=== PATIENT | male | born 1945 | race Caucasian/White ===

== ENCOUNTER 2017-05-09 12:09 | Emergency (ER) | payer OTHER ==
[2017-05-09 12:16] VITALS: BP 151/92; BMI 24.4
--- NOTE | 2017-05-09 12:32 | DR.GENAD ---
HPI - PCP Primary Care Physician: MASHA RAM - HPI Comment HPI Comment: GETTING WORSE. DID NOT SLEEP LAST NIGHT. CHEST PAIN FROM COUGHTING. HISTORY COPD. WHEEZING. - Complaint/Symptoms Chief Complaint Doctors Comments: INCRESING SOB, FEVER AND BODYACHES. Chief Complaint:: PATIENT STATED THAT HE STARTED BEING SHORT OF BREATH ON JORDI. BUT IT BECAME WORSE YESTERDAY. PATIENT STATED THAT HE COULD NOT HARDLY BREATH ALL NIGHT. - Nurses notes reviewed Nurses Notes Review: Yes - Source History Provided: Patient - Mode of Arrival Mode of Arrival: Ambulatory - Timing Onset of Chief Complaint: 05/06/17 Came on: Suddenly - Duration Duration: Constant Duration: Days - Severity Severity: Moderate PMH - PMH Past Medical History: Yes Past Medical History: COPD Past Surgical History: No - Family History History of Family Medical Conditions: No - Social History Does patient currently use any type of tobacco product: No Have you used tobacco products in the last 12 months: No Type of Tobacco Use: None Does any household member use tobacco: No Alcohol Use: None Do you use any recreational Drugs:: No Lives With: Spouse Lives Where: Home - infectious screening In the last 2 months have you had wt loss of >10#?: NO Have you had fever, night sweats or hemotysis?: No Have you traveled outside the country in the last 6 months?: No Isolation: Standard ROS - Review of Systems Constitutional: Chills, Fever, Weakness, Fatigue Eyes: negative: Eye Pain, Discharge ENTM: Nose Discharge, Nose Congestion, Throat Pain. negative: Ear Pain Respiratoy: Productive Cough, Short of Breath, Wheezing. negative: Hemoptysis Cardiovascular: Chest Pain Gastrointestinal/Abdominal: negative: Abdominal Pain, Constipation, Nausea, Vomiting Genitourinary: negative: Dysuria, Hematuria Neurological: Headache, Weakness, Dizziness Musculoskeletal: Muscle Pain Integumentary: No Symptoms Reported Hematologic/Lymphatic: No Symptoms Reported Endocrine: No Symptoms Reported All Other Systems: Reviewed and Negative PE - Vital Signs Vitals: Temperature 101.2 F Pulse Rate 115 Respiratory Rate 20 Blood Pressure 151/92 O2 Sat by Pulse Oximetry 92 - General Limitations: No Limitations General Appearance: Alert - Head Head Exam: Normal Inspection - Eyes Eye exam: Normal Appearance - ENT ENT Exam: Normal External Ear Exam External Ear Exam: Normal External Inspection TM/Canal Exam: Bilateral Bulging Nose Exam: Normal Nose Exam Mouth Exam: Normal Inspection Throat Exam: Tonsillar Erythema. negative: Tonsillomegaly - Neck Neck Exam: Trachea Midline - Chest Chest Inspection: Symmetric Chest Wall Rise - Respiratory Respiratory Exam: Normal Lung Sounds Bilat Respiratory Exam: Bilateral Wheezing, Bilateral Rhonchi, Upper Rhonchi, Lower Wheezing, Lower Rhonchi - Cardiovascular Cardiovascular Exam: Regular Rate, Normal Rhythm, Normal Heart Sounds - Abdominal Exam Abdominal Exam: Normal Bowel Sounds, Soft. negative: Tenderness - Extremities Extremities Exam: Normal Inspection - Back Back Exam: Normal Inspection - Neurologic Neurological Exam: Alert, Oriented X3 - Psychiatric Psychiatric Exam: Normal Affect, Normal Mood - Skin Skin Exam: Normal Color MDM - Differential Diagnosis Differential Diagnosis: FLU,PNEUMONIA, COPD, BRONCHITIS, SINUSITIS Course - Treatment Treatment: SEE ORDERS - Education/Counseling Education/Counseling: Patient, Family, Education Educated On: Treatment, Diagnosis, Needs for Follow Up ROR - Labs Reviewed Laboratory Results Reviewed?: Yes Result Diagrams: 05/09/17 13:10 05/09/17 13:10 Laboratory: WBC 15.2 X10^3/uL (3.6-10.0) H 05/09/17 13:10 RBC 5.36 X10^6/uL (4.7-6.0) 05/09/17 13:10 Hgb 15.0 g/dL (13.5-18.0) 05/09/17 13:10 Hct 44.5 % (42.0-54.0) 05/09/17 13:10 MCV 83.0 fL (80.0-100.0) 05/09/17 13:10 MCH 28.0 pg (27.0-34.0) 05/09/17 13:10 MCHC 33.7 g/dL (33.0-35.0) 05/09/17 13:10 RDW 13.1 % (11.6-16.5) 05/09/17 13:10 Plt Count 263 X10^3/uL (150.0-450.0) 05/09/17 13:10 Plt Count Comment Adequate (ADEQUATE) 05/09/17 13:10 MPV 9.0 fL (7.4-11.0) 05/09/17 13:10 Neut % 81.3 % (42.0-75.0) H 05/09/17 13:10 Lymph % 5.5 % (21.0-51.0) L 05/09/17 13:10 [place] % 11.7 % (0.0-13.0) 05/09/17 13:10 Eos % 1.1 % (0.9-2.9) 05/09/17 13:10 Baso % 0.4 % (0.2-1.0) 05/09/17 13:10 Neut # 12.3 x10^3/uL (2.2-4.8) H 05/09/17 13:10 Lymph # 0.8 X10^3/uL (1.3-2.9) L 05/09/17 13:10 [place] # 1.8 x10^3/uL (0.3-0.8) H 05/09/17 13:10 Eos # 0.2 x10^3/uL (0.0-0.2) 05/09/17 13:10 Baso # 0.1 X10^3/uL (0.0-0.1) 05/09/17 13:10 Absolute Nucleated RBC 0.0 /100WBC 05/09/17 13:10 Total Counted 100 05/09/17 13:10 Neutrophils % (Manual) 78 % (39-76) H 05/09/17 13:10 Band Neutrophils % 3 % (0-10) 05/09/17 13:10 Lymphocytes % (Manual) 8 % (13-43) L 05/09/17 13:10 Monocytes % (Manual) 7 % (4-9) 05/09/17 13:10 Eosinophils % (Manual) 4 % (0-6) 05/09/17 13:10 Plt Morphology Comment Normal (NORMAL) 05/09/17 13:10 RBC Morphology Normal (NORMAL) 05/09/17 13:10 Sodium 137 mmol/L (136-145) 05/09/17 13:10 Corrected Sodium 137 mmol/L (136-145) 05/09/17 13:10 Potassium 4.2 mmol/L (3.5-5.1) 05/09/17 13:10 Chloride 101 mmol/L (98-107) 05/09/17 13:10 Carbon Dioxide 28.6 mmol/L (21-32) 05/09/17 13:10 BUN 14 mg/dL (7-18) 05/09/17 13:10 Creatinine 1.21 mg/dL (0.70-1.30) 05/09/17 13:10 Est GFR (MDRD) Af Amer > 60 (>60) 05/09/17 13:10 Est GFR (MDRD) Non-Af > 60 (>60) 05/09/17 13:10 Glucose 111 mg/dL (65-99) H 05/09/17 13:10 Calcium 9.1 mg/dL (8.5-10.1) 05/09/17 13:10 Corrected Calcium TNP 05/09/17 13:10 Total Bilirubin 0.30 mg/dL (0.2-1.0) 05/09/17 13:10 AST 16 Units/L (15-37) 05/09/17 13:10 ALT 21 Units/L (12-78) 05/09/17 13:10 Alkaline Phosphatase 61 Units/L (46-116) 05/09/17 13:10 Total Protein 7.1 g/dL (6.4-8.2) 05/09/17 13:10 Albumin 3.5 g/dL (3.4-5.0) 05/09/17 13:10 Globulin 3.6 g/dL (2.5-4.5) 05/09/17 13:10 Albumin/Globulin Ratio 1.0 Ratio (1.1-2.1) L 05/09/17 13:10 Influenza Type A (PCR) Positive (NEGATIVE) A 05/09/17 12:24 Influenza Type B (PCR) Negative (NEGATIVE) 05/09/17 12:24 - XRAY XRAY Interpreted by: Radiologist XRAY Findings: REPORT DISCUSS WITH PATIENT AND FAMILY. - Diagnosis Discharge Problem: Influenza, Bronchitis, COPD exacerbation - Discharge Plan Disposition: HOME, SELF-CARE Condition: Stable Prescriptions: Acetaminophen with Codeine [Tylenol/Codeine #3 300-30 mg] 1 tab PO Q8H PRN #15 tab PRN Reason: Pain Doxycycline Hyclate 100 mg PO BID #20 tablet. Oseltamivir Phosphate [Tamiflu] 75 mg PO BID #10 cap - Follow ups/Referrals Follow ups/Referrals: AURELIO RAM [Primary Care Provider] - 3 days - Instructions Instructions: Chronic Obstructive Pulmonary Disease Exacerbation, [id number] , Influenza, Adult, [id number], Acute Bronchitis, [id number] Additional Instructions: RETURN TO ED IF WORSE.
[2017-05-09 13:17] LABS: BASOPHILS # (AUTO) 0.1 X10^3/uL (0.0-0.1); BASOPHILS % (AUTO) 0.4 % (0.2-1.0); EOSINOPHILS # (AUTO) 0.2 x10^3/uL (0.0-0.2); EOSINOPHILS % (AUTO) 1.1 % (0.9-2.9); HEMATOCRIT 44.5 % (42.0-54.0); LYMPHOCYTES # (AUTO) 0.8 X10^3/uL (1.3-2.9); LYMPHOCYTES % (AUTO) 5.5 % (21.0-51.0); MEAN CORPUSCULAR HGB CONC 33.7 g/dL (33.0-35.0); MONOCYTES # (AUTO) 1.8 x10^3/uL (0.3-0.8); MONOCYTES % (AUTO) 11.7 % (0.0-13.0); NEUTROPHILS # (AUTO) 12.3 x10^3/uL (2.2-4.8); NEUTROPHILS % (AUTO) 81.3 % (42.0-75.0); PLATELET COUNT 263 X10^3/uL (150.0-450.0); RED BLOOD COUNT 5.36 X10^6/uL (4.7-6.0); RED CELL DISTRIBUTION WIDTH 13.1 % (11.6-16.5); WHITE BLOOD COUNT 15.2 X10^3/uL (3.6-10.0)
[2017-05-09 13:39] LABS: ALANINE AMINOTRANSFERASE 21 Units/L (12-78); ALBUMIN 3.5 g/dL (3.4-5.0); ALKALINE PHOSPHATASE 61 Units/L (46-116); ASPARTATE AMINO TRANSFERASE 16 Units/L (15-37); BAND NEUTROPHILS % 3 % (0-10); BLOOD UREA NITROGEN 14 mg/dL (7-18); CALCIUM 9.1 mg/dL (8.5-10.1); CARBON DIOXIDE 28.6 mmol/L (21-32); CHLORIDE 101 mmol/L (98-107); COR NA(FOR HYPERGLY) 137 mmol/L (136-145); CREATININE 1.21 mg/dL (0.70-1.30); SODIUM 137 mmol/L (136-145); TOTAL PROTEIN 7.1 g/dL (6.4-8.2); eGFR BLACK RACES > 60 (>60); eGFR NON BLACK RACES > 60 (>60)
[2017-05-09 13:40] LABS: PLATELET MORPHOLOGY COMMENT NORMAL (NORMAL)
--- NOTE | 2017-05-09 13:48 | RAD ---
HISTORY: Fever, shortness of breath Study: Chest PA and lateral Comparison: None Findings: The heart is within normal limits in size. The khoi are normal. The lungs are hyperinflated but free of acute alveolar infiltrates. No pleural effusions are identified. The bony thorax is unremarkable. IMPRESSION: Lungs hyperinflated but clear Reported By:
[2017-05-09] MEDS ORDERED: ROCEPHIN VIAL 1 GM IM ONE (14:01)
[2017-05-09] MEDS ORDERED: DECADRON INJ IM ONE (14:01)
[2017-05-09] MEDS ORDERED: XYLOCAINE 1 % (PLAIN) ONE (14:10)
[2017-05-09] MEDS ORDERED: DECADRON INJ ONE (14:10)
[2017-05-09] MEDS ORDERED: ROCEPHIN VIAL 1 GM ONE (14:10)
== END 2017-05-09 14:23 | disposition home or self-care (01) ==
LOC: ER 12:11
DX: J11.1 Influenza due to unidentified influenza virus with other respiratory manifestations (principal); J40 Bronchitis, not specified as acute or chronic; J44.1 Chronic obstructive pulmonary disease with (acute) exacerbation
CPT/HCPCS: 36415; 71046; 80053; 85025; 87502; 96372; 99282; J0696; J1100; J2001

== ENCOUNTER 2019-05-28 19:20 | Inpatient (IN) ==
--- NOTE | 2019-05-28 20:01 | DR.SOBA ---
HPI <Lavell Valentine - Last Filed: 05/28/19 20:01> Time Seen Time Seen by Provider: 05/28/19 19:54 Primary Care Physician Primary Care Physician: MINA RAM HPI Comment HPI Comment: SOB, coughing Complaints Chief Complaint Doctors Comments: says coughing more than usual since yesterday. Has COPD and CHF. When she got home from work today, he had fever 102 and was confused. His BP was low and sats 78-80%. He wears 2lpm at home and normal sats 88-90%. Chief Complaint:: " STATES THAT SHE CAME HOME TODAY AND HE HAD SOME AMS FOR ABOUT A HOUR. HIS BLOOD PRESSURE WAS HIGH AND PULSE RATE HIGH AND OXYGEN LOW AND COMPLAINED OF A HEADACHE THAT HE HAS HAD FOR 2 DAYS. BEEN COUGHING BAD AND RUNNING A FEVER THAT JUST STARTED" Reviewed Nurses Notes Reviewed: Yes Source History Provided: Patient and Significant Other Mode of Arrival Mode of Arrival: Ambulatory Timing Onset of Chief Complaint: 05/28/19 Context Onset:: At Rest PE Risk Factors:: None History of:: COPD Currently on:: Inhaled Bronchodilators Modifying Factors Worsens:: Nothing Improves:: Nothing Associated Signs and Symptoms Associated Signs and Symptoms: Fever, Wheeze and Cough; denies Hemoptysis and Chest Pain If Cough Cough: Nonproductive PMH <Lavell Valentine - Last Filed: 05/28/19 20:01> PMH Past Medical History: Yes Past Medical History: CHF, COPD and Hypertension Past Surgical History: No Family History History of Family Medical Conditions: No Social History Does patient currently use any type of tobacco product: No Have you used tobacco products in the last 12 months: No Does any household member use tobacco: No Alcohol Use: None Do you use any recreational Drugs:: No Lives Where: Home infectious screening In the last 2 months have you had wt loss of >10#?: NO Have you had fever, night sweats or hemotysis?: No Have you traveled outside the country in the last 6 months?: No Isolation: Standard <Chun Arias - Last Filed: 05/28/19 23:21> Review of Systems Constitutional: Fever; negative Chills, Diaphoresis, Malaise, Weakness and Fatigue Eyes: No Symptoms Reported ENTM: No Symptoms Reported Respiratoy: Non-Productive Cough and Short of Breath; negative Productive Cough and Hemoptysis Cardiovascular: No Symptoms Reported Gastrointestinal/Abdominal: No Symptoms Reported Genitourinary: No Symptoms Reported Neurological: No Symptoms Reported Musculoskeletal: No Symptoms Reported Integumentary: No Symptoms Reported Hematologic/Lymphatic: No Symptoms Reported Endocrine: No Symptoms Reported Psychiatric: No Symptoms Reported All Other Systems: Reviewed and Negative PE <Lavell Valentine Last Filed: 05/28/19 20:01> Vital Signs Vitals: Temperature 98.8 F Pulse Rate 98 Respiratory Rate 60 Blood Pressure [Right Arm] 110/66 Blood Pressure 116/75 O2 Sat by Pulse Oximetry 92 <Chun Arias Last Filed: 05/28/19 23:21> Vital Signs Vitals: Temperature 98.8 F Pulse Rate 98 Respiratory Rate 60 Blood Pressure [Right Arm] 110/66 Blood Pressure 116/75 O2 Sat by Pulse Oximetry 92 General Limitations: No Limitations General Appearance: Alert and In Distress (mild) Head Head Exam: Normal Inspection Eyes Eye exam: Normal Appearance ENT ENT Exam: Normal Exam Neck Neck Exam: Normal Inspection Chest Chest Inspection: Normal Inspection Respiratory Respiratory Exam: negative Accessory Muscle Use, Chest Wall Tenderness, Respiratory Distress and Stridor Respiratory Exam: Bilateral: Clear to Auscultation and Bilateral: Rhonchi Cardiovascular Cardiovascular Exam: Regular Rate and Normal Rhythm Abdominal Exam Abdominal Exam: Normal Inspection, Normal Bowel Sounds and Soft Extremities Extremities Exam: Normal Inspection Back Back Exam: Normal Inspection Neurologic Neurological Exam: Alert and Oriented X3 Psychiatric Psychiatric Exam: Normal Affect and Normal Mood Skin Skin Exam: Warm, Dry, Intact and Normal Color <Chun Arias Last Filed: 05/28/19 23:21> Treatment Treatment: Pt. sat 96% on NRB. ROR <Lavell Valentine - Last Filed: 05/28/19 20:01> Labs Reviewed Result Diagrams: 05/28/19 19:50 05/28/19 19:50 Laboratory: WBC 19.8 X10^3/uL (3.6-10.0) H 05/28/19 19:50 RBC 4.64 X10^6/uL (4.7-6.0) L 05/28/19 19:50 Hgb 11.9 g/dL (13.5-18.0) L 05/28/19 19:50 Hct 35.9 % (42.0-54.0) L 05/28/19 19:50 MCV 77.4 fL (80.0-100.0) L 05/28/19 19:50 MCH 25.6 pg (27.0-34.0) L 05/28/19 19:50 MCHC 33.1 g/dL (33.0-35.0) 05/28/19 19:50 RDW 16.1 % (11.6-16.5) 05/28/19 19:50 Plt Count 284 X10^3/uL (150.0-450.0) 05/28/19 19:50 Plt Count Comment Adequate (ADEQUATE) 05/28/19 19:50 MPV 9.2 fL (7.4-11.0) 05/28/19 19:50 Neut % (Auto) 86.8 % (42.0-75.0) H 05/28/19 19:50 Lymph % (Auto) 4.1 % (21.0-51.0) L 05/28/19 19:50 [place] % (Auto) 8.6 % (0.0-13.0) 05/28/19 19:50 Eos % (Auto) 0.2 % (0.9-2.9) L 05/28/19 19:50 Baso % (Auto) 0.3 % (0.2-1.0) 05/28/19 19:50 Neut # (Auto) 17.2 x10^3/uL (2.2-4.8) H 05/28/19 19:50 Lymph # (Auto) 0.8 X10^3/uL (1.3-2.9) L 05/28/19 19:50 [place] # (Auto) 1.7 x10^3/uL (0.3-0.8) H 05/28/19 19:50 Eos # (Auto) 0.0 x10^3/uL (0.0-0.2) 05/28/19 19:50 Baso # (Auto) 0.1 X10^3/uL (0.0-0.1) 05/28/19 19:50 Absolute Nucleated RBC 0.0 /100WBC 05/28/19 19:50 Plt Morphology Comment Normal (NORMAL) 05/28/19 19:50 RBC Morphology Normal (NORMAL) 05/28/19 19:50 D-Dimer 479 ng/mL (0-400) H* 05/28/19 20:12 Sample Site Rr 05/28/19 20:15 ABG pH 7.470 (7.35-7.45) H 05/28/19 20:15 ABG pCO2 38.0 mmHg (35.0-45.0) 05/28/19 20:15 ABG pO2 51.0 mmHg (80.0-100.0) L 05/28/19 20:15 ABG HCO3 27.7 mmol/L (22-26) H 05/28/19 20:15 ABG O2 Saturation 88.0 % (90-100) L 05/28/19 20:15 ABG Base Excess 3.9 mmol/L (-2.0-2.0) H 05/28/19 20:15 Aris Test P 05/28/19 20:15 A-a Gradient 130.0 mmHg 05/28/19 20:15 FiO2 32.0 05/28/19 20:15 Blood Gas Comments Louisa well 05/28/19 20:15 Sodium 131 mmol/L (136-145) L 05/28/19 19:50 Corrected Sodium 133 mmol/L (136-145) L 05/28/19 19:50 Potassium 4.0 mmol/L (3.5-5.1) 05/28/19 19:50 Chloride 97 mmol/L (98-107) L 05/28/19 19:50 Carbon Dioxide 26.8 mmol/L (21-32) 05/28/19 19:50 BUN 17 mg/dL (7-18) 05/28/19 19:50 Creatinine 1.76 mg/dL (0.70-1.30) H 05/28/19 19:50 Est GFR (MDRD) Af Amer 49 (>60) L 05/28/19 19:50 Est GFR (MDRD) Non-Af 41 (>60) L 05/28/19 19:50 Glucose 171 mg/dL (65-99) H 05/28/19 19:50 Lactic Acid 1.4 mmol/L (0.4-2.0) 05/28/19 19:50 Calcium 8.7 mg/dL (8.5-10.1) 05/28/19 19:50 Corrected Calcium 9.3 mg/dL (8.5-10.1) 05/28/19 19:50 Magnesium 1.3 mg/dL (1.7-2.9) L 05/28/19 19:50 Total Bilirubin 0.50 mg/dL (0.2-1.0) 05/28/19 19:50 AST 17 Units/L (15-37) 05/28/19 19:50 ALT 21 Units/L (12-78) 05/28/19 19:50 Alkaline Phosphatase 56 Units/L (46-116) 05/28/19 19:50 Troponin I < 0.02 ng/mL (0-1.5) 05/28/19 20:12 Total Protein 7.3 g/dL (6.4-8.2) 05/28/19 19:50 Albumin 3.2 g/dL (3.4-5.0) L 05/28/19 19:50 Globulin 4.1 g/dL (2.5-4.5) 05/28/19 19:50 Albumin/Globulin Ratio 0.8 Ratio (1.1-2.1) L 05/28/19 19:50 Specimen Type Clean catch urine 05/28/19 22:44 Urine Color Yellow (YELLOW) 05/28/19 22:44 Urine Appearance Slightly hazy (CLEAR) 05/28/19 22:44 Urine pH 8.0 (5.0 - 8.0) 05/28/19 22:44 Ur Specific [place] 1.015 (1.000-1.030) 05/28/19 22:44 Urine Protein 1+ (NEGATIVE) 05/28/19 22:44 Urine Glucose (UA) Negative (NEGATIVE) 05/28/19 22:44 Urine Ketones Negative (NEGATIVE) 05/28/19 22:44 Urine Occult Blood 1+ (NEGATIVE) 05/28/19 22:44 Urine Nitrite Negative (NEGATIVE) 05/28/19 22:44 Urine Bilirubin Negative (NEGATIVE) 05/28/19 22:44 Urine Urobilinogen Normal (NORMAL) 05/28/19 22:44 Ur Leukocyte Esterase 3+ (NEGATIVE) 05/28/19 22:44 Urine RBC 0-2 /HPF (0-3) 05/28/19 22:44 Urine WBC 20-30 /HPF (0-5) A 05/28/19 22:44 Ur Squamous Epith Cells Rare /HPF (NEGATIVE) 05/28/19 22:44 Urine Bacteria 4+ /HPF (NEGATIVE) 05/28/19 22:44 Ur Culture Indicated? Yes/culture set up 05/28/19 22:44 Influenza Type A (PCR) Negative (NEGATIVE) 05/28/19 22:32 Influenza Type B (PCR) Negative (NEGATIVE) 05/28/19 22:32 <Chun Onofree - Last Filed: 05/28/19 23:21> Labs Reviewed Laboratory Results Reviewed?: Yes Laboratory: WBC 19.8 X10^3/uL (3.6-10.0) H 05/28/19 19:50 RBC 4.64 X10^6/uL (4.7-6.0) L 05/28/19 19:50 Hgb 11.9 g/dL (13.5-18.0) L 05/28/19 19:50 Hct 35.9 % (42.0-54.0) L 05/28/19 19:50 MCV 77.4 fL (80.0-100.0) L 05/28/19 19:50 MCH 25.6 pg (27.0-34.0) L 05/28/19 19:50 MCHC 33.1 g/dL (33.0-35.0) 05/28/19 19:50 RDW 16.1 % (11.6-16.5) 05/28/19 19:50 Plt Count 284 X10^3/uL (150.0-450.0) 05/28/19 19:50 Plt Count Comment Adequate (ADEQUATE) 05/28/19 19:50 MPV 9.2 fL (7.4-11.0) 05/28/19 19:50 Neut % (Auto) 86.8 % (42.0-75.0) H 05/28/19 19:50 Lymph % (Auto) 4.1 % (21.0-51.0) L 05/28/19 19:50 [place] % (Auto) 8.6 % (0.0-13.0) 05/28/19 19:50 Eos % (Auto) 0.2 % (0.9-2.9) L 05/28/19 19:50 Baso % (Auto) 0.3 % (0.2-1.0) 05/28/19 19:50 Neut # (Auto) 17.2 x10^3/uL (2.2-4.8) H 05/28/19 19:50 Lymph # (Auto) 0.8 X10^3/uL (1.3-2.9) L 05/28/19 19:50 [place] # (Auto) 1.7 x10^3/uL (0.3-0.8) H 05/28/19 19:50 Eos # (Auto) 0.0 x10^3/uL (0.0-0.2) 05/28/19 19:50 Baso # (Auto) 0.1 X10^3/uL (0.0-0.1) 05/28/19 19:50 Absolute Nucleated RBC 0.0 /100WBC 05/28/19 19:50 Plt Morphology Comment Normal (NORMAL) 05/28/19 19:50 RBC Morphology Normal (NORMAL) 05/28/19 19:50 D-Dimer 479 ng/mL (0-400) H* 05/28/19 20:12 Sample Site Rr 05/28/19 20:15 ABG pH 7.470 (7.35-7.45) H 05/28/19 20:15 ABG pCO2 38.0 mmHg (35.0-45.0) 05/28/19 20:15 ABG pO2 51.0 mmHg (80.0-100.0) L 05/28/19 20:15 ABG HCO3 27.7 mmol/L (22-26) H 05/28/19 20:15 ABG O2 Saturation 88.0 % (90-100) L 05/28/19 20:15 ABG Base Excess 3.9 mmol/L (-2.0-2.0) H 05/28/19 20:15 Aris Test P 05/28/19 20:15 A-a Gradient 130.0 mmHg 05/28/19 20:15 FiO2 32.0 05/28/19 20:15 Blood Gas Comments Louisa well 05/28/19 20:15 Sodium 131 mmol/L (136-145) L 05/28/19 19:50 Corrected Sodium 133 mmol/L (136-145) L 05/28/19 19:50 Potassium 4.0 mmol/L (3.5-5.1) 05/28/19 19:50 Chloride 97 mmol/L (98-107) L 05/28/19 19:50 Carbon Dioxide 26.8 mmol/L (21-32) 05/28/19 19:50 BUN 17 mg/dL (7-18) 05/28/19 19:50 Creatinine 1.76 mg/dL (0.70-1.30) H 05/28/19 19:50 Est GFR (MDRD) Af Amer 49 (>60) L 05/28/19 19:50 Est GFR (MDRD) Non-Af 41 (>60) L 05/28/19 19:50 Glucose 171 mg/dL (65-99) H 05/28/19 19:50 Lactic Acid 1.4 mmol/L (0.4-2.0) 05/28/19 19:50 Calcium 8.7 mg/dL (8.5-10.1) 05/28/19 19:50 Corrected Calcium 9.3 mg/dL (8.5-10.1) 05/28/19 19:50 Magnesium 1.3 mg/dL (1.7-2.9) L 05/28/19 19:50 Total Bilirubin 0.50 mg/dL (0.2-1.0) 05/28/19 19:50 AST 17 Units/L (15-37) 05/28/19 19:50 ALT 21 Units/L (12-78) 05/28/19 19:50 Alkaline Phosphatase 56 Units/L (46-116) 05/28/19 19:50 Troponin I < 0.02 ng/mL (0-1.5) 05/28/19 20:12 Total Protein 7.3 g/dL (6.4-8.2) 05/28/19 19:50 Albumin 3.2 g/dL (3.4-5.0) L 05/28/19 19:50 Globulin 4.1 g/dL (2.5-4.5) 05/28/19 19:50 Albumin/Globulin Ratio 0.8 Ratio (1.1-2.1) L 05/28/19 19:50 Specimen Type Clean catch urine 05/28/19 22:44 Urine Color Yellow (YELLOW) 05/28/19 22:44 Urine Appearance Slightly hazy (CLEAR) 05/28/19 22:44 Urine pH 8.0 (5.0 - 8.0) 05/28/19 22:44 Ur Specific [place] 1.015 (1.000-1.030) 05/28/19 22:44 Urine Protein 1+ (NEGATIVE) 05/28/19 22:44 Urine Glucose (UA) Negative (NEGATIVE) 05/28/19 22:44 Urine Ketones Negative (NEGATIVE) 05/28/19 22:44 Urine Occult Blood 1+ (NEGATIVE) 05/28/19 22:44 Urine Nitrite Negative (NEGATIVE) 05/28/19 22:44 Urine Bilirubin Negative (NEGATIVE) 05/28/19 22:44 Urine Urobilinogen Normal (NORMAL) 05/28/19 22:44 Ur Leukocyte Esterase 3+ (NEGATIVE) 05/28/19 22:44 Urine RBC 0-2 /HPF (0-3) 05/28/19 22:44 Urine WBC 20-30 /HPF (0-5) A 05/28/19 22:44 Ur Squamous Epith Cells Rare /HPF (NEGATIVE) 05/28/19 22:44 Urine Bacteria 4+ /HPF (NEGATIVE) 05/28/19 22:44 Ur Culture Indicated? Yes/culture set up 05/28/19 22:44 Influenza Type A (PCR) Negative (NEGATIVE) 05/28/19 22:32 Influenza Type B (PCR) Negative (NEGATIVE) 05/28/19 22:32 Other Results Comments: HISTORY BLOOD PRESSURE WAS HIGH AND PULSE RATE HIGH AND OXYGEN LOW AND COMPLAINED OF A HEADACHE, COUGH, FEVER STUDY CHEST, 1 VIEW COMPARISON May 17, 2018 FINDINGS The patient is rotated. The cardiac silhouette is enlarged. Chronic appearing interstitial changes are again seen within both lungs. IMPRESSION Cardiomegaly. Chronic appearing interstitial changes. Electronically signed by: RADHA VILLEGAS (May 28, 2019 20:33:14) EKG Rate: 96 (EKG read by me) [place]: Normal Rhythm: NSR Block: None Hypertrophy: None ST: Normal Opioid <Lavell Valentine - Last Filed: 05/28/19 20:01> Opioid Risk Tool Total: 0 Total Score Risk Category: Low Risk Copyright: [facility] predicting aberrant behaviors <Chun Arias - Last Filed: 05/28/19 23:21> Opioid Risk Tool Total: 0 Total Score Risk Category: Low Risk <Lavell Valentine - Last Filed: 05/28/19 20:01> Diagnosis Discharge Problem: COPD with hypoxia, Leukocytosis COPD (chronic obstructive pulmonary disease) Qualifiers: COPD type: COPD with acute lower respiratory infection Qualified Code(s): J44.0 - Chronic obstructive pulmonary disease with (acute) lower respiratory infection Fever Qualifiers: Encounter type: initial encounter <Chun Arias - Last Filed: 05/28/19 23:21> Additional Notes Additional Notes: Pt. has not been on any steroids recently.
[2019-05-28 20:13] LABS: BASOPHILS # (AUTO) 0.1 X10^3/uL (0.0-0.1); BASOPHILS % (AUTO) 0.3 % (0.2-1.0); EOSINOPHILS % (AUTO) 0.2 % (0.9-2.9); HEMATOCRIT 35.9 % (42.0-54.0); HEMOGLOBIN 11.9 g/dL (13.5-18.0); LYMPHOCYTES # (AUTO) 0.8 X10^3/uL (1.3-2.9); LYMPHOCYTES % (AUTO) 4.1 % (21.0-51.0); MEAN CORPUSCULAR HEMOGLOBIN 25.6 pg (27.0-34.0); MEAN CORPUSCULAR HGB CONC 33.1 g/dL (33.0-35.0); MEAN CORPUSCULAR VOLUME 77.4 fL (80.0-100.0); MEAN PLATELET VOLUME 9.2 fL (7.4-11.0); MONOCYTES # (AUTO) 1.7 x10^3/uL (0.3-0.8); MONOCYTES % (AUTO) 8.6 % (0.0-13.0); NEUTROPHILS # (AUTO) 17.2 x10^3/uL (2.2-4.8); NEUTROPHILS % (AUTO) 86.8 % (42.0-75.0); PLATELET COUNT 284 X10^3/uL (150.0-450.0); RED BLOOD COUNT 4.64 X10^6/uL (4.7-6.0); RED CELL DISTRIBUTION WIDTH 16.1 % (11.6-16.5); WHITE BLOOD COUNT 19.8 X10^3/uL (3.6-10.0)
[2019-05-28 20:16] LABS: PLATELET MORPHOLOGY COMMENT NORMAL (NORMAL)
[2019-05-28 20:19] LABS: ALBUMIN 3.2 g/dL (3.4-5.0); CALCIUM 8.7 mg/dL (8.5-10.1); CARBON DIOXIDE 26.8 mmol/L (21-32); COR CA(FOR HYPOALB) 9.3 mg/dL (8.5-10.1); CREATININE 1.76 mg/dL (0.70-1.30); MAGNESIUM 1.3 mg/dL (1.7-2.9); TOTAL PROTEIN 7.3 g/dL (6.4-8.2)
--- NOTE | 2019-05-28 20:34 | RAD ---
HISTORYBLOOD PRESSURE WAS HIGH AND PULSE RATE HIGH AND OXYGEN LOW AND COMPLAINED OF A HEADACHE, COUGH, FEVERSTUDYCHEST, 1 VIEWCOMPARISONJanuary 2018FINDINGSThe patient is rotated. The cardiac silhouette is enlarged. Chronic appearing interstitial changes are again seen within both lungs.IMPRESSIONCardiomegaly.Chronic appearing interstitial changes.Electronically signed by: RADHA VILLEGAS (May 28, 2019 20:33:14)
[2019-05-28 20:36] LABS: ABG ALLEN TEST P; ABG BASE EXCESS 3.9 mmol/L (-2.0-2.0); ABG HCO3 27.7 mmol/L (22-26)
[2019-05-28 20:37] LABS: LACTIC ACID 1.4 mmol/L (0.4-2.0)
[2019-05-28] MEDS ORDERED: DUONEB 0.5 MG/3 MG (3 mL) NEB ONE ×2 (21:44→21:50)
[2019-05-28 21:53] LABS: TROPONIN I < 0.02 ng/mL (0-1.5)
[2019-05-28] MEDS ORDERED: LEVAQUIN PREMIX IV 750 MG 750 MG/150 ML BAG IV SCH (22:00)
[2019-05-28] MEDS ORDERED: NS 1000 ML 1,000 ML ONE (22:21)
[2019-05-28] MEDS ORDERED: LEVAQUIN PREMIX IV 750 MG 750 MG/150 ML BAG IV ONE (22:21)
[2019-05-28 22:53] LABS: BILIRUBIN,URINE NEGATIVE (NEGATIVE); BLOOD/HEMOGLOBIN,URINE 1+ (NEGATIVE); GLUCOSE, URINE NEGATIVE (NEGATIVE); KETONES,URINE NEGATIVE (NEGATIVE); LEUKOCYTE ESTERASE ,URINE 3+ (NEGATIVE); NITRITES,URINE NEGATIVE (NEGATIVE); PROTEIN,URINE 1+ (NEGATIVE); UROBILINOGEN,URINE NORMAL (NORMAL)
[2019-05-28 22:59] LABS: APPEARANCE,URINE SLIGHTLY HAZY (CLEAR); BACTERIA,URINE 4+ /HPF (NEGATIVE); COLOR,URINE YELLOW (YELLOW); RBC,URINE 0-2 /HPF (0-3); SQUAMOUS EPITHELIAL CELL,UR RARE /HPF (NEGATIVE)
[2019-05-29] MEDS ORDERED: AMBIEN ONE (01:56)
[2019-05-29] MEDS: AMBIEN PO PRN ×2 (02:00→21:52)
[2019-05-29 04:16] VITALS: BMI 27.5
[2019-05-29] MEDS: DUONEB 0.5 MG/3 MG (3 mL) NEB SCH ×6 (05:22→20:45)
[2019-05-29 05:54] LABS: BILIRUBIN,URINE NEGATIVE (NEGATIVE); BLOOD/HEMOGLOBIN,URINE 2+ (NEGATIVE); GLUCOSE, URINE NEGATIVE (NEGATIVE); KETONES,URINE NEGATIVE (NEGATIVE); LEUKOCYTE ESTERASE ,URINE 3+ (NEGATIVE); NITRITES,URINE POSITIVE (NEGATIVE); PROTEIN,URINE 2+ (NEGATIVE); UROBILINOGEN,URINE NORMAL (NORMAL)
[2019-05-29 06:07] LABS: APPEARANCE,URINE CLOUDY (CLEAR); BACTERIA,URINE 4+ /HPF (NEGATIVE); COLOR,URINE YELLOW (YELLOW); SQUAMOUS EPITHELIAL CELL,UR RARE /HPF (NEGATIVE)
[2019-05-29] MEDS ORDERED: MAGNESIUM SULFATE 1 GRAM/100 mL PREMIX 1 GM/100 ML BAG IV STA (08:42)
[2019-05-29 09:04] LABS: BASOPHILS # (AUTO) 0.1 X10^3/uL (0.0-0.1); BASOPHILS % (AUTO) 0.6 % (0.2-1.0); EOSINOPHILS # (AUTO) 0.1 x10^3/uL (0.0-0.2); EOSINOPHILS % (AUTO) 0.3 % (0.9-2.9); HEMATOCRIT 34.3 % (42.0-54.0); HEMOGLOBIN 11.3 g/dL (13.5-18.0); LYMPHOCYTES # (AUTO) 0.7 X10^3/uL (1.3-2.9); LYMPHOCYTES % (AUTO) 4.2 % (21.0-51.0); MEAN CORPUSCULAR HEMOGLOBIN 25.7 pg (27.0-34.0); MEAN CORPUSCULAR VOLUME 77.9 fL (80.0-100.0); MEAN PLATELET VOLUME 9.1 fL (7.4-11.0); MONOCYTES # (AUTO) 1.3 x10^3/uL (0.3-0.8); MONOCYTES % (AUTO) 7.5 % (0.0-13.0); NEUTROPHILS # (AUTO) 15.6 x10^3/uL (2.2-4.8); NEUTROPHILS % (AUTO) 87.4 % (42.0-75.0); PLATELET COUNT 256 X10^3/uL (150.0-450.0); RED CELL DISTRIBUTION WIDTH 15.7 % (11.6-16.5); WHITE BLOOD COUNT 17.8 X10^3/uL (3.6-10.0)
[2019-05-29 09:12] LABS: PLATELET MORPHOLOGY COMMENT NORMAL (NORMAL)
[2019-05-29 09:20] LABS: ALBUMIN 2.9 g/dL (3.4-5.0); CALCIUM 8.7 mg/dL (8.5-10.1); CARBON DIOXIDE 25.9 mmol/L (21-32); COR CA(FOR HYPOALB) 9.6 mg/dL (8.5-10.1); CREATININE 1.61 mg/dL (0.70-1.30); MAGNESIUM 1.4 mg/dL (1.7-2.9); TOTAL PROTEIN 6.9 g/dL (6.4-8.2)
[2019-05-29] MEDS: ROCEPHIN VIAL 1 GRAM 1 G in NS 100 ML IV + SPIKE MINIBAG* 100 ML IV SCH ×2 (09:45→09:47)
[2019-05-29] MEDS: SYNTHROID 25 mcg TAB PO SCH (09:45)
[2019-05-29] MEDS: CELEXA PO SCH (09:45)
[2019-05-29] MEDS: SOLU-Medrol 125 MG VIAL IVP SCH ×3 (09:46→21:21)
[2019-05-29] MEDS: PriLOSEC PO SCH (09:46)
--- NOTE | 2019-05-29 10:13 | DR.H&P ---
H&P History & Physical for Day of: H&P Date: 05/29/19 Chief Complaint Chief Complaint: SOB, fever , cough Allergies Allergies Allergy/AdvReac Type Severity Reaction Status Date / Time No Known Drug Allergies Allergy Verified 05/09/17 12:09 History of Present Illness History of Present Illness: Mr. Saleem is a 73y/o male with a PMH of Severe COPD on home oxygen 2 L, HTN and CHF presented with worsening breathing and cough. reports patient has not been doing well for a week with coughing, worsening SOB at rest and exertion. Yesterday, after she got home, she noticed that he was confused and his O2 sats were in the 70s. Patient has been using oxygen for 6 months but only uses it as needed. He was also recently diagnosed with CHF by PCP due to weight gain and started on diuretic a week ago. ED work up showed CXR negative for pneumonia, Flu (-). He was noted to be hypoxic requiring non-rebreather. ABG showed 7.47/38/51/27. He was admitted for COPD exacerbation/bronchitis and given one dose of Levaquin and solumedrol. Patient's Mg was 1.3, troponin x 1 (-). UA suggestive of infection, blood and urine cultures were obtained. Past Medical History Past Medical History: CHF, COPD and Hypertension Past Surgical History Surgical History: Thyroidectomy Family History Family Medical History: Cancer and Hypertension Social History Does patient currently use any type of tobacco product: No (quit 3wks ago) Have you used tobacco products in the last 12 months: Yes Type of Tobacco Use: Cigarettes How many years tobacco product used: 57 Does any household member use tobacco: No Alcohol Use: None Drug Use: None Prescription drug monitoring program results: PDMP was not reviewed Medications Home Medications: No Known Drug Allergies Allergy (Verified 05/09/17 12:09) CONTINUE taking the following medications citalopram 10 mg PO DAILY 05/28/19 [History] fenofibrate 160 mg PO HS 05/28/19 [History] furosemide 20 mg PO DAILY 05/28/19 [History] levothyroxine 25 mcg PO DAILY 05/28/19 [History] lisinopril 5 mg PO DAILY 05/28/19 [History] omeprazole 40 mg PO DAILY 05/28/19 [History] potassium chloride 10 meq PO DAILY 05/28/19 [History] pramipexole 0.125 mg PO HS 05/28/19 [History] simvastatin [Zocor] 10 mg PO HS 05/28/19 [History] zolpidem 10 mg PO HS 05/28/19 [History] Labs Result Diagrams: 05/29/19 08:55 05/29/19 08:55 Labs: Laboratory WBC 17.8 X10^3/uL (3.6-10.0) H 05/29/19 08:55 RBC 4.40 X10^6/uL (4.7-6.0) L 05/29/19 08:55 Hgb 11.3 g/dL (13.5-18.0) L 05/29/19 08:55 Hct 34.3 % (42.0-54.0) L 05/29/19 08:55 MCV 77.9 fL (80.0-100.0) L 05/29/19 08:55 MCH 25.7 pg (27.0-34.0) L 05/29/19 08:55 MCHC 33.0 g/dL (33.0-35.0) 05/29/19 08:55 RDW 15.7 % (11.6-16.5) 05/29/19 08:55 Plt Count 256 X10^3/uL (150.0-450.0) 05/29/19 08:55 Plt Count Comment Adequate (ADEQUATE) 05/29/19 08:55 MPV 9.1 fL (7.4-11.0) 05/29/19 08:55 Neut % (Auto) 87.4 % (42.0-75.0) H 05/29/19 08:55 Lymph % (Auto) 4.2 % (21.0-51.0) L 05/29/19 08:55 [place] % (Auto) 7.5 % (0.0-13.0) 05/29/19 08:55 Eos % (Auto) 0.3 % (0.9-2.9) L 05/29/19 08:55 Baso % (Auto) 0.6 % (0.2-1.0) 05/29/19 08:55 Neut # (Auto) 15.6 x10^3/uL (2.2-4.8) H 05/29/19 08:55 Lymph # (Auto) 0.7 X10^3/uL (1.3-2.9) L 05/29/19 08:55 [place] # (Auto) 1.3 x10^3/uL (0.3-0.8) H 05/29/19 08:55 Eos # (Auto) 0.1 x10^3/uL (0.0-0.2) 05/29/19 08:55 Baso # (Auto) 0.1 X10^3/uL (0.0-0.1) 05/29/19 08:55 Absolute Nucleated RBC 0.0 /100WBC 05/29/19 08:55 Plt Morphology Comment Normal (NORMAL) 05/29/19 08:55 RBC Morphology Normal (NORMAL) 05/29/19 08:55 D-Dimer 479 ng/mL (0-400) H* 05/28/19 20:12 Sample Site Rr 05/28/19 20:15 ABG pH 7.470 (7.35-7.45) H 05/28/19 20:15 ABG pCO2 38.0 mmHg (35.0-45.0) 05/28/19 20:15 ABG pO2 51.0 mmHg (80.0-100.0) L 05/28/19 20:15 ABG HCO3 27.7 mmol/L (22-26) H 05/28/19 20:15 ABG O2 Saturation 88.0 % (90-100) L 05/28/19 20:15 ABG Base Excess 3.9 mmol/L (-2.0-2.0) H 05/28/19 20:15 Aris Test P 05/28/19 20:15 A-a Gradient 130.0 mmHg 05/28/19 20:15 FiO2 32.0 05/28/19 20:15 Blood Gas Comments Louisa well 05/28/19 20:15 Sodium 129 mmol/L (136-145) L 05/29/19 08:55 Corrected Sodium 131 mmol/L (136-145) L 05/29/19 08:55 Potassium 4.2 mmol/L (3.5-5.1) 05/29/19 08:55 Chloride 96 mmol/L (98-107) L 05/29/19 08:55 Carbon Dioxide 25.9 mmol/L (21-32) 05/29/19 08:55 BUN 15 mg/dL (7-18) 05/29/19 08:55 Creatinine 1.61 mg/dL (0.70-1.30) H 05/29/19 08:55 Est GFR (MDRD) Af Amer 55 (>60) L 05/29/19 08:55 Est GFR (MDRD) Non-Af 45 (>60) L 05/29/19 08:55 Glucose 179 mg/dL (65-99) H 05/29/19 08:55 Lactic Acid 1.4 mmol/L (0.4-2.0) 05/28/19 19:50 Calcium 8.7 mg/dL (8.5-10.1) 05/29/19 08:55 Corrected Calcium 9.6 mg/dL (8.5-10.1) 05/29/19 08:55 Magnesium 1.4 mg/dL (1.7-2.9) L 05/29/19 08:55 Total Bilirubin 0.60 mg/dL (0.2-1.0) 05/29/19 08:55 AST 17 Units/L (15-37) 05/29/19 08:55 ALT 15 Units/L (12-78) 05/29/19 08:55 Alkaline Phosphatase 53 Units/L (46-116) 05/29/19 08:55 Troponin I < 0.02 ng/mL (0-1.5) 05/28/19 20:12 Total Protein 6.9 g/dL (6.4-8.2) 05/29/19 08:55 Albumin 2.9 g/dL (3.4-5.0) L 05/29/19 08:55 Globulin 4.0 g/dL (2.5-4.5) 05/29/19 08:55 Albumin/Globulin Ratio 0.7 Ratio (1.1-2.1) L 05/29/19 08:55 Specimen Type Catherized urine 05/29/19 05:44 Urine Color Yellow (YELLOW) 05/29/19 05:44 Urine Appearance Cloudy (CLEAR) 05/29/19 05:44 Urine pH 7.0 (5.0 - 8.0) 05/29/19 05:44 Ur Specific [place] 1.005 (1.000-1.030) 05/29/19 05:44 Urine Protein 2+ (NEGATIVE) 05/29/19 05:44 Urine Glucose (UA) Negative (NEGATIVE) 05/29/19 05:44 Urine Ketones Negative (NEGATIVE) 05/29/19 05:44 Urine Occult Blood 2+ (NEGATIVE) 05/29/19 05:44 Urine Nitrite Positive (NEGATIVE) 05/29/19 05:44 Urine Bilirubin Negative (NEGATIVE) 05/29/19 05:44 Urine Urobilinogen Normal (NORMAL) 05/29/19 05:44 Ur Leukocyte Esterase 3+ (NEGATIVE) 05/29/19 05:44 Urine RBC 3-5 /HPF (0-3) A 05/29/19 05:44 Urine WBC 20-30 /HPF (0-5) A 05/29/19 05:44 Ur Squamous Epith Cells Rare /HPF (NEGATIVE) 05/29/19 05:44 Urine Bacteria 4+ /HPF (NEGATIVE) 05/29/19 05:44 Ur Culture Indicated? Yes/culture set up 05/29/19 05:44 Influenza Type A (PCR) Negative (NEGATIVE) 05/28/19 22:32 Influenza Type B (PCR) Negative (NEGATIVE) 05/28/19 22:32 Review of Systems Constitutional: Fever and Weakness Eyes: No Symptoms Reported ENT: Nose Congestion Respiratory: Cough, Shortness of Breath, SOB with Excertion and Sputum Cardiovascular: denies Chest Pain, Palpitations and Edema Gastrointestinal: denies Nausea, Vomiting and Abdominal Pain Genitourinary: Dysuria and Frequency Musculoskeletal: No Symptoms Reported Skin: No Symptoms Reported Neurological: Confusion Physical Exam Vital Signs: Temperature 100.4 F Pulse Rate [Apical] 93 Pulse Rate 106 Respiratory Rate 20 Blood Pressure [Right Arm] 107/63 Blood Pressure 123/63 O2 Sat by Pulse Oximetry 90 Oriented: Normal Eyes: Normal Throat: Normal Respiratory: Diminished Throughout Cardiovascular: Tachycardia Auscultation: Bowel Sounds: Normal Palpation: Normal Tenderness: Normal Skin: Normal Musculoskeletal: Normal Psychiatric: Normal Mood Description: Calm Affect: Normal Speech Pattern: Clear and Appropriate Assessment/Plan (1) Acute on chronic respiratory failure with hypoxia: Status: Acute Plan: Due to underlying severe COPD Continue to titrate oxygen as tolerated, sats > 90% Continue duonebs, IV abx Repeat CXR today (2) COPD exacerbation: Status: Acute Plan: Severe COPD, uses 2L oxygen at home Continue solumedrol 60 mg q8hrs, duonebs, Rocephin and Azithromycin Follow cultures (3) UTI (urinary tract infection): Qualifiers: Hematuria presence: without hematuria Urinary tract infection type: acute cystitis Qualified Code(s): N30.00 - Acute cystitis without hematuria Status: Acute Plan: UA suggestive of infection, patient reports dyuria Follow urine culture Continue Rocephin (4) AMBREEN (acute kidney injury): Status: Acute Plan: Cr trending down, 1.61 from 1.76 Monitor AM labs, avoid nephrotoxic medications (5) Hypomagnesemia: Status: Acute Plan: Mg 1.3, now 1.4 Replace as per protocol (6) Hyponatremia: Status: Acute Plan: Na: 129 No signs of fluid overload on exam, will repeat CXR Monitor AM labs (7) CHF (congestive heart failure): Qualifiers: Heart failure chronicity: unspecified Heart failure type: unspecified Qualified Code(s): I50.9 - Heart failure, unspecified Status: Acute Plan: recently diagnosed based on clinical symptoms, CXR yesterday negative for edema. Will repeat CXR today, no signs of fluid overload on exam. Hold Lasix for now, order echo (8) Hyperglycemia: Status: Acute Plan: no hx of DM, glucose elevated Will start SSI, check A1C Review H&P Reviewed: Yes Patient was examined?: Yes
[2019-05-29] MEDS ORDERED: PULMICORT NEB TX 0.5 MG NEB SCH (10:30)
[2019-05-29] MEDS: ZITHROMAX INJ 500 MG VIAL 250 MG in D5W 250 ML IV 250 ML IV SCH ×2 (10:43→10:49)
[2019-05-29] MEDS: XANAX PO PRN ×2 (10:43→22:55)
[2019-05-29] MEDS: PULMICORT NEB TX 0.5 MG NEB SCH ×2 (11:48→20:45)
[2019-05-29] MEDS: MAGNESIUM SULFATE 1 GRAM/100 mL PREMIX 1 GM/100 ML BAG IV PRN ×3 (12:04→14:34)
[2019-05-29] MEDS: HumuLIN R SC PRN ×3 (12:29→21:34)
--- NOTE | 2019-05-29 13:42 | RAD ---
HISTORYSOB, R/O PNEUMONIA, PULMONARY EDEMASTUDYCHEST, 1 VIEWCOMPARISONJanuary 31stTECHNIQUEPortable chestFINDINGSLungs are hyperexpanded. Upper lobe emphysematous changes are suspected and there are superimposed fibrous interstitial lung changes within the bilateral lung bases. No infiltrates, edema or pleural fluid collections. The heart size is stable, borderline enlarged for portable film. There is no free air or pneumothorax.IMPRESSIONRadiographic features of chronic obstructive pulmonary disease with superimposed bibasilar fibrous interstitial lung changes.Otherwise no acute radiographic abnormalities of the chestElectronically signed by: NGA WHITEHEAD (May 29, 2019 13:40:33)
[2019-05-29] MEDS: NS 1000 ML 1,000 ML IV SCH (17:58)
[2019-05-29] MEDS: ZOCOR TAB 10 MG PO SCH (21:21)
[2019-05-29] MEDS: TRICOR TAB 160 MG PO SCH (21:21)
[2019-05-29] MEDS: MIRAPEX TAB 0.25 MG PO SCH (21:22)
[2019-05-29] MEDS ORDERED: LOPRESSOR INJ 5 MG AMP IVP ONE ×2 (21:40→22:49)
[2019-05-29] MEDS ORDERED: LOPRESSOR INJ 5 MG AMP ONE (21:42)
[2019-05-30] MEDS: DUONEB 0.5 MG/3 MG (3 mL) NEB SCH ×5 (05:52→12:04)
[2019-05-30] MEDS: SOLU-Medrol 125 MG VIAL IVP SCH ×2 (06:00→20:47)
[2019-05-30 06:03] LABS: BASOPHILS % (AUTO) 0.1 % (0.2-1.0); HEMATOCRIT 33.9 % (42.0-54.0); HEMOGLOBIN 11.1 g/dL (13.5-18.0); LYMPHOCYTES # (AUTO) 0.8 X10^3/uL (1.3-2.9); LYMPHOCYTES % (AUTO) 4.1 % (21.0-51.0); MEAN CORPUSCULAR HEMOGLOBIN 25.5 pg (27.0-34.0); MEAN CORPUSCULAR HGB CONC 32.8 g/dL (33.0-35.0); MEAN CORPUSCULAR VOLUME 77.6 fL (80.0-100.0); MEAN PLATELET VOLUME 9.6 fL (7.4-11.0); MONOCYTES # (AUTO) 1.1 x10^3/uL (0.3-0.8); MONOCYTES % (AUTO) 5.9 % (0.0-13.0); NEUTROPHILS # (AUTO) 16.8 x10^3/uL (2.2-4.8); NEUTROPHILS % (AUTO) 89.9 % (42.0-75.0); PLATELET COUNT 309 X10^3/uL (150.0-450.0); RED BLOOD COUNT 4.36 X10^6/uL (4.7-6.0); RED CELL DISTRIBUTION WIDTH 16.1 % (11.6-16.5); WHITE BLOOD COUNT 18.7 X10^3/uL (3.6-10.0)
[2019-05-30] MEDS: HumuLIN R SC PRN ×4 (06:08→20:49)
[2019-05-30 06:11] LABS: CALCIUM 8.7 mg/dL (8.5-10.1); CARBON DIOXIDE 23.8 mmol/L (21-32); CREATININE 1.58 mg/dL (0.70-1.30); MAGNESIUM 2.3 mg/dL (1.7-2.9)
[2019-05-30 06:26] LABS: PLATELET MORPHOLOGY COMMENT NORMAL (NORMAL)
[2019-05-30] MEDS: NS 1000 ML 1,000 ML IV SCH (06:58)
[2019-05-30] MEDS: PULMICORT NEB TX 0.5 MG NEB SCH ×2 (08:53→20:18)
[2019-05-30] MEDS: ROCEPHIN VIAL 1 GRAM 1 G in NS 100 ML IV + SPIKE MINIBAG* 100 ML IV SCH (09:35)
[2019-05-30] MEDS: PriLOSEC PO SCH (09:36)
[2019-05-30] MEDS: CELEXA PO SCH (09:37)
[2019-05-30] MEDS: SYNTHROID 25 mcg TAB PO SCH (09:37)
[2019-05-30] MEDS: LOPRESSOR TAB 25 MG PO SCH ×2 (09:37→20:49)
[2019-05-30] MEDS: ZITHROMAX INJ 500 MG VIAL 250 MG in D5W 250 ML IV 250 ML IV SCH (11:10)
[2019-05-30] MEDS ORDERED: LASIX IVP ONE (11:36)
--- NOTE | 2019-05-30 12:41 | PCM.PROG ---
Progress Note Progress Note for Day of Date of Exam: 05/30/19 Subjective Subjective: Patient seen at bedside, had a very restless night, agitated. reports confusion this AM. He was noted to be in afib rvr last night, HR in 150- 160s. He was given metoprolol tartrate 5mg IV x 2, HR in 130s. He denies chest pain. He reports improvement in breathing. He is still on hi-flow. Patient is alert and oriented on my exam. Past Medical Family Social History Past Med/Fam/Surg Hx: No changes since H&P Allergies: Allergies No Known Drug Allergies Allergy (Verified 05/09/17 12:09) Review of Systems ROS: No change since H&P Vital Signs and I&O's Vital Signs: Temperature 98.4 F Pulse Rate [Apical] 93 Pulse Rate 145 Respiratory Rate 21 Blood Pressure [Right Arm] 107/63 Blood Pressure 118/87 O2 Sat by Pulse Oximetry 97 Intake and Output: Intake & Output 05/27/19 05/28/19 05/29/19 05/30/19 23:59 23:59 23:59 23:59 Intake Total 2848 / 2848 594 / 594 Output Total 2650 / 2650 400 / 400 Balance 198 / 198 194 / 194 Physical Exam Oriented: Normal Eyes: Normal Throat: Normal Respiratory: Diminished Cardiovascular: Tachycardia Auscultation: Bowel Sounds: Normal Tenderness: Normal Skin: Normal Musculoskeletal: Normal Psychiatric: Normal Mood Description: Calm Affect: Normal Speech Pattern: Clear Laboratory and Diagnostics Result Diagrams: 05/30/19 04:42 05/30/19 04:42 Labs: 05/28/19 22:44 Urine,Clean Catch Urine Culture - Preliminary 05/28/19 20:17 Blood Blood Culture - Preliminary 05/28/19 20:12 Blood Blood Culture - Preliminary Laboratory WBC 18.7 X10^3/uL (3.6-10.0) H 05/30/19 04:42 RBC 4.36 X10^6/uL (4.7-6.0) L 05/30/19 04:42 Hgb 11.1 g/dL (13.5-18.0) L 05/30/19 04:42 Hct 33.9 % (42.0-54.0) L 05/30/19 04:42 MCV 77.6 fL (80.0-100.0) L 05/30/19 04:42 MCH 25.5 pg (27.0-34.0) L 05/30/19 04:42 MCHC 32.8 g/dL (33.0-35.0) L 05/30/19 04:42 RDW 16.1 % (11.6-16.5) 05/30/19 04:42 Plt Count 309 X10^3/uL (150.0-450.0) 05/30/19 04:42 Plt Count Comment Adequate (ADEQUATE) 05/30/19 04:42 MPV 9.6 fL (7.4-11.0) 05/30/19 04:42 Neut % (Auto) 89.9 % (42.0-75.0) H 05/30/19 04:42 Lymph % (Auto) 4.1 % (21.0-51.0) L 05/30/19 04:42 [place] % (Auto) 5.9 % (0.0-13.0) 05/30/19 04:42 Eos % (Auto) 0.0 % (0.9-2.9) L 05/30/19 04:42 Baso % (Auto) 0.1 % (0.2-1.0) L 05/30/19 04:42 Neut # (Auto) 16.8 x10^3/uL (2.2-4.8) H 05/30/19 04:42 Lymph # (Auto) 0.8 X10^3/uL (1.3-2.9) L 05/30/19 04:42 [place] # (Auto) 1.1 x10^3/uL (0.3-0.8) H 05/30/19 04:42 Eos # (Auto) 0.0 x10^3/uL (0.0-0.2) 05/30/19 04:42 Baso # (Auto) 0.0 X10^3/uL (0.0-0.1) 05/30/19 04:42 Absolute Nucleated RBC 0.0 /100WBC 05/30/19 04:42 Plt Morphology Comment Normal (NORMAL) 05/30/19 04:42 RBC Morphology Normal (NORMAL) 05/30/19 04:42 D-Dimer 479 ng/mL (0-400) H* 05/28/19 20:12 Sample Site Rr 05/28/19 20:15 ABG pH 7.470 (7.35-7.45) H 05/28/19 20:15 ABG pCO2 38.0 mmHg (35.0-45.0) 05/28/19 20:15 ABG pO2 51.0 mmHg (80.0-100.0) L 05/28/19 20:15 ABG HCO3 27.7 mmol/L (22-26) H 05/28/19 20:15 ABG O2 Saturation 88.0 % (90-100) L 05/28/19 20:15 ABG Base Excess 3.9 mmol/L (-2.0-2.0) H 05/28/19 20:15 Aris Test P 05/28/19 20:15 A-a Gradient 130.0 mmHg 05/28/19 20:15 FiO2 32.0 05/28/19 20:15 Blood Gas Comments Louisa well 05/28/19 20:15 Sodium 127 mmol/L (136-145) L 05/30/19 04:42 Corrected Sodium 129 mmol/L (136-145) L 05/30/19 04:42 Potassium 4.0 mmol/L (3.5-5.1) 05/30/19 04:42 Chloride 93 mmol/L (98-107) L 05/30/19 04:42 Carbon Dioxide 23.8 mmol/L (21-32) 05/30/19 04:42 BUN 20 mg/dL (7-18) H 05/30/19 04:42 Creatinine 1.58 mg/dL (0.70-1.30) H 05/30/19 04:42 Est GFR (MDRD) Af Amer 56 (>60) L 05/30/19 04:42 Est GFR (MDRD) Non-Af 46 (>60) L 05/30/19 04:42 Glucose 190 mg/dL (65-99) H 05/30/19 04:42 POC Glucose (mg/dL) 208 mg/dL (65-99) H 05/30/19 11:46 Hemoglobin A1c 6.6 % 05/29/19 08:55 Lactic Acid 1.4 mmol/L (0.4-2.0) 05/28/19 19:50 Calcium 8.7 mg/dL (8.5-10.1) 05/30/19 04:42 Corrected Calcium 9.6 mg/dL (8.5-10.1) 05/29/19 08:55 Magnesium 2.3 mg/dL (1.7-2.9) 05/30/19 04:42 Total Bilirubin 0.60 mg/dL (0.2-1.0) 05/29/19 08:55 AST 17 Units/L (15-37) 05/29/19 08:55 ALT 15 Units/L (12-78) 05/29/19 08:55 Alkaline Phosphatase 53 Units/L (46-116) 05/29/19 08:55 Troponin I < 0.02 ng/mL (0-1.5) 05/28/19 20:12 B-Natriuretic Peptide 79.8 pg/mL (0-79) H 05/29/19 08:55 Total Protein 6.9 g/dL (6.4-8.2) 05/29/19 08:55 Albumin 2.9 g/dL (3.4-5.0) L 05/29/19 08:55 Globulin 4.0 g/dL (2.5-4.5) 05/29/19 08:55 Albumin/Globulin Ratio 0.7 Ratio (1.1-2.1) L 05/29/19 08:55 Specimen Type Catherized urine 05/29/19 05:44 Urine Color Yellow (YELLOW) 05/29/19 05:44 Urine Appearance Cloudy (CLEAR) 05/29/19 05:44 Urine pH 7.0 (5.0 - 8.0) 05/29/19 05:44 Ur Specific [place] 1.005 (1.000-1.030) 05/29/19 05:44 Urine Protein 2+ (NEGATIVE) 05/29/19 05:44 Urine Glucose (UA) Negative (NEGATIVE) 05/29/19 05:44 Urine Ketones Negative (NEGATIVE) 05/29/19 05:44 Urine Occult Blood 2+ (NEGATIVE) 05/29/19 05:44 Urine Nitrite Positive (NEGATIVE) 05/29/19 05:44 Urine Bilirubin Negative (NEGATIVE) 05/29/19 05:44 Urine Urobilinogen Normal (NORMAL) 05/29/19 05:44 Ur Leukocyte Esterase 3+ (NEGATIVE) 05/29/19 05:44 Urine RBC 3-5 /HPF (0-3) A 05/29/19 05:44 Urine WBC 20-30 /HPF (0-5) A 05/29/19 05:44 Ur Squamous Epith Cells Rare /HPF (NEGATIVE) 05/29/19 05:44 Urine Bacteria 4+ /HPF (NEGATIVE) 05/29/19 05:44 Ur Culture Indicated? Yes/culture set up 05/29/19 05:44 Ur Random Sodium < 50 mmol/L (40-220) 05/30/19 11:20 Urine Creatinine 103.11 mg/dL (40-278) 05/30/19 11:20 Influenza Type A (PCR) Negative (NEGATIVE) 05/28/19 22:32 Influenza Type B (PCR) Negative (NEGATIVE) 05/28/19 22:32 Plan (1) Atrial fibrillation with rapid ventricular response: Status: Acute Plan: new onset, HR: 150s. Received 2 doses of metoprolol tartrate 5mg IV, HR still in 130s. Will start oral metoprolol tartrate 12.5mg BID and adjust as needed Echo pending (2) Acute on chronic respiratory failure with hypoxia: Status: Acute Plan: Due to underlying severe COPD Continue to titrate oxygen as tolerated, sats > 90% Continue duonebs, IV abx Will give one dose of Lasix, stop IVF CXR yesterday: chronic obstructive pulmonary disease with superimposed bibasilar fibrous interstitial lung changes. (3) COPD exacerbation: Status: Acute Plan: Severe COPD, uses 2L oxygen at home Decrease solumedrol 60 mg q12s, duonebs, Rocephin and Azithromycin Follow cultures (4) UTI (urinary tract infection): Status: Acute Qualifiers: Hematuria presence: without hematuria Urinary tract infection type: acute cystitis Qualified Code(s): N30.00 - Acute cystitis without hematuria Plan: UA suggestive of infection, patient reports dyuria Follow urine culture Continue Rocephin (5) AMBREEN (acute kidney injury): Status: Acute Plan: Cr trending down, 1.58 from 1.76 Monitor AM labs, avoid nephrotoxic medications Urine Cr and na ordered to check FeNa (6) Hypomagnesemia: Status: Acute Plan: Resolved, 2.3 (7) Hyponatremia: Status: Acute Plan: Na: 129, was on IVF but no improvement. Will give on dose of Lasix. (8) CHF (congestive heart failure): Status: Acute Qualifiers: Heart failure chronicity: unspecified Heart failure type: unspecified Qualified Code(s): I50.9 - Heart failure, unspecified Plan: recently diagnosed based on clinical symptoms. One dose of Lasix now. Echo ordered for tomorrow. Monitor UOP. (9) Hyperglycemia: Status: Acute Plan: A1C: 6.6, continue SSI (10) AMS (altered mental status): Status: Acute Qualifiers: Altered mental status type: delirium Qualified Code(s): R41.0 - Disorientation, unspecified Plan: Likely due to underlying infection, patient alert and oriented on my exam this AM. Continue to monitor, decrease steroids
[2019-05-30] MEDS ORDERED: XOPENEX 1.25 MG/3 ML NEBULE NEB SCH (13:00)
[2019-05-30] MEDS ORDERED: LASIX ONE (14:04)
[2019-05-30] MEDS: XOPENEX 1.25 MG/3 ML NEBULE NEB SCH (17:50)
[2019-05-30] MEDS: MIRAPEX TAB 0.25 MG PO SCH (20:47)
[2019-05-30] MEDS: TRICOR TAB 160 MG PO SCH (20:48)
[2019-05-30] MEDS: ZOCOR TAB 10 MG PO SCH (20:48)
[2019-05-30] MEDS: SEROquel TAB 25 mg PO PRN (20:49)
[2019-05-30] MEDS ORDERED: LEVAQUIN PREMIX IV 750 MG 750 MG/150 ML BAG IV SCH (22:00)
[2019-05-31] MEDS: XOPENEX 1.25 MG/3 ML NEBULE NEB SCH ×4 (00:13→17:27)
[2019-05-31] MEDS ORDERED: MILK OF MAGNESIA PO PRN (06:27)
[2019-05-31] MEDS ORDERED: COLACE CAP 100 MG PO PRN (06:27)
[2019-05-31] MEDS: HumuLIN R SC PRN ×2 (06:52→17:10)
[2019-05-31] MEDS ORDERED: PREVNAR 13 IM ONE (08:29)
[2019-05-31 08:30] LABS: BLOOD UREA NITROGEN 23 mg/dL (7-18); CALCIUM 8.9 mg/dL (8.5-10.1); CARBON DIOXIDE 25.6 mmol/L (21-32); CHLORIDE 98 mmol/L (98-107); COR NA(FOR HYPERGLY) 137 mmol/L (136-145); CREATININE 1.35 mg/dL (0.70-1.30); SODIUM 135 mmol/L (136-145); eGFR NON BLACK RACES 55 (>60)
[2019-05-31 08:32] LABS: BASOPHILS % (AUTO) 0 % (0.2-1.0); HEMATOCRIT 32.6 % (42.0-54.0); HEMOGLOBIN 10.6 g/dL (13.5-18.0); LYMPHOCYTES # (AUTO) 0.8 X10^3/uL (1.3-2.9); LYMPHOCYTES % (AUTO) 3.3 % (21.0-51.0); MEAN CORPUSCULAR HEMOGLOBIN 25.3 pg (27.0-34.0); MEAN CORPUSCULAR HGB CONC 32.7 g/dL (33.0-35.0); MEAN CORPUSCULAR VOLUME 77.5 fL (80.0-100.0); MEAN PLATELET VOLUME 9.7 fL (7.4-11.0); MONOCYTES # (AUTO) 1.6 x10^3/uL (0.3-0.8); MONOCYTES % (AUTO) 6.7 % (0.0-13.0); NEUTROPHILS # (AUTO) 21.2 x10^3/uL (2.2-4.8); PLATELET COUNT 322 X10^3/uL (150.0-450.0); RED CELL DISTRIBUTION WIDTH 15.9 % (11.6-16.5); WHITE BLOOD COUNT 23.5 X10^3/uL (3.6-10.0)
[2019-05-31] MEDS: PULMICORT NEB TX 0.5 MG NEB SCH ×2 (08:50→20:10)
[2019-05-31] MEDS ORDERED: LASIX IVP ONE ×2 (08:51→09:30)
[2019-05-31 09:02] LABS: BAND NEUTROPHILS % 5 % (0-10)
[2019-05-31 09:03] LABS: PLATELET MORPHOLOGY COMMENT NORMAL (NORMAL); TOXIC GRANULATION NOTED
[2019-05-31] MEDS: ZITHROMAX INJ 500 MG VIAL 250 MG in D5W 250 ML IV 250 ML IV SCH (09:19)
[2019-05-31] MEDS: LOPRESSOR TAB 25 MG PO SCH ×2 (09:19→20:30)
[2019-05-31] MEDS: SOLU-Medrol 125 MG VIAL IVP SCH ×2 (09:21→20:30)
[2019-05-31] MEDS: SYNTHROID 25 mcg TAB PO SCH (09:21)
[2019-05-31] MEDS: CELEXA PO SCH (09:21)
[2019-05-31] MEDS: PriLOSEC PO SCH (09:21)
[2019-05-31] MEDS: ROCEPHIN VIAL 1 GRAM 1 G in NS 100 ML IV + SPIKE MINIBAG* 100 ML IV SCH (09:22)
[2019-05-31] MEDS ORDERED: HEPARIN SODIUM INJ 5000 UNITS ONE (09:30)
--- NOTE | 2019-05-31 09:35 | PCM.PROG ---
Progress Note Progress Note for Day of Date of Exam: 05/31/19 Subjective Subjective: Patient seen at bedside, reports improvement in breathing. He slept a couple hours last night with the Seroquel. He is still on hi-flow oxygen. HR in the 90s. He received a dose of Lasix yesterday. Echo pending for today. Will increase metoprolol tartrate to 25mg BID, continue Rocephin, Azithromycin and steroids. Discussed anti-coagulation for atrial fibrillation, no prior hx of bleeding. Will start Eliquis after echo results. Titrate O2 as tolerated. Will give another dose of IV Lasix today. WBC elevated, could be 2/2 to steroids. Patient has been afebrile. Past Medical Family Social History Past Med/Fam/Surg Hx: No changes since H&P Allergies: Allergies No Known Drug Allergies Allergy (Verified 05/09/17 12:09) Review of Systems ROS: No change since H&P Vital Signs and I&O's Vital Signs: Temperature 99 F Pulse Rate [Apical] 93 Pulse Rate 89 Respiratory Rate 24 Blood Pressure [Right Arm] 107/63 Blood Pressure 138/76 O2 Sat by Pulse Oximetry 88 Intake and Output: Intake & Output 05/28/19 05/29/19 05/30/19 05/31/19 23:59 23:59 23:59 23:59 Intake Total 2848 / 2848 2998 / 2998 480 / 480 Output Total 2650 / 2650 2600 / 2600 1000 / 1000 Balance 198 / 198 398 / 398 -520 / -520 Physical Exam Oriented: Normal Eyes: Normal Throat: Normal Respiratory: Diminished and Rales Cardiovascular: Tachycardia Auscultation: Bowel Sounds: Normal Tenderness: Normal Skin: Normal Musculoskeletal: Normal Psychiatric: Normal Mood Description: Calm Affect: Normal Speech Pattern: Clear Laboratory and Diagnostics Result Diagrams: 05/31/19 07:56 05/31/19 07:56 Labs: 05/28/19 22:44 Urine,Clean Catch Urine Culture - Preliminary 05/28/19 20:17 Blood Blood Culture - Preliminary 05/28/19 20:12 Blood Blood Culture - Preliminary Laboratory WBC 23.5 X10^3/uL (3.6-10.0) H 05/31/19 07:56 RBC 4.20 X10^6/uL (4.7-6.0) L 05/31/19 07:56 Hgb 10.6 g/dL (13.5-18.0) L 05/31/19 07:56 Hct 32.6 % (42.0-54.0) L 05/31/19 07:56 MCV 77.5 fL (80.0-100.0) L 05/31/19 07:56 MCH 25.3 pg (27.0-34.0) L 05/31/19 07:56 MCHC 32.7 g/dL (33.0-35.0) L 05/31/19 07:56 RDW 15.9 % (11.6-16.5) 05/31/19 07:56 Plt Count 322 X10^3/uL (150.0-450.0) 05/31/19 07:56 Plt Count Comment Adequate (ADEQUATE) 05/31/19 07:56 MPV 9.7 fL (7.4-11.0) 05/31/19 07:56 Neut % (Auto) 90.0 % (42.0-75.0) H 05/31/19 07:56 Lymph % (Auto) 3.3 % (21.0-51.0) L 05/31/19 07:56 [place] % (Auto) 6.7 % (0.0-13.0) 05/31/19 07:56 Eos % (Auto) 0.0 % (0.9-2.9) L 05/31/19 07:56 Baso % (Auto) 0 % (0.2-1.0) L 05/31/19 07:56 Neut # (Auto) 21.2 x10^3/uL (2.2-4.8) H 05/31/19 07:56 Lymph # (Auto) 0.8 X10^3/uL (1.3-2.9) L 05/31/19 07:56 [place] # (Auto) 1.6 x10^3/uL (0.3-0.8) H 05/31/19 07:56 Eos # (Auto) 0.0 x10^3/uL (0.0-0.2) 05/31/19 07:56 Baso # (Auto) 0.0 X10^3/uL (0.0-0.1) 05/31/19 07:56 Absolute Nucleated RBC 0.0 /100WBC 05/31/19 07:56 Total Counted 100 05/31/19 07:56 Neutrophils % (Manual) 82 % (39-76) H 05/31/19 07:56 Band Neutrophils % 5 % (0-10) 05/31/19 07:56 Lymphocytes % (Manual) 6 % (13-43) L 05/31/19 07:56 Monocytes % (Manual) 7 % (4-9) 05/31/19 07:56 Toxic Granulation Noted 05/31/19 07:56 Plt Morphology Comment Normal (NORMAL) 05/31/19 07:56 RBC Morphology Normal (NORMAL) 05/31/19 07:56 D-Dimer 479 ng/mL (0-400) H* 05/28/19 20:12 Sample Site Rr 05/28/19 20:15 ABG pH 7.470 (7.35-7.45) H 05/28/19 20:15 ABG pCO2 38.0 mmHg (35.0-45.0) 05/28/19 20:15 ABG pO2 51.0 mmHg (80.0-100.0) L 05/28/19 20:15 ABG HCO3 27.7 mmol/L (22-26) H 05/28/19 20:15 ABG O2 Saturation 88.0 % (90-100) L 05/28/19 20:15 ABG Base Excess 3.9 mmol/L (-2.0-2.0) H 05/28/19 20:15 Aris Test P 05/28/19 20:15 A-a Gradient 130.0 mmHg 05/28/19 20:15 FiO2 32.0 05/28/19 20:15 Blood Gas Comments Louisa well 05/28/19 20:15 Sodium 135 mmol/L (136-145) L 05/31/19 07:56 Corrected Sodium 137 mmol/L (136-145) 05/31/19 07:56 Potassium 4.3 mmol/L (3.5-5.1) 05/31/19 07:56 Chloride 98 mmol/L (98-107) 05/31/19 07:56 Carbon Dioxide 25.6 mmol/L (21-32) 05/31/19 07:56 BUN 23 mg/dL (7-18) H 05/31/19 07:56 Creatinine 1.35 mg/dL (0.70-1.30) H 05/31/19 07:56 Est GFR (MDRD) Af Amer > 60 (>60) 05/31/19 07:56 Est GFR (MDRD) Non-Af 55 (>60) L 05/31/19 07:56 Glucose 193 mg/dL (65-99) H 05/31/19 07:56 POC Glucose (mg/dL) 181 mg/dL (65-99) H 05/31/19 06:42 Hemoglobin A1c 6.6 % 05/29/19 08:55 Lactic Acid 1.4 mmol/L (0.4-2.0) 05/28/19 19:50 Calcium 8.9 mg/dL (8.5-10.1) 05/31/19 07:56 Corrected Calcium 9.6 mg/dL (8.5-10.1) 05/29/19 08:55 Magnesium 2.3 mg/dL (1.7-2.9) 05/30/19 04:42 Total Bilirubin 0.60 mg/dL (0.2-1.0) 05/29/19 08:55 AST 17 Units/L (15-37) 05/29/19 08:55 ALT 15 Units/L (12-78) 05/29/19 08:55 Alkaline Phosphatase 53 Units/L (46-116) 05/29/19 08:55 Troponin I < 0.02 ng/mL (0-1.5) 05/28/19 20:12 B-Natriuretic Peptide 79.8 pg/mL (0-79) H 05/29/19 08:55 Total Protein 6.9 g/dL (6.4-8.2) 05/29/19 08:55 Albumin 2.9 g/dL (3.4-5.0) L 05/29/19 08:55 Globulin 4.0 g/dL (2.5-4.5) 05/29/19 08:55 Albumin/Globulin Ratio 0.7 Ratio (1.1-2.1) L 05/29/19 08:55 Specimen Type Catherized urine 05/29/19 05:44 Urine Color Yellow (YELLOW) 05/29/19 05:44 Urine Appearance Cloudy (CLEAR) 05/29/19 05:44 Urine pH 7.0 (5.0 - 8.0) 05/29/19 05:44 Ur Specific [place] 1.005 (1.000-1.030) 05/29/19 05:44 Urine Protein 2+ (NEGATIVE) 05/29/19 05:44 Urine Glucose (UA) Negative (NEGATIVE) 05/29/19 05:44 Urine Ketones Negative (NEGATIVE) 05/29/19 05:44 Urine Occult Blood 2+ (NEGATIVE) 05/29/19 05:44 Urine Nitrite Positive (NEGATIVE) 05/29/19 05:44 Urine Bilirubin Negative (NEGATIVE) 05/29/19 05:44 Urine Urobilinogen Normal (NORMAL) 05/29/19 05:44 Ur Leukocyte Esterase 3+ (NEGATIVE) 05/29/19 05:44 Urine RBC 3-5 /HPF (0-3) A 05/29/19 05:44 Urine WBC 20-30 /HPF (0-5) A 05/29/19 05:44 Ur Squamous Epith Cells Rare /HPF (NEGATIVE) 05/29/19 05:44 Urine Bacteria 4+ /HPF (NEGATIVE) 05/29/19 05:44 Ur Culture Indicated? Yes/culture set up 05/29/19 05:44 Ur Random Sodium < 50 mmol/L (40-220) 05/30/19 11:20 Urine Creatinine 103.11 mg/dL (40-278) 05/30/19 11:20 Influenza Type A (PCR) Negative (NEGATIVE) 05/28/19 22:32 Influenza Type B (PCR) Negative (NEGATIVE) 05/28/19 22:32 Plan (1) Atrial fibrillation with rapid ventricular response: Status: Acute Plan: increase metoprolol tartrate to 25mg BID Echo pending, discussed anticoagulation. (2) Acute on chronic respiratory failure with hypoxia: Status: Acute Plan: Due to underlying severe COPD Continue to titrate oxygen as tolerated, sats > 90% Continue duonebs, IV abx Will give one dose of Lasix Last CXR: chronic obstructive pulmonary disease with superimposed bibasilar fibrous interstitial lung changes. (3) COPD exacerbation: Status: Acute Plan: Severe COPD, uses 2L oxygen at home Continue solumedrol 60 mg q12s, duonebs, Rocephin and Azithromycin Follow cultures (4) UTI (urinary tract infection): Status: Acute Qualifiers: Hematuria presence: without hematuria Urinary tract infection type: acute cystitis Qualified Code(s): N30.00 - Acute cystitis without hematuria Plan: UA suggestive of infection, patient reports dyuria urine culture: Gram neg rods Continue Rocephin (5) AMBREEN (acute kidney injury): Status: Acute Plan: Cr trending down, 1.35 Monitor AM labs, avoid nephrotoxic medications (6) Hypomagnesemia: Status: Acute Plan: Resolved, 2.3 (7) Hyponatremia: Status: Acute Plan: Na: 135 improved (8) CHF (congestive heart failure): Status: Acute Qualifiers: Heart failure chronicity: unspecified Heart failure type: unspecified Qualified Code(s): I50.9 - Heart failure, unspecified Plan: recently diagnosed based on clinical symptoms. One dose of Lasix now. Echo pending Monitor UOP. (9) Hyperglycemia: Status: Acute Plan: A1C: 6.6, continue SSI (10) AMS (altered mental status): Status: Acute Qualifiers: Altered mental status type: delirium Qualified Code(s): R41.0 - Disorientation, unspecified Plan: Alert and wake this morning, slept a few hours with Seroquel. Will continue prn tonight. (11) Anemia: Status: Acute Qualifiers: Anemia type: unspecified type Qualified Code(s): D64.9 - Anemia, unspecified Plan: Hgb 10.6 Will get anemia panel
[2019-05-31] MEDS: HEPARIN SODIUM INJ 5000 UNITS SC SCH ×2 (09:36→20:31)
[2019-05-31 14:24] LABS: ABG ALLEN TEST POS; ABG BASE EXCESS 6.7 mmol/L (-2.0-2.0); ABG HCO3 30.4 mmol/L (22-26)
--- NOTE | 2019-05-31 14:25 | CT ---
HISTORYAltered mental statusSTUDYHead CT without contrastCOMPARISONNoneTECHNIQUEMultiple axial CT images of the head without contrast. Dose reduction techniques including Automated Exposure Control (AEC) and adjustment of mA and kV were utilized.FINDINGSNo visible intracranial hemorrhage or overt acute territorial infarct. Scattered patchy white matter hypodensity is nonspecific but compatible with small vessel ischemic change. No ventriculomegaly or midline shift. The basal cisterns appear patent. Chronic appearing right basal ganglia lacunar infarct or dilated perivascular space. Globes intact. Included paranasal sinuses and mastoid air cells aerated. Skull base and calvarium appear intact. Internal carotid artery calcifications are noted.IMPRESSIONNo acute intracranial finding. Chronic appearing ischemic changes.Electronically signed by: Lemuel Hernandez (May 31, 2019 14:23:59)
--- NOTE | 2019-05-31 15:10 | RAD ---
HISTORYCHRONIC SOBSTUDYPortable AP chestCOMPARISONFebruary 2019FINDINGSAs before the lungs are hyperinflated. The heart is mildly enlarged. The descending aorta is tortuous. There is no obvious effusion.IMPRESSIONNo significant change of COPDElectronically signed by: MADISON WOODARD (May 31, 2019 15:09:18)
[2019-05-31] MEDS: FERROUS GLUCONATE PO SCH (17:04)
[2019-05-31] MEDS: MIRAPEX TAB 0.25 MG PO SCH (20:28)
[2019-05-31] MEDS: ZOCOR TAB 10 MG PO SCH (20:29)
[2019-05-31] MEDS: TRICOR TAB 160 MG PO SCH (20:29)
[2019-06-01] MEDS: XOPENEX 1.25 MG/3 ML NEBULE NEB SCH ×4 (01:05→18:07)
[2019-06-01 05:52] LABS: BLOOD UREA NITROGEN 26 mg/dL (7-18); CALCIUM 8.9 mg/dL (8.5-10.1); CARBON DIOXIDE 26.2 mmol/L (21-32); CHLORIDE 97 mmol/L (98-107); COR NA(FOR HYPERGLY) 136 mmol/L (136-145); CREATININE 1.33 mg/dL (0.70-1.30); SODIUM 134 mmol/L (136-145); eGFR NON BLACK RACES 56 (>60)
[2019-06-01 05:55] LABS: BASOPHILS % (AUTO) 0.1 % (0.2-1.0); HEMATOCRIT 36.5 % (42.0-54.0); LYMPHOCYTES # (AUTO) 1.1 X10^3/uL (1.3-2.9); LYMPHOCYTES % (AUTO) 4.2 % (21.0-51.0); MEAN CORPUSCULAR HEMOGLOBIN 25.6 pg (27.0-34.0); MEAN CORPUSCULAR HGB CONC 32.9 g/dL (33.0-35.0); MEAN CORPUSCULAR VOLUME 77.9 fL (80.0-100.0); MEAN PLATELET VOLUME 9.7 fL (7.4-11.0); MONOCYTES # (AUTO) 1.5 x10^3/uL (0.3-0.8); NEUTROPHILS # (AUTO) 22.7 x10^3/uL (2.2-4.8); NEUTROPHILS % (AUTO) 89.7 % (42.0-75.0); PLATELET COUNT 422 X10^3/uL (150.0-450.0); RED BLOOD COUNT 4.68 X10^6/uL (4.7-6.0); RED CELL DISTRIBUTION WIDTH 16.3 % (11.6-16.5); WHITE BLOOD COUNT 25.4 X10^3/uL (3.6-10.0)
[2019-06-01] MEDS: HumuLIN R SC PRN ×2 (06:04→16:53)
[2019-06-01] MEDS: FERROUS GLUCONATE PO SCH ×2 (06:06→16:52)
[2019-06-01 06:17] LABS: BAND NEUTROPHILS % 2 % (0-10); PLATELET MORPHOLOGY COMMENT NORMAL (NORMAL)
[2019-06-01] MEDS: SYNTHROID 25 mcg TAB PO SCH (08:49)
[2019-06-01] MEDS: PriLOSEC PO SCH (08:49)
[2019-06-01] MEDS: LASIX PO SCH (08:50)
[2019-06-01] MEDS: CELEXA PO SCH (08:50)
[2019-06-01] MEDS: LOPRESSOR TAB 25 MG PO SCH ×2 (08:50→20:40)
[2019-06-01] MEDS: ELIQUIS PO SCH ×2 (08:50→20:41)
[2019-06-01] MEDS: ROCEPHIN VIAL 1 GRAM 1 G in NS 100 ML IV + SPIKE MINIBAG* 100 ML IV SCH ×2 (08:52→20:41)
[2019-06-01] MEDS: ZITHROMAX INJ 500 MG VIAL 250 MG in D5W 250 ML IV 250 ML IV SCH ×2 (08:52→17:49)
[2019-06-01] MEDS ORDERED: LASIX PO SCH (09:00)
[2019-06-01] MEDS ORDERED: PREDNISONE TAB 20 MG PO SCH (09:00)
--- NOTE | 2019-06-01 09:15 | PCM.PROG ---
Progress Note Progress Note for Day of Date of Exam: 06/01/19 Subjective Subjective: Patient seen at bedside, seems to be doing better today. He still did not sleep much, reports worrying about other things. He refused Seroquel last night. He is currently on NC 4L, reports breathing is better. He complains of abdominal distention. He reports eating ok. Will get a KUB, continue Rocephin for E.coli UTI. Will stop solumedrol and start prednisone. Patient's delirium likely related to infection and steroids. CT head negative, CXR negative for infection or edema. ABG yesterday showed hypoxia with normal C02. Will wean O2 as tolerated. Start Eliquis for Atrial fibrillation, rate has been well controlled with metoprolol. PT/OT. Past Medical Family Social History Past Med/Fam/Surg Hx: No changes since H&P Allergies: Allergies No Known Drug Allergies Allergy (Verified 05/09/17 12:09) Review of Systems ROS: No change since H&P Vital Signs and I&O's Vital Signs: Temperature 98.0 F Pulse Rate [Apical] 93 Pulse Rate 83 Respiratory Rate 28 Blood Pressure [Right Arm] 107/63 Blood Pressure 140/69 O2 Sat by Pulse Oximetry 92 Intake and Output: Intake & Output 05/29/19 05/30/19 05/31/19 06/01/19 23:59 23:59 23:59 23:59 Intake Total 2848 / 2848 2998 / 2998 1820 / 1820 680 / 680 Output Total 2650 / 2650 2600 / 2600 4500 / 4500 Balance 198 / 198 398 / 398 -2680 / -2680 680 / 680 Physical Exam Oriented: Normal Eyes: Normal Throat: Normal Respiratory: Diminished and Rales Cardiovascular: Tachycardia Auscultation: Bowel Sounds: Decreased Tenderness: Other (distended ) Skin: Normal Musculoskeletal: Normal Psychiatric: Normal Mood Description: Calm Affect: Normal Speech Pattern: Clear Laboratory and Diagnostics Result Diagrams: 06/01/19 04:23 06/01/19 04:23 Labs: 05/28/19 22:44 Urine,Clean Catch Urine Culture - Final Escherichia Coli 05/28/19 20:17 Blood Blood Culture - Preliminary 05/28/19 20:12 Blood Blood Culture - Preliminary Laboratory WBC 25.4 X10^3/uL (3.6-10.0) H 06/01/19 04:23 RBC 4.68 X10^6/uL (4.7-6.0) L 06/01/19 04:23 Hgb 12.0 g/dL (13.5-18.0) L 06/01/19 04:23 Hct 36.5 % (42.0-54.0) L 06/01/19 04:23 MCV 77.9 fL (80.0-100.0) L 06/01/19 04:23 MCH 25.6 pg (27.0-34.0) L 06/01/19 04: MCHC 32.9 g/dL (33.0-35.0) L 06/01/19 04: RDW 16.3 % (11.6-16.5) 06/01/19 04: Plt Count 422 X10^3/uL (150.0-450.0) 06/01/19 04: Plt Count Comment Adequate (ADEQUATE) 06/01/19 04: MPV 9.7 fL (7.4-11.0) 06/01/19 04:23 Neut % (Auto) 89.7 % (42.0-75.0) H 06/01/19 04: Lymph % (Auto) 4.2 % (21.0-51.0) L 06/01/19 04:23 [place] % (Auto) 6.0 % (0.0-13.0) 06/01/19 04:23 Eos % (Auto) 0.0 % (0.9-2.9) L 06/01/19 04: Baso % (Auto) 0.1 % (0.2-1.0) L 06/01/19 04:23 Neut # (Auto) 22.7 x10^3/uL (2.2-4.8) H 06/01/19 04:23 Lymph # (Auto) 1.1 X10^3/uL (1.3-2.9) L 06/01/19 04:23 [place] # (Auto) 1.5 x10^3/uL (0.3-0.8) H 06/01/19 04:23 Eos # (Auto) 0.0 x10^3/uL (0.0-0.2) 06/01/19 04:23 Baso # (Auto) 0.0 X10^3/uL (0.0-0.1) 06/01/19 04:23 Absolute Nucleated RBC 0.0 /100WBC 06/01/19 04:23 Total Counted 100 06/01/19 04:23 Neutrophils % (Manual) 82 % (39-76) H 06/01/19 04:23 Band Neutrophils % 2 % (0-10) 06/01/19 04:23 Lymphocytes % (Manual) 7 % (13-43) L 06/01/19 04:23 Monocytes % (Manual) 9 % (4-9) 06/01/19 04:23 Toxic Granulation Noted 05/31/19 07:56 Plt Morphology Comment Normal (NORMAL) 06/01/19 04:23 RBC Morphology Normal (NORMAL) 06/01/19 04:23 D-Dimer 479 ng/mL (0-400) H* 05/28/19 20:12 Sample Site Rr 05/31/19 14:15 ABG pH 7.500 (7.35-7.45) H 05/31/19 14:15 ABG pCO2 39.0 mmHg (35.0-45.0) 05/31/19 14:15 ABG pO2 57.0 mmHg (80.0-100.0) L 05/31/19 14:15 ABG HCO3 30.4 mmol/L (22-26) H* 05/31/19 14:15 ABG O2 Saturation 92.0 % (90-100) 05/31/19 14:15 ABG Base Excess 6.7 mmol/L (-2.0-2.0) H 05/31/19 14:15 Aris Test Pos 05/31/19 14:15 A-a Gradient 137.0 mmHg 05/31/19 14:15 FiO2 34.0 05/31/19 14:15 Blood Gas Comments Pt liza well. cdn 05/31/19 14:15 Sodium 134 mmol/L (136-145) L 06/01/19 04:23 Corrected Sodium 136 mmol/L (136-145) 06/01/19 04:23 Potassium 3.8 mmol/L (3.5-5.1) 06/01/19 04:23 Chloride 97 mmol/L (98-107) L 06/01/19 04:23 Carbon Dioxide 26.2 mmol/L (21-32) 06/01/19 04:23 BUN 26 mg/dL (7-18) H 06/01/19 04:23 Creatinine 1.33 mg/dL (0.70-1.30) H 06/01/19 04:23 Est GFR (MDRD) Af Amer > 60 (>60) 06/01/19 04:23 Est GFR (MDRD) Non-Af 56 (>60) L 06/01/19 04:23 Glucose 186 mg/dL (65-99) H 06/01/19 04:23 POC Glucose (mg/dL) 171 mg/dL (65-99) H 06/01/19 05:40 Hemoglobin A1c 6.6 % 05/29/19 08:55 Lactic Acid 1.4 mmol/L (0.4-2.0) 05/28/19 19:50 Calcium 8.9 mg/dL (8.5-10.1) 06/01/19 04:23 Corrected Calcium 9.6 mg/dL (8.5-10.1) 05/29/19 08:55 Magnesium 2.3 mg/dL (1.7-2.9) 05/30/19 04:42 Iron 48 ug/dL (50-175) L 05/31/19 10:54 Transferrin 278 mg/dL (202-364) 05/31/19 10:54 Ferritin 200 ng/mL (26-388) 05/31/19 10:54 Total Bilirubin 0.60 mg/dL (0.2-1.0) 05/29/19 08:55 AST 17 Units/L (15-37) 05/29/19 08:55 ALT 15 Units/L (12-78) 05/29/19 08:55 Alkaline Phosphatase 53 Units/L (46-116) 05/29/19 08:55 Ammonia < 10 umol/L (11-32) L 05/31/19 17:48 Troponin I < 0.02 ng/mL (0-1.5) 05/28/19 20:12 B-Natriuretic Peptide 79.8 pg/mL (0-79) H 05/29/19 08:55 Total Protein 6.9 g/dL (6.4-8.2) 05/29/19 08:55 Albumin 2.9 g/dL (3.4-5.0) L 05/29/19 08:55 Globulin 4.0 g/dL (2.5-4.5) 05/29/19 08:55 Albumin/Globulin Ratio 0.7 Ratio (1.1-2.1) L 05/29/19 08:55 Vitamin B12 1576 pg/mL (193-986) H 05/31/19 10:54 Folate 6.0 ng/mL (>8.6) L 05/31/19 10:54 Specimen Type Catherized urine 05/29/19 05:44 Urine Color Yellow (YELLOW) 05/29/19 05:44 Urine Appearance Cloudy (CLEAR) 05/29/19 05:44 Urine pH 7.0 (5.0 - 8.0) 05/29/19 05:44 Ur Specific [place] 1.005 (1.000-1.030) 05/29/19 05:44 Urine Protein 2+ (NEGATIVE) 05/29/19 05:44 Urine Glucose (UA) Negative (NEGATIVE) 05/29/19 05:44 Urine Ketones Negative (NEGATIVE) 05/29/19 05:44 Urine Occult Blood 2+ (NEGATIVE) 05/29/19 05:44 Urine Nitrite Positive (NEGATIVE) 05/29/19 05:44 Urine Bilirubin Negative (NEGATIVE) 05/29/19 05:44 Urine Urobilinogen Normal (NORMAL) 05/29/19 05:44 Ur Leukocyte Esterase 3+ (NEGATIVE) 05/29/19 05:44 Urine RBC 3-5 /HPF (0-3) A 05/29/19 05:44 Urine WBC 20-30 /HPF (0-5) A 05/29/19 05:44 Ur Squamous Epith Cells Rare /HPF (NEGATIVE) 05/29/19 05:44 Urine Bacteria 4+ /HPF (NEGATIVE) 05/29/19 05:44 Ur Culture Indicated? Yes/culture set up 05/29/19 05:44 Ur Random Sodium < 50 mmol/L (40-220) 05/30/19 11:20 Urine Creatinine 103.11 mg/dL (40-278) 05/30/19 11:20 Influenza Type A (PCR) Negative (NEGATIVE) 05/28/19 22:32 Influenza Type B (PCR) Negative (NEGATIVE) 05/28/19 22:32 Plan (1) Atrial fibrillation with rapid ventricular response: Status: Acute Plan: continue metoprolol tartrate to 25mg BID Start Eliquis, echo showed EF 65%, mod-severe pulmonary HTN, elevated RA pressure (2) Acute on chronic respiratory failure with hypoxia: Status: Acute Plan: Due to underlying severe COPD Continue to titrate oxygen as tolerated, sats > 90% Continue duonebs, IV abx Continue PO Lasix CXR yesterday: COPD changes (3) COPD exacerbation: Status: Acute Plan: Severe COPD, uses 2L oxygen at home Wean O2 as tolerated, currently on 4L NC, switch to prednisone, continue duonebs, Rocephin and Azithromycin (4) UTI (urinary tract infection): Status: Acute Qualifiers: Hematuria presence: without hematuria Urinary tract infection type: acute cystitis Qualified Code(s): N30.00 - Acute cystitis without hematuria Plan: urine culture: E.coli Continue Rocephin (5) AMBREEN (acute kidney injury): Status: Acute Plan: Cr trending down, 1.33 Monitor AM labs, avoid nephrotoxic medications (6) Hypomagnesemia: Status: Acute Plan: Resolved, 2.3 (7) Hyponatremia: Status: Acute Plan: Na: 135 improved (8) CHF (congestive heart failure): Status: Acute Qualifiers: Heart failure chronicity: unspecified Heart failure type: unspecified Qualified Code(s): I50.9 - Heart failure, unspecified Plan: Continue PO Lasix, Echo with EF 65%, mod-severe Pulm HTN with elevated RA pressure (9) Hyperglycemia: Status: Acute Plan: A1C: 6.6, continue SSI (10) AMS (altered mental status): Status: Acute Qualifiers: Altered mental status type: delirium Qualified Code(s): R41.0 - Disorientation, unspecified Plan: CT-head negative, ABG with normal Co2, likely ICU delirium due to infection/steroids Continue to monitor and re-orient, Seroquel prn qHS (11) Anemia: Status: Acute Qualifiers: Anemia type: unspecified type Qualified Code(s): D64.9 - Anemia, unspecified Plan: Hgb 12, low iron, start iron supplements (12) Pulmonary HTN: Status: Acute (13) Abdominal distension: Status: Acute Plan: hx of constipation, KUB ordered
[2019-06-01] MEDS: PULMICORT NEB TX 0.5 MG NEB SCH ×2 (09:29→21:00)
--- NOTE | 2019-06-01 14:33 | RAD ---
HISTORYABD PAINSTUDYKUB one-viewCOMPARISONNoneFINDINGSEvaluation of the abdomen demonstrates a normal bowel gas pattern. No suspicious calcifications. No acute bony abnormality is seen.IMPRESSIONNo acute abdomen abnormality identified.Electronically signed by: Jarrett Dave (Jun 01, 2019 14:31:19)
[2019-06-01] MEDS: TRICOR TAB 160 MG PO SCH (20:40)
[2019-06-01] MEDS: ZOCOR TAB 10 MG PO SCH (20:40)
[2019-06-01] MEDS: MIRAPEX TAB 0.25 MG PO SCH (20:41)
[2019-06-01] MEDS: SEROquel TAB 25 mg PO PRN (20:42)
[2019-06-01] MEDS: XANAX PO PRN (22:52)
[2019-06-02] MEDS: XOPENEX 1.25 MG/3 ML NEBULE NEB SCH ×4 (00:44→18:12)
[2019-06-02] MEDS ORDERED: HALDOL INJ IM ONE ×3 (01:42→15:30)
[2019-06-02] MEDS ORDERED: HALDOL INJ ONE (01:44)
[2019-06-02 05:40] LABS: BASOPHILS % (AUTO) 0.1 % (0.2-1.0); EOSINOPHILS # (AUTO) 0.1 x10^3/uL (0.0-0.2); EOSINOPHILS % (AUTO) 0.3 % (0.9-2.9); HEMATOCRIT 37.5 % (42.0-54.0); HEMOGLOBIN 12.5 g/dL (13.5-18.0); LYMPHOCYTES # (AUTO) 2.7 X10^3/uL (1.3-2.9); MEAN CORPUSCULAR HEMOGLOBIN 25.9 pg (27.0-34.0); MEAN CORPUSCULAR HGB CONC 33.2 g/dL (33.0-35.0); MEAN CORPUSCULAR VOLUME 77.8 fL (80.0-100.0); MEAN PLATELET VOLUME 9.4 fL (7.4-11.0); MONOCYTES # (AUTO) 3.3 x10^3/uL (0.3-0.8); MONOCYTES % (AUTO) 9.7 % (0.0-13.0); NEUTROPHILS # (AUTO) 27.8 x10^3/uL (2.2-4.8); NEUTROPHILS % (AUTO) 81.9 % (42.0-75.0); PLATELET COUNT 486 X10^3/uL (150.0-450.0); RED BLOOD COUNT 4.82 X10^6/uL (4.7-6.0); RED CELL DISTRIBUTION WIDTH 16.3 % (11.6-16.5)
[2019-06-02 05:51] LABS: BLOOD UREA NITROGEN 24 mg/dL (7-18); CALCIUM 9.1 mg/dL (8.5-10.1); CARBON DIOXIDE 25.6 mmol/L (21-32); CHLORIDE 97 mmol/L (98-107); COR NA(FOR HYPERGLY) 134 mmol/L (136-145); CREATININE 1.25 mg/dL (0.70-1.30); SODIUM 133 mmol/L (136-145); eGFR NON BLACK RACES > 60 (>60)
[2019-06-02 05:57] LABS: WHITE BLOOD COUNT 33.9 X10^3/uL (3.6-10.0)
[2019-06-02 05:58] LABS: BAND NEUTROPHILS % 3 % (0-10); PLATELET MORPHOLOGY COMMENT NORMAL (NORMAL)
[2019-06-02] MEDS: FERROUS GLUCONATE PO SCH ×2 (06:02→16:04)
[2019-06-02] MEDS ORDERED: POTASSIUM CHL 60 MEQ/NS 0.45% 500 ML IV PRN (06:16)
[2019-06-02] MEDS ORDERED: MICRO K EXTEN CAP 10 MEQ PO PRN (06:16)
[2019-06-02] MEDS ORDERED: POTASSIUM CHL 40 MEQ/NS 0.45% 500 ML IV PRN (06:16)
[2019-06-02] MEDS ORDERED: KLOR-CON PO PRN (06:16)
[2019-06-02] MEDS ORDERED: POTASSIUM CHLORIDE LIQ 20 MEQ UDC PO PRN (06:16)
[2019-06-02] MEDS ORDERED: K-RIDER 10 MEQ/NS 100 ML 10 MEQ/100 ML BAG IV PRN (06:16)
[2019-06-02] MEDS ORDERED: NS 250 ML IV 0 ML IV ONE (08:42)
[2019-06-02] MEDS: PULMICORT NEB TX 0.5 MG NEB SCH ×2 (09:05→20:28)
[2019-06-02] MEDS: ELIQUIS PO SCH ×3 (09:22→20:12)
[2019-06-02] MEDS: LOPRESSOR TAB 25 MG PO SCH ×3 (09:22→20:12)
[2019-06-02] MEDS: CELEXA PO SCH ×2 (09:22→10:16)
[2019-06-02] MEDS ORDERED: GEODON INJ IM ONE ×2 (09:50→13:19)
[2019-06-02] MEDS: MERREM VIAL 1 G in NS 100 ML IV + SPIKE MINIBAG* 100 ML IV SCH ×3 (10:15→20:12)
[2019-06-02] MEDS: LASIX PO SCH (10:17)
[2019-06-02] MEDS: PriLOSEC PO SCH (10:23)
[2019-06-02] MEDS: SYNTHROID 25 mcg TAB PO SCH (10:23)
--- NOTE | 2019-06-02 10:39 | PCM.PROG ---
Progress Note Progress Note for Day of Date of Exam: 06/02/19 Subjective Subjective: Patient seen at bedside, he has a rough night. He was very agitated all night, pulling all lines and wires, hitting staff and family members. See nursing note from the event. He was given Haldol but continued to be agitated. This morning he is in bed in restraints and confused. He is on a NRB saturating well. Labs reviewed: WBC elevated, afebrile, normal lactate, KUB negative. Patient is on Rocephin for E.coli UTI which is sensitive to Rocephin. Will switch to Merrem for broader coverage, get CTAP to rule out any intra-abdominal infection. Leukocytosis likely reactive due to steroids. Will DC steroids. Patient has also not slept in days which is worsening his delirium. Continue to monitor mentation closely. Past Medical Family Social History Past Med/Fam/Surg Hx: No changes since H&P Allergies: Allergies No Known Drug Allergies Allergy (Verified 05/09/17 12:09) Review of Systems ROS: No change since H&P Vital Signs and I&O's Vital Signs: Temperature 98.8 F Pulse Rate [Apical] 93 Pulse Rate 109 Respiratory Rate 31 Blood Pressure [Right Arm] 107/63 Blood Pressure 180/103 O2 Sat by Pulse Oximetry 100 Intake and Output: Intake & Output 05/30/19 05/31/19 06/01/19 06/02/19 23:59 23:59 23:59 23:59 Intake Total 2998 / 2998 1820 / 1820 2204 / 2204 400 / 400 Output Total 2600 / 2600 4500 / 4500 Balance 398 / 398 -2680 / -2680 2204 / 2204 400 / 400 Physical Exam Oriented: Normal and Not Oriented Eyes: Normal Throat: Normal Respiratory: Diminished and Rales Cardiovascular: Tachycardia Auscultation: Bowel Sounds: Normal Palpation: Normal Tenderness: Normal and Other (distended ) Skin: Normal Musculoskeletal: Normal Psychiatric: Agitation Mood Description: Hostile Affect: Anxious Speech Pattern: Inappropriate Laboratory and Diagnostics Result Diagrams: 06/02/19 04:38 06/02/19 04:38 Labs: 05/28/19 22:44 Urine,Clean Catch Urine Culture - Final Escherichia Coli 05/28/19 20:17 Blood Blood Culture - Preliminary 05/28/19 20:12 Blood Blood Culture - Preliminary Laboratory WBC 33.9 X10^3/uL (3.6-10.0) H* D 06/02/19 04:38 RBC 4.82 X10^6/uL (4.7-6.0) 06/02/19 04:38 Hgb 12.5 g/dL (13.5-18.0) L 06/02/19 04:38 Hct 37.5 % (42.0-54.0) L 06/02/19 04:38 MCV 77.8 fL (80.0-100.0) L 06/02/19 04:38 MCH 25.9 pg (27.0-34.0) L 06/02/19 04:38 MCHC 33.2 g/dL (33.0-35.0) 06/02/19 04:38 RDW 16.3 % (11.6-16.5) 06/02/19 04:38 Plt Count 486 X10^3/uL (150.0-450.0) H 06/02/19 04:38 Plt Count Comment Adequate (ADEQUATE) 06/02/19 04:38 MPV 9.4 fL (7.4-11.0) 06/02/19 04:38 Neut % (Auto) 81.9 % (42.0-75.0) H 06/02/19 04:38 Lymph % (Auto) 8.0 % (21.0-51.0) L 06/02/19 04:38 Mower % (Auto) 9.7 % (0.0-13.0) 06/02/19 04:38 Eos % (Auto) 0.3 % (0.9-2.9) L 06/02/19 04:38 Baso % (Auto) 0.1 % (0.2-1.0) L 06/02/19 04:38 Neut # (Auto) 27.8 x10^3/uL (2.2-4.8) H 06/02/19 04:38 Lymph # (Auto) 2.7 X10^3/uL (1.3-2.9) 06/02/19 04:38 Mower # (Auto) 3.3 x10^3/uL (0.3-0.8) H 06/02/19 04:38 Eos # (Auto) 0.1 x10^3/uL (0.0-0.2) 06/02/19 04:38 Baso # (Auto) 0.0 X10^3/uL (0.0-0.1) 06/02/19 04:38 Absolute Nucleated RBC 0.1 /100WBC 06/02/19 04:38 Total Counted 100 06/02/19 04:38 Neutrophils % (Manual) 81 % (39-76) H 06/02/19 04:38 Band Neutrophils % 3 % (0-10) 06/02/19 04:38 Lymphocytes % (Manual) 8 % (13-43) L 06/02/19 04:38 Monocytes % (Manual) 8 % (4-9) 06/02/19 04:38 Toxic Granulation Noted 05/31/19 07:56 Plt Morphology Comment Normal (NORMAL) 06/02/19 04:38 RBC Morphology Normal (NORMAL) 06/02/19 04:38 D-Dimer 479 ng/mL (0-400) H* 05/28/19 20:12 Sample Site Rr 05/31/19 14:15 ABG pH 7.500 (7.35-7.45) H 05/31/19 14:15 ABG pCO2 39.0 mmHg (35.0-45.0) 05/31/19 14:15 ABG pO2 57.0 mmHg (80.0-100.0) L 05/31/19 14:15 ABG HCO3 30.4 mmol/L (22-26) H* 05/31/19 14:15 ABG O2 Saturation 92.0 % (90-100) 05/31/19 14:15 ABG Base Excess 6.7 mmol/L (-2.0-2.0) H 05/31/19 14:15 Aris Test Pos 05/31/19 14:15 A-a Gradient 137.0 mmHg 05/31/19 14:15 FiO2 34.0 05/31/19 14:15 Blood Gas Comments Pt liza well. cdn 05/31/19 14:15 Sodium 133 mmol/L (136-145) L 06/02/19 04:38 Corrected Sodium 134 mmol/L (136-145) L 06/02/19 04:38 Potassium 3.3 mmol/L (3.5-5.1) L 06/02/19 04:38 Chloride 97 mmol/L (98-107) L 06/02/19 04:38 Carbon Dioxide 25.6 mmol/L (21-32) 06/02/19 04:38 BUN 24 mg/dL (7-18) H 06/02/19 04:38 Creatinine 1.25 mg/dL (0.70-1.30) 06/02/19 04:38 Est GFR (MDRD) Af Amer > 60 (>60) 06/02/19 04:38 Est GFR (MDRD) Non-Af > 60 (>60) 06/02/19 04:38 Glucose 125 mg/dL (65-99) H 06/02/19 04:38 POC Glucose (mg/dL) 118 mg/dL (65-99) H 06/02/19 05:44 Hemoglobin A1c 6.6 % 05/29/19 08:55 Lactic Acid 1.2 mmol/L (0.4-2.0) 06/02/19 07:54 Calcium 9.1 mg/dL (8.5-10.1) 06/02/19 04:38 Corrected Calcium 9.6 mg/dL (8.5-10.1) 05/29/19 08:55 Magnesium 2.0 mg/dL (1.7-2.9) 06/02/19 04:38 Iron 48 ug/dL (50-175) L 05/31/19 10:54 Transferrin 278 mg/dL (202-364) 05/31/19 10:54 Ferritin 200 ng/mL (26-388) 05/31/19 10:54 Total Bilirubin 0.60 mg/dL (0.2-1.0) 05/29/19 08:55 AST 17 Units/L (15-37) 05/29/19 08:55 ALT 15 Units/L (12-78) 05/29/19 08:55 Alkaline Phosphatase 53 Units/L (46-116) 05/29/19 08:55 Ammonia < 10 umol/L (11-32) L 05/31/19 17:48 Troponin I < 0.02 ng/mL (0-1.5) 05/28/19 20:12 B-Natriuretic Peptide 79.8 pg/mL (0-79) H 05/29/19 08:55 Total Protein 6.9 g/dL (6.4-8.2) 05/29/19 08:55 Albumin 2.9 g/dL (3.4-5.0) L 05/29/19 08:55 Globulin 4.0 g/dL (2.5-4.5) 05/29/19 08:55 Albumin/Globulin Ratio 0.7 Ratio (1.1-2.1) L 05/29/19 08:55 Vitamin B12 1576 pg/mL (193-986) H 05/31/19 10:54 Folate 6.0 ng/mL (>8.6) L 05/31/19 10:54 Specimen Type Catherized urine 05/29/19 05:44 Urine Color Yellow (YELLOW) 05/29/19 05:44 Urine Appearance Cloudy (CLEAR) 05/29/19 05:44 Urine pH 7.0 (5.0 - 8.0) 05/29/19 05:44 Ur Specific [place] 1.005 (1.000-1.030) 05/29/19 05:44 Urine Protein 2+ (NEGATIVE) 05/29/19 05:44 Urine Glucose (UA) Negative (NEGATIVE) 05/29/19 05:44 Urine Ketones Negative (NEGATIVE) 05/29/19 05:44 Urine Occult Blood 2+ (NEGATIVE) 05/29/19 05:44 Urine Nitrite Positive (NEGATIVE) 05/29/19 05:44 Urine Bilirubin Negative (NEGATIVE) 05/29/19 05:44 Urine Urobilinogen Normal (NORMAL) 05/29/19 05:44 Ur Leukocyte Esterase 3+ (NEGATIVE) 05/29/19 05:44 Urine RBC 3-5 /HPF (0-3) A 05/29/19 05:44 Urine WBC 20-30 /HPF (0-5) A 05/29/19 05:44 Ur Squamous Epith Cells Rare /HPF (NEGATIVE) 05/29/19 05:44 Urine Bacteria 4+ /HPF (NEGATIVE) 05/29/19 05:44 Ur Culture Indicated? Yes/culture set up 05/29/19 05:44 Ur Random Sodium < 50 mmol/L (40-220) 05/30/19 11:20 Urine Creatinine 103.11 mg/dL (40-278) 05/30/19 11:20 Influenza Type A (PCR) Negative (NEGATIVE) 05/28/19 22:32 Influenza Type B (PCR) Negative (NEGATIVE) 05/28/19 22:32 Plan (1) Acute delirium: Status: Acute Plan: Likely related to steroids, infection and being in ICU. Continue restraints for now until able to get IV for antibiotics Received Haldol last night, no QT prolongation noted. Will give Geodon 10 mg IM now. (2) AMS (altered mental status): Status: Acute Qualifiers: Altered mental status type: delirium Qualified Code(s): R41.0 - Disorientation, unspecified Plan: CT-head negative, ABG did not show elevated C02. (3) Atrial fibrillation with rapid ventricular response: Status: Acute Plan: continue metoprolol tartrate to 25mg BID Continue Eliquis, echo showed EF 65%, mod-severe pulmonary HTN, elevated RA pressure (4) Acute on chronic respiratory failure with hypoxia: Status: Acute Plan: Due to underlying severe COPD Continue to titrate oxygen as tolerated, sats > 90% Continue duonebs, IV abx Continue PO Lasix CXR: COPD changes (5) COPD exacerbation: Status: Acute Plan: Severe COPD, uses 2L oxygen at home DC steroids due to worsening delirium (6) UTI (urinary tract infection): Status: Acute Qualifiers: Urinary tract infection type: acute cystitis Hematuria presence: with out hematuria Qualified Code(s): N30.00 - Acute cystitis without hematuria Plan: urine culture: E.coli , sensitive to Rocephin but due to elevated WBC, will switch to Merrem (7) AMBREEN (acute kidney injury): Status: Acute Plan: Cr trending down, 1.25 Monitor AM labs (8) Hypomagnesemia: Status: Acute Plan: replace as per protocol (9) Hyponatremia: Status: Acute Plan: Stable (10) CHF (congestive heart failure): Status: Acute Qualifiers: Heart failure type: unspecified Heart failure chronicity: unspecified Qualified Code(s): I50.9 - Heart failure, unspecified Plan: Continue PO Lasix, Echo with EF 65%, mod-severe Pulm HTN with elevated RA pressure (11) Hyperglycemia: Status: Acute Plan: A1C: 6.6, continue SSI (12) Anemia: Status: Acute Qualifiers: Anemia type: unspecified type Qualified Code(s): D64.9 - Anemia, unspecified Plan: Hgb 12.5 low iron, continue iron supplements (13) Pulmonary HTN: Status: Acute (14) Abdominal distension: Status: Acute Plan: KUB negative, will order CTAP to assess further (15) Hypokalemia: Status: Acute Plan: replace as per protocol
[2019-06-02 11:06] LABS: ABG ALLEN TEST POS; ABG BASE EXCESS 2.2 mmol/L (-2.0-2.0); ABG HCO3 24.7 mmol/L (22-26)
[2019-06-02] MEDS ORDERED: BUTT CREAM (COMPOUND) ONE (13:45)
[2019-06-02] MEDS ORDERED: GEODON INJ IM NR (14:00)
[2019-06-02] MEDS ORDERED: BUTT CREAM (COMPOUND) TOP PRN (14:02)
[2019-06-02] MEDS ORDERED: HALDOL INJ IM NR (15:30)
[2019-06-02] MEDS ORDERED: PHENERGAN INJ 25 MG IM ONE (16:39)
[2019-06-02] MEDS: MIRAPEX TAB 0.25 MG PO SCH (20:11)
[2019-06-02] MEDS: ZOCOR TAB 10 MG PO SCH (20:12)
[2019-06-02] MEDS: TRICOR TAB 160 MG PO SCH (20:12)
[2019-06-02] MEDS: SEROquel TAB 25 mg PO PRN (20:13)
[2019-06-02] MEDS: ATIVAN INJ 2 MG VIAL IVP PRN (20:57)
[2019-06-03] MEDS: XOPENEX 1.25 MG/3 ML NEBULE NEB SCH ×4 (00:05→16:33)
[2019-06-03] MEDS: ATIVAN INJ 2 MG VIAL IVP PRN (00:37)
[2019-06-03 06:08] LABS: BASOPHILS % (AUTO) 0.1 % (0.2-1.0); EOSINOPHILS # (AUTO) 0.5 x10^3/uL (0.0-0.2); EOSINOPHILS % (AUTO) 1.9 % (0.9-2.9); HEMATOCRIT 35.1 % (42.0-54.0); HEMOGLOBIN 11.6 g/dL (13.5-18.0); LYMPHOCYTES # (AUTO) 2.6 X10^3/uL (1.3-2.9); LYMPHOCYTES % (AUTO) 9.2 % (21.0-51.0); MEAN CORPUSCULAR HEMOGLOBIN 25.4 pg (27.0-34.0); MEAN CORPUSCULAR VOLUME 76.9 fL (80.0-100.0); MEAN PLATELET VOLUME 8.5 fL (7.4-11.0); MONOCYTES # (AUTO) 1.8 x10^3/uL (0.3-0.8); MONOCYTES % (AUTO) 6.6 % (0.0-13.0); NEUTROPHILS # (AUTO) 22.8 x10^3/uL (2.2-4.8); NEUTROPHILS % (AUTO) 82.2 % (42.0-75.0); PLATELET COUNT 429 X10^3/uL (150.0-450.0); RED BLOOD COUNT 4.56 X10^6/uL (4.7-6.0); RED CELL DISTRIBUTION WIDTH 16.4 % (11.6-16.5); WHITE BLOOD COUNT 27.7 X10^3/uL (3.6-10.0)
[2019-06-03 06:20] LABS: PLATELET MORPHOLOGY COMMENT NORMAL (NORMAL)
[2019-06-03 06:22] LABS: BLOOD UREA NITROGEN 22 mg/dL (7-18); CALCIUM 8.7 mg/dL (8.5-10.1); CARBON DIOXIDE 27.1 mmol/L (21-32); CHLORIDE 102 mmol/L (98-107); CREATININE 1.24 mg/dL (0.70-1.30); SODIUM 138 mmol/L (136-145); eGFR NON BLACK RACES > 60 (>60)
[2019-06-03] MEDS: FERROUS GLUCONATE PO SCH ×3 (06:25→17:49)
[2019-06-03] MEDS: SYNTHROID 25 mcg TAB PO SCH (08:33)
[2019-06-03] MEDS: PriLOSEC PO SCH (08:33)
[2019-06-03] MEDS: LOPRESSOR TAB 25 MG PO SCH ×2 (08:33→22:24)
[2019-06-03] MEDS: LASIX PO SCH (08:34)
[2019-06-03] MEDS: CELEXA PO SCH (08:35)
[2019-06-03] MEDS: ELIQUIS PO SCH ×2 (08:36→22:24)
[2019-06-03] MEDS: PULMICORT NEB TX 0.5 MG NEB SCH ×2 (08:41→21:00)
--- NOTE | 2019-06-03 09:04 | PCM.PROG ---
Progress Note Progress Note for Day of Date of Exam: 06/03/19 Subjective Subjective: Patient seen at bedside, present. He had some sleep last night, not as agitated as he was before. He is awake, alert this morning, seems to be comfortable and not as restless. He is still in restraints. He states he is thirsty and would like some water and agreed to take his medications. He did receive 2 doses of Ativan 1 mg overnight, last one around midnight. Will continue current medications, Ativan prn. WBC trending down, no signs of other infections. Will continue Merrem for today. Renal function stable, will start with clear diet and advance as tolerated. Past Medical Family Social History Past Med/Fam/Surg Hx: No changes since H&P Allergies: Allergies No Known Drug Allergies Allergy (Verified 05/09/17 12:09) Review of Systems ROS: No change since H&P Vital Signs and I&O's Vital Signs: Temperature 99.2 F Pulse Rate [Apical] 93 Pulse Rate 95 Respiratory Rate 33 Blood Pressure [Right Arm] 107/63 Blood Pressure 131/63 O2 Sat by Pulse Oximetry 100 Intake and Output: Intake & Output 05/31/19 06/01/19 06/02/19 06/03/19 23:59 23:59 23:59 23:59 Intake Total 1820 / 1820 2204 / 2204 1153 / 1153 10 10 Output Total 4500 / 4500 Balance -2680 / -2680 2204 / 2204 1153 / 1153 10 10 Physical Exam Oriented: Normal Eyes: Normal Throat: Dry Respiratory: Wheezes and Rhonchi Cardiovascular: Normal Auscultation: Bowel Sounds: Normal Tenderness: Normal and Other Skin: Normal Musculoskeletal: Normal Psychiatric: Normal Mood Description: Calm Affect: Normal Speech Pattern: Clear Laboratory and Diagnostics Result Diagrams: 06/03/19 05:08 06/03/19 05:08 Labs: 05/28/19 20:17 Blood Blood Culture - Final 05/28/19 20:12 Blood Blood Culture - Final 05/28/19 22:44 Urine,Clean Catch Urine Culture - Final Escherichia Coli Laboratory WBC 27.7 X10^3/uL (3.6-10.0) H 06/03/19 05:08 RBC 4.56 X10^6/uL (4.7-6.0) L 06/03/19 05:08 Hgb 11.6 g/dL (13.5-18.0) L 06/03/19 05:08 Hct 35.1 % (42.0-54.0) L 06/03/19 05:08 MCV 76.9 fL (80.0-100.0) L 06/03/19 05:08 MCH 25.4 pg (27.0-34.0) L 06/03/19 05:08 MCHC 33.0 g/dL (33.0-35.0) 06/03/19 05:08 RDW 16.4 % (11.6-16.5) 06/03/19 05:08 Plt Count 429 X10^3/uL (150.0-450.0) 06/03/19 05:08 Plt Count Comment Increased (ADEQUATE) 06/03/19 05:08 MPV 8.5 fL (7.4-11.0) 06/03/19 05:08 Neut % (Auto) 82.2 % (42.0-75.0) H 06/03/19 05:08 Lymph % (Auto) 9.2 % (21.0-51.0) L 06/03/19 05:08 Taney % (Auto) 6.6 % (0.0-13.0) 06/03/19 05:08 Eos % (Auto) 1.9 % (0.9-2.9) 06/03/19 05:08 Baso % (Auto) 0.1 % (0.2-1.0) L 06/03/19 05:08 Neut # (Auto) 22.8 x10^3/uL (2.2-4.8) H 06/03/19 05:08 Lymph # (Auto) 2.6 X10^3/uL (1.3-2.9) 06/03/19 05:08 Taney # (Auto) 1.8 x10^3/uL (0.3-0.8) H 06/03/19 05:08 Eos # (Auto) 0.5 x10^3/uL (0.0-0.2) H 06/03/19 05:08 Baso # (Auto) 0.0 X10^3/uL (0.0-0.1) 06/03/19 05:08 Absolute Nucleated RBC 0.0 /100WBC 06/03/19 05:08 Total Counted 100 06/03/19 05:08 Neutrophils % (Manual) 70 % (39-76) 06/03/19 05:08 Band Neutrophils % 3 % (0-10) 06/02/19 04:38 Lymphocytes % (Manual) 21 % (13-43) 06/03/19 05:08 Monocytes % (Manual) 8 % (4-9) 06/03/19 05:08 Eosinophils % (Manual) 1 % (0-6) 06/03/19 05:08 Toxic Granulation Noted 05/31/19 07:56 Plt Morphology Comment Normal (NORMAL) 06/03/19 05:08 RBC Morphology Normal (NORMAL) 06/03/19 05:08 D-Dimer 479 ng/mL (0-400) H* 05/28/19 20:12 Sample Site Lr 06/02/19 11:00 ABG pH 7.510 (7.35-7.45) H 06/02/19 11:00 ABG pCO2 31.0 mmHg (35.0-45.0) L 06/02/19 11:00 ABG pO2 80.0 mmHg (80.0-100.0) 06/02/19 11:00 ABG HCO3 24.7 mmol/L (22-26) 06/02/19 11:00 ABG O2 Saturation 97.0 % (90-100) 06/02/19 11:00 ABG Base Excess 2.2 mmol/L (-2.0-2.0) H 06/02/19 11:00 Aris Test Pos 06/02/19 11:00 A-a Gradient 594.0 mmHg 06/02/19 11:00 FiO2 100.0 06/02/19 11:00 Blood Gas Comments Louisa well cb 06/02/19 11:00 Sodium 138 mmol/L (136-145) 06/03/19 05:08 Corrected Sodium TNP 06/03/19 05:08 Potassium 3.7 mmol/L (3.5-5.1) 06/03/19 05:08 Chloride 102 mmol/L (98-107) 06/03/19 05:08 Carbon Dioxide 27.1 mmol/L (21-32) 02/06/20 05:08 BUN 22 mg/dL (7-18) H 06/03/19 05:08 Creatinine 1.24 mg/dL (0.70-1.30) 06/03/19 05:08 Est GFR (MDRD) Af Amer > 60 (>60) 06/03/19 05:08 Est GFR (MDRD) Non-Af > 60 (>60) 06/03/19 05:08 Glucose 91 mg/dL (65-99) 06/03/19 05:08 POC Glucose (mg/dL) 111 mg/dL (65-99) H 06/02/19 20:25 Hemoglobin A1c 6.6 % 05/29/19 08:55 Lactic Acid 1.2 mmol/L (0.4-2.0) 06/02/19 07:54 Calcium 8.7 mg/dL (8.5-10.1) 06/03/19 05:08 Corrected Calcium 9.6 mg/dL (8.5-10.1) 05/29/19 08:55 Magnesium 2.0 mg/dL (1.7-2.9) 06/02/19 04:38 Iron 48 ug/dL (50-175) L 05/31/19 10:54 Transferrin 278 mg/dL (202-364) 05/31/19 10:54 Ferritin 200 ng/mL (26-388) 05/31/19 10:54 Total Bilirubin 0.60 mg/dL (0.2-1.0) 05/29/19 08:55 AST 17 Units/L (15-37) 05/29/19 08:55 ALT 15 Units/L (12-78) 05/29/19 08:55 Alkaline Phosphatase 53 Units/L (46-116) 05/29/19 08:55 Ammonia < 10 umol/L (11-32) L 05/31/19 17:48 Troponin I < 0.02 ng/mL (0-1.5) 05/28/19 20:12 B-Natriuretic Peptide 79.8 pg/mL (0-79) H 05/29/19 08:55 Total Protein 6.9 g/dL (6.4-8.2) 05/29/19 08:55 Albumin 2.9 g/dL (3.4-5.0) L 05/29/19 08:55 Globulin 4.0 g/dL (2.5-4.5) 05/29/19 08:55 Albumin/Globulin Ratio 0.7 Ratio (1.1-2.1) L 05/29/19 08:55 Vitamin B12 1576 pg/mL (193-986) H 05/31/19 10:54 Folate 6.0 ng/mL (>8.6) L 05/31/19 10:54 Specimen Type Catherized urine 05/29/19 05:44 Urine Color Yellow (YELLOW) 05/29/19 05:44 Urine Appearance Cloudy (CLEAR) 05/29/19 05:44 Urine pH 7.0 (5.0 - 8.0) 05/29/19 05:44 Ur Specific Sulphur 1.005 (1.000-1.030) 05/29/19 05:44 Urine Protein 2+ (NEGATIVE) 05/29/19 05:44 Urine Glucose (UA) Negative (NEGATIVE) 05/29/19 05:44 Urine Ketones Negative (NEGATIVE) 05/29/19 05:44 Urine Occult Blood 2+ (NEGATIVE) 05/29/19 05:44 Urine Nitrite Positive (NEGATIVE) 05/29/19 05:44 Urine Bilirubin Negative (NEGATIVE) 05/29/19 05:44 Urine Urobilinogen Normal (NORMAL) 05/29/19 05:44 Ur Leukocyte Esterase 3+ (NEGATIVE) 05/29/19 05:44 Urine RBC 3-5 /HPF (0-3) A 05/29/19 05:44 Urine WBC 20-30 /HPF (0-5) A 05/29/19 05:44 Ur Squamous Epith Cells Rare /HPF (NEGATIVE) 05/29/19 05:44 Urine Bacteria 4+ /HPF (NEGATIVE) 05/29/19 05:44 Ur Culture Indicated? Yes/culture set up 05/29/19 05:44 Ur Random Sodium < 50 mmol/L (40-220) 05/30/19 11:20 Urine Creatinine 103.11 mg/dL (40-278) 05/30/19 11:20 Influenza Type A (PCR) Negative (NEGATIVE) 05/28/19 22:32 Influenza Type B (PCR) Negative (NEGATIVE) 05/28/19 22:32 Plan (1) Acute delirium: Status: Acute Plan: Likely related to steroids, infection and being in ICU. Improved, continue to monitor closely. Remove restraints as tolerated. Continue Ativan prn (2) AMS (altered mental status): Status: Acute Qualifiers: Altered mental status type: delirium Qualified Code(s): R41.0 - Disorientation, unspecified Plan: CT-head negative, ABG did not show elevated C02. (3) Atrial fibrillation with rapid ventricular response: Status: Acute Plan: continue metoprolol tartrate to 25mg BID Continue Eliquis, echo showed EF 65%, mod-severe pulmonary HTN, elevated RA pressure (4) Acute on chronic respiratory failure with hypoxia: Status: Acute Plan: Due to underlying severe COPD Continue to titrate oxygen as tolerated, sats > 90% Continue duonebs, IV abx Continue PO Lasix CXR: COPD changes (5) COPD exacerbation: Status: Acute Plan: Severe COPD, uses 2L oxygen at home, currently on 4L. Wean oxygen as tolerated. (6) UTI (urinary tract infection): Status: Acute Qualifiers: Hematuria presence: without hematuria Urinary tract infection type: a cute cystitis Qualified Code(s): N30.00 - Acute cystitis without hematuria Plan: urine culture: E.coli , sensitive to Rocephin but due to elevated WBC switched to Merrem yesterday. Continue Merrem (7) AMBREEN (acute kidney injury): Status: Acute Plan: Cr trending down, 1.24 Monitor AM labs (8) Hypomagnesemia: Status: Acute Plan: replace as per protocol (9) Hyponatremia: Status: Acute Plan: Stable (10) CHF (congestive heart failure): Status: Acute Qualifiers: Heart failure chronicity: unspecified Heart failure type: unspecified Qualified Code(s): I50.9 - Heart failure, unspecified Plan: Continue PO Lasix, Echo with EF 65%, mod-severe Pulm HTN with elevated RA pressure (11) Hyperglycemia: Status: Acute Plan: A1C: 6.6, continue SSI (12) Anemia: Status: Acute Qualifiers: Anemia type: unspecified type Qualified Code(s): D64.9 - Anemia, unspecified Plan: Hgb 11.6 low iron, continue iron supplements (13) Pulmonary HTN: Status: Acute (14) Abdominal distension: Status: Acute Plan: KUB negative, normal lactic acid (15) Hypokalemia: Status: Acute Plan: replace as per protocol
[2019-06-03] MEDS: MERREM VIAL 1 G in NS 100 ML IV + SPIKE MINIBAG* 100 ML IV SCH ×2 (10:00→22:24)
[2019-06-03] MEDS ORDERED: SEROquel TAB 25 mg PO SCH (21:00)
[2019-06-03] MEDS: MIRAPEX TAB 0.25 MG PO SCH (22:24)
[2019-06-03] MEDS: TRICOR TAB 160 MG PO SCH (22:25)
[2019-06-03] MEDS: ZOCOR TAB 10 MG PO SCH (22:26)
[2019-06-03] MEDS: K-DUR TAB 20 MEQ PO PRN (22:26)
[2019-06-03] MEDS: NORCO 5/325 MG TAB PO PRN (22:35)
[2019-06-04] MEDS: XOPENEX 1.25 MG/3 ML NEBULE NEB SCH ×4 (00:55→12:21)
[2019-06-04 05:47] LABS: BASOPHILS # (AUTO) 0.1 X10^3/uL (0.0-0.1); BASOPHILS % (AUTO) 0.2 % (0.2-1.0); EOSINOPHILS # (AUTO) 0.8 x10^3/uL (0.0-0.2); EOSINOPHILS % (AUTO) 3.3 % (0.9-2.9); HEMATOCRIT 35.8 % (42.0-54.0); HEMOGLOBIN 11.8 g/dL (13.5-18.0); LYMPHOCYTES # (AUTO) 2.5 X10^3/uL (1.3-2.9); LYMPHOCYTES % (AUTO) 9.9 % (21.0-51.0); MEAN CORPUSCULAR HEMOGLOBIN 25.5 pg (27.0-34.0); MEAN CORPUSCULAR VOLUME 77.2 fL (80.0-100.0); MEAN PLATELET VOLUME 8.6 fL (7.4-11.0); MONOCYTES # (AUTO) 1.6 x10^3/uL (0.3-0.8); MONOCYTES % (AUTO) 6.2 % (0.0-13.0); NEUTROPHILS # (AUTO) 20.6 x10^3/uL (2.2-4.8); NEUTROPHILS % (AUTO) 80.4 % (42.0-75.0); PLATELET COUNT 426 X10^3/uL (150.0-450.0); RED BLOOD COUNT 4.64 X10^6/uL (4.7-6.0); RED CELL DISTRIBUTION WIDTH 16.5 % (11.6-16.5); WHITE BLOOD COUNT 25.6 X10^3/uL (3.6-10.0)
[2019-06-04 06:00] LABS: ALANINE AMINOTRANSFERASE 37 Units/L (12-78); ALBUMIN 2.8 g/dL (3.4-5.0); ALKALINE PHOSPHATASE 57 Units/L (46-116); ASPARTATE AMINO TRANSFERASE 38 Units/L (15-37); BLOOD UREA NITROGEN 17 mg/dL (7-18); CALCIUM 8.5 mg/dL (8.5-10.1); CARBON DIOXIDE 25.6 mmol/L (21-32); CHLORIDE 101 mmol/L (98-107); COR CA(FOR HYPOALB) 9.5 mg/dL (8.5-10.1); COR NA(FOR HYPERGLY) 137 mmol/L (136-145); CREATININE 1.13 mg/dL (0.70-1.30); MAGNESIUM 2.1 mg/dL (1.7-2.9); SODIUM 136 mmol/L (136-145); TOTAL PROTEIN 6.6 g/dL (6.4-8.2); eGFR NON BLACK RACES > 60 (>60)
[2019-06-04 06:07] LABS: HYPOCHROMASIA SLIGHT; PLATELET MORPHOLOGY COMMENT NORMAL (NORMAL)
[2019-06-04] MEDS: FERROUS GLUCONATE PO SCH (06:10)
[2019-06-04] MEDS: PULMICORT NEB TX 0.5 MG NEB SCH (08:36)
[2019-06-04] MEDS: MERREM VIAL 1 G in NS 100 ML IV + SPIKE MINIBAG* 100 ML IV SCH (08:49)
[2019-06-04] MEDS: PriLOSEC PO SCH (08:50)
[2019-06-04] MEDS: LOPRESSOR TAB 25 MG PO SCH (08:50)
[2019-06-04] MEDS: CELEXA PO SCH (08:50)
[2019-06-04] MEDS: ELIQUIS PO SCH (08:50)
[2019-06-04] MEDS: SYNTHROID 25 mcg TAB PO SCH (08:50)
[2019-06-04] MEDS: K-DUR TAB 20 MEQ PO PRN (08:53)
[2019-06-04] MEDS: NORCO 5/325 MG TAB PO PRN (08:56)
[2019-06-04] MEDS: HumuLIN R SC PRN (10:42)
--- NOTE | 2019-06-04 14:33 | W.DIS.FURT ---
Summary of Discharge Discharge Summary of Date Date of Exam: 06/04/19 Admission Date Date of Admission: 05/28/19 Admission Diagnosis Hospital Course: Mr. Saleem is a 73y/o male with a PMH of Severe COPD on home oxygen 2 L, HTN and CHF presented with worsening breathing and cough. reports patient has not been doing well for a week with coughing, worsening SOB at rest and exertion. Yesterday, after she got home, she noticed that he was confused and his O2 sats were in the 70s. Patient has been using oxygen for 6 months but only uses it as needed. He was also recently diagnosed with CHF by PCP due to weight gain and started on diuretic a week ago. ED work up showed CXR negative for pneumonia, Flu (-). He was noted to be hypoxic requiring non-rebreather. ABG showed 7.47/38/51/27. He was admitted for COPD exacerbation/bronchitis and given one dose of Levaquin and solumedrol. Patient's Mg was 1.3, troponins (-). UA suggestive of infection, blood and urine cultures were obtained. Patient was started on Rocephin and azithromycin. Urine culture showed E.coli. Patient's white count continued to elevate, lactate was normal, vitals stable, KUB (-). Patient's steroids were tapered. Patient was found to have atrial fibrillation wtih RVR, started on metoprolol and Eliquis. ECHO showed EF 65% , moderate to severe pulmonary HTN with elevated RA pressures. He did receive few doses of lasix but his pulmonary edema resolved. Patient became very delirious requiring restraints, multiple doses of haldol and geodon. He was acutely confused. CT-head negative for acute process. ABG did not show elevated CO2. Acute delirium likely due to steroids or infection. Steroids were stopped and patient was monitored in ICU. His delirium resolved the following day and patient was alert and oriented. He continued to require 4 L oxygen via NC. He was evaluated by RT and required 4L at rest and with activity. Patient was using 2 L oxygen at home prior to admission. Patient will follow up with PCP in one week, outpatient pulmonary rehab and also will need a sleep study to diagnose underlying LAMONT. Vital Signs: Vital Signs (72 hours) 06/01/19 15:19 06/01/19 16:59 06/01/19 17:17 Temperature 98.7 F Pulse Rate 77 78 Respiratory Rate Blood Pressure 186/84 O2 Sat by Pulse Oximetry 91 L 86 L 78 L 06/01/19 18:03 06/01/19 18:09 06/01/19 19:00 Temperature Pulse Rate 86 93 H 86 Respiratory Rate 31 H 35 H 24 Blood Pressure 171/88 158/76 O2 Sat by Pulse Oximetry 91 L 95 94 L 06/01/19 20:00 06/01/19 21:00 06/01/19 22:00 Temperature Pulse Rate 90 91 H 80 Respiratory Rate 26 H 26 H 25 H Blood Pressure 168/85 144/83 128/90 O2 Sat by Pulse Oximetry 90 L 90 L 94 L 06/01/19 23:00 06/02/19 00:00 06/02/19 00:44 Temperature 98.2 F Pulse Rate 74 92 H 92 H Respiratory Rate 28 H 26 H Blood Pressure 138/77 151/86 O2 Sat by Pulse Oximetry 96 92 L 91 L 06/02/19 03:00 06/02/19 04:00 06/02/19 05:00 Temperature Pulse Rate 101 H 104 H 104 H Respiratory Rate 28 H 28 H 28 H Blood Pressure 159/88 152/84 167/97 O2 Sat by Pulse Oximetry 95 92 L 94 L 06/02/19 06:00 06/02/19 07:00 06/02/19 08:00 Temperature 98.8 F Pulse Rate 103 H 105 H 100 H Respiratory Rate 26 H 26 H 24 Blood Pressure 153/89 173/84 174/86 O2 Sat by Pulse Oximetry 94 L 95 94 L 06/02/19 09:00 06/02/19 09:05 06/02/19 10:00 Temperature Pulse Rate 104 H 101 H 109 H Respiratory Rate 26 H 31 H Blood Pressure 165/87 180/103 O2 Sat by Pulse Oximetry 94 L 94 L 100 06/02/19 11:00 06/02/19 11:41 06/02/19 12:00 Temperature 98.9 F Pulse Rate 112 H 112 H Respiratory Rate 30 H 35 H Blood Pressure 141/88 163/81 O2 Sat by Pulse Oximetry 100 94 L 94 L 06/02/19 13:00 06/02/19 14:00 06/02/19 15:00 Temperature Pulse Rate 114 H 101 H 104 H Respiratory Rate 35 H 37 H 38 H Blood Pressure 168/91 174/83 166/82 O2 Sat by Pulse Oximetry 93 L 95 100 06/02/19 16:00 06/02/19 17:00 06/02/19 18:00 Temperature 99.2 F Pulse Rate 104 H 105 H 110 H Respiratory Rate 35 H 30 H 32 H Blood Pressure 161/82 172/97 168/99 O2 Sat by Pulse Oximetry 97 97 96 06/02/19 19:00 06/02/19 20:00 06/02/19 20:28 Temperature Pulse Rate 106 H 109 H 92 H Respiratory Rate 30 H 35 H Blood Pressure 148/82 139/99 O2 Sat by Pulse Oximetry 95 96 94 L 06/02/19 21:00 06/02/19 22:00 06/02/19 23:00 Temperature Pulse Rate 92 H 88 86 Respiratory Rate 30 H 33 H 31 H Blood Pressure 150/90 127/80 115/81 O2 Sat by Pulse Oximetry 95 95 96 06/03/19 00:00 06/03/19 01:00 06/03/19 02:00 Temperature Pulse Rate 86 86 94 H Respiratory Rate 31 H 32 H 27 H Blood Pressure 158/87 131/86 160/80 O2 Sat by Pulse Oximetry 98 98 98 06/03/19 03:00 06/03/19 04:00 06/03/19 05:00 Temperature Pulse Rate 95 H 90 86 Respiratory Rate 30 H 30 H 32 H Blood Pressure 146/80 149/90 116/63 O2 Sat by Pulse Oximetry 96 96 96 06/03/19 06:00 06/03/19 07:00 06/03/19 08:00 Temperature 98.4 F Pulse Rate 95 H 87 96 H Respiratory Rate 33 H 32 H 28 H Blood Pressure 131/63 124/88 145/67 O2 Sat by Pulse Oximetry 96 97 99 06/03/19 08:42 06/03/19 09:00 06/03/19 10:00 Temperature Pulse Rate 84 84 Respiratory Rate 28 H 35 H Blood Pressure 111/64 115/64 O2 Sat by Pulse Oximetry 100 96 95 06/03/19 11:00 06/03/19 12:00 06/03/19 13:00 Temperature 98.6 F Pulse Rate 69 59 L 63 Respiratory Rate 29 H 27 H 28 H Blood Pressure 128/71 134/58 112/60 O2 Sat by Pulse Oximetry 100 91 L 91 L 06/03/19 14:00 06/03/19 15:00 06/03/19 16:00 Temperature 98.2 F Pulse Rate 67 87 74 Respiratory Rate 33 H 48 H 47 H Blood Pressure 112/57 116/81 128/65 O2 Sat by Pulse Oximetry 91 L 91 L 92 L 06/03/19 17:00 06/03/19 18:00 06/03/19 19:00 Temperature 98.4 F Pulse Rate 84 87 42 L Respiratory Rate 32 H 32 H 20 Blood Pressure 134/69 120/64 121/60 O2 Sat by Pulse Oximetry 92 L 92 L 90 L 06/03/19 21:00 06/03/19 21:16 06/03/19 21:19 Temperature 98.2 F Pulse Rate 82 99 H 99 H Respiratory Rate 34 H 46 H Blood Pressure 148/83 O2 Sat by Pulse Oximetry 92 L 89 L 06/03/19 22:00 06/03/19 22:35 06/03/19 23:00 Temperature Pulse Rate 91 H 74 Respiratory Rate 59 H 18 28 H Blood Pressure 135/81 O2 Sat by Pulse Oximetry 88 L 93 L 06/03/19 23:01 06/03/19 23:35 06/03/19 23:37 Temperature Pulse Rate 83 75 Respiratory Rate 29 H 18 30 H Blood Pressure 97/69 96/52 O2 Sat by Pulse Oximetry 93 L 93 L 06/04/19 00:00 06/04/19 00:01 06/04/19 01:00 Temperature 98.2 F Pulse Rate 71 65 Respiratory Rate 25 H 30 H Blood Pressure 136/62 O2 Sat by Pulse Oximetry 94 L 90 L 06/04/19 01:01 06/04/19 02:00 06/04/19 02:21 Temperature Pulse Rate 69 69 Respiratory Rate 41 H 39 H Blood Pressure 119/79 126/66 O2 Sat by Pulse Oximetry 89 L 86 L 06/04/19 03:00 06/04/19 03:01 06/04/19 04:00 Temperature 98.9 F Pulse Rate 77 71 83 Respiratory Rate 22 27 H 42 H Blood Pressure 108/55 111/62 O2 Sat by Pulse Oximetry 94 L 93 L 92 L 06/04/19 05:00 06/04/19 05:01 06/04/19 06:00 Temperature Pulse Rate 67 70 75 Respiratory Rate 23 25 H 20 Blood Pressure 127/74 O2 Sat by Pulse Oximetry 98 97 89 L 06/04/19 06:01 06/04/19 07:00 06/04/19 08:00 Temperature 98.7 F Pulse Rate 78 83 93 H Respiratory Rate 33 H 23 22 Blood Pressure 166/78 139/64 141/79 O2 Sat by Pulse Oximetry 90 L 91 L 92 L 06/04/19 08:56 06/04/19 09:00 06/04/19 09:56 Temperature Pulse Rate 88 Respiratory Rate 20 21 20 Blood Pressure 150/70 O2 Sat by Pulse Oximetry 91 L 06/04/19 10:00 06/04/19 11:00 06/04/19 12:00 Temperature 97.9 F Pulse Rate 76 73 70 Respiratory Rate 20 21 21 Blood Pressure 145/86 123/71 116/86 O2 Sat by Pulse Oximetry 96 93 L 98 06/04/19 13:00 06/04/19 14:00 Temperature Pulse Rate 70 72 Respiratory Rate 22 20 Blood Pressure 157/80 121/76 O2 Sat by Pulse Oximetry 93 L 91 L Labs: Laboratory Last Values WBC 25.6 X10^3/uL (3.6-10.0) H 06/04/19 04:48 RBC 4.64 X10^6/uL (4.7-6.0) L 06/04/19 04:48 Hgb 11.8 g/dL (13.5-18.0) L 06/04/19 04:48 Hct 35.8 % (42.0-54.0) L 06/04/19 04:48 MCV 77.2 fL (80.0-100.0) L 06/04/19 04:48 MCH 25.5 pg (27.0-34.0) L 06/04/19 04:48 MCHC 33.0 g/dL (33.0-35.0) 06/04/19 04:48 RDW 16.5 % (11.6-16.5) 06/04/19 04:48 Plt Count 426 X10^3/uL (150.0-450.0) 06/04/19 04:48 Plt Count Comment Increased (ADEQUATE) 06/04/19 04:48 MPV 8.6 fL (7.4-11.0) 06/04/19 04:48 Neut % (Auto) 80.4 % (42.0-75.0) H 06/04/19 04:48 Lymph % (Auto) 9.9 % (21.0-51.0) L 06/04/19 04:48 [place] % (Auto) 6.2 % (0.0-13.0) 06/04/19 04:48 Eos % (Auto) 3.3 % (0.9-2.9) H 06/04/19 04:48 Baso % (Auto) 0.2 % (0.2-1.0) 06/04/19 04:48 Neut # (Auto) 20.6 x10^3/uL (2.2-4.8) H 06/04/19 04:48 Lymph # (Auto) 2.5 X10^3/uL (1.3-2.9) 06/04/19 04:48 [place] # (Auto) 1.6 x10^3/uL (0.3-0.8) H 06/04/19 04:48 Eos # (Auto) 0.8 x10^3/uL (0.0-0.2) H 06/04/19 04:48 Baso # (Auto) 0.1 X10^3/uL (0.0-0.1) 06/04/19 04:48 Absolute Nucleated RBC 0.0 /100WBC 06/04/19 04:48 Total Counted 100 06/04/19 04:48 Neutrophils % (Manual) 69 % (39-76) 06/04/19 04:48 Band Neutrophils % 3 % (0-10) 06/02/19 04:38 Lymphocytes % (Manual) 20 % (13-43) 06/04/19 04:48 Monocytes % (Manual) 1 % (4-9) L 06/04/19 04:48 Eosinophils % (Manual) 10 % (0-6) H 06/04/19 04:48 Toxic Granulation Noted 05/31/19 07:56 Plt Morphology Comment Normal (NORMAL) 06/04/19 04:48 RBC Morphology Abnormal (NORMAL) 06/04/19 04:48 Hypochromasia Slight A 06/04/19 04:48 D-Dimer 479 ng/mL (0-400) H* 05/28/19 20:12 Sample Site Lr 06/02/19 11:00 ABG pH 7.510 (7.35-7.45) H 06/02/19 11:00 ABG pCO2 31.0 mmHg (35.0-45.0) L 06/02/19 11:00 ABG pO2 80.0 mmHg (80.0-100.0) 06/02/19 11:00 ABG HCO3 24.7 mmol/L (22-26) 06/02/19 11:00 ABG O2 Saturation 97.0 % (90-100) 06/02/19 11:00 ABG Base Excess 2.2 mmol/L (-2.0-2.0) H 06/02/19 11:00 Aris Test Pos 06/02/19 11:00 A-a Gradient 594.0 mmHg 06/02/19 11:00 FiO2 100.0 06/02/19 11:00 Blood Gas Comments Louisa well cb 06/02/19 11:00 Sodium 136 mmol/L (136-145) 06/04/19 04:48 Corrected Sodium 137 mmol/L (136-145) 06/04/19 04:48 Potassium 3.7 mmol/L (3.5-5.1) 06/04/19 04:48 Chloride 101 mmol/L (98-107) 06/04/19 04:48 Carbon Dioxide 25.6 mmol/L (21-32) 06/04/19 04:48 BUN 17 mg/dL (7-18) 06/04/19 04:48 Creatinine 1.13 mg/dL (0.70-1.30) 06/04/19 04:48 Est GFR (MDRD) Af Amer > 60 (>60) 06/04/19 04:48 Est GFR (MDRD) Non-Af > 60 (>60) 06/04/19 04:48 Glucose 140 mg/dL (65-99) H 06/04/19 04:48 POC Glucose (mg/dL) 155 mg/dL (65-99) H 06/04/19 10:40 Hemoglobin A1c 6.6 % 05/29/19 08:55 Lactic Acid 1.2 mmol/L (0.4-2.0) 06/02/19 07:54 Calcium 8.5 mg/dL (8.5-10.1) 06/04/19 04:48 Corrected Calcium 9.5 mg/dL (8.5-10.1) 06/04/19 04:48 Magnesium 2.1 mg/dL (1.7-2.9) 06/04/19 04:48 Iron 48 ug/dL (50-175) L 05/31/19 10:54 Transferrin 278 mg/dL (202-364) 05/31/19 10:54 Ferritin 200 ng/mL (26-388) 05/31/19 10:54 Total Bilirubin 0.50 mg/dL (0.2-1.0) 06/04/19 04:48 AST 38 Units/L (15-37) H 06/04/19 04:48 ALT 37 Units/L (12-78) 06/04/19 04:48 Alkaline Phosphatase 57 Units/L (46-116) 06/04/19 04:48 Ammonia < 10 umol/L (11-32) L 05/31/19 17:48 Troponin I < 0.02 ng/mL (0-1.5) 05/28/19 20:12 B-Natriuretic Peptide 79.8 pg/mL (0-79) H 05/29/19 08:55 Total Protein 6.6 g/dL (6.4-8.2) 06/04/19 04:48 Albumin 2.8 g/dL (3.4-5.0) L 06/04/19 04:48 Globulin 3.8 g/dL (2.5-4.5) 06/04/19 04:48 Albumin/Globulin Ratio 0.7 Ratio (1.1-2.1) L 06/04/19 04:48 Vitamin B12 1576 pg/mL (193-986) H 05/31/19 10:54 Folate 6.0 ng/mL (>8.6) L 05/31/19 10:54 Specimen Type Catherized urine 05/29/19 05:44 Urine Color Yellow (YELLOW) 05/29/19 05:44 Urine Appearance Cloudy (CLEAR) 05/29/19 05:44 Urine pH 7.0 (5.0 - 8.0) 05/29/19 05:44 Ur Specific [place] 1.005 (1.000-1.030) 05/29/19 05:44 Urine Protein 2+ (NEGATIVE) 05/29/19 05:44 Urine Glucose (UA) Negative (NEGATIVE) 05/29/19 05:44 Urine Ketones Negative (NEGATIVE) 05/29/19 05:44 Urine Occult Blood 2+ (NEGATIVE) 05/29/19 05:44 Urine Nitrite Positive (NEGATIVE) 05/29/19 05:44 Urine Bilirubin Negative (NEGATIVE) 05/29/19 05:44 Urine Urobilinogen Normal (NORMAL) 05/29/19 05:44 Ur Leukocyte Esterase 3+ (NEGATIVE) 05/29/19 05:44 Urine RBC 3-5 /HPF (0-3) A 05/29/19 05:44 Urine WBC 20-30 /HPF (0-5) A 05/29/19 05:44 Ur Squamous Epith Cells Rare /HPF (NEGATIVE) 05/29/19 05:44 Urine Bacteria 4+ /HPF (NEGATIVE) 05/29/19 05:44 Ur Culture Indicated? Yes/culture set up 05/29/19 05:44 Ur Random Sodium < 50 mmol/L (40-220) 05/30/19 11:20 Urine Creatinine 103.11 mg/dL (40-278) 05/30/19 11:20 Influenza Type A (PCR) Negative (NEGATIVE) 05/28/19 22:32 Influenza Type B (PCR) Negative (NEGATIVE) 05/28/19 22:32 Reason For Visit: HYPOXIA Discharge Date Discharge Date: 06/04/19 Discharge Diagnosis All Active Problems (Updated 06/06/19 @ 11:30 by Jackeline Jorgensen) Hypokalemia (Acute) Acute delirium (Acute) Abdominal distension (Acute) Pulmonary HTN (Chronic) Anemia (Acute) AMS (altered mental status) (Acute) Atrial fibrillation with rapid ventricular response (Acute) Hyperglycemia (Acute) CHF (congestive heart failure) (Acute) Hyponatremia (Acute) Hypomagnesemia (Acute) AMBREEN (acute kidney injury) (Acute) UTI (urinary tract infection) (Acute) Acute on chronic respiratory failure with hypoxia (Acute) Bronchitis (Acute) COPD exacerbation (Acute) COPD (chronic obstructive pulmonary disease) (Chronic) COPD with hypoxia (Acute) Leukocytosis (Acute) Plan of Treatment: Continue with present treatment and follow up plan. Pt is to keep follow up appointment as instructed and take medications as ordered. Discharge Medications Discharge Medications: No Known Drug Allergies Allergy (Verified 05/09/17 12:09) CONTINUE taking the following medications citalopram 10 mg PO DAILY 05/28/19 [History] fenofibrate 160 mg PO HS 05/28/19 [History] levothyroxine 25 mcg PO DAILY 05/28/19 [History] lisinopril 5 mg PO DAILY 05/28/19 [History] omeprazole 40 mg PO DAILY 05/28/19 [History] pramipexole 0.125 mg PO HS 05/28/19 [History] simvastatin [Zocor] 10 mg PO HS 05/28/19 [History] New Prescriptions albuterol sulfate 2 puff IN Q6H PRN #6.7 g 06/04/19 [Rx] apixaban [Eliquis] 5 mg PO BID 30 Days #60 tab 06/04/19 [Rx] ferrous gluconate 324 mg PO BIDWM 30 Days #60 tab 06/04/19 [Rx] levalbuterol HCl 1.25 mg NEB Q6RESP 30 Days #360 ml 06/04/19 [Rx] metoprolol tartrate 25 mg PO BID 30 Days #60 tab 06/04/19 [Rx] quetiapine 25 mg PO HS 30 Days #30 tab 06/04/19 [Rx] Follow up and Referral Follow Up: 1 Week (PCP) Discharge Disposition Discharge Disposition: Home
[2019-06-04 15:19] VITALS: BP 126/85
== END 2019-06-04 16:00 | disposition home or self-care (01) | DRG 189 ==
LOC: ER 19:26 → ICU 23:19
PROVIDERS: ADMIT Internal Medicine; ATTEND Internal Medicine
DX: B96.29 Other Escherichia coli [E. coli] as the cause of diseases classified elsewhere; R94.31 Abnormal electrocardiogram [ECG] [EKG]; J96.21 Acute and chronic respiratory failure with hypoxia; I50.9 Heart failure, unspecified; I27.20 Pulmonary hypertension, unspecified; D64.89 Other specified anemias; N17.8 Other acute kidney failure; J44.1 Chronic obstructive pulmonary disease with (acute) exacerbation; Z78.1 Physical restraint status; E87.1 Hypo-osmolality and hyponatremia; E83.42 Hypomagnesemia; R26.89 Other abnormalities of gait and mobility; I48.91 Unspecified atrial fibrillation; E87.6 Hypokalemia; R73.09 Other abnormal glucose; Z99.81 Dependence on supplemental oxygen
CPT/HCPCS: 36415; 36600; 70450; 71010; 71045; 74000; 74018; 80048; 80053; 81001; 82140; 82570; 82607; 82728; 82746; 82803; 83036; 83540; 83605; 83735; 83880; 84300; 84466; 84484; 85025; 85378; 87040; 87086; 87088; 87186; 87502; 93005; 93306; 94640; 94760; 96365; 96367; 96374; 97116; 97162; 97165; 99285; A4216; A4222; J0456; J0696; J1630; J1644; J1815; J1940; J1956; J2060; J2185; J2550; J2930; J3475; J3486; J3490; J7030; J7050; J7060; J7512; J7620; J7626

== ENCOUNTER 2019-12-28 16:00 | Inpatient (IN) ==
[2019-12-28 16:06] VITALS: BMI 30.4
[2019-12-28] MEDS ORDERED: PROVENTIL NEB TX 0.083% 2.5MG/ 3ML NEB ONE (17:07)
[2019-12-28] MEDS ORDERED: SOLU-Medrol 125 MG VIAL IVP ONE (17:07)
[2019-12-28] MEDS ORDERED: SOLU-Medrol 125 MG VIAL ONE (17:17)
[2019-12-28] MEDS ORDERED: PROVENTIL NEB TX 0.083% 2.5MG/ 3ML ONE (17:17)
[2019-12-28 17:25] LABS: BASOPHILS % (AUTO) 0.3 % (0.2-1.0); EOSINOPHILS # (AUTO) 0.6 x10^3/uL (0.0-0.2); EOSINOPHILS % (AUTO) 6.3 % (0.9-2.9); HEMATOCRIT 43.5 % (42.0-54.0); HEMOGLOBIN 14.6 g/dL (13.5-18.0); LYMPHOCYTES % (AUTO) 10.1 % (21.0-51.0); MEAN CORPUSCULAR HEMOGLOBIN 29.1 pg (27.0-34.0); MEAN CORPUSCULAR HGB CONC 33.7 g/dL (33.0-35.0); MEAN CORPUSCULAR VOLUME 86.5 fL (80.0-100.0); MEAN PLATELET VOLUME 8.9 fL (7.4-11.0); MONOCYTES # (AUTO) 0.9 x10^3/uL (0.3-0.8); MONOCYTES % (AUTO) 8.7 % (0.0-13.0); NEUTROPHILS # (AUTO) 7.6 x10^3/uL (2.2-4.8); NEUTROPHILS % (AUTO) 74.6 % (42.0-75.0); PLATELET COUNT 204 X10^3/uL (150.0-450.0); RED BLOOD COUNT 5.03 X10^6/uL (4.7-6.0); RED CELL DISTRIBUTION WIDTH 13.8 % (11.6-16.5); WHITE BLOOD COUNT 10.1 X10^3/uL (3.6-10.0)
[2019-12-28 17:43] LABS: BLOOD UREA NITROGEN 16 mg/dL (7-18); CALCIUM 9.4 mg/dL (8.5-10.1); CARBON DIOXIDE 32.3 mmol/L (21-32); CHLORIDE 100 mmol/L (98-107); COR NA(FOR HYPERGLY) 138 mmol/L (136-145); CREATININE 1.51 mg/dL (0.70-1.30); SODIUM 138 mmol/L (136-145); TROPONIN I < 0.02 ng/mL (0-1.5); eGFR NON BLACK RACES 48 (>60)
[2019-12-28 17:47] LABS: ALANINE AMINOTRANSFERASE 42 Units/L (12-78); ALBUMIN 3.7 g/dL (3.4-5.0); ALKALINE PHOSPHATASE 58 Units/L (46-116); ASPARTATE AMINO TRANSFERASE 31 Units/L (15-37); CKMB % 2.4 % (<4); CREATINE KINASE 54 Units/L (39-308); CREATINE KINASE MB 1.3 ng/mL (0-4.0); TOTAL PROTEIN 7.5 g/dL (6.4-8.2)
--- NOTE | 2019-12-28 19:01 | DR.SOBA ---
HPI <Tripp Black - Last Filed: 01/10/20 17:16> Time Seen Time Seen by Provider: 12/28/19 16:13 Primary Care Physician Primary Care Physician: GUILLERMO Complaints Chief Complaint:: PT. C/O INCREASED SHORTNESS OF BREATH. PT. IS O2 DEPENDENT AT HOME ON 2 LITERS VIA N/C. DR. LI INFORMED PT. TO COME TO THE ER FOR EVALUATION. COVID-19 Coronavirus risk:travel/contact w/high risk person: No Has patient experienced Coronavirus symptoms: Yes Coronavirus symptoms experienced: Shortness of Breath Source History Provided: Patient Mode of Arrival Mode of Arrival: Ambulatory Timing Onset of Chief Complaint: 12/24/19 <Linda Orlando - Last Filed: 12/29/19 07:27> HPI Comment HPI Comment: Pt care received from Dr Black; pt resting comfortably after eating with at bedside; still sob but definitely feels better. PMH <Tripp Black - Last Filed: 01/10/20 17:16> PMH Past Medical History: Yes Past Medical History: CHF, COPD and Hypertension Past Surgical History: Yes Surgical History: Thyroidectomy Family History History of Family Medical Conditions: Yes Family Medical History: Cancer and Hypertension Social History Does patient currently use any type of tobacco product: No Have you used tobacco products in the last 12 months: No Type of Tobacco Use: None Does any household member use tobacco: No Alcohol Use: None Do you use any recreational Drugs:: No Lives With: Spouse Lives Where: Home Travel Risk Coronavirus risk:travel/contact w/high risk person: No Has patient experienced Coronavirus symptoms: Yes Coronavirus symptoms experienced: Shortness of Breath Infectious screening In the last 2 months have you had wt loss of >10#?: NO Have you had fever, night sweats or hemotysis?: No Have you traveled outside the country in the last 6 months?: No Isolation: Standard ROS <Tripp Black - Last Filed: 01/10/20 17:16> Review of Systems Constitutional: No Symptoms Reported Eyes: No Symptoms Reported ENTM: No Symptoms Reported Respiratoy: Dry Cough and Short of Breath Cardiovascular: No Symptoms Reported Genitourinary: No Symptoms Reported Neurological: No Symptoms Reported Integumentary: No Symptoms Reported Hematologic/Lymphatic: No Symptoms Reported Psychiatric: No Symptoms Reported All Other Systems: Reviewed and Negative PE <Tripp Black - Last Filed: 01/10/20 17:16> Vital Signs Vitals: Temperature 97.8 F Pulse Rate 89 Respiratory Rate 22 Blood Pressure [Right Arm] 107/63 Blood Pressure 130/63 O2 Sat by Pulse Oximetry 91 General Limitations: No Limitations General Appearance: Alert and Anxious Head Head Exam: Normal Inspection, Atraumatic and Normocephalic Eyes Eye exam: Normal Appearance, PERRL and EOMI ENT ENT Exam: Normal Exam, Normal Oropharynx and Mucous Membranes Moist Neck Neck Exam: Normal Inspection, Full ROM and Trachea Midline Chest Chest Inspection: Normal Inspection and Symmetric Chest Wall Rise; negative Tenderness Respiratory Respiratory Exam: Bilateral: Wheezing and Bilateral: Rhonchi Cardiovascular Cardiovascular Exam: Regular Rate, Normal Rhythm and Normal Heart Sounds Abdominal Exam Abdominal Exam: Normal Inspection, Normal Bowel Sounds and Soft Extremities Extremities Exam: Normal Inspection and Full ROM Back Back Exam: Normal Inspection and Full ROM Neurologic Neurological Exam: Alert, Oriented X3 and Normal Gait Psychiatric Psychiatric Exam: Normal Affect and Normal Mood Skin Skin Exam: Warm, Dry, Intact and Normal Color <Linda Orlando - Last Filed: 12/29/19 07:27> Vital Signs Vitals: Temperature 97.8 F Pulse Rate 89 Respiratory Rate 22 Blood Pressure [Right Arm] 107/63 Blood Pressure 130/63 O2 Sat by Pulse Oximetry 91 General Limitations: No Limitations General Appearance: Alert and In No Apparent Distress <Linda Orlando - Last Filed: 12/29/19 07:27> Reevaluation 1st: Improved ROR <Tripp Black - Last Filed: 01/10/20 17:16> Labs Reviewed Laboratory Results Reviewed?: Yes Result Diagrams: 12/31/19 05:50 12/31/19 05:50 Laboratory: WBC 10.1 X10^3/uL (3.6-10.0) H 12/28/19 17:20 RBC 5.03 X10^6/uL (4.7-6.0) 12/28/19 17:20 Hgb 14.6 g/dL (13.5-18.0) 12/28/19 17:20 Hct 43.5 % (42.0-54.0) 12/28/19 17:20 MCV 86.5 fL (80.0-100.0) 09/01/20 17:20 MCH 29.1 pg (27.0-34.0) 12/28/19 17:20 MCHC 33.7 g/dL (33.0-35.0) 12/28/19 17:20 RDW 13.8 % (11.6-16.5) 12/28/19 17:20 Plt Count 204 X10^3/uL (150.0-450.0) 12/28/19 17:20 MPV 8.9 fL (7.4-11.0) 12/28/19 17:20 Neut % (Auto) 74.6 % (42.0-75.0) 12/28/19 17:20 Lymph % (Auto) 10.1 % (21.0-51.0) L 12/28/19 17:20 [place] % (Auto) 8.7 % (0.0-13.0) 12/28/19 17:20 Eos % (Auto) 6.3 % (0.9-2.9) H 12/28/19 17:20 Baso % (Auto) 0.3 % (0.2-1.0) 12/28/19 17:20 Neut # (Auto) 7.6 x10^3/uL (2.2-4.8) H 12/28/19 17:20 Lymph # (Auto) 1.0 X10^3/uL (1.3-2.9) L 12/28/19 17:20 [place] # (Auto) 0.9 x10^3/uL (0.3-0.8) H 12/28/19 17:20 Eos # (Auto) 0.6 x10^3/uL (0.0-0.2) H 12/28/19 17:20 Baso # (Auto) 0.0 X10^3/uL (0.0-0.1) 12/28/19 17:20 Absolute Nucleated RBC 0.0 /100WBC 12/28/19 17:20 PT 16.4 SECONDS (11.8-14.3) 12/28/19 17:20 INR Target Range - 12/28/19 17:20 INR 1.36 (0.8-1.3) H 12/28/19 17:20 APTT 32.9 SECONDS (22.9-36.5) 12/28/19 17:20 PTT Comment - 12/28/19 17:20 Sample Site L radial 12/28/19 19:50 ABG pH 7.530 (7.35-7.45) H 12/28/19 19:50 ABG pCO2 36.0 mmHg (35.0-45.0) 12/28/19 19:50 ABG pO2 40.0 mmHg (80.0-100.0) L* 12/28/19 19:50 ABG HCO3 30.1 mmol/L (22-26) H* 12/28/19 19:50 ABG O2 Saturation 82.0 % (90-100) L* 12/28/19 19:50 ABG Base Excess 7.1 mmol/L (-2.0-2.0) H 12/28/19 19:50 Aris Test Poss 12/28/19 19:50 A-a Gradient 65.0 mmHg 12/28/19 19:50 FiO2 21.0 12/28/19 19:50 Blood Gas Comments Louisa well kb 12/28/19 19:50 Sodium 138 mmol/L (136-145) 12/28/19 17:20 Corrected Sodium 138 mmol/L (136-145) 12/28/19 17:20 Potassium 4.1 mmol/L (3.5-5.1) 12/28/19 17:20 Chloride 100 mmol/L (98-107) 12/28/19 17:20 Carbon Dioxide 32.3 mmol/L (21-32) H 12/28/19 17:20 BUN 16 mg/dL (7-18) 12/28/19 17:20 Creatinine 1.51 mg/dL (0.70-1.30) H 12/28/19 17:20 Est GFR (MDRD) Af Amer 59 (>60) 12/28/19 17:20 Est GFR (MDRD) Non-Af 48 (>60) L 12/28/19 17:20 Glucose 116 mg/dL (65-99) H 12/28/19 17:20 Calcium 9.4 mg/dL (8.5-10.1) 12/28/19 17:20 Corrected Calcium TNP 12/28/19 17:20 Ferritin 234 ng/mL (26-388) 12/28/19 17:20 Total Bilirubin 0.50 mg/dL (0.2-1.0) 12/28/19 17:20 AST 31 Units/L (15-37) 12/28/19 17:20 ALT 42 Units/L (12-78) 12/28/19 17:20 Alkaline Phosphatase 58 Units/L (46-116) 12/28/19 17:20 Creatine Kinase 54 Units/L (39-308) 12/28/19 17:20 CK-MB (CK-2) 1.3 ng/mL (0-4.0) 12/28/19 17:20 CK/CKMB % Calc 2.4 % (<4) 12/28/19 17:20 Troponin I < 0.02 ng/mL (0-1.5) 12/28/19 17:20 C-Reactive Protein 62.80 mg/L (0-3.0) H 12/28/19 17:20 B-Natriuretic Peptide 19.4 pg/mL (0-79) 12/28/19 17:20 Total Protein 7.5 g/dL (6.4-8.2) 12/28/19 17:20 Albumin 3.7 g/dL (3.4-5.0) 12/28/19 17:20 Globulin 3.8 g/dL (2.5-4.5) 12/28/19 17:20 Albumin/Globulin Ratio 1.0 Ratio (1.1-2.1) L 12/28/19 17:20 SARS-CoV-2 (PCR) Negative (NEGATIVE) 12/28/19 20:11 XRAY X-ray Results: NAD EKG Rate: 81 [place]: Normal Rhythm: NSR Block: None Hypertrophy: None ST: Normal <Linda Orlando - Last Filed: 12/29/19 07:27> Labs Reviewed Laboratory Results Reviewed?: Yes Laboratory: WBC 10.1 X10^3/uL (3.6-10.0) H 12/28/19 17:20 RBC 5.03 X10^6/uL (4.7-6.0) 12/28/19 17:20 Hgb 14.6 g/dL (13.5-18.0) 12/28/19 17:20 Hct 43.5 % (42.0-54.0) 12/28/19 17:20 MCV 86.5 fL (80.0-100.0) 12/28/19 17:20 MCH 29.1 pg (27.0-34.0) 12/28/19 17:20 MCHC 33.7 g/dL (33.0-35.0) 12/28/19 17:20 RDW 13.8 % (11.6-16.5) 12/28/19 17:20 Plt Count 204 X10^3/uL (150.0-450.0) 12/28/19 17:20 MPV 8.9 fL (7.4-11.0) 12/28/19 17:20 Neut % (Auto) 74.6 % (42.0-75.0) 12/28/19 17:20 Lymph % (Auto) 10.1 % (21.0-51.0) L 12/28/19 17:20 [place] % (Auto) 8.7 % (0.0-13.0) 12/28/19 17:20 Eos % (Auto) 6.3 % (0.9-2.9) H 12/28/19 17:20 Baso % (Auto) 0.3 % (0.2-1.0) 12/28/19 17:20 Neut # (Auto) 7.6 x10^3/uL (2.2-4.8) H 12/28/19 17:20 Lymph # (Auto) 1.0 X10^3/uL (1.3-2.9) L 12/28/19 17:20 [place] # (Auto) 0.9 x10^3/uL (0.3-0.8) H 12/28/19 17:20 Eos # (Auto) 0.6 x10^3/uL (0.0-0.2) H 12/28/19 17:20 Baso # (Auto) 0.0 X10^3/uL (0.0-0.1) 12/28/19 17:20 Absolute Nucleated RBC 0.0 /100WBC 12/28/19 17:20 PT 16.4 SECONDS (11.8-14.3) 12/28/19 17:20 INR Target Range - 12/28/19 17:20 INR 1.36 (0.8-1.3) H 12/28/19 17:20 APTT 32.9 SECONDS (22.9-36.5) 12/28/19 17:20 PTT Comment - 12/28/19 17:20 Sample Site L radial 12/28/19 19:50 ABG pH 7.530 (7.35-7.45) H 12/28/19 19:50 ABG pCO2 36.0 mmHg (35.0-45.0) 12/28/19 19:50 ABG pO2 40.0 mmHg (80.0-100.0) L* 12/28/19 19:50 ABG HCO3 30.1 mmol/L (22-26) H* 12/28/19 19:50 ABG O2 Saturation 82.0 % (90-100) L* 12/28/19 19:50 ABG Base Excess 7.1 mmol/L (-2.0-2.0) H 12/28/19 19:50 Aris Test Poss 12/28/19 19:50 A-a Gradient 65.0 mmHg 12/28/19 19:50 FiO2 21.0 12/28/19 19:50 Blood Gas Comments Louisa well kb 12/28/19 19:50 Sodium 138 mmol/L (136-145) 12/28/19 17:20 Corrected Sodium 138 mmol/L (136-145) 12/28/19 17:20 Potassium 4.1 mmol/L (3.5-5.1) 12/28/19 17:20 Chloride 100 mmol/L (98-107) 12/28/19 17:20 Carbon Dioxide 32.3 mmol/L (21-32) H 12/28/19 17:20 BUN 16 mg/dL (7-18) 12/28/19 17:20 Creatinine 1.51 mg/dL (0.70-1.30) H 12/28/19 17:20 Est GFR (MDRD) Af Amer 59 (>60) 12/28/19 17:20 Est GFR (MDRD) Non-Af 48 (>60) L 12/28/19 17:20 Glucose 116 mg/dL (65-99) H 12/28/19 17:20 Calcium 9.4 mg/dL (8.5-10.1) 12/28/19 17:20 Corrected Calcium TNP 09/01/20 17:20 Ferritin 234 ng/mL (26-388) 12/28/19 17:20 Total Bilirubin 0.50 mg/dL (0.2-1.0) 12/28/19 17:20 AST 31 Units/L (15-37) 12/28/19 17:20 ALT 42 Units/L (12-78) 12/28/19 17:20 Alkaline Phosphatase 58 Units/L (46-116) 12/28/19 17:20 Creatine Kinase 54 Units/L (39-308) 12/28/19 17:20 CK-MB (CK-2) 1.3 ng/mL (0-4.0) 12/28/19 17:20 CK/CKMB % Calc 2.4 % (<4) 12/28/19 17:20 Troponin I < 0.02 ng/mL (0-1.5) 12/28/19 17:20 C-Reactive Protein 62.80 mg/L (0-3.0) H 12/28/19 17:20 B-Natriuretic Peptide 19.4 pg/mL (0-79) 12/28/19 17:20 Total Protein 7.5 g/dL (6.4-8.2) 12/28/19 17:20 Albumin 3.7 g/dL (3.4-5.0) 12/28/19 17:20 Globulin 3.8 g/dL (2.5-4.5) 12/28/19 17:20 Albumin/Globulin Ratio 1.0 Ratio (1.1-2.1) L 12/28/19 17:20 SARS-CoV-2 (PCR) Negative (NEGATIVE) 12/28/19 20:11 XRAY XRAY Interpreted by: Radiologist X-ray Results: cxr: Mild cardiomegaly which is more prominent. Diffuse chronic interstitial changes throughout with a questionable small subsegmental infiltrate or atelectasis along right lung base medially which is more apparent. Opioid <Tripp Black - Last Filed: 01/10/20 17:16> Opioid Risk Tool Age (Chun box if 16-45): No History of Preadolescent Sexual Abuse: No Total: 0 Total Score Risk Category: Low Risk Copyright: [facility] predicting aberrant behaviors <Linda Orlando - Last Filed: 12/29/19 07:27> Opioid Risk Tool Total: 0 Total Score Risk Category: Low Risk <Tripp Black - Last Filed: 01/10/20 17:16> Diagnosis Discharge Problem: COPD exacerbation, Hypoxia RLL pneumonia Qualifiers: Pneumonia type: due to unspecified organism Qualified Code(s): J18.9 - Pneumonia, unspecified organism Leukocytosis Qualifiers: Leukocytosis type: lymphocytosis Qualified Code(s): D72.820 - Lymphocytosis (symptomatic) Instructions Instructions: Home Oxygen Use, Adult Hypoxia Heart Failure Action Plan Chronic Obstructive Pulmonary Disease Exacerbation, Fqon-dv-Urch Community-Acquired Pneumonia, Adult, [id number] Forms: Excuse From Work or School Precautions for COVID19 Patient Portal Social Distancing
--- NOTE | 2019-12-28 19:17 | RAD ---
HISTORYCOPD, SOBSTUDYCHEST, 1 [id number] heart is mildly enlarged and more prominent. The pulmonary vessels are top normal. The lungs are hyperinflated and emphysematous. There is hazy right basilar opacity which is more apparent. No effusion is seen. There are mild chronic interstitial changes throughout.IMPRESSIONMild cardiomegaly which is more prominent.Diffuse chronic interstitial changes throughout with a questionable small subsegmental infiltrate or atelectasis along right lung base medially which is more apparent.Electronically signed by: SACHIN MARTELL (Dec 28, 2019 17:52:46)
[2019-12-28 19:53] LABS: ABG BASE EXCESS 7.1 mmol/L (-2.0-2.0)
[2019-12-28 19:56] LABS: ABG ALLEN TEST POSS; ABG HCO3 30.1 mmol/L (22-26)
[2019-12-28] MEDS ORDERED: ZITHROMAX INJ 500 MG VIAL 500 MG in NS 250 ML IV 250 ML IV SCH ×2 (21:47→21:52)
[2019-12-28] MEDS ORDERED: ROCEPHIN VIAL 1 GRAM 1 G in NS 100 ML IV + SPIKE MINIBAG* 100 ML IV ONE (21:47)
[2019-12-28] MEDS ORDERED: ROCEPHIN VIAL 1 GRAM ONE (21:51)
[2019-12-28] MEDS ORDERED: ZITHROMAX INJ 500 MG VIAL IV ONE (21:51)
[2019-12-28] MEDS ORDERED: NS 250 ML IV 250 ML IV ONE (21:52)
[2019-12-28] MEDS ORDERED: NS 100 ML IV 100 ML IV ONE (21:52)
--- NOTE | 2019-12-28 22:16 | DR.H&P ---
H&P History & Physical for Day of: H&P Date: 12/28/19 Chief Complaint Chief Complaint: increased SOB, fatigue Allergies Allergies Allergy/AdvReac Type Severity Reaction Status Date / Time No Known Drug Allergies Allergy Verified 05/09/17 12:09 History of Present Illness History of Present Illness: Patient presented with worsening SOB for the past 3 days. He has a hx of severe COPD on 2-3 L continuous O2 at home along with atrial fibrillation, HTN, chronic pain and anxiety. He went to his pulm rehab appointment and was noted to have sats in low 80s. He states his breathing has been getting worse for the past few days. He gets very SOB with minimal exertion. He has not able to ambulate much at home due to progressive dyspnea. He reports mild cough with some sputum. Denies fever or chills, no body aches. He does report nausea, no vomiting or diarrhea. His wt has been increasing, started giving him lasix yesterday. No sick contact at home, denies known exposure to COVID-19. ED work-up - CXR: concerning for RLL pna, COPD changes - Labs: elevated WBC, Cr: 1.5 Trop (-) COVID-19 neg ABG concerning for acute respiratory failure with hypoxia Meds: solumedrol 125 mg once, Rocephin and Azithromax, Duonebs Plan: admit with telemetry, continue antibiotics, monitor AM labs, continue Duonebs q4hrs prn, continue solumedrol. Past Medical History Past Medical History: Anxiety, COPD, Dyslipidemia, Hypertension, Hypothyroidism and Sleep Apnea Additional Medical History: Atrial fibrillation Past Surgical History Surgical History: Thyroidectomy Family History Family Medical History: Cancer and Hypertension Social History Does patient currently use any type of tobacco product: No Have you used tobacco products in the last 12 months: No Type of Tobacco Use: None Does any household member use tobacco: No Alcohol Use: None Medications Home Medications: No Known Drug Allergies Allergy (Verified 05/09/17 12:09) Labs Result Diagrams: 12/29/19 05:10 12/29/19 05:10 Labs: Laboratory WBC 10.1 X10^3/uL (3.6-10.0) H 12/28/19 17:20 RBC 5.03 X10^6/uL (4.7-6.0) 12/28/19 17:20 Hgb 14.6 g/dL (13.5-18.0) 12/28/19 17:20 Hct 43.5 % (42.0-54.0) 12/28/19 17:20 MCV 86.5 fL (80.0-100.0) 12/28/19 17:20 MCH 29.1 pg (27.0-34.0) 12/28/19 17:20 MCHC 33.7 g/dL (33.0-35.0) 12/28/19 17:20 RDW 13.8 % (11.6-16.5) 12/28/19 17:20 Plt Count 204 X10^3/uL (150.0-450.0) 12/28/19 17:20 MPV 8.9 fL (7.4-11.0) 12/28/19 17:20 Neut % (Auto) 74.6 % (42.0-75.0) 12/28/19 17:20 Lymph % (Auto) 10.1 % (21.0-51.0) L 12/28/19 17:20 [place] % (Auto) 8.7 % (0.0-13.0) 12/28/19 17:20 Eos % (Auto) 6.3 % (0.9-2.9) H 12/28/19 17:20 Baso % (Auto) 0.3 % (0.2-1.0) 12/28/19 17:20 Neut # (Auto) 7.6 x10^3/uL (2.2-4.8) H 12/28/19 17:20 Lymph # (Auto) 1.0 X10^3/uL (1.3-2.9) L 12/28/19 17:20 [place] # (Auto) 0.9 x10^3/uL (0.3-0.8) H 12/28/19 17:20 Eos # (Auto) 0.6 x10^3/uL (0.0-0.2) H 12/28/19 17:20 Baso # (Auto) 0.0 X10^3/uL (0.0-0.1) 12/28/19 17:20 Absolute Nucleated RBC 0.0 /100WBC 12/28/19 17:20 PT 16.4 SECONDS (11.8-14.3) 12/28/19 17:20 INR Target Range - 12/28/19 17:20 INR 1.36 (0.8-1.3) H 12/28/19 17:20 APTT 32.9 SECONDS (22.9-36.5) 12/28/19 17:20 PTT Comment - 12/28/19 17:20 Sample Site L radial 12/28/19 19:50 ABG pH 7.530 (7.35-7.45) H 12/28/19 19:50 ABG pCO2 36.0 mmHg (35.0-45.0) 12/28/19 19:50 ABG pO2 40.0 mmHg (80.0-100.0) L* 12/28/19 19:50 ABG HCO3 30.1 mmol/L (22-26) H* 12/28/19 19:50 ABG O2 Saturation 82.0 % (90-100) L* 12/28/19 19:50 ABG Base Excess 7.1 mmol/L (-2.0-2.0) H 12/28/19 19:50 Aris Test Poss 12/28/19 19:50 A-a Gradient 65.0 mmHg 12/28/19 19:50 FiO2 21.0 12/28/19 19:50 Blood Gas Comments Louisa well kb 12/28/19 19:50 Sodium 138 mmol/L (136-145) 12/28/19 17:20 Corrected Sodium 138 mmol/L (136-145) 12/28/19 17:20 Potassium 4.1 mmol/L (3.5-5.1) 12/28/19 17:20 Chloride 100 mmol/L (98-107) 12/28/19 17:20 Carbon Dioxide 32.3 mmol/L (21-32) H 12/28/19 17:20 BUN 16 mg/dL (7-18) 12/28/19 17:20 Creatinine 1.51 mg/dL (0.70-1.30) H 12/28/19 17:20 Est GFR (MDRD) Af Amer 59 (>60) 12/28/19 17:20 Est GFR (MDRD) Non-Af 48 (>60) L 12/28/19 17:20 Glucose 116 mg/dL (65-99) H 12/28/19 17:20 Calcium 9.4 mg/dL (8.5-10.1) 12/28/19 17:20 Corrected Calcium TNP 12/28/19 17:20 Ferritin 234 ng/mL (26-388) 12/28/19 17:20 Total Bilirubin 0.50 mg/dL (0.2-1.0) 12/28/19 17:20 AST 31 Units/L (15-37) 12/28/19 17:20 ALT 42 Units/L (12-78) 12/28/19 17:20 Alkaline Phosphatase 58 Units/L (46-116) 12/28/19 17:20 Creatine Kinase 54 Units/L (39-308) 12/28/19 17:20 CK-MB (CK-2) 1.3 ng/mL (0-4.0) 12/28/19 17:20 CK/CKMB % Calc 2.4 % (<4) 12/28/19 17:20 Troponin I < 0.02 ng/mL (0-1.5) 12/28/19 17:20 C-Reactive Protein 62.80 mg/L (0-3.0) H 12/28/19 17:20 B-Natriuretic Peptide 19.4 pg/mL (0-79) 12/28/19 17:20 Total Protein 7.5 g/dL (6.4-8.2) 12/28/19 17:20 Albumin 3.7 g/dL (3.4-5.0) 12/28/19 17:20 Globulin 3.8 g/dL (2.5-4.5) 12/28/19 17:20 Albumin/Globulin Ratio 1.0 Ratio (1.1-2.1) L 12/28/19 17:20 SARS-CoV-2 (PCR) Negative (NEGATIVE) 12/28/19 20:11 Review of Systems Constitutional: Weakness and Malaise Eyes: No Symptoms Reported ENT: No Symptoms Reported Respiratory: Cough, Shortness of Breath, SOB with Excertion, Sputum and Wheezing Cardiovascular: Orthopnea; denies Chest Pain, Palpitations and Edema Gastrointestinal: Nausea; denies Vomiting, Abdominal Pain and Constipation Genitourinary: No Symptoms Reported Musculoskeletal: Back Pain and Neck Pain Skin: No Symptoms Reported Neurological: No Symptoms Reported Physical Exam Vital Signs: Temperature 97.8 F Pulse Rate [Right Brachial] 93 Pulse Rate 89 Respiratory Rate 22 Blood Pressure [Right Arm] 161/90 Blood Pressure 130/63 O2 Sat by Pulse Oximetry 88 Oriented: Normal Eyes: Normal Ear: Normal Nose: Normal Respiratory: Rhonchi Throughout and Wheezes Throughout Cardiovascular: Tachycardia Auscultation: Bowel Sounds: Normal Palpation: Normal Tenderness: Normal Skin: Normal Musculoskeletal: Back:Thoracic and Back:Lumbar Psychiatric: Normal Mood Description: Calm Affect: Normal Speech Pattern: Clear and Appropriate Assessment/Plan (1) Acute on chronic respiratory failure with hypoxia: Status: Acute (2) COPD exacerbation: Status: Acute (3) RLL pneumonia: Qualifiers: Pneumonia type: due to unspecified organism Qualified Code(s): J18.9 - Pneumonia, unspecified organism Status: Acute (4) Pulmonary HTN: Status: Chronic (5) Hyperglycemia: Status: Acute (6) AMBREEN (acute kidney injury): Status: Acute Review H&P Reviewed: Yes Patient was examined?: Yes
[2019-12-28] MEDS ORDERED: PROVENTIL NEB TX 0.083% 2.5MG/ 3ML NEB PRN (22:57)
[2019-12-28] MEDS ORDERED: PROVENTIL NEB TX 0.083% 2.5MG/ 3ML NEB SCH (23:15)
[2019-12-29] MEDS: PROVENTIL NEB TX 0.083% 2.5MG/ 3ML NEB SCH ×6 (01:20→22:10)
[2019-12-29 06:29] LABS: ALANINE AMINOTRANSFERASE 41 Units/L (12-78); ALBUMIN 3.4 g/dL (3.4-5.0); ALKALINE PHOSPHATASE 56 Units/L (46-116); ASPARTATE AMINO TRANSFERASE 29 Units/L (15-37); BLOOD UREA NITROGEN 18 mg/dL (7-18); CALCIUM 9.2 mg/dL (8.5-10.1); CARBON DIOXIDE 26.5 mmol/L (21-32); CHLORIDE 97 mmol/L (98-107); COR NA(FOR HYPERGLY) 137 mmol/L (136-145); CREATININE 1.61 mg/dL (0.70-1.30); SODIUM 134 mmol/L (136-145); TOTAL PROTEIN 7.3 g/dL (6.4-8.2); eGFR NON BLACK RACES 45 (>60)
[2019-12-29 06:33] LABS: BASOPHILS % (AUTO) 0.3 % (0.2-1.0); EOSINOPHILS % (AUTO) 0.4 % (0.9-2.9); HEMATOCRIT 41.1 % (42.0-54.0); HEMOGLOBIN 13.9 g/dL (13.5-18.0); LYMPHOCYTES # (AUTO) 0.9 X10^3/uL (1.3-2.9); LYMPHOCYTES % (AUTO) 8.6 % (21.0-51.0); MEAN CORPUSCULAR HEMOGLOBIN 29.4 pg (27.0-34.0); MEAN CORPUSCULAR HGB CONC 33.7 g/dL (33.0-35.0); MEAN CORPUSCULAR VOLUME 87.2 fL (80.0-100.0); MEAN PLATELET VOLUME 10.1 fL (7.4-11.0); MONOCYTES # (AUTO) 0.2 x10^3/uL (0.3-0.8); MONOCYTES % (AUTO) 1.8 % (0.0-13.0); NEUTROPHILS # (AUTO) 9.3 x10^3/uL (2.2-4.8); NEUTROPHILS % (AUTO) 88.9 % (42.0-75.0); PLATELET COUNT 231 X10^3/uL (150.0-450.0); RED BLOOD COUNT 4.71 X10^6/uL (4.7-6.0); RED CELL DISTRIBUTION WIDTH 13.8 % (11.6-16.5); WHITE BLOOD COUNT 10.5 X10^3/uL (3.6-10.0)
[2019-12-29] MEDS ORDERED: SOLU-Medrol 125 MG VIAL ONE (08:04)
[2019-12-29] MEDS ORDERED: ROCEPHIN VIAL 500 MG 500 MG in NS 25 ML IV 25 ML IV SCH (09:00)
[2019-12-29] MEDS ORDERED: SOLU-Medrol 125 MG VIAL IVP SCH (09:00)
[2019-12-29] MEDS: PriLOSEC PO SCH (09:07)
[2019-12-29] MEDS: ZITHROMAX TAB 250 MG PO SCH (09:07)
[2019-12-29] MEDS: CELEXA PO SCH (09:08)
[2019-12-29] MEDS: ELIQUIS PO SCH ×2 (09:08→20:51)
[2019-12-29] MEDS: FERROUS GLUCONATE PO SCH ×2 (09:08→20:51)
[2019-12-29] MEDS: SYNTHROID 25 mcg TAB PO SCH (09:09)
[2019-12-29] MEDS: LOPRESSOR TAB 25 MG PO SCH ×2 (09:09→20:52)
[2019-12-29] MEDS: ROCEPHIN VIAL 1 GRAM 1 G in NS 100 ML IV + SPIKE MINIBAG* 100 ML IV SCH ×2 (09:17→09:49)
[2019-12-29] MEDS: NS 1000 ML 1,000 ML IV SCH (09:30)
[2019-12-29] MEDS: SOLU-Medrol 125 MG VIAL IVP SCH ×2 (09:35→20:51)
--- NOTE | 2019-12-29 09:59 | PCM.PROG ---
Progress Note Progress Note for Day of Date of Exam: 12/29/19 Subjective Subjective: Patient seen at bedside, no overnight events. He states his breathing is a lot better. He has some mild cough but not able to cough up anything. He is currently on 4L, sats in the low 90s. Denies fever or chills. He did eat his breakfast this AM. at bedside. Labs: WBC 10.5 Cr: 1.61 Plan: continue Rocephin and Azithromycin, decrease solumedrol to 60 mg BID, continue albuterol prn, add pulmicort, sputum culture. Resume home medications, gentle hydration with NS. Monitor AM labs. Wean O2 as tolerated to keep sats > 90%. Patient also recently did get Trilegy at home. Past Medical Family Social History Past Med/Fam/Surg Hx: No changes since H&P Allergies: Allergies No Known Drug Allergies Allergy (Verified 05/09/17 12:09) Review of Systems ROS: No change since H&P Vital Signs and I&O's Vital Signs: Temperature 97.7 F Pulse Rate [Right Brachial] 68 Pulse Rate 88 Respiratory Rate 18 Blood Pressure [Right Arm] 110/62 Blood Pressure 130/63 O2 Sat by Pulse Oximetry 92 Intake and Output: Intake & Output 12/26/19 12/27/19 12/28/19 12/29/19 23:59 23:59 23:59 23:59 Intake Total 1570 / 1570 Output Total 1375 / 1375 Balance 195 / 195 Physical Exam Oriented: Normal Eyes: Normal Ear: Normal Nose: Normal Respiratory: Generalized, Wheezes and Rhonchi Cardiovascular: Normal Auscultation: Bowel Sounds: Normal Tenderness: Normal Skin: Normal Musculoskeletal: Back:Thoracic and Back:Lumbar Psychiatric: Normal Mood Description: Calm Affect: Normal Speech Pattern: Clear and Appropriate Laboratory and Diagnostics Result Diagrams: 12/29/19 05:10 12/29/19 05:10 Labs: Laboratory WBC 10.5 X10^3/uL (3.6-10.0) H 12/29/19 05:10 RBC 4.71 X10^6/uL (4.7-6.0) 12/29/19 05:10 Hgb 13.9 g/dL (13.5-18.0) 12/29/19 05:10 Hct 41.1 % (42.0-54.0) L 12/29/19 05:10 MCV 87.2 fL (80.0-100.0) 12/29/19 05:10 MCH 29.4 pg (27.0-34.0) 12/29/19 05:10 MCHC 33.7 g/dL (33.0-35.0) 12/29/19 05:10 RDW 13.8 % (11.6-16.5) 12/29/19 05:10 Plt Count 231 X10^3/uL (150.0-450.0) 12/29/19 05:10 MPV 10.1 fL (7.4-11.0) 12/29/19 05:10 Neut % (Auto) 88.9 % (42.0-75.0) H 12/29/19 05:10 Lymph % (Auto) 8.6 % (21.0-51.0) L 12/29/19 05:10 [place] % (Auto) 1.8 % (0.0-13.0) 12/29/19 05:10 Eos % (Auto) 0.4 % (0.9-2.9) L 12/29/19 05:10 Baso % (Auto) 0.3 % (0.2-1.0) 12/29/19 05:10 Neut # (Auto) 9.3 x10^3/uL (2.2-4.8) H 12/29/19 05:10 Lymph # (Auto) 0.9 X10^3/uL (1.3-2.9) L 12/29/19 05:10 [place] # (Auto) 0.2 x10^3/uL (0.3-0.8) L 12/29/19 05:10 Eos # (Auto) 0.0 x10^3/uL (0.0-0.2) 12/29/19 05:10 Baso # (Auto) 0.0 X10^3/uL (0.0-0.1) 12/29/19 05:10 Absolute Nucleated RBC 0.0 /100WBC 12/29/19 05:10 PT 16.4 SECONDS (11.8-14.3) 12/28/19 17:20 INR Target Range - 12/28/19 17:20 INR 1.36 (0.8-1.3) H 12/28/19 17:20 APTT 32.9 SECONDS (22.9-36.5) 12/28/19 17:20 PTT Comment - 12/28/19 17:20 Sample Site L radial 12/28/19 19:50 ABG pH 7.530 (7.35-7.45) H 12/28/19 19:50 ABG pCO2 36.0 mmHg (35.0-45.0) 12/28/19 19:50 ABG pO2 40.0 mmHg (80.0-100.0) L* 12/28/19 19:50 ABG HCO3 30.1 mmol/L (22-26) H* 12/28/19 19:50 ABG O2 Saturation 82.0 % (90-100) L* 12/28/19 19:50 ABG Base Excess 7.1 mmol/L (-2.0-2.0) H 12/28/19 19:50 Aris Test Poss 12/28/19 19:50 A-a Gradient 65.0 mmHg 12/28/19 19:50 FiO2 21.0 12/28/19 19:50 Blood Gas Comments Louisa well kb 12/28/19 19:50 Sodium 134 mmol/L (136-145) L 12/29/19 05:10 Corrected Sodium 137 mmol/L (136-145) 12/29/19 05:10 Potassium 4.4 mmol/L (3.5-5.1) 12/29/19 05:10 Chloride 97 mmol/L (98-107) L 12/29/19 05:10 Carbon Dioxide 26.5 mmol/L (21-32) 12/29/19 05:10 BUN 18 mg/dL (7-18) 12/29/19 05:10 Creatinine 1.61 mg/dL (0.70-1.30) H 12/29/19 05:10 Est GFR (MDRD) Af Amer 54 (>60) L 12/29/19 05:10 Est GFR (MDRD) Non-Af 45 (>60) L 12/29/19 05:10 Glucose 240 mg/dL (65-99) H 12/29/19 05:10 POC Glucose (mg/dL) 251 mg/dL (65-99) H 12/29/19 05:09 Calcium 9.2 mg/dL (8.5-10.1) 12/29/19 05:10 Corrected Calcium TNP 12/29/19 05:10 Ferritin 234 ng/mL (26-388) 12/28/19 17:20 Total Bilirubin 0.40 mg/dL (0.2-1.0) 12/29/19 05:10 AST 29 Units/L (15-37) 12/29/19 05:10 ALT 41 Units/L (12-78) 12/29/19 05:10 Alkaline Phosphatase 56 Units/L (46-116) 12/29/19 05:10 Creatine Kinase 54 Units/L (39-308) 12/28/19 17:20 CK-MB (CK-2) 1.3 ng/mL (0-4.0) 12/28/19 17:20 CK/CKMB % Calc 2.4 % (<4) 12/28/19 17:20 Troponin I < 0.02 ng/mL (0-1.5) 12/28/19 17:20 C-Reactive Protein 62.80 mg/L (0-3.0) H 12/28/19 17:20 B-Natriuretic Peptide 19.4 pg/mL (0-79) 12/28/19 17:20 Total Protein 7.3 g/dL (6.4-8.2) 12/29/19 05:10 Albumin 3.4 g/dL (3.4-5.0) 12/29/19 05:10 Globulin 3.9 g/dL (2.5-4.5) 12/29/19 05:10 Albumin/Globulin Ratio 0.9 Ratio (1.1-2.1) L 12/29/19 05:10 SARS-CoV-2 (PCR) Negative (NEGATIVE) 12/28/19 20:11 Plan (1) Acute on chronic respiratory failure with hypoxia: Status: Acute (2) COPD exacerbation: Status: Acute (3) RLL pneumonia: Status: Acute Qualifiers: Pneumonia type: due to unspecified organism Qualified Code(s): J18.9 - Pneumonia, unspecified organism (4) Pulmonary HTN: Status: Chronic (5) Hyperglycemia: Status: Acute (6) AMBREEN (acute kidney injury): Status: Acute
[2019-12-29] MEDS ORDERED: ZOFRAN TAB 4 MG PO PRN (10:01)
[2019-12-29] MEDS: PULMICORT NEB TX 0.5 MG NEB SCH ×2 (11:16→22:10)
[2019-12-29] MEDS: HumuLIN R SC PRN ×3 (12:32→21:29)
[2019-12-29] MEDS ORDERED: TYLENOL 325 MG TAB PO PRN (13:41)
[2019-12-29] MEDS: FLOMAX PO SCH (20:52)
[2019-12-29] MEDS: MIRAPEX TAB 0.25 MG PO SCH (20:52)
[2019-12-29] MEDS: TRICOR TAB 160 MG PO SCH (20:53)
[2019-12-29] MEDS: SEROquel TAB 25 mg PO SCH (20:53)
[2019-12-29] MEDS: XANAX PO PRN (20:54)
[2019-12-29] MEDS: ZOCOR TAB 10 MG PO SCH (20:54)
[2019-12-29] MEDS: NORCO 7.5/325 MG TAB PO PRN (20:55)
[2019-12-29] MEDS ORDERED: FLOMAX PO SCH (21:00)
[2019-12-30] MEDS: PROVENTIL NEB TX 0.083% 2.5MG/ 3ML NEB SCH ×6 (01:30→20:40)
[2019-12-30] MEDS: NS 1000 ML 1,000 ML IV SCH ×2 (05:34→06:05)
[2019-12-30] MEDS: HumuLIN R SC PRN ×4 (06:04→21:00)
[2019-12-30 06:39] LABS: BASOPHILS % (AUTO) 0.2 % (0.2-1.0); EOSINOPHILS % (AUTO) 0.1 % (0.9-2.9); HEMATOCRIT 40.7 % (42.0-54.0); HEMOGLOBIN 13.4 g/dL (13.5-18.0); LYMPHOCYTES # (AUTO) 1.3 X10^3/uL (1.3-2.9); LYMPHOCYTES % (AUTO) 7.5 % (21.0-51.0); MONOCYTES # (AUTO) 0.8 x10^3/uL (0.3-0.8); MONOCYTES % (AUTO) 4.6 % (0.0-13.0); NEUTROPHILS # (AUTO) 15.3 x10^3/uL (2.2-4.8); NEUTROPHILS % (AUTO) 87.6 % (42.0-75.0); PLATELET COUNT 263 X10^3/uL (150.0-450.0); RED BLOOD COUNT 4.62 X10^6/uL (4.7-6.0); RED CELL DISTRIBUTION WIDTH 13.8 % (11.6-16.5); WHITE BLOOD COUNT 17.5 X10^3/uL (3.6-10.0)
[2019-12-30 06:41] LABS: BLOOD UREA NITROGEN 18 mg/dL (7-18); CALCIUM 8.7 mg/dL (8.5-10.1); CARBON DIOXIDE 26.3 mmol/L (21-32); CHLORIDE 103 mmol/L (98-107); COR NA(FOR HYPERGLY) 141 mmol/L (136-145); CREATININE 1.37 mg/dL (0.70-1.30); SODIUM 138 mmol/L (136-145); eGFR NON BLACK RACES 54 (>60)
--- NOTE | 2019-12-30 08:25 | PCM.PROG ---
Progress Note Progress Note for Day of Date of Exam: 12/30/19 Subjective Subjective: Patient seen at bedside, no overnight events. Patient states he feels a lot better. He is coughing up yellow sputum now. Denies fever or chills. Denies N/V/D. He has been eating well. He is on 4L O2 via [place], sats > 92%. He did work with PT yesterday. He has not really gotten out of bed much. Labs: WBC-17.5 BUN/Cr: 18/1.37 Glucose: 219 Plan: will switch to Zosyn for pseudomonas coverage, continue Zithromax and solumedrol. Continue gentle hydration. Repeat CXR. Wean O2 as tolerated to keep sats between 88-90%. PT/OT. Monitor AM labs. Follow sputum culture. Past Medical Family Social History Past Med/Fam/Surg Hx: No changes since H&P Allergies: Allergies No Known Drug Allergies Allergy (Verified 05/09/17 12:09) Review of Systems ROS: No change since H&P Vital Signs and I&O's Vital Signs: Temperature 97.8 F Pulse Rate [Right Brachial] 75 Pulse Rate 75 Respiratory Rate 16 Blood Pressure [Right Arm] 139/81 Blood Pressure 130/63 O2 Sat by Pulse Oximetry 95 Intake and Output: Intake & Output 12/27/19 12/28/19 12/29/19 12/30/19 23:59 23:59 23:59 23:59 Intake Total 4910 / 4910 975 / 975 Output Total 3375 / 3375 700 / 700 Balance 1535 / 1535 275 / 275 Physical Exam Oriented: Normal Eyes: Normal Ear: Normal Nose: Normal Respiratory: Generalized and Wheezes Cardiovascular: Normal; negative Edema Auscultation: Bowel Sounds: Normal Tenderness: Normal Skin: Normal Musculoskeletal: Back:Thoracic and Back:Lumbar Psychiatric: Normal Mood Description: Calm Affect: Normal Speech Pattern: Clear Laboratory and Diagnostics Result Diagrams: 12/30/19 05:50 12/30/19 05:50 Labs: Laboratory WBC 17.5 X10^3/uL (3.6-10.0) H 12/30/19 05:50 RBC 4.62 X10^6/uL (4.7-6.0) L 12/30/19 05:50 Hgb 13.4 g/dL (13.5-18.0) L 12/30/19 05:50 Hct 40.7 % (42.0-54.0) L 12/30/19 05:50 MCV 88.0 fL (80.0-100.0) 12/30/19 05:50 MCH 29.0 pg (27.0-34.0) 12/30/19 05:50 MCHC 33.0 g/dL (33.0-35.0) 12/30/19 05:50 RDW 13.8 % (11.6-16.5) 12/30/19 05:50 Plt Count 263 X10^3/uL (150.0-450.0) 12/30/19 05:50 MPV 10.0 fL (7.4-11.0) 12/30/19 05:50 Neut % (Auto) 87.6 % (42.0-75.0) H 12/30/19 05:50 Lymph % (Auto) 7.5 % (21.0-51.0) L 12/30/19 05:50 [place] % (Auto) 4.6 % (0.0-13.0) 12/30/19 05:50 Eos % (Auto) 0.1 % (0.9-2.9) L 12/30/19 05:50 Baso % (Auto) 0.2 % (0.2-1.0) 12/30/19 05:50 Neut # (Auto) 15.3 x10^3/uL (2.2-4.8) H 12/30/19 05:50 Lymph # (Auto) 1.3 X10^3/uL (1.3-2.9) 12/30/19 05:50 [place] # (Auto) 0.8 x10^3/uL (0.3-0.8) 12/30/19 05:50 Eos # (Auto) 0.0 x10^3/uL (0.0-0.2) 12/30/19 05:50 Baso # (Auto) 0.0 X10^3/uL (0.0-0.1) 12/30/19 05:50 Absolute Nucleated RBC 0.0 /100WBC 12/30/19 05:50 PT 16.4 SECONDS (11.8-14.3) 12/28/19 17:20 INR Target Range - 12/28/19 17:20 INR 1.36 (0.8-1.3) H 12/28/19 17:20 APTT 32.9 SECONDS (22.9-36.5) 12/28/19 17:20 PTT Comment - 12/28/19 17:20 Sample Site L radial 12/28/19 19:50 ABG pH 7.530 (7.35-7.45) H 12/28/19 19:50 ABG pCO2 36.0 mmHg (35.0-45.0) 12/28/19 19:50 ABG pO2 40.0 mmHg (80.0-100.0) L* 12/28/19 19:50 ABG HCO3 30.1 mmol/L (22-26) H* 12/28/19 19:50 ABG O2 Saturation 82.0 % (90-100) L* 12/28/19 19:50 ABG Base Excess 7.1 mmol/L (-2.0-2.0) H 12/28/19 19:50 Aris Test Poss 12/28/19 19:50 A-a Gradient 65.0 mmHg 12/28/19 19:50 FiO2 21.0 12/28/19 19:50 Blood Gas Comments Louisa well kb 12/28/19 19:50 Sodium 138 mmol/L (136-145) 12/30/19 05:50 Corrected Sodium 141 mmol/L (136-145) 12/30/19 05:50 Potassium 4.8 mmol/L (3.5-5.1) 12/30/19 05:50 Chloride 103 mmol/L (98-107) 12/30/19 05:50 Carbon Dioxide 26.3 mmol/L (21-32) 12/30/19 05:50 BUN 18 mg/dL (7-18) 12/30/19 05:50 Creatinine 1.37 mg/dL (0.70-1.30) H 12/30/19 05:50 Est GFR (MDRD) Af Amer > 60 (>60) 12/30/19 05:50 Est GFR (MDRD) Non-Af 54 (>60) L 12/30/19 05:50 Glucose 219 mg/dL (65-99) H 12/30/19 05:50 POC Glucose (mg/dL) 206 mg/dL (65-99) H 12/30/19 05:43 Calcium 8.7 mg/dL (8.5-10.1) 12/30/19 05:50 Corrected Calcium TNP 12/29/19 05:10 Ferritin 234 ng/mL (26-388) 12/28/19 17:20 Total Bilirubin 0.40 mg/dL (0.2-1.0) 12/29/19 05:10 AST 29 Units/L (15-37) 12/29/19 05:10 ALT 41 Units/L (12-78) 12/29/19 05:10 Alkaline Phosphatase 56 Units/L (46-116) 12/29/19 05:10 Creatine Kinase 54 Units/L (39-308) 12/28/19 17:20 CK-MB (CK-2) 1.3 ng/mL (0-4.0) 12/28/19 17:20 CK/CKMB % Calc 2.4 % (<4) 12/28/19 17:20 Troponin I < 0.02 ng/mL (0-1.5) 12/28/19 17:20 C-Reactive Protein 62.80 mg/L (0-3.0) H 12/28/19 17:20 B-Natriuretic Peptide 19.4 pg/mL (0-79) 12/28/19 17:20 Total Protein 7.3 g/dL (6.4-8.2) 12/29/19 05:10 Albumin 3.4 g/dL (3.4-5.0) 12/29/19 05:10 Globulin 3.9 g/dL (2.5-4.5) 12/29/19 05:10 Albumin/Globulin Ratio 0.9 Ratio (1.1-2.1) L 12/29/19 05:10 SARS-CoV-2 (PCR) Negative (NEGATIVE) 12/28/19 20:11 Plan (1) Acute on chronic respiratory failure with hypoxia: Status: Acute (2) COPD exacerbation: Status: Acute (3) RLL pneumonia: Status: Acute Qualifiers: Pneumonia type: due to unspecified organism Qualified Code(s): J18.9 - Pneumonia, unspecified organism (4) Pulmonary HTN: Status: Chronic (5) Hyperglycemia: Status: Inactive (6) AMBREEN (acute kidney injury): Status: Inactive
[2019-12-30] MEDS: ZITHROMAX TAB 250 MG PO SCH (09:34)
[2019-12-30] MEDS: CELEXA PO SCH (09:34)
[2019-12-30] MEDS: SYNTHROID 25 mcg TAB PO SCH (09:35)
[2019-12-30] MEDS: PriLOSEC PO SCH (09:35)
[2019-12-30] MEDS: ELIQUIS PO SCH ×2 (09:35→21:00)
[2019-12-30] MEDS: LOPRESSOR TAB 25 MG PO SCH ×2 (09:36→21:00)
[2019-12-30] MEDS: FERROUS GLUCONATE PO SCH ×2 (09:36→21:00)
[2019-12-30] MEDS: SOLU-Medrol 125 MG VIAL IVP SCH ×2 (09:37→21:00)
[2019-12-30] MEDS: ZOSYN VIAL 3.375 GRAMS 3.375 G in NS 100 ML IV + SPIKE MINIBAG* 100 ML IV SCH ×3 (09:38→21:00)
[2019-12-30] MEDS ORDERED: ZOSYN VIAL 3.375 GRAMS IV ONE (09:40)
[2019-12-30] MEDS ORDERED: NS 100 ML IV + SPIKE MINIBAG* 100 ML IV ONE (09:41)
[2019-12-30] MEDS: PULMICORT NEB TX 0.5 MG NEB SCH ×2 (10:00→20:40)
--- NOTE | 2019-12-30 10:16 | RAD ---
HISTORYHYPOXIA, F/U PNEUMONIASTUDYCHEST, 1 VIEWCOMPARISONPortable chest December 28, 2019. And older film May 31, 2019.FINDINGSThe trachea is midline. The cardiac silhouette is unremarkable . The lungs are clear without focal infiltrate or effusion. Chronic changes of fibrosis in the lung bases unchanged from May 31, 2019. The bony thorax is unremarkable.IMPRESSIONChronic bibasilar changes of fibrosis but no acute cardiopulmonary disease.Electronically signed by: AMERICA HE (Dec 30, 2019 10:15:47)
[2019-12-30] MEDS ORDERED: BUTT CREAM (COMPOUND) ONE (14:24)
[2019-12-30 17:50] LABS: BILIRUBIN,URINE NEGATIVE (NEGATIVE); BLOOD/HEMOGLOBIN,URINE NEGATIVE (NEGATIVE); GLUCOSE, URINE 3+ (NEGATIVE); KETONES,URINE NEGATIVE (NEGATIVE); LEUKOCYTE ESTERASE ,URINE 3+ (NEGATIVE); NITRITES,URINE NEGATIVE (NEGATIVE); PROTEIN,URINE NEGATIVE (NEGATIVE); UROBILINOGEN,URINE NORMAL (NORMAL)
[2019-12-30 18:13] LABS: APPEARANCE,URINE CLEAR (CLEAR); COLOR,URINE YELLOW (YELLOW)
[2019-12-30 18:14] LABS: BACTERIA,URINE NEGATIVE /HPF (NEGATIVE); RBC,URINE NONE SEEN /HPF (0-3); SQUAMOUS EPITHELIAL CELL,UR NEGATIVE /HPF (NEGATIVE)
[2019-12-30] MEDS: TRICOR TAB 160 MG PO SCH (21:00)
[2019-12-30] MEDS: ZOCOR TAB 10 MG PO SCH (21:00)
[2019-12-30] MEDS: MIRAPEX TAB 0.25 MG PO SCH (21:00)
[2019-12-30] MEDS: FLOMAX PO SCH (21:00)
[2019-12-30] MEDS: SEROquel TAB 25 mg PO SCH (23:16)
[2019-12-30] MEDS: NORCO 7.5/325 MG TAB PO PRN (23:27)
[2019-12-30] MEDS: XANAX PO PRN (23:28)
[2019-12-31] MEDS: PROVENTIL NEB TX 0.083% 2.5MG/ 3ML NEB SCH ×3 (00:15→08:45)
[2019-12-31 06:28] LABS: BASOPHILS % (AUTO) 0.1 % (0.2-1.0); HEMATOCRIT 40.2 % (42.0-54.0); HEMOGLOBIN 13.4 g/dL (13.5-18.0); LYMPHOCYTES # (AUTO) 0.8 X10^3/uL (1.3-2.9); LYMPHOCYTES % (AUTO) 5.5 % (21.0-51.0); MEAN CORPUSCULAR HGB CONC 33.4 g/dL (33.0-35.0); MEAN CORPUSCULAR VOLUME 86.8 fL (80.0-100.0); MEAN PLATELET VOLUME 9.7 fL (7.4-11.0); MONOCYTES # (AUTO) 0.6 x10^3/uL (0.3-0.8); MONOCYTES % (AUTO) 3.8 % (0.0-13.0); NEUTROPHILS # (AUTO) 13.6 x10^3/uL (2.2-4.8); NEUTROPHILS % (AUTO) 90.6 % (42.0-75.0); PLATELET COUNT 215 X10^3/uL (150.0-450.0); RED BLOOD COUNT 4.63 X10^6/uL (4.7-6.0); WHITE BLOOD COUNT 15.1 X10^3/uL (3.6-10.0)
[2019-12-31 06:48] LABS: BLOOD UREA NITROGEN 20 mg/dL (7-18); CHLORIDE 102 mmol/L (98-107); COR NA(FOR HYPERGLY) 139 mmol/L (136-145); CREATININE 1.31 mg/dL (0.70-1.30); SODIUM 137 mmol/L (136-145); eGFR NON BLACK RACES 57 (>60)
[2019-12-31] MEDS: NS 1000 ML 1,000 ML IV SCH (06:49)
[2019-12-31] MEDS: ZOSYN VIAL 3.375 GRAMS 3.375 G in NS 100 ML IV + SPIKE MINIBAG* 100 ML IV SCH (06:49)
[2019-12-31 07:41] LABS: PLATELET MORPHOLOGY COMMENT NORMAL (NORMAL)
[2019-12-31] MEDS: PULMICORT NEB TX 0.5 MG NEB SCH (08:45)
[2019-12-31] MEDS: SOLU-Medrol 125 MG VIAL IVP SCH (08:54)
[2019-12-31] MEDS: ZITHROMAX TAB 250 MG PO SCH (08:55)
[2019-12-31] MEDS: PriLOSEC PO SCH (08:55)
[2019-12-31] MEDS: FERROUS GLUCONATE PO SCH (08:56)
[2019-12-31] MEDS: CELEXA PO SCH (08:57)
[2019-12-31] MEDS: SYNTHROID 25 mcg TAB PO SCH (08:57)
[2019-12-31] MEDS: ELIQUIS PO SCH (08:58)
[2019-12-31] MEDS: LOPRESSOR TAB 25 MG PO SCH (08:58)
[2019-12-31 09:07] VITALS: BP 140/89
--- NOTE | 2019-12-31 09:12 | W.DIS.FURT ---
Summary of Discharge Discharge Summary of Date Date of Exam: 12/31/19 Admission Date Date of Admission: 12/28/19 Admission Diagnosis Patient Problems (Updated 01/06/20 @ 11:31 by CAREY ALFRED) COPD exacerbation (Acute) J44.1 Hypoxia (Acute) R09.02 Hospital Course: Patient presented with worsening SOB for the past 3 days. He has a hx of severe COPD on 2-3 L continuous O2 at home along with atrial fibrillation, HTN, chronic pain and anxiety. He went to his pulm rehab appointment and was noted to have sats in low 80s. He states his breathing has been getting worse for the past few days. He gets very SOB with minimal exertion. He has not able to ambulate much at home due to progressive dyspnea. He reports mild cough with some sputum. Denies fever or chills, no body aches. He does report nausea, no vomiting or diarrhea. His wt has been increasing, started giving him lasix yesterday. No sick contact at home, denies known exposure to COVID-19. ED work-up showed CXR: concerning for RLL pneumonia. Patient was noted to have elevated WBC, COVID test negative. He was admitted for acute on chronic respiratory failure with hypoxia due to pneumonia and COPD exacerbation. He was started on IV abx and steroids along with duonebs and IS. He was placed on telemetry. Patient's labs were monitored daily and electrolytes were replaced as needed. His sputum Cx showed Klebsiella and Enterobacter cloacae sensitive to levaquin. He was back to his baseline oxygen of 3L. PT/OT evaluated the patient and did not have furter recommendations. Patient was stable to be discharged home. Vital Signs: Vital Signs (72 hours) 12/28/19 16:04 12/28/19 16:38 12/28/19 16:45 Temperature 97.8 F Pulse Rate 92 H 87 82 Pulse Rate [Right Brachial] Respiratory Rate 25 H Blood Pressure 132/78 117/77 Blood Pressure [Right Arm] O2 Sat by Pulse Oximetry 91 L 92 L 90 L 12/28/19 17:00 12/28/19 17:15 12/28/19 17:30 Temperature Pulse Rate 80 81 83 Pulse Rate [Right Brachial] Respiratory Rate Blood Pressure 113/74 118/76 Blood Pressure [Right Arm] O2 Sat by Pulse Oximetry 90 L 88 L 88 L 12/28/19 17:45 12/28/19 18:00 12/28/19 18:15 Temperature Pulse Rate 85 83 78 Pulse Rate [Right Brachial] Respiratory Rate Blood Pressure 122/78 Blood Pressure [Right Arm] O2 Sat by Pulse Oximetry 89 L 88 L 88 L 12/28/19 18:30 12/28/19 18:45 12/28/19 19:30 Temperature Pulse Rate 82 78 Pulse Rate [Right Brachial] Respiratory Rate 20 Blood Pressure 128/65 121/59 Blood Pressure [Right Arm] O2 Sat by Pulse Oximetry 87 L 87 L 85 L 12/28/19 20:00 12/28/19 22:11 12/28/19 22:39 Temperature Pulse Rate 89 Pulse Rate [Right Brachial] 93 H 88 Respiratory Rate 22 22 24 Blood Pressure 130/63 Blood Pressure [Right Arm] 161/90 131/73 O2 Sat by Pulse Oximetry 91 L 88 L 93 L 12/28/19 22:40 12/29/19 01:20 12/29/19 04:00 Temperature 97.8 F 97.8 F Pulse Rate 88 Pulse Rate [Right Brachial] 88 64 Respiratory Rate 26 H 22 Blood Pressure Blood Pressure [Right Arm] 131/86 121/69 O2 Sat by Pulse Oximetry 92 L 92 L 93 L 12/29/19 07:51 12/29/19 11:17 12/29/19 12:00 Temperature 97.7 F 97.4 F L Pulse Rate 75 Pulse Rate [Right Brachial] 68 73 Respiratory Rate 18 20 Blood Pressure Blood Pressure [Right Arm] 110/62 120/59 O2 Sat by Pulse Oximetry 92 L 93 L 95 12/29/19 16:00 12/29/19 20:00 12/29/19 20:55 Temperature 98.0 F 98.5 F Pulse Rate Pulse Rate [Right Brachial] 81 87 Respiratory Rate 24 20 20 Blood Pressure Blood Pressure [Right Arm] 117/71 132/67 O2 Sat by Pulse Oximetry 92 L 93 L 12/29/19 21:55 12/29/19 22:10 12/30/19 00:00 Temperature 97.7 F Pulse Rate 75 Pulse Rate [Right Brachial] 73 Respiratory Rate 18 16 Blood Pressure Blood Pressure [Right Arm] 133/67 O2 Sat by Pulse Oximetry 92 L 93 L 12/30/19 04:00 12/30/19 08:00 12/30/19 09:00 Temperature 97.8 F 97.9 F Pulse Rate 69 Pulse Rate [Right Brachial] 75 64 Respiratory Rate 16 20 Blood Pressure 130/63 Blood Pressure [Right Arm] 139/81 119/59 O2 Sat by Pulse Oximetry 95 91 L 93 L 12/30/19 10:00 12/30/19 12:00 12/30/19 13:55 Temperature 97.4 F L Pulse Rate 70 69 Pulse Rate [Right Brachial] 69 Respiratory Rate 22 Blood Pressure Blood Pressure [Right Arm] 130/87 O2 Sat by Pulse Oximetry 93 L 91 L 93 L 12/30/19 16:00 12/30/19 17:10 12/30/19 20:00 Temperature 97.4 F L 97.5 F L Pulse Rate 69 Pulse Rate [Right Brachial] 69 77 Respiratory Rate Blood Pressure Blood Pressure [Right Arm] 130/87 157/93 O2 Sat by Pulse Oximetry 93 L 93 L 93 L 12/30/19 20:40 12/30/19 23:27 12/31/19 00:00 Temperature 97.7 F Pulse Rate 79 Pulse Rate [Right Brachial] 60 Respiratory Rate 22 20 Blood Pressure Blood Pressure [Right Arm] 153/71 O2 Sat by Pulse Oximetry 93 L 94 L 12/31/19 00:27 12/31/19 04:00 12/31/19 08:00 Temperature 97.5 F L 97.5 F L Pulse Rate Pulse Rate [Right Brachial] 62 77 Respiratory Rate 20 20 22 Blood Pressure Blood Pressure [Right Arm] 141/77 140/89 O2 Sat by Pulse Oximetry 97 Labs: Laboratory Last Values WBC 15.1 X10^3/uL (3.6-10.0) H 12/31/19 05:50 RBC 4.63 X10^6/uL (4.7-6.0) L 12/31/19 05:50 Hgb 13.4 g/dL (13.5-18.0) L 12/31/19 05:50 Hct 40.2 % (42.0-54.0) L 12/31/19 05:50 MCV 86.8 fL (80.0-100.0) 12/31/19 05:50 MCH 29.0 pg (27.0-34.0) 12/31/19 05:50 MCHC 33.4 g/dL (33.0-35.0) 12/31/19 05:50 RDW 14.0 % (11.6-16.5) 12/31/19 05:50 Plt Count 215 X10^3/uL (150.0-450.0) 12/31/19 05:50 Plt Count Comment Adequate (ADEQUATE) 12/31/19 05:50 MPV 9.7 fL (7.4-11.0) 12/31/19 05:50 Neut % (Auto) 90.6 % (42.0-75.0) H 12/31/19 05:50 Lymph % (Auto) 5.5 % (21.0-51.0) L 12/31/19 05:50 [place] % (Auto) 3.8 % (0.0-13.0) 12/31/19 05:50 Eos % (Auto) 0.0 % (0.9-2.9) L 12/31/19 05:50 Baso % (Auto) 0.1 % (0.2-1.0) L 12/31/19 05:50 Neut # (Auto) 13.6 x10^3/uL (2.2-4.8) H 12/31/19 05:50 Lymph # (Auto) 0.8 X10^3/uL (1.3-2.9) L 12/31/19 05:50 [place] # (Auto) 0.6 x10^3/uL (0.3-0.8) 12/31/19 05:50 Eos # (Auto) 0.0 x10^3/uL (0.0-0.2) 12/31/19 05:50 Baso # (Auto) 0.0 X10^3/uL (0.0-0.1) 12/31/19 05:50 Absolute Nucleated RBC 0.0 /100WBC 12/31/19 05:50 Total Counted 100 12/31/19 05:50 Neutrophils % (Manual) 86 % (39-76) H 12/31/19 05:50 Lymphocytes % (Manual) 11 % (13-43) L 12/31/19 05:50 Monocytes % (Manual) 3 % (4-9) L 12/31/19 05:50 Plt Morphology Comment Normal (NORMAL) 12/31/19 05:50 RBC Morphology Normal (NORMAL) 12/31/19 05:50 PT 16.4 SECONDS (11.8-14.3) 12/28/19 17:20 INR Target Range - 12/28/19 17:20 INR 1.36 (0.8-1.3) H 12/28/19 17:20 APTT 32.9 SECONDS (22.9-36.5) 12/28/19 17:20 PTT Comment - 12/28/19 17:20 Sample Site L radial 12/28/19 19:50 ABG pH 7.530 (7.35-7.45) H 12/28/19 19:50 ABG pCO2 36.0 mmHg (35.0-45.0) 12/28/19 19:50 ABG pO2 40.0 mmHg (80.0-100.0) L* 12/28/19 19:50 ABG HCO3 30.1 mmol/L (22-26) H* 12/28/19 19:50 ABG O2 Saturation 82.0 % (90-100) L* 12/28/19 19:50 ABG Base Excess 7.1 mmol/L (-2.0-2.0) H 12/28/19 19:50 Aris Test Poss 12/28/19 19:50 A-a Gradient 65.0 mmHg 12/28/19 19:50 FiO2 21.0 12/28/19 19:50 Blood Gas Comments Louisa well kb 12/28/19 19:50 Sodium 137 mmol/L (136-145) 12/31/19 05:50 Corrected Sodium 139 mmol/L (136-145) 12/31/19 05:50 Potassium 4.8 mmol/L (3.5-5.1) 12/31/19 05:50 Chloride 102 mmol/L (98-107) 12/31/19 05:50 Carbon Dioxide 27.0 mmol/L (21-32) 12/31/19 05:50 BUN 20 mg/dL (7-18) H 12/31/19 05:50 Creatinine 1.31 mg/dL (0.70-1.30) H 12/31/19 05:50 Est GFR (MDRD) Af Amer > 60 (>60) 12/31/19 05:50 Est GFR (MDRD) Non-Af 57 (>60) L 12/31/19 05:50 Glucose 186 mg/dL (65-99) H 12/31/19 05:50 POC Glucose (mg/dL) 184 mg/dL (65-99) H 12/31/19 05:47 Calcium 9.0 mg/dL (8.5-10.1) 12/31/19 05:50 Corrected Calcium TNP 12/29/19 05:10 Ferritin 234 ng/mL (26-388) 12/28/19 17:20 Total Bilirubin 0.40 mg/dL (0.2-1.0) 12/29/19 05:10 AST 29 Units/L (15-37) 12/29/19 05:10 ALT 41 Units/L (12-78) 12/29/19 05:10 Alkaline Phosphatase 56 Units/L (46-116) 12/29/19 05:10 Creatine Kinase 54 Units/L (39-308) 12/28/19 17:20 CK-MB (CK-2) 1.3 ng/mL (0-4.0) 12/28/19 17:20 CK/CKMB % Calc 2.4 % (<4) 12/28/19 17:20 Troponin I < 0.02 ng/mL (0-1.5) 12/28/19 17:20 C-Reactive Protein 62.80 mg/L (0-3.0) H 12/28/19 17:20 B-Natriuretic Peptide 19.4 pg/mL (0-79) 12/28/19 17:20 Total Protein 7.3 g/dL (6.4-8.2) 12/29/19 05:10 Albumin 3.4 g/dL (3.4-5.0) 12/29/19 05:10 Globulin 3.9 g/dL (2.5-4.5) 12/29/19 05:10 Albumin/Globulin Ratio 0.9 Ratio (1.1-2.1) L 12/29/19 05:10 Specimen Type Clean catch urine 12/30/19 17:15 Urine Color Yellow (YELLOW) 12/30/19 17:15 Urine Appearance Clear (CLEAR) 12/30/19 17:15 Urine pH 7.0 (5.0 - 8.0) 12/30/19 17:15 Ur Specific [place] 1.015 (1.000-1.030) 12/30/19 17:15 Urine Protein Negative (NEGATIVE) 12/30/19 17:15 Urine Glucose (UA) 3+ (NEGATIVE) 12/30/19 17:15 Urine Ketones Negative (NEGATIVE) 12/30/19 17:15 Urine Occult Blood Negative (NEGATIVE) 12/30/19 17:15 Urine Nitrite Negative (NEGATIVE) 12/30/19 17:15 Urine Bilirubin Negative (NEGATIVE) 12/30/19 17:15 Urine Urobilinogen Normal (NORMAL) 12/30/19 17:15 Ur Leukocyte Esterase 3+ (NEGATIVE) 12/30/19 17:15 Urine RBC None seen /HPF (0-3) 12/30/19 17:15 Urine WBC 3-5 /HPF (0-5) 12/30/19 17:15 Ur Squamous Epith Cells Negative /HPF (NEGATIVE) 12/30/19 17:15 Urine Bacteria Negative /HPF (NEGATIVE) 12/30/19 17:15 Ur Culture Indicated? No/not indicated 12/30/19 17:15 SARS-CoV-2 (PCR) Negative (NEGATIVE) 12/28/19 20:11 Reason For Visit: RLL PNEU, COPD EXACERBATION Discharge Date Discharge Date: 12/31/19 Discharge Diagnosis All Active Problems (Updated 01/06/20 @ 11:31 by CAREY ALFRED) Leukocytosis (Acute) COPD exacerbation (Acute) Acute on chronic respiratory failure with hypoxia (Acute) Hypoxia (Acute) RLL pneumonia (Acute) Pulmonary HTN (Chronic) CHF (congestive heart failure) (Chronic) COPD (chronic obstructive pulmonary disease) (Chronic) Plan of Treatment: Continue with present treatment and follow up plan. Pt is to keep follow up appointment as instructed and take medications as ordered. Discharge Medications Discharge Medications: No Known Drug Allergies Allergy (Verified 05/09/17 12:09) CONTINUE taking the following medications Eliquis 5 mg PO BID 12/28/19 [History] cholecalciferol (vitamin D3) [Vitamin D3] 125 mcg PO ONCE 12/28/19 [History] cyanocobalamin (vitamin B-12) [Vitamin B-12] 1,000 mcg PO DAILY 12/28/19 [History] ferrous gluconate 324 mg PO BID 12/28/19 [History] metoprolol tartrate 25 mg PO BID 12/28/19 [History] saw palmetto 450 mg PO DAILY 12/28/19 [History] tamsulosin 0.4 mg PO QHS 12/28/19 [History] New Prescriptions budesonide 1 ea NEB BIDRESP 30 Days #60 vial 12/31/19 [Rx] levofloxacin [Levaquin] 750 mg PO DAILY 5 Days #5 tab 12/31/19 [Rx] prednisone 20 mg PO DAILY 5 Days #5 tab 12/31/19 [Rx] Follow up and Referral Follow Up: 1 Week Discharge Disposition Discharge Disposition: Home Discharge Condition: Stable
== END 2019-12-31 10:50 | disposition home or self-care (01) | DRG 177 ==
LOC: ER 16:04 → MED/SURG 21:57
PROVIDERS: ADMIT Internal Medicine; ATTEND Internal Medicine
DX: D72.828 Other elevated white blood cell count; Z99.81 Dependence on supplemental oxygen; E11.65 Type 2 diabetes mellitus with hyperglycemia; Z20.828 Contact with and (suspected) exposure to other viral communicable diseases; J16.8 Pneumonia due to other specified infectious organisms; J15.0 Pneumonia due to Klebsiella pneumoniae; I48.91 Unspecified atrial fibrillation; J96.21 Acute and chronic respiratory failure with hypoxia; I27.20 Pulmonary hypertension, unspecified; N17.8 Other acute kidney failure

== ENCOUNTER 2020-01-06 09:41 | Inpatient (IN) ==
[2020-01-06 09:55] VITALS: BMI 31.6
[2020-01-06] MEDS ORDERED: DUONEB 0.5 MG/3 MG (3 mL) NEB ONE ×2 (09:57→10:00)
--- NOTE | 2020-01-06 09:57 | DR.SOBA ---
HPI Time Seen Time Seen by Provider: 01/06/20 09:49 Complaints Chief Complaint Doctors Comments: sent from PCP office for low oxygen sats. Patient was seeing PCP for abdominal pain but has chronic COPD on oxygen. Source History Provided: Patient Mode of Arrival Mode of Arrival: Ambulatory Timing Onset of Chief Complaint: 12/16/19 Duration Duration: Weeks Context Onset:: At Rest PE Risk Factors:: None History of:: COPD and Anxiety Currently on:: Inhaled Bronchodilators and Steroids Prehospital Care:: O2 Modifying Factors Worsens:: Exertion and Anxiety Associated Signs and Symptoms Associated Signs and Symptoms: Fever and Anxiety If Chest Pain Quality: Aching (upper abdomin) If Cough Cough: None PMH PMH Past Medical History: Anxiety, COPD, Dyslipidemia, Hypertension, Hypothyroidism and Sleep Apnea Past Surgical History: Yes Surgical History: Thyroidectomy Family History Family Medical History: Cancer and Hypertension Social History Do you use any recreational Drugs:: No ROS Review of Systems Constitutional: Fever Eyes: No Symptoms Reported ENTM: No Symptoms Reported Respiratoy: Short of Breath Cardiovascular: No Symptoms Reported and Edema Gastrointestinal/Abdominal: Abdominal Pain Genitourinary: No Symptoms Reported Neurological: No Symptoms Reported Musculoskeletal: No Symptoms Reported Integumentary: No Symptoms Reported Hematologic/Lymphatic: No Symptoms Reported Psychiatric: Anxiety All Other Systems: Reviewed and Negative PE Vital Signs Vitals: Temperature 99.0 F Pulse Rate 68 Respiratory Rate 37 Blood Pressure [Right Arm] 140/89 Blood Pressure 110/67 O2 Sat by Pulse Oximetry 91 COURSE Consultation Called: 11:19 Call Returned: 11:19 Consultation Comments: case discussed with Dr. Jameel bashir ROR Labs Reviewed Result Diagrams: 01/06/20 10:05 01/06/20 10:05 Laboratory: WBC 10.3 X10^3/uL (3.6-10.0) H 01/06/20 10:05 RBC 4.88 X10^6/uL (4.7-6.0) 01/06/20 10:05 Hgb 14.0 g/dL (13.5-18.0) 01/06/20 10:05 Hct 42.0 % (42.0-54.0) 01/06/20 10:05 MCV 86.2 fL (80.0-100.0) 01/06/20 10:05 MCH 28.8 pg (27.0-34.0) 01/06/20 10:05 MCHC 33.4 g/dL (33.0-35.0) 01/06/20 10:05 RDW 13.9 % (11.6-16.5) 01/06/20 10:05 Plt Count 200 X10^3/uL (150.0-450.0) 01/06/20 10:05 Plt Count Comment Adequate (ADEQUATE) 01/06/20 10:05 MPV 8.8 fL (7.4-11.0) 01/06/20 10:05 Neut % (Auto) 79.4 % (42.0-75.0) H 01/06/20 10:05 Lymph % (Auto) 6.6 % (21.0-51.0) L 01/06/20 10:05 [place] % (Auto) 13.4 % (0.0-13.0) H 01/06/20 10:05 Eos % (Auto) 0.4 % (0.9-2.9) L 01/06/20 10:05 Baso % (Auto) 0.2 % (0.2-1.0) 01/06/20 10:05 Neut # (Auto) 8.2 x10^3/uL (2.2-4.8) H 01/06/20 10:05 Lymph # (Auto) 0.7 X10^3/uL (1.3-2.9) L 01/06/20 10:05 [place] # (Auto) 1.4 x10^3/uL (0.3-0.8) H 01/06/20 10:05 Eos # (Auto) 0.0 x10^3/uL (0.0-0.2) 01/06/20 10:05 Baso # (Auto) 0.0 X10^3/uL (0.0-0.1) 01/06/20 10:05 Absolute Nucleated RBC 0.0 /100WBC 01/06/20 10:05 Total Counted 100 01/06/20 10:05 Neutrophils % (Manual) 71 % (39-76) 01/06/20 10:05 Lymphocytes % (Manual) 13 % (13-43) 01/06/20 10:05 Monocytes % (Manual) 16 % (4-9) H 01/06/20 10:05 Plt Morphology Comment Normal (NORMAL) 01/06/20 10:05 RBC Morphology Normal (NORMAL) 01/06/20 10:05 Sample Site Right radial 01/06/20 10:28 ABG pH 7.430 (7.35-7.45) 01/06/20 10:28 ABG pCO2 45.0 mmHg (35.0-45.0) 01/06/20 10:28 ABG pO2 50.0 mmHg (80.0-100.0) L 01/06/20 10:28 ABG HCO3 29.9 mmol/L (22-26) H 01/06/20 10:28 ABG O2 Saturation 86.0 % (90-100) L 01/06/20 10:28 ABG Base Excess 4.8 mmol/L (-2.0-2.0) H 01/06/20 10:28 Aris Test Pos 01/06/20 10:28 A-a Gradient 150.0 mmHg 01/06/20 10:28 FiO2 36.0 01/06/20 10:28 Blood Gas Comments Louisa well aw 01/06/20 10:28 Sodium 133 mmol/L (136-145) L 01/06/20 10:05 Corrected Sodium 133 mmol/L (136-145) L 01/06/20 10:05 Potassium 3.8 mmol/L (3.5-5.1) 01/06/20 10:05 Chloride 97 mmol/L (98-107) L 01/06/20 10:05 Carbon Dioxide 31.0 mmol/L (21-32) 01/06/20 10:05 BUN 23 mg/dL (7-18) H 01/06/20 10:05 Creatinine 1.55 mg/dL (0.70-1.30) H 01/06/20 10:05 Est GFR (MDRD) Af Amer 57 (>60) L 01/06/20 10:05 Est GFR (MDRD) Non-Af 47 (>60) L 01/06/20 10:05 Glucose 118 mg/dL (65-99) H 01/06/20 10:05 Calcium 8.4 mg/dL (8.5-10.1) L 01/06/20 10:05 Corrected Calcium 9.1 mg/dL (8.5-10.1) 01/06/20 10:05 Magnesium 1.8 mg/dL (1.7-2.9) 01/06/20 10:05 Total Bilirubin 0.40 mg/dL (0.2-1.0) 01/06/20 10:05 AST 58 Units/L (15-37) H 01/06/20 10:05 ALT 72 Units/L (12-78) 01/06/20 10:05 Alkaline Phosphatase 58 Units/L (46-116) 01/06/20 10:05 Creatine Kinase 69 Units/L (39-308) 01/06/20 10:05 CK-MB (CK-2) 1.3 ng/mL (0-4.0) 01/06/20 10:05 CK/CKMB % Calc 1.9 % (<4) 01/06/20 10:05 Troponin I 0.05 ng/mL (0-1.5) 01/06/20 10:05 B-Natriuretic Peptide 121 pg/mL (0-79) H 01/06/20 10:05 Total Protein 6.4 g/dL (6.4-8.2) 01/06/20 10:05 Albumin 3.1 g/dL (3.4-5.0) L 01/06/20 10:05 Globulin 3.3 g/dL (2.5-4.5) 01/06/20 10:05 Albumin/Globulin Ratio 0.9 Ratio (1.1-2.1) L 01/06/20 10:05 EKG Rate: 73 [place]: Normal Rhythm: NSR Block: None Hypertrophy: None ST: Normal Opioid Opioid Risk Tool Age (Chun box if 16-45): No History of Preadolescent Sexual Abuse: No Total: 0 Total Score Risk Category: Low Risk Copyright: Farzad JO predicting aberrant behaviors Diagnosis Discharge Problem: Hypoxia, COPD exacerbation Instructions Forms: Precautions for COVID19 Patient Portal Social Distancing
[2020-01-06 10:29] LABS: BASOPHILS % (AUTO) 0.2 % (0.2-1.0); EOSINOPHILS % (AUTO) 0.4 % (0.9-2.9); LYMPHOCYTES # (AUTO) 0.7 X10^3/uL (1.3-2.9); LYMPHOCYTES % (AUTO) 6.6 % (21.0-51.0); MEAN CORPUSCULAR HEMOGLOBIN 28.8 pg (27.0-34.0); MEAN CORPUSCULAR HGB CONC 33.4 g/dL (33.0-35.0); MEAN CORPUSCULAR VOLUME 86.2 fL (80.0-100.0); MEAN PLATELET VOLUME 8.8 fL (7.4-11.0); MONOCYTES # (AUTO) 1.4 x10^3/uL (0.3-0.8); MONOCYTES % (AUTO) 13.4 % (0.0-13.0); NEUTROPHILS # (AUTO) 8.2 x10^3/uL (2.2-4.8); NEUTROPHILS % (AUTO) 79.4 % (42.0-75.0); PLATELET COUNT 200 X10^3/uL (150.0-450.0); RED BLOOD COUNT 4.88 X10^6/uL (4.7-6.0); RED CELL DISTRIBUTION WIDTH 13.9 % (11.6-16.5); WHITE BLOOD COUNT 10.3 X10^3/uL (3.6-10.0)
[2020-01-06 10:38] LABS: ABG BASE EXCESS 4.8 mmol/L (-2.0-2.0); ABG HCO3 29.9 mmol/L (22-26)
[2020-01-06 10:40] LABS: ABG ALLEN TEST POS
[2020-01-06 10:41] LABS: CALCIUM 8.4 mg/dL (8.5-10.1); CREATININE 1.55 mg/dL (0.70-1.30); TROPONIN I 0.05 ng/mL (0-1.5)
[2020-01-06 10:45] LABS: ALBUMIN 3.1 g/dL (3.4-5.0); CKMB % 1.9 % (<4); COR CA(FOR HYPOALB) 9.1 mg/dL (8.5-10.1); CREATINE KINASE MB 1.3 ng/mL (0-4.0); MAGNESIUM 1.8 mg/dL (1.7-2.9); TOTAL PROTEIN 6.4 g/dL (6.4-8.2)
[2020-01-06 10:48] LABS: PLATELET MORPHOLOGY COMMENT NORMAL (NORMAL)
--- NOTE | 2020-01-06 11:00 | RAD ---
HISTORYFEVER, SOBSTUDYCHEST, 1 [id number] view of the chest 2 imagesFINDINGSCardiac silhouette is mildly enlarged. There are bilateral scattered interstitial opacities. No definite pleural effusion or pneumothorax.IMPRESSIONScattered bilateral interstitial opacities which were present on prior study and likely represent chronic fibrosis. Superimposed infection is not excluded.Electronically signed by: Jovan Eddy (Jan 06, 2020 11:00:03)
[2020-01-06] MEDS ORDERED: NS 1000 ML 1,000 ML IV SCH (12:00)
[2020-01-06] MEDS ORDERED: SOLU-Medrol 125 MG VIAL IVP SCH ×2 (12:00→14:00)
[2020-01-06] MEDS ORDERED: DUONEB 0.5 MG/3 MG (3 mL) NEB SCH ×2 (13:00→13:30)
[2020-01-06] MEDS ORDERED: REMDESIVIR (INVESTIGATIONAL DRUG GS-5734) 200 MG in NS 250 ML IV 250 ML IV NR (15:00)
[2020-01-06] MEDS ORDERED: NORCO 7.5/325 MG TAB PO PRN (16:26)
[2020-01-06] MEDS: SOLU-Medrol 40 MG VIAL IVP SCH ×2 (17:19→21:15)
[2020-01-06] MEDS: ROCEPHIN VIAL 1 GRAM 1 G in NS 100 ML IV + SPIKE MINIBAG* 100 ML IV SCH (17:19)
[2020-01-06] MEDS: VITAMIN C PO SCH (17:20)
[2020-01-06] MEDS: NS 1000 ML 1,000 ML IV SCH (17:20)
[2020-01-06] MEDS: SINGULAIR TAB 10 MG PO SCH (17:21)
[2020-01-06] MEDS ORDERED: LOPRESSOR INJ 5 MG AMP IVP ONE ×2 (18:50→20:31)
[2020-01-06] MEDS ORDERED: LOPRESSOR INJ 5 MG AMP ONE (18:52)
[2020-01-06] MEDS ORDERED: LOPRESSOR TAB 25 MG ONE (19:53)
[2020-01-06] MEDS ORDERED: FLOMAX ONE (19:53)
[2020-01-06] MEDS ORDERED: ELIQUIS ONE (19:53)
[2020-01-06] MEDS ORDERED: SEROquel TAB 25 mg PO ONE (19:54)
[2020-01-06] MEDS ORDERED: TRICOR TAB 160 MG ONE (19:54)
[2020-01-06] MEDS ORDERED: ZOCOR TAB 10 MG PO ONE (19:54)
[2020-01-06] MEDS ORDERED: FERROUS GLUCONATE PO ONE (19:54)
[2020-01-06] MEDS: LOPRESSOR TAB 25 MG PO SCH (20:00)
[2020-01-06] MEDS: ELIQUIS PO SCH (20:00)
[2020-01-06] MEDS: SEROquel TAB 25 mg PO SCH (20:00)
[2020-01-06] MEDS: FERROUS GLUCONATE PO SCH (20:00)
[2020-01-06] MEDS: ZOCOR TAB 10 MG PO SCH (20:00)
[2020-01-06] MEDS: MAGNESIUM SULFATE 1 GRAM/100 mL PREMIX 2 G/200 ML BAG IV SCH ×2 (20:00→21:15)
[2020-01-06] MEDS: TRICOR TAB 160 MG PO SCH (20:00)
[2020-01-06] MEDS: FLOMAX PO SCH (20:00)
[2020-01-06] MEDS ORDERED: PULMICORT NEB TX 0.5 MG NEB SCH (21:00)
[2020-01-06] MEDS: MIRAPEX TAB 0.25 MG PO SCH (21:15)
--- NOTE | 2020-01-06 21:28 | DR.H&P ---
H&P History & Physical for Day of: H&P Date: 01/06/20 Chief Complaint Chief Complaint: fever, worsening SOB Allergies Allergies Allergy/AdvReac Type Severity Reaction Status Date / Time No Known Drug Allergies Allergy Verified 01/06/20 09:51 History of Present Illness History of Present Illness: Mr. Saleem is a 74y/o male with Severe COPD on continuous home oxygen 2-3L, pulmonary fibrosis, atrial fibrillation, HTN, HLD and chronic pain and anxiety presented with worsening dyspnea and fever. Patient had a temp of 101.7 last night. He was recently discharged from the hospital due to pneumonia and COPD exacerbation. Patient states his dyspnea has worsened in the past few days. His sats have remained in the low 80s at home. He has been coughing and wheezing. Patient's COVID test during his last admission was negative. He denies any exposure since he has been home. ER work-up - CXR: b/l opacities similar to prev one, chronic fibrosis with possible super imposed infection - Labs: WBC 10.3 BUN/Cr: 23/1.55 AB.43/45/50/29 COVID positive Patient was admitted for acute respiratory failure with hypoxia due to COVID-19 infection. Plan: patient is currently on hi-flow O2, titrate to keep sats between 88-90%, start remdesivir, Vit A, C, D. Start Rocephin. Continue solumedrol. Resume home medications. Telemetry. Sputum Cx, monitor AM labs. Past Medical History Past Medical History: Anxiety, COPD, Dyslipidemia, Hypertension, Hypothyroidism and Sleep Apnea Additional Medical History: Atrial fibrillation Past Surgical History Surgical History: Thyroidectomy Family History Family Medical History: Cancer and Hypertension Social History Does patient currently use any type of tobacco product: No Have you used tobacco products in the last 12 months: Yes Type of Tobacco Use: Cigarettes Does any household member use tobacco: No Alcohol Use: None Drug Use: None Medications Home Medications: No Known Drug Allergies Allergy (Verified 01/06/20 09:51) CONTINUE taking the following medications albuterol sulfate 1 puff INHALATION PRN PRN 01/06/20 [History] alprazolam [Xanax] 0.5 mg PO BID PRN 01/06/20 [History] budesonide-formoterol [Symbicort] 2 puff INHALATION BID 01/06/20 [History] fluticasone propionate [Flonase Allergy Relief] 1 spray INTRANASAL BID 01/06/20 [History] furosemide [Lasix] 20 mg PO DAILY PRN 01/06/20 [History] hydrocodone-acetaminophen [[place]] 7.5 tab PO PRN PRN 01/06/20 [History] ipratropium bromide 3 ml INHALATION TID PRN 01/06/20 [History] ipratropium-albuterol 3 ml INHALATION TID PRN 01/06/20 [History] levalbuterol HCl [Xopenex] 0.63 mg INHALATION TID PRN 01/06/20 [History] lisinopril 5 mg PO DAILY 01/06/20 [History] loratadine 10 mg PO DAILY 01/06/20 [History] montelukast [Singulair] 10 mg PO DAILY 01/06/20 [History] potassium chloride 10 meq PO DAILY 01/06/20 [History] quetiapine 25 mg PO HS 01/06/20 [History] saw palmetto 160 mg PO BID 01/06/20 [History] vit D3-vit R-shlidurio-wzik 1 tab PO DAILY 01/06/20 [History] vitamin B complex [B Complex-Vitamin B12] 1 tab PO DAILY 01/06/20 [History] Labs Result Diagrams: 01/07/20 04:20 01/07/20 04:20 Labs: Laboratory WBC 10.3 X10^3/uL (3.6-10.0) H 01/06/20 10:05 RBC 4.88 X10^6/uL (4.7-6.0) 01/06/20 10:05 Hgb 14.0 g/dL (13.5-18.0) 01/06/20 10:05 Hct 42.0 % (42.0-54.0) 01/06/20 10:05 MCV 86.2 fL (80.0-100.0) 01/06/20 10:05 MCH 28.8 pg (27.0-34.0) 01/06/20 10:05 MCHC 33.4 g/dL (33.0-35.0) 01/06/20 10:05 RDW 13.9 % (11.6-16.5) 01/06/20 10:05 Plt Count 200 X10^3/uL (150.0-450.0) 01/06/20 10:05 Plt Count Comment Adequate (ADEQUATE) 01/06/20 10:05 MPV 8.8 fL (7.4-11.0) 01/06/20 10:05 Neut % (Auto) 79.4 % (42.0-75.0) H 01/06/20 10:05 Lymph % (Auto) 6.6 % (21.0-51.0) L 01/06/20 10:05 [place] % (Auto) 13.4 % (0.0-13.0) H 01/06/20 10:05 Eos % (Auto) 0.4 % (0.9-2.9) L 01/06/20 10:05 Baso % (Auto) 0.2 % (0.2-1.0) 01/06/20 10:05 Neut # (Auto) 8.2 x10^3/uL (2.2-4.8) H 01/06/20 10:05 Lymph # (Auto) 0.7 X10^3/uL (1.3-2.9) L 01/06/20 10:05 [place] # (Auto) 1.4 x10^3/uL (0.3-0.8) H 01/06/20 10:05 Eos # (Auto) 0.0 x10^3/uL (0.0-0.2) 01/06/20 10:05 Baso # (Auto) 0.0 X10^3/uL (0.0-0.1) 01/06/20 10:05 Absolute Nucleated RBC 0.0 /100WBC 01/06/20 10:05 Total Counted 100 01/06/20 10:05 Neutrophils % (Manual) 71 % (39-76) 01/06/20 10:05 Lymphocytes % (Manual) 13 % (13-43) 01/06/20 10:05 Monocytes % (Manual) 16 % (4-9) H 01/06/20 10:05 Plt Morphology Comment Normal (NORMAL) 01/06/20 10:05 RBC Morphology Normal (NORMAL) 01/06/20 10:05 Sample Site Right radial 01/06/20 10:28 ABG pH 7.430 (7.35-7.45) 01/06/20 10:28 ABG pCO2 45.0 mmHg (35.0-45.0) 01/06/20 10:28 ABG pO2 50.0 mmHg (80.0-100.0) L 01/06/20 10:28 ABG HCO3 29.9 mmol/L (22-26) H 01/06/20 10:28 ABG O2 Saturation 86.0 % (90-100) L 01/06/20 10:28 ABG Base Excess 4.8 mmol/L (-2.0-2.0) H 01/06/20 10:28 Aris Test Pos 01/06/20 10: A-a Gradient 150.0 mmHg 01/06/20 10: FiO2 36.0 01/06/20 10:28 Blood Gas Comments Louisa well aw 01/06/20 10:28 Sodium 133 mmol/L (136-145) L 01/06/20 10:05 Corrected Sodium 133 mmol/L (136-145) L 01/06/20 10:05 Potassium 3.8 mmol/L (3.5-5.1) 01/06/20 10:05 Chloride 97 mmol/L (98-107) L 01/06/20 10:05 Carbon Dioxide 31.0 mmol/L (21-32) 01/06/20 10:05 BUN 23 mg/dL (7-18) H 01/06/20 10:05 Creatinine 1.55 mg/dL (0.70-1.30) H 01/06/20 10:05 Est GFR (MDRD) Af Amer 57 (>60) L 01/06/20 10:05 Est GFR (MDRD) Non-Af 47 (>60) L 01/06/20 10:05 Glucose 118 mg/dL (65-99) H 01/06/20 10:05 Calcium 8.4 mg/dL (8.5-10.1) L 01/06/20 10:05 Corrected Calcium 9.1 mg/dL (8.5-10.1) 01/06/20 10:05 Magnesium 1.8 mg/dL (1.7-2.9) 01/06/20 10:05 Total Bilirubin 0.40 mg/dL (0.2-1.0) 01/06/20 10:05 AST 58 Units/L (15-37) H 01/06/20 10:05 ALT 72 Units/L (12-78) 01/06/20 10:05 Alkaline Phosphatase 58 Units/L (46-116) 01/06/20 10:05 Creatine Kinase 69 Units/L (39-308) 01/06/20 10:05 CK-MB (CK-2) 1.3 ng/mL (0-4.0) 01/06/20 10:05 CK/CKMB % Calc 1.9 % (<4) 01/06/20 10:05 Troponin I 0.05 ng/mL (0-1.5) 01/06/20 10:05 B-Natriuretic Peptide 121 pg/mL (0-79) H 01/06/20 10:05 Total Protein 6.4 g/dL (6.4-8.2) 01/06/20 10:05 Albumin 3.1 g/dL (3.4-5.0) L 01/06/20 10:05 Globulin 3.3 g/dL (2.5-4.5) 01/06/20 10:05 Albumin/Globulin Ratio 0.9 Ratio (1.1-2.1) L 01/06/20 10:05 SARS-CoV-2 (PCR) Positive (NEGATIVE) A 01/06/20 11:49 Review of Systems Constitutional: Fever, Chills, Weakness and Malaise Eyes: No Symptoms Reported ENT: No Symptoms Reported Respiratory: Cough, Shortness of Breath, SOB with Excertion, Sputum and Wheezing Cardiovascular: Orthopnea Gastrointestinal: Nausea Genitourinary: No Symptoms Reported Musculoskeletal: Back Pain and Neck Pain Skin: No Symptoms Reported Neurological: Confusion Physical Exam Vital Signs: Temperature 98.5 F Pulse Rate 85 Respiratory Rate 28 Blood Pressure [Right Arm] 140/89 Blood Pressure 94/68 O2 Sat by Pulse Oximetry 89 Oriented: Normal Eyes: Normal Ear: Normal Nose: Normal Throat: Normal Respiratory: Rhonchi Throughout and Wheezes Throughout Cardiovascular: Normal Auscultation: Bowel Sounds: Normal Palpation: Normal Tenderness: Normal and Other (abdominal distension noted ) Skin: Normal Musculoskeletal: Normal Psychiatric: Anxiety Mood Description: Anxious Affect: Normal Speech Pattern: Clear and Appropriate Assessment/Plan (1) Acute on chronic respiratory failure with hypoxia: Status: Acute (2) COVID-19: Status: Acute (3) Acute on chronic renal failure: Qualifiers: Acute renal failure type: unspecified Chronic kidney disease stage: unspecified stage Qualified Code(s): N17.9 - Acute kidney failure, unspecified; N18.9 - Chronic kidney disease, unspecified Status: Acute (4) COPD exacerbation: Status: Acute (5) Pulmonary HTN: Status: Chronic (6) Hypotension: Status: Acute Review H&P Reviewed: Yes Patient was examined?: Yes
[2020-01-06] MEDS: XOPENEX 1.25 MG/3 ML NEBULE NEB SCH (21:30)
[2020-01-06] MEDS: XANAX PO PRN (21:45)
[2020-01-06] MEDS ORDERED: NORCO 7.5/325 MG TAB ONE (22:16)
[2020-01-06] MEDS: NORCO 7.5/325 MG TAB PO PRN (22:20)
[2020-01-07 05:10] LABS: BASOPHILS % (AUTO) 0.2 % (0.2-1.0); EOSINOPHILS % (AUTO) 0.1 % (0.9-2.9); HEMATOCRIT 39.6 % (42.0-54.0); HEMOGLOBIN 13.1 g/dL (13.5-18.0); LYMPHOCYTES # (AUTO) 0.5 X10^3/uL (1.3-2.9); MEAN CORPUSCULAR HEMOGLOBIN 29.1 pg (27.0-34.0); MEAN CORPUSCULAR VOLUME 88.1 fL (80.0-100.0); MEAN PLATELET VOLUME 9.3 fL (7.4-11.0); MONOCYTES # (AUTO) 0.4 x10^3/uL (0.3-0.8); MONOCYTES % (AUTO) 6.6 % (0.0-13.0); NEUTROPHILS # (AUTO) 5.7 x10^3/uL (2.2-4.8); NEUTROPHILS % (AUTO) 85.1 % (42.0-75.0); PLATELET COUNT 192 X10^3/uL (150.0-450.0); RED BLOOD COUNT 4.49 X10^6/uL (4.7-6.0); RED CELL DISTRIBUTION WIDTH 13.9 % (11.6-16.5); WHITE BLOOD COUNT 6.7 X10^3/uL (3.6-10.0)
[2020-01-07 05:19] LABS: BLOOD UREA NITROGEN 19 mg/dL (7-18); CALCIUM 8.3 mg/dL (8.5-10.1); CARBON DIOXIDE 30.8 mmol/L (21-32); CHLORIDE 99 mmol/L (98-107); COR NA(FOR HYPERGLY) 137 mmol/L (136-145); CREATININE 1.42 mg/dL (0.70-1.30); MAGNESIUM 2.3 mg/dL (1.7-2.9); SODIUM 134 mmol/L (136-145); eGFR NON BLACK RACES 52 (>60)
[2020-01-07] MEDS: NS 1000 ML 1,000 ML IV SCH ×2 (05:19→20:44)
[2020-01-07] MEDS: SOLU-Medrol 40 MG VIAL IVP SCH ×3 (05:19→21:02)
[2020-01-07] MEDS: XOPENEX 1.25 MG/3 ML NEBULE NEB SCH ×3 (05:50→21:30)
[2020-01-07 05:53] LABS: BAND NEUTROPHILS % 6 % (0-10); PLATELET MORPHOLOGY COMMENT NORMAL (NORMAL)
[2020-01-07] MEDS: PULMICORT NEB TX 0.5 MG NEB SCH ×2 (09:05→21:30)
[2020-01-07] MEDS: CELEXA PO SCH (10:15)
[2020-01-07] MEDS: CLARITIN PO SCH (10:15)
[2020-01-07] MEDS: XANAX PO PRN ×2 (10:15→23:11)
[2020-01-07] MEDS: VITAMIN B COMPLEX PO SCH (10:15)
[2020-01-07] MEDS: VITAMIN C PO SCH (10:16)
[2020-01-07] MEDS: SINGULAIR TAB 10 MG PO SCH (10:16)
[2020-01-07] MEDS: REMDESIVIR (INVESTIGATIONAL DRUG GS-5734) 100 MG in NS 250 ML IV 250 ML IV SCH (10:17)
[2020-01-07] MEDS: ROCEPHIN VIAL 1 GRAM 1 G in NS 100 ML IV + SPIKE MINIBAG* 100 ML IV SCH (10:17)
[2020-01-07] MEDS: PriLOSEC PO SCH (10:18)
[2020-01-07] MEDS: FERROUS GLUCONATE PO SCH ×2 (10:18→20:36)
[2020-01-07] MEDS: LOPRESSOR TAB 25 MG PO SCH ×2 (10:18→20:39)
[2020-01-07] MEDS: ELIQUIS PO SCH ×2 (10:19→20:36)
[2020-01-07] MEDS: HumuLIN R SC PRN ×3 (13:41→21:03)
--- NOTE | 2020-01-07 13:58 | PCM.PROG ---
Progress Note Progress Note for Day of Date of Exam: 01/07/20 Subjective Subjective: Patient seen at bedside, overnight patient's HR was elevated in the 150-160s. He was showing SVT. He received 2 doses of metoprolol tartrate 5 mg IV and his HR went down in the 70s. Patient was asymptomatic during this period. This morning, he states he feels slightly better. He is currently on max hi- flow. His sats have been fluctuating depending on if he sits still or not. When he talks, sats do go down to mid 80s but then come back up to 90s. He has slight cough. Afebrile overnight. Denies N/V/D or abdominal pain. Labs: WBC 6.7 BUN/Cr: 19/1.42 Hgb 13.1 K: 4.8 Plan: continue current treatment with Remdesivir and solumedrol. Continue immune supplements. Continue Rocephin. Wean O2 as tolerated. If sats remain low then can use BiPAP. Discussed with patient and his . Monitor AM labs. Daily weights and strict I/Os. Advised patient to rest today. Echo ordered to eval LV function. Past Medical Family Social History Past Med/Fam/Surg Hx: Changes noted (describe) Allergies: Allergies No Known Drug Allergies Allergy (Verified 01/06/20 09:51) Review of Systems ROS: No change since H&P Vital Signs and I&O's Vital Signs: Temperature 97.8 F Pulse Rate 64 Respiratory Rate 23 Blood Pressure [Right Arm] 140/89 Blood Pressure 101/70 O2 Sat by Pulse Oximetry 99 Intake and Output: Intake & Output 01/04/20 01/05/20 01/06/20 01/07/20 23:59 23:59 23:59 23:59 Intake Total 1956 / 1956 760 / 760 Output Total 775 / 775 950 / 950 Balance 1182 / 1182 -190 / -190 Physical Exam Oriented: Normal Eyes: Normal Ear: Normal Nose: Normal Throat: Normal Respiratory: Generalized, Wheezes and Rhonchi Cardiovascular: Irregular Auscultation: Bowel Sounds: Normal Tenderness: Normal Skin: Normal Musculoskeletal: Normal Psychiatric: Normal Mood Description: Calm Affect: Normal Speech Pattern: Clear and Appropriate Laboratory and Diagnostics Result Diagrams: 01/07/20 04:20 01/07/20 04:20 Labs: Laboratory WBC 6.7 X10^3/uL (3.6-10.0) 01/07/20 04:20 RBC 4.49 X10^6/uL (4.7-6.0) L 01/07/20 04:20 Hgb 13.1 g/dL (13.5-18.0) L 01/07/20 04:20 Hct 39.6 % (42.0-54.0) L 01/07/20 04:20 MCV 88.1 fL (80.0-100.0) 01/07/20 04:20 MCH 29.1 pg (27.0-34.0) 01/07/20 04:20 MCHC 33.0 g/dL (33.0-35.0) 01/07/20 04:20 RDW 13.9 % (11.6-16.5) 01/07/20 04:20 Plt Count 192 X10^3/uL (150.0-450.0) 01/07/20 04:20 Plt Count Comment Adequate (ADEQUATE) 01/07/20 04:20 MPV 9.3 fL (7.4-11.0) 01/07/20 04:20 Neut % (Auto) 85.1 % (42.0-75.0) H 01/07/20 04:20 Lymph % (Auto) 8.0 % (21.0-51.0) L 01/07/20 04:20 [place] % (Auto) 6.6 % (0.0-13.0) 01/07/20 04:20 Eos % (Auto) 0.1 % (0.9-2.9) L 01/07/20 04:20 Baso % (Auto) 0.2 % (0.2-1.0) 01/07/20 04:20 Neut # (Auto) 5.7 x10^3/uL (2.2-4.8) H 01/07/20 04:20 Lymph # (Auto) 0.5 X10^3/uL (1.3-2.9) L 01/07/20 04:20 [place] # (Auto) 0.4 x10^3/uL (0.3-0.8) 01/07/20 04:20 Eos # (Auto) 0.0 x10^3/uL (0.0-0.2) 01/07/20 04:20 Baso # (Auto) 0.0 X10^3/uL (0.0-0.1) 01/07/20 04:20 Absolute Nucleated RBC 0.1 /100WBC 01/07/20 04:20 Total Counted 100 01/07/20 04:20 Neutrophils % (Manual) 80 % (39-76) H 01/07/20 04:20 Band Neutrophils % 6 % (0-10) 01/07/20 04:20 Lymphocytes % (Manual) 9 % (13-43) L 01/07/20 04:20 Monocytes % (Manual) 5 % (4-9) 01/07/20 04:20 Plt Morphology Comment Normal (NORMAL) 01/07/20 04:20 RBC Morphology Normal (NORMAL) 01/07/20 04:20 Sample Site Right radial 01/06/20 10:28 ABG pH 7.430 (7.35-7.45) 01/06/20 10:28 ABG pCO2 45.0 mmHg (35.0-45.0) 01/06/20 10:28 ABG pO2 50.0 mmHg (80.0-100.0) L 01/06/20 10:28 ABG HCO3 29.9 mmol/L (22-26) H 01/06/20 10:28 ABG O2 Saturation 86.0 % (90-100) L 01/06/20 10:28 ABG Base Excess 4.8 mmol/L (-2.0-2.0) H 01/06/20 10:28 Aris Test Pos 01/06/20 10:28 A-a Gradient 150.0 mmHg 01/06/20 10:28 FiO2 36.0 01/06/20 10:28 Blood Gas Comments Louisa well aw 01/06/20 10:28 Sodium 134 mmol/L (136-145) L 01/07/20 04:20 Corrected Sodium 137 mmol/L (136-145) 01/07/20 04:20 Potassium 4.8 mmol/L (3.5-5.1) 01/07/20 04:20 Chloride 99 mmol/L (98-107) 01/07/20 04:20 Carbon Dioxide 30.8 mmol/L (21-32) 01/07/20 04:20 BUN 19 mg/dL (7-18) H 01/07/20 04:20 Creatinine 1.42 mg/dL (0.70-1.30) H 01/07/20 04:20 Est GFR (MDRD) Af Amer > 60 (>60) 01/07/20 04:20 Est GFR (MDRD) Non-Af 52 (>60) L 01/07/20 04:20 Glucose 233 mg/dL (65-99) H 01/07/20 04:20 POC Glucose (mg/dL) 236 mg/dL (65-99) H 01/07/20 11:45 Calcium 8.3 mg/dL (8.5-10.1) L 01/07/20 04:20 Corrected Calcium 9.1 mg/dL (8.5-10.1) 01/06/20 10:05 Magnesium 2.3 mg/dL (1.7-2.9) 01/07/20 04:20 Total Bilirubin 0.40 mg/dL (0.2-1.0) 01/06/20 10:05 AST 58 Units/L (15-37) H 01/06/20 10:05 ALT 72 Units/L (12-78) 01/06/20 10:05 Alkaline Phosphatase 58 Units/L (46-116) 01/06/20 10:05 Creatine Kinase 69 Units/L (39-308) 01/06/20 10:05 CK-MB (CK-2) 1.3 ng/mL (0-4.0) 01/06/20 10:05 CK/CKMB % Calc 1.9 % (<4) 01/06/20 10:05 Troponin I 0.05 ng/mL (0-1.5) 01/06/20 10:05 C-Reactive Protein 134.10 mg/L (0-3.0) H 01/07/20 04:20 B-Natriuretic Peptide 121 pg/mL (0-79) H 01/06/20 10:05 Total Protein 6.4 g/dL (6.4-8.2) 01/06/20 10:05 Albumin 3.1 g/dL (3.4-5.0) L 01/06/20 10:05 Globulin 3.3 g/dL (2.5-4.5) 01/06/20 10:05 Albumin/Globulin Ratio 0.9 Ratio (1.1-2.1) L 01/06/20 10:05 SARS-CoV-2 (PCR) Positive (NEGATIVE) A 01/06/20 11:49 Plan (1) Acute on chronic respiratory failure with hypoxia: Status: Acute (2) COVID-19: Status: Acute (3) Acute on chronic renal failure: Status: Acute Qualifiers: Acute renal failure type: unspecified Chronic kidney disease stage: unspecified stage Qualified Code(s): N17.9 - Acute kidney failure, unspecified; N18.9 - Chronic kidney disease, unspecified (4) COPD exacerbation: Status: Acute (5) Pulmonary HTN: Status: Chronic (6) Hypotension: Status: Acute
[2020-01-07] MEDS: SYNTHROID 25 mcg TAB PO SCH (16:57)
[2020-01-07] MEDS: MIRAPEX TAB 0.25 MG PO SCH (20:37)
[2020-01-07] MEDS: ZINC SULFATE PO SCH (20:37)
[2020-01-07] MEDS: ZOCOR TAB 10 MG PO SCH (20:38)
[2020-01-07] MEDS: FLOMAX PO SCH (20:39)
[2020-01-07] MEDS: SEROquel TAB 25 mg PO SCH (20:39)
[2020-01-07] MEDS: TRICOR TAB 160 MG PO SCH (20:40)
[2020-01-07] MEDS: NORCO 7.5/325 MG TAB PO PRN (23:11)
[2020-01-08 06:00] LABS: BLOOD UREA NITROGEN 17 mg/dL (7-18); CALCIUM 8.4 mg/dL (8.5-10.1); CARBON DIOXIDE 31.3 mmol/L (21-32); CHLORIDE 101 mmol/L (98-107); COR NA(FOR HYPERGLY) 140 mmol/L (136-145); CREATININE 1.29 mg/dL (0.70-1.30); MAGNESIUM 1.8 mg/dL (1.7-2.9); SODIUM 137 mmol/L (136-145); eGFR NON BLACK RACES 58 (>60)
[2020-01-08] MEDS: SOLU-Medrol 40 MG VIAL IVP SCH ×2 (06:06→21:07)
[2020-01-08] MEDS: NS 1000 ML 1,000 ML IV SCH ×2 (06:06→19:32)
[2020-01-08 06:13] LABS: BASOPHILS % (AUTO) 0.2 % (0.2-1.0); HEMATOCRIT 38.9 % (42.0-54.0); HEMOGLOBIN 12.9 g/dL (13.5-18.0); LYMPHOCYTES # (AUTO) 0.6 X10^3/uL (1.3-2.9); LYMPHOCYTES % (AUTO) 5.2 % (21.0-51.0); MEAN CORPUSCULAR HGB CONC 33.2 g/dL (33.0-35.0); MEAN CORPUSCULAR VOLUME 87.2 fL (80.0-100.0); MEAN PLATELET VOLUME 9.2 fL (7.4-11.0); MONOCYTES % (AUTO) 8.8 % (0.0-13.0); NEUTROPHILS # (AUTO) 9.9 x10^3/uL (2.2-4.8); NEUTROPHILS % (AUTO) 85.8 % (42.0-75.0); PLATELET COUNT 207 X10^3/uL (150.0-450.0); RED BLOOD COUNT 4.46 X10^6/uL (4.7-6.0); RED CELL DISTRIBUTION WIDTH 14.1 % (11.6-16.5); WHITE BLOOD COUNT 11.5 X10^3/uL (3.6-10.0)
[2020-01-08] MEDS: XOPENEX 1.25 MG/3 ML NEBULE NEB SCH ×4 (06:23→21:20)
[2020-01-08] MEDS: HumuLIN R SC PRN ×4 (06:36→21:09)
[2020-01-08] MEDS: PULMICORT NEB TX 0.5 MG NEB SCH ×2 (08:10→21:20)
[2020-01-08] MEDS ORDERED: VITAMIN D (1.25MG) PO SCH (09:00)
[2020-01-08] MEDS: CELEXA PO SCH (09:55)
[2020-01-08] MEDS: CLARITIN PO SCH (09:56)
[2020-01-08] MEDS: ZINC SULFATE PO SCH ×2 (09:56→21:08)
[2020-01-08] MEDS: SINGULAIR TAB 10 MG PO SCH (09:57)
[2020-01-08] MEDS: VITAMIN C PO SCH (09:57)
[2020-01-08] MEDS: VITAMIN B COMPLEX PO SCH (09:57)
[2020-01-08] MEDS: REMDESIVIR (INVESTIGATIONAL DRUG GS-5734) 100 MG in NS 250 ML IV 250 ML IV SCH (09:58)
[2020-01-08] MEDS: ROCEPHIN VIAL 1 GRAM 1 G in NS 100 ML IV + SPIKE MINIBAG* 100 ML IV SCH (09:58)
[2020-01-08] MEDS: PriLOSEC PO SCH (09:58)
[2020-01-08] MEDS: ELIQUIS PO SCH ×2 (09:59→21:04)
[2020-01-08] MEDS: FERROUS GLUCONATE PO SCH ×2 (09:59→21:04)
[2020-01-08] MEDS: LOPRESSOR TAB 25 MG PO SCH ×2 (09:59→21:05)
[2020-01-08] MEDS: DIFLUCAN PO SCH (15:00)
[2020-01-08] MEDS ORDERED: TUSSIONEX PENNKINETIC SUSP PO PRN (15:04)
[2020-01-08] MEDS ORDERED: ROBITUSSIN DM PO PRN (15:04)
[2020-01-08] MEDS ORDERED: ROBITUSSIN DM ONE (15:07)
[2020-01-08] MEDS ORDERED: DIFLUCAN 200 MG IV PREMIX* 200 MG/100 ML BAG IV ONE (15:08)
[2020-01-08] MEDS ORDERED: REMDESIVIR (INVESTIGATIONAL DRUG GS-5734) 200 MG in NS 250 ML IV 250 ML IV SCH (15:25)
[2020-01-08] MEDS: PLAQUENIL PO SCH ×2 (15:30→21:06)
[2020-01-08] MEDS: VITAMIN D3 125 mcg (5,000 UNITS) PO SCH (15:30)
[2020-01-08] MEDS: NYSTATIN SUSP PO SCH ×3 (16:00→21:06)
[2020-01-08] MEDS: SYNTHROID 25 mcg TAB PO SCH (17:00)
[2020-01-08] MEDS: FLOMAX PO SCH (21:04)
[2020-01-08] MEDS: MIRAPEX TAB 0.25 MG PO SCH (21:05)
[2020-01-08] MEDS: TRICOR TAB 160 MG PO SCH (21:07)
[2020-01-08] MEDS: SEROquel TAB 25 mg PO SCH (21:07)
[2020-01-08] MEDS: ZOCOR TAB 10 MG PO SCH (21:08)
[2020-01-08] MEDS: NORCO 7.5/325 MG TAB PO PRN (23:25)
[2020-01-08] MEDS: XANAX PO PRN (23:27)
[2020-01-09] MEDS: XOPENEX 1.25 MG/3 ML NEBULE NEB SCH ×4 (05:55→19:55)
[2020-01-09 06:01] LABS: BLOOD UREA NITROGEN 20 mg/dL (7-18); CALCIUM 8.4 mg/dL (8.5-10.1); CARBON DIOXIDE 30.4 mmol/L (21-32); CHLORIDE 102 mmol/L (98-107); COR NA(FOR HYPERGLY) 139 mmol/L (136-145); SODIUM 137 mmol/L (136-145); eGFR NON BLACK RACES > 60 (>60)
[2020-01-09 06:26] LABS: BASOPHILS % (AUTO) 0 % (0.2-1.0); EOSINOPHILS % (AUTO) 0.1 % (0.9-2.9); HEMATOCRIT 38.1 % (42.0-54.0); HEMOGLOBIN 12.6 g/dL (13.5-18.0); LYMPHOCYTES # (AUTO) 0.6 X10^3/uL (1.3-2.9); LYMPHOCYTES % (AUTO) 4.1 % (21.0-51.0); MEAN CORPUSCULAR HEMOGLOBIN 28.7 pg (27.0-34.0); MEAN CORPUSCULAR HGB CONC 33.1 g/dL (33.0-35.0); MEAN CORPUSCULAR VOLUME 86.7 fL (80.0-100.0); MEAN PLATELET VOLUME 9.1 fL (7.4-11.0); MONOCYTES # (AUTO) 1.1 x10^3/uL (0.3-0.8); MONOCYTES % (AUTO) 7.1 % (0.0-13.0); NEUTROPHILS # (AUTO) 13.5 x10^3/uL (2.2-4.8); NEUTROPHILS % (AUTO) 88.7 % (42.0-75.0); PLATELET COUNT 213 X10^3/uL (150.0-450.0); RED CELL DISTRIBUTION WIDTH 14.2 % (11.6-16.5); WHITE BLOOD COUNT 15.2 X10^3/uL (3.6-10.0)
[2020-01-09] MEDS: PULMICORT NEB TX 0.5 MG NEB SCH ×2 (08:05→19:55)
[2020-01-09] MEDS ORDERED: VITAMIN D3 125 mcg (5,000 UNITS) PO SCH (09:00)
[2020-01-09] MEDS ORDERED: DIFLUCAN ONE (09:35)
[2020-01-09] MEDS: ROCEPHIN VIAL 1 GRAM 1 G in NS 100 ML IV + SPIKE MINIBAG* 100 ML IV SCH (09:50)
[2020-01-09] MEDS: NYSTATIN SUSP PO SCH ×4 (09:58→21:23)
[2020-01-09] MEDS: CELEXA PO SCH (09:58)
[2020-01-09] MEDS: SINGULAIR TAB 10 MG PO SCH (09:59)
[2020-01-09] MEDS: CLARITIN PO SCH (09:59)
[2020-01-09] MEDS: VITAMIN C PO SCH (09:59)
[2020-01-09] MEDS: DIFLUCAN PO SCH (10:00)
[2020-01-09] MEDS: LOPRESSOR TAB 25 MG PO SCH ×2 (10:00→21:23)
[2020-01-09] MEDS: ELIQUIS PO SCH ×2 (10:01→21:21)
[2020-01-09] MEDS: PriLOSEC PO SCH (10:01)
[2020-01-09] MEDS: NS 1000 ML 1,000 ML IV SCH ×2 (10:02→21:21)
[2020-01-09] MEDS: FERROUS GLUCONATE PO SCH ×2 (10:02→21:22)
[2020-01-09] MEDS: PLAQUENIL PO SCH ×2 (10:02→21:24)
[2020-01-09] MEDS: ZINC SULFATE PO SCH ×2 (10:03→21:25)
[2020-01-09] MEDS: VITAMIN D3 125 mcg (5,000 UNITS) PO SCH (10:04)
[2020-01-09] MEDS: VITAMIN A PO SCH (10:04)
[2020-01-09] MEDS: SOLU-Medrol 40 MG VIAL IVP SCH ×2 (10:04→21:24)
[2020-01-09] MEDS: VITAMIN B COMPLEX PO SCH (10:05)
[2020-01-09] MEDS ORDERED: VITAMIN B-12 PO ONE (10:10)
[2020-01-09] MEDS: REMDESIVIR (INVESTIGATIONAL DRUG GS-5734) 100 MG in NS 250 ML IV 250 ML IV SCH (10:23)
[2020-01-09] MEDS: HumuLIN R SC PRN ×3 (11:36→21:30)
[2020-01-09] MEDS: NORCO 7.5/325 MG TAB PO PRN ×2 (13:22→23:32)
[2020-01-09] MEDS: SYNTHROID 25 mcg TAB PO SCH (16:14)
[2020-01-09] MEDS: FLOMAX PO SCH (21:22)
[2020-01-09] MEDS: MIRAPEX TAB 0.25 MG PO SCH (21:23)
[2020-01-09] MEDS: SEROquel TAB 25 mg PO SCH (21:24)
[2020-01-09] MEDS: TRICOR TAB 160 MG PO SCH (21:25)
[2020-01-09] MEDS: ZOCOR TAB 10 MG PO SCH (21:25)
[2020-01-09] MEDS: XANAX PO PRN (23:33)
[2020-01-10] MEDS: XOPENEX 1.25 MG/3 ML NEBULE NEB SCH ×3 (05:18→21:32)
[2020-01-10 05:19] LABS: BLOOD UREA NITROGEN 22 mg/dL (7-18); CALCIUM 9.1 mg/dL (8.5-10.1); CARBON DIOXIDE 35.1 mmol/L (21-32); CHLORIDE 101 mmol/L (98-107); COR NA(FOR HYPERGLY) 141 mmol/L (136-145); CREATININE 1.23 mg/dL (0.70-1.30); SODIUM 138 mmol/L (136-145); eGFR NON BLACK RACES > 60 (>60)
[2020-01-10 05:20] LABS: BASOPHILS % (AUTO) 0 % (0.2-1.0); HEMATOCRIT 40.1 % (42.0-54.0); HEMOGLOBIN 13.2 g/dL (13.5-18.0); LYMPHOCYTES # (AUTO) 0.6 X10^3/uL (1.3-2.9); LYMPHOCYTES % (AUTO) 5.1 % (21.0-51.0); MEAN CORPUSCULAR HEMOGLOBIN 28.9 pg (27.0-34.0); MEAN CORPUSCULAR VOLUME 87.4 fL (80.0-100.0); MEAN PLATELET VOLUME 9.2 fL (7.4-11.0); MONOCYTES # (AUTO) 0.7 x10^3/uL (0.3-0.8); NEUTROPHILS % (AUTO) 88.9 % (42.0-75.0); PLATELET COUNT 194 X10^3/uL (150.0-450.0); RED BLOOD COUNT 4.59 X10^6/uL (4.7-6.0); RED CELL DISTRIBUTION WIDTH 14.4 % (11.6-16.5); WHITE BLOOD COUNT 11.3 X10^3/uL (3.6-10.0)
[2020-01-10] MEDS: HumuLIN R SC PRN ×3 (06:25→21:27)
[2020-01-10 08:19] LABS: MAGNESIUM 1.8 mg/dL (1.7-2.9)
[2020-01-10] MEDS: PULMICORT NEB TX 0.5 MG NEB SCH ×2 (09:00→21:32)
[2020-01-10] MEDS: CLARITIN PO SCH (09:14)
[2020-01-10] MEDS: ELIQUIS PO SCH ×2 (09:14→21:27)
[2020-01-10] MEDS: CELEXA PO SCH (09:15)
[2020-01-10] MEDS: FERROUS GLUCONATE PO SCH ×2 (09:15→21:27)
[2020-01-10] MEDS: VITAMIN C PO SCH (09:15)
[2020-01-10] MEDS: ZINC SULFATE PO SCH ×2 (09:16→21:27)
[2020-01-10] MEDS: NYSTATIN SUSP PO SCH ×4 (09:16→21:27)
[2020-01-10] MEDS: REMDESIVIR (INVESTIGATIONAL DRUG GS-5734) 100 MG in NS 250 ML IV 250 ML IV SCH (09:17)
[2020-01-10] MEDS: PriLOSEC PO SCH (09:17)
[2020-01-10] MEDS: ROCEPHIN VIAL 1 GRAM 1 G in NS 100 ML IV + SPIKE MINIBAG* 100 ML IV SCH (09:18)
[2020-01-10] MEDS: VITAMIN D3 125 mcg (5,000 UNITS) PO SCH (09:18)
[2020-01-10] MEDS: SINGULAIR TAB 10 MG PO SCH (09:19)
[2020-01-10] MEDS: VITAMIN A PO SCH (09:20)
[2020-01-10] MEDS: SOLU-Medrol 40 MG VIAL IVP SCH ×2 (09:20→21:27)
[2020-01-10] MEDS: VITAMIN B COMPLEX PO SCH (09:24)
--- NOTE | 2020-01-10 10:41 | RAD ---
HISTORYHYPOXIA, COVID +STUDYCHEST, 1 VIEWCOMPARISONPortable chest January 06, 2020FINDINGSThe trachea is midline. The cardiac silhouette is unremarkable. The interstitial infiltrates present currently in the left lung base and peripherally in the right mid and lower lung field have increased when compared to the study of 06 January 2020. The current findings are most consistent with interstitial infiltrate superimposed on chronic changes of fibrosis. No areas of consolidation are observed.. The bony thorax is unremarkable.IMPRESSIONNew bibasilar interstitial infiltrates superimposed on chronic changes of fibrosis when compared to the last study of January 06, 2020.Electronically signed by: AMERICA HE (Jan 10, 2020 10:41:28)
[2020-01-10] MEDS ORDERED: LASIX IVP ONE (11:03)
[2020-01-10 11:49] LABS: ABG BASE EXCESS 9.2 mmol/L (-2.0-2.0)
[2020-01-10 11:50] LABS: ABG HCO3 34.2 mmol/L (22-26)
[2020-01-10 11:51] LABS: ABG ALLEN TEST POS
[2020-01-10] MEDS: NS 1000 ML 1,000 ML IV SCH (11:53)
[2020-01-10] MEDS ORDERED: ATIVAN INJ 2 MG VIAL IVP PRN (12:07)
--- NOTE | 2020-01-10 13:20 | PCM.PROG ---
Progress Note Progress Note for Day of Date of Exam: 01/10/20 Subjective Subjective: Patient seen at bedside, no overnight events. Patient is currently on 100% FiO2 on hi-flow oxygen. He has been on the same FiO2 over the weekend. Patient's sats seem to be lower than usual, mostly low-mid 80s today. He is resting comfortably with no acute distress and no labored breathing. He states every time he moves, his sats drop down. Denies fever or chills. Denies N/V/D or abdominal pain. Patient's HR has been low this morning, in the 50s. Labs: WBC: 11.3 Hgb: 13.2 BUN/Cr: 22/1.23 Echo: Grade I diastolic dysfunction, EF 61% Plan: will hold morning metoprolol dose due to bradycardia, repeat EKG, get an ABG and CXR. Continue Remdesivir and Rocephin. Increase solumedrol to 60mg q12 due to coarse breath sounds and wheezing on exam this morning. Will f/u on CRP and mag. Order plasma. Discussed with and patient about worsening respiratory status and if all fails and patient continues to have low O2 sats, then last option is intubation. Patient stated that if that was the last option then he would agree to it. Will continue to update and family as needed. Past Medical Family Social History Past Med/Fam/Surg Hx: Changes noted (describe) Allergies: Allergies No Known Drug Allergies Allergy (Verified 01/06/20 09:51) Review of Systems ROS: No change since H&P Vital Signs and I&O's Vital Signs: Temperature 99.2 F Pulse Rate 64 Respiratory Rate 21 Blood Pressure [Right Arm] 140/89 Blood Pressure 132/75 O2 Sat by Pulse Oximetry 92 Intake and Output: Intake & Output 01/07/20 01/08/20 01/09/20 01/10/20 23:59 23:59 23:59 23:59 Intake Total 3022 / 3022 2398 / 2398 2111 / 2 438 / 438 Output Total 3525 / 3525 5 / 5 1375 / 1375 Balance -503 / -503 273 / 273 737 / 737 438 / 438 Physical Exam Oriented: Normal Eyes: Normal Ear: Normal Nose: Normal Throat: Normal Respiratory: Generalized, Wheezes, Rales and Rhonchi Cardiovascular: Normal; negative Edema Auscultation: Bowel Sounds: Normal Tenderness: Normal Skin: Normal Musculoskeletal: Normal Psychiatric: Normal Mood Description: Calm Affect: Normal Speech Pattern: Clear Laboratory and Diagnostics Result Diagrams: 01/10/20 04:26 01/10/20 04:26 Labs: Laboratory WBC 11.3 X10^3/uL (3.6-10.0) H 01/10/20 04:26 RBC 4.59 X10^6/uL (4.7-6.0) L 01/10/20 04:26 Hgb 13.2 g/dL (13.5-18.0) L 01/10/20 04:26 Hct 40.1 % (42.0-54.0) L 01/10/20 04:26 MCV 87.4 fL (80.0-100.0) 01/10/20 04:26 MCH 28.9 pg (27.0-34.0) 01/10/20 04:26 MCHC 33.0 g/dL (33.0-35.0) 01/10/20 04:26 RDW 14.4 % (11.6-16.5) 01/10/20 04:26 Plt Count 194 X10^3/uL (150.0-450.0) 01/10/20 04:26 Plt Count Comment Adequate (ADEQUATE) 01/07/20 04:20 MPV 9.2 fL (7.4-11.0) 01/10/20 04:26 Neut % (Auto) 88.9 % (42.0-75.0) H 01/10/20 04:26 Lymph % (Auto) 5.1 % (21.0-51.0) L 01/10/20 04:26 [place] % (Auto) 6.0 % (0.0-13.0) 01/10/20 04:26 Eos % (Auto) 0.0 % (0.9-2.9) L 01/10/20 04:26 Baso % (Auto) 0 % (0.2-1.0) L 01/10/20 04:26 Neut # (Auto) 10.0 x10^3/uL (2.2-4.8) H 01/10/20 04:26 Lymph # (Auto) 0.6 X10^3/uL (1.3-2.9) L 01/10/20 04:26 [place] # (Auto) 0.7 x10^3/uL (0.3-0.8) 01/10/20 04:26 Eos # (Auto) 0.0 x10^3/uL (0.0-0.2) 01/10/20 04:26 Baso # (Auto) 0.0 X10^3/uL (0.0-0.1) 01/10/20 04:26 Absolute Nucleated RBC 0.0 /100WBC 01/10/20 04:26 Total Counted 100 01/07/20 04:20 Neutrophils % (Manual) 80 % (39-76) H 01/07/20 04:20 Band Neutrophils % 6 % (0-10) 01/07/20 04:20 Lymphocytes % (Manual) 9 % (13-43) L 01/07/20 04:20 Monocytes % (Manual) 5 % (4-9) 01/07/20 04:20 Plt Morphology Comment Normal (NORMAL) 01/07/20 04:20 RBC Morphology Normal (NORMAL) 01/07/20 04:20 Sample Site Lr 01/10/20 08:41 ABG pH 7.470 (7.35-7.45) H 01/10/20 08:41 ABG pCO2 47.0 mmHg (35.0-45.0) H 01/10/20 08:41 ABG pO2 35.0 mmHg (80.0-100.0) L* 01/10/20 08:41 ABG HCO3 34.2 mmol/L (22-26) H* 01/10/20 08:41 ABG O2 Saturation 72.0 % (90-100) L* 01/10/20 08:41 ABG Base Excess 9.2 mmol/L (-2.0-2.0) H 01/10/20 08:41 Aris Test Pos 01/10/20 08:41 A-a Gradient 619.0 mmHg 01/10/20 08:41 FiO2 100.0 01/10/20 08:41 Blood Gas Comments Pt liza well. llj md urologist 01/10/20 08:41 Sodium 138 mmol/L (136-145) 01/10/20 04:26 Corrected Sodium 141 mmol/L (136-145) 01/10/20 04:26 Potassium 4.7 mmol/L (3.5-5.1) 01/10/20 04:26 Chloride 101 mmol/L (98-107) 01/10/20 04:26 Carbon Dioxide 35.1 mmol/L (21-32) H 01/10/20 04:26 BUN 22 mg/dL (7-18) H 01/10/20 04:26 Creatinine 1.23 mg/dL (0.70-1.30) 01/10/20 04:26 Est GFR (MDRD) Af Amer > 60 (>60) 01/10/20 04:26 Est GFR (MDRD) Non-Af > 60 (>60) 01/10/20 04:26 Glucose 218 mg/dL (65-99) H 01/10/20 04:26 POC Glucose (mg/dL) 196 mg/dL (65-99) H 01/10/20 11:57 Calcium 9.1 mg/dL (8.5-10.1) 01/10/20 04:26 Corrected Calcium 9.1 mg/dL (8.5-10.1) 01/06/20 10:05 Magnesium 1.8 mg/dL (1.7-2.9) 01/10/20 04:26 Total Bilirubin 0.40 mg/dL (0.2-1.0) 01/06/20 10:05 AST 58 Units/L (15-37) H 01/06/20 10:05 ALT 72 Units/L (12-78) 01/06/20 10:05 Alkaline Phosphatase 58 Units/L (46-116) 01/06/20 10:05 Creatine Kinase 69 Units/L (39-308) 01/06/20 10:05 CK-MB (CK-2) 1.3 ng/mL (0-4.0) 01/06/20 10:05 CK/CKMB % Calc 1.9 % (<4) 01/06/20 10:05 Troponin I 0.05 ng/mL (0-1.5) 01/06/20 10:05 C-Reactive Protein 14.90 mg/L (0-3.0) H 01/10/20 04:26 B-Natriuretic Peptide 121 pg/mL (0-79) H 01/06/20 10:05 Total Protein 6.4 g/dL (6.4-8.2) 01/06/20 10:05 Albumin 3.1 g/dL (3.4-5.0) L 01/06/20 10:05 Globulin 3.3 g/dL (2.5-4.5) 01/06/20 10:05 Albumin/Globulin Ratio 0.9 Ratio (1.1-2.1) L 01/06/20 10:05 SARS-CoV-2 (PCR) Positive (NEGATIVE) A 01/06/20 11:49 Blood Type O NEGATIVE 01/10/20 08:39 Plan (1) Acute on chronic respiratory failure with hypoxia: Status: Acute (2) COVID-19: Status: Acute (3) Acute on chronic renal failure: Status: Acute Qualifiers: Acute renal failure type: unspecified Chronic kidney disease stage: unspecified stage Qualified Code(s): N17.9 - Acute kidney failure, unspecified; N18.9 - Chronic kidney disease, unspecified (4) COPD exacerbation: Status: Acute (5) Pulmonary HTN: Status: Chronic (6) Hypotension: Status: Acute
[2020-01-10 14:42] LABS: ABG BASE EXCESS 10.1 mmol/L (-2.0-2.0)
[2020-01-10] MEDS ORDERED: TYLENOL 325 MG TAB PO ONE ×2 (15:24→15:28)
[2020-01-10] MEDS: SYNTHROID 25 mcg TAB PO SCH (16:45)
[2020-01-10] MEDS: ATIVAN INJ 2 MG VIAL IVP PRN (17:14)
[2020-01-10] MEDS ORDERED: HumuLIN R ONE (20:23)
[2020-01-10] MEDS: TRICOR TAB 160 MG PO SCH (21:27)
[2020-01-10] MEDS: FLOMAX PO SCH (21:27)
[2020-01-10] MEDS: MIRAPEX TAB 0.25 MG PO SCH (21:27)
[2020-01-10] MEDS: ZOCOR TAB 10 MG PO SCH (21:27)
[2020-01-10] MEDS: SEROquel TAB 25 mg PO SCH (21:27)
[2020-01-10] MEDS: NORCO 7.5/325 MG TAB PO PRN (21:30)
[2020-01-11] MEDS: ATIVAN INJ 2 MG VIAL IVP PRN ×3 (01:15→17:21)
[2020-01-11 05:16] LABS: BLOOD UREA NITROGEN 31 mg/dL (7-18); CALCIUM 8.6 mg/dL (8.5-10.1); CARBON DIOXIDE 33.2 mmol/L (21-32); CHLORIDE 100 mmol/L (98-107); COR NA(FOR HYPERGLY) 142 mmol/L (136-145); CREATININE 1.33 mg/dL (0.70-1.30); SODIUM 138 mmol/L (136-145); eGFR NON BLACK RACES 56 (>60)
[2020-01-11 05:17] LABS: BASOPHILS % (AUTO) 0.2 % (0.2-1.0); HEMATOCRIT 39.6 % (42.0-54.0); HEMOGLOBIN 13.1 g/dL (13.5-18.0); LYMPHOCYTES # (AUTO) 0.7 X10^3/uL (1.3-2.9); LYMPHOCYTES % (AUTO) 5.5 % (21.0-51.0); MEAN CORPUSCULAR HEMOGLOBIN 28.9 pg (27.0-34.0); MEAN CORPUSCULAR HGB CONC 33.1 g/dL (33.0-35.0); MEAN CORPUSCULAR VOLUME 87.3 fL (80.0-100.0); MEAN PLATELET VOLUME 9.6 fL (7.4-11.0); MONOCYTES # (AUTO) 0.6 x10^3/uL (0.3-0.8); NEUTROPHILS # (AUTO) 10.7 x10^3/uL (2.2-4.8); NEUTROPHILS % (AUTO) 89.3 % (42.0-75.0); PLATELET COUNT 209 X10^3/uL (150.0-450.0); RED BLOOD COUNT 4.54 X10^6/uL (4.7-6.0); RED CELL DISTRIBUTION WIDTH 14.2 % (11.6-16.5)
[2020-01-11] MEDS: HumuLIN R SC PRN ×4 (05:41→21:30)
[2020-01-11] MEDS: XOPENEX 1.25 MG/3 ML NEBULE NEB SCH ×4 (06:30→21:37)
[2020-01-11 08:40] LABS: ABG BASE EXCESS 9.1 mmol/L (-2.0-2.0)
[2020-01-11 08:41] LABS: ABG ALLEN TEST POS; ABG HCO3 33.5 mmol/L (22-26)
[2020-01-11] MEDS: CLARITIN PO SCH (08:41)
[2020-01-11] MEDS: NYSTATIN SUSP PO SCH ×5 (08:42→22:54)
[2020-01-11] MEDS: ELIQUIS PO SCH ×2 (08:42→21:30)
[2020-01-11] MEDS: CELEXA PO SCH (08:42)
[2020-01-11] MEDS: FERROUS GLUCONATE PO SCH ×2 (08:43→21:30)
[2020-01-11] MEDS: PriLOSEC PO SCH (08:43)
[2020-01-11] MEDS: ROCEPHIN VIAL 1 GRAM 1 G in NS 100 ML IV + SPIKE MINIBAG* 100 ML IV SCH (08:43)
[2020-01-11] MEDS: VITAMIN D3 125 mcg (5,000 UNITS) PO SCH (08:44)
[2020-01-11] MEDS: SINGULAIR TAB 10 MG PO SCH (08:44)
[2020-01-11] MEDS: ZINC SULFATE PO SCH ×2 (08:45→21:32)
[2020-01-11] MEDS: VITAMIN C PO SCH (08:45)
[2020-01-11] MEDS: SOLU-Medrol 40 MG VIAL IVP SCH ×2 (08:45→21:30)
[2020-01-11] MEDS: VITAMIN A PO SCH (08:46)
[2020-01-11] MEDS: VITAMIN B COMPLEX PO SCH (08:46)
[2020-01-11] MEDS: PULMICORT NEB TX 0.5 MG NEB SCH ×2 (09:00→21:37)
--- NOTE | 2020-01-11 09:07 | RAD ---
HISTORYCOVID PNASTUDYCHEST, 1 VIEWCOMPARISONOne day priorTECHNIQUEAP view of the chestFINDINGSCardiac silhouette is enlarged. Similar appearance of emphysema with lower lobe interstitial opacities. No pneumothorax.IMPRESSIONCardiomegaly with emphysema and bibasilar interstitial opacities. This could represent a combination of chronic fibrosis and acute infection.Electronically signed by: Jovan Eddy (Jan 11, 2020 09:06:32)
[2020-01-11] MEDS: LOPRESSOR TAB 25 MG PO SCH ×2 (09:32→21:30)
[2020-01-11] MEDS ORDERED: ACTEMRA 400 MG in NS 100 ML IV 80 ML IV NR (09:56)
--- NOTE | 2020-01-11 10:15 | PCM.PROG ---
Progress Note Progress Note for Day of Date of Exam: 01/11/20 Subjective Subjective: Patient seen at bedside, no acute events overnight. Patient has remained on the BiPAP. He was put on hi-flow briefly last night to eat. Patient seems to be resting comfortably and doesn't seem to be agitated or anxious. at bedside, discussed patient's treatment plan. states patient would not like to be put on the vent. This was discussed with patient's and son yesterday and that's what they decided. Patient did receive on dose of plasma yesterday. Labs: WBC 12, BUN/Cr: 31/1.33 ABG this AM: 7.49/44/51/33.5 CXR yesterday: worsening b/l infiltrates superimposed on chronic pulmonary fibrosis Echo: Grade I diastolic dysfunction, EF 61% Plasma treatment # 1 on 01/10/2020 Plan: repeat CXR today, take of BiPAP to allow patient to eat and then placed back on BiPAP, wean as tolerated. Continue Rocephin, Remdesivir. Will give one dose of Actemra. Continue steroids and vitamin supplements. Resume metoprolol tartrate but at a lower dose, 12.5 mg BID. Monitor AM labs. Past Medical Family Social History Past Med/Fam/Surg Hx: Changes noted (describe) Allergies: Allergies No Known Drug Allergies Allergy (Verified 01/06/20 09:51) Review of Systems ROS: No change since H&P Vital Signs and I&O's Vital Signs: Temperature 98.0 F Pulse Rate 56 Respiratory Rate 19 Blood Pressure [Right Arm] 140/89 Blood Pressure 118/57 O2 Sat by Pulse Oximetry 96 Intake and Output: Intake & Output 01/08/20 01/09/20 01/10/20 01/11/20 23:59 23:59 23:59 23:59 Intake Total 2398 / 2398 2112 / 2112 2250 / 2250 190 / 190 Output Total 2125 / 2125 1375 / 1375 Balance 273 / 273 737 / 737 2250 / 2250 190 / 190 Physical Exam Oriented: Unable to test Ear: Normal Nose: Normal Respiratory: Generalized, Wheezes and Rhonchi Cardiovascular: Normal; negative Edema Auscultation: Bowel Sounds: Normal Tenderness: Normal Skin: Normal Musculoskeletal: Normal Psychiatric: Normal Mood Description: Calm Affect: Normal Speech Pattern: Clear Laboratory and Diagnostics Result Diagrams: 01/11/20 04:29 01/11/20 04:29 Labs: Laboratory WBC 12.0 X10^3/uL (3.6-10.0) H 01/11/20 04: RBC 4.54 X10^6/uL (4.7-6.0) L 01/11/20 04:29 Hgb 13.1 g/dL (13.5-18.0) L 01/11/20 04: Hct 39.6 % (42.0-54.0) L 01/11/20 04: MCV 87.3 fL (80.0-100.0) 01/11/20 04: MCH 28.9 pg (27.0-34.0) 01/11/20 04: MCHC 33.1 g/dL (33.0-35.0) 01/11/20 04: RDW 14.2 % (11.6-16.5) 01/11/20 04: Plt Count 209 X10^3/uL (150.0-450.0) 01/11/20 04:29 Plt Count Comment Adequate (ADEQUATE) 01/07/20 04:20 MPV 9.6 fL (7.4-11.0) 01/11/20 04: Neut % (Auto) 89.3 % (42.0-75.0) H 01/11/20 04: Lymph % (Auto) 5.5 % (21.0-51.0) L 01/11/20 04: [place] % (Auto) 5.0 % (0.0-13.0) 01/11/20 04:29 Eos % (Auto) 0.0 % (0.9-2.9) L 01/11/20 04:29 Baso % (Auto) 0.2 % (0.2-1.0) 01/11/20 04: Neut # (Auto) 10.7 x10^3/uL (2.2-4.8) H 01/11/20 04:29 Lymph # (Auto) 0.7 X10^3/uL (1.3-2.9) L 01/11/20 04:29 [place] # (Auto) 0.6 x10^3/uL (0.3-0.8) 01/11/20 04:29 Eos # (Auto) 0.0 x10^3/uL (0.0-0.2) 01/11/20 04:29 Baso # (Auto) 0.0 X10^3/uL (0.0-0.1) 01/11/20 04:29 Absolute Nucleated RBC 0.1 /100WBC 01/11/20 04:29 Total Counted 100 01/07/20 04:20 Neutrophils % (Manual) 80 % (39-76) H 01/07/20 04:20 Band Neutrophils % 6 % (0-10) 01/07/20 04:20 Lymphocytes % (Manual) 9 % (13-43) L 01/07/20 04:20 Monocytes % (Manual) 5 % (4-9) 01/07/20 04:20 Plt Morphology Comment Normal (NORMAL) 01/07/20 04:20 RBC Morphology Normal (NORMAL) 01/07/20 04:20 Sample Site Right radial 01/11/20 08:28 ABG pH 7.490 (7.35-7.45) H 01/11/20 08:28 ABG pCO2 44.0 mmHg (35.0-45.0) 01/11/20 08:28 ABG pO2 51.0 mmHg (80.0-100.0) L 01/11/20 08:28 ABG HCO3 33.5 mmol/L (22-26) H* 01/11/20 08:28 ABG O2 Saturation 89.0 % (90-100) L 01/11/20 08:28 ABG Base Excess 9.1 mmol/L (-2.0-2.0) H 01/11/20 08:28 Aris Test Pos 01/11/20 08:28 A-a Gradient 607.0 mmHg 01/11/20 08:28 FiO2 100.0 01/11/20 08:28 Blood Gas Comments Louisa well aw 01/11/20 08:28 Sodium 138 mmol/L (136-145) 01/11/20 04:29 Corrected Sodium 142 mmol/L (136-145) 01/11/20 04:29 Potassium 5.0 mmol/L (3.5-5.1) 01/11/20 04:29 Chloride 100 mmol/L (98-107) 01/11/20 04:29 Carbon Dioxide 33.2 mmol/L (21-32) H 01/11/20 04:29 BUN 31 mg/dL (7-18) H 01/11/20 04:29 Creatinine 1.33 mg/dL (0.70-1.30) H 01/11/20 04:29 Est GFR (MDRD) Af Amer > 60 (>60) 01/11/20 04:29 Est GFR (MDRD) Non-Af 56 (>60) L 01/11/20 04:29 Glucose 274 mg/dL (65-99) H 01/11/20 04:29 POC Glucose (mg/dL) 258 mg/dL (65-99) H 01/11/20 05:35 Calcium 8.6 mg/dL (8.5-10.1) 01/11/20 04:29 Corrected Calcium 9.1 mg/dL (8.5-10.1) 01/06/20 10:05 Magnesium 2.1 mg/dL (1.7-2.9) 01/11/20 04:29 Total Bilirubin 0.40 mg/dL (0.2-1.0) 01/06/20 10:05 AST 58 Units/L (15-37) H 01/06/20 10:05 ALT 72 Units/L (12-78) 01/06/20 10:05 Alkaline Phosphatase 58 Units/L (46-116) 01/06/20 10:05 Creatine Kinase 69 Units/L (39-308) 01/06/20 10:05 CK-MB (CK-2) 1.3 ng/mL (0-4.0) 01/06/20 10:05 CK/CKMB % Calc 1.9 % (<4) 01/06/20 10:05 Troponin I 0.05 ng/mL (0-1.5) 01/06/20 10:05 C-Reactive Protein 14.90 mg/L (0-3.0) H 01/10/20 04:26 B-Natriuretic Peptide 121 pg/mL (0-79) H 01/06/20 10:05 Total Protein 6.4 g/dL (6.4-8.2) 01/06/20 10:05 Albumin 3.1 g/dL (3.4-5.0) L 01/06/20 10:05 Globulin 3.3 g/dL (2.5-4.5) 01/06/20 10:05 Albumin/Globulin Ratio 0.9 Ratio (1.1-2.1) L 01/06/20 10:05 SARS-CoV-2 (PCR) Positive (NEGATIVE) A 01/06/20 11:49 Blood Type O NEGATIVE 01/10/20 08:39 Plan (1) Acute on chronic respiratory failure with hypoxia: Status: Acute (2) COVID-19: Status: Acute (3) Acute on chronic renal failure: Status: Acute Qualifiers: Acute renal failure type: unspecified Chronic kidney disease stage: unspecified stage Qualified Code(s): N17.9 - Acute kidney failure, unspecified; N18.9 - Chronic kidney disease, unspecified (4) COPD exacerbation: Status: Acute (5) Pulmonary HTN: Status: Chronic (6) Hypotension: Status: Acute
[2020-01-11] MEDS: SYNTHROID 25 mcg TAB PO SCH (16:13)
[2020-01-11] MEDS: ZESTRIL TAB 5 MG PO SCH (17:22)
[2020-01-11] MEDS: FLOMAX PO SCH (21:30)
[2020-01-11] MEDS: NORCO 7.5/325 MG TAB PO PRN (21:30)
[2020-01-11] MEDS: SEROquel TAB 25 mg PO SCH (21:30)
[2020-01-11] MEDS: TRICOR TAB 160 MG PO SCH (21:30)
[2020-01-11] MEDS: MIRAPEX TAB 0.25 MG PO SCH (21:30)
[2020-01-11] MEDS: ZOCOR TAB 10 MG PO SCH (21:35)
[2020-01-11] MEDS ORDERED: VISTARIL PO ONE (22:14)
[2020-01-11] MEDS: VISTARIL PO PRN (22:28)
[2020-01-12] MEDS: ATIVAN INJ 2 MG VIAL IVP PRN ×3 (02:00→18:09)
[2020-01-12 05:32] LABS: BASOPHILS % (AUTO) 0.1 % (0.2-1.0); HEMATOCRIT 42.5 % (42.0-54.0); HEMOGLOBIN 13.9 g/dL (13.5-18.0); LYMPHOCYTES # (AUTO) 0.7 X10^3/uL (1.3-2.9); LYMPHOCYTES % (AUTO) 3.4 % (21.0-51.0); MEAN CORPUSCULAR HEMOGLOBIN 28.6 pg (27.0-34.0); MEAN CORPUSCULAR HGB CONC 32.8 g/dL (33.0-35.0); MEAN CORPUSCULAR VOLUME 87.3 fL (80.0-100.0); MEAN PLATELET VOLUME 9.6 fL (7.4-11.0); MONOCYTES # (AUTO) 0.7 x10^3/uL (0.3-0.8); MONOCYTES % (AUTO) 3.6 % (0.0-13.0); NEUTROPHILS # (AUTO) 17.7 x10^3/uL (2.2-4.8); NEUTROPHILS % (AUTO) 92.9 % (42.0-75.0); PLATELET COUNT 254 X10^3/uL (150.0-450.0); RED BLOOD COUNT 4.87 X10^6/uL (4.7-6.0); RED CELL DISTRIBUTION WIDTH 14.5 % (11.6-16.5); WHITE BLOOD COUNT 19.1 X10^3/uL (3.6-10.0)
[2020-01-12] MEDS: XOPENEX 1.25 MG/3 ML NEBULE NEB SCH ×4 (06:05→21:50)
[2020-01-12 06:09] LABS: BAND NEUTROPHILS % 3 % (0-10); METAMYELOCYTES % 4; PLATELET MORPHOLOGY COMMENT NORMAL (NORMAL)
[2020-01-12 06:12] LABS: BLOOD UREA NITROGEN 35 mg/dL (7-18); CALCIUM 9.1 mg/dL (8.5-10.1); CARBON DIOXIDE 28.4 mmol/L (21-32); CHLORIDE 101 mmol/L (98-107); COR NA(FOR HYPERGLY) 141 mmol/L (136-145); CREATININE 1.32 mg/dL (0.70-1.30); SODIUM 137 mmol/L (136-145); eGFR NON BLACK RACES 57 (>60)
[2020-01-12] MEDS: HumuLIN R SC PRN ×5 (06:24→21:49)
[2020-01-12] MEDS: VISTARIL PO PRN ×3 (06:30→21:46)
[2020-01-12] MEDS: PULMICORT NEB TX 0.5 MG NEB SCH ×2 (08:45→21:50)
[2020-01-12] MEDS: PriLOSEC PO SCH (10:00)
[2020-01-12] MEDS: SINGULAIR TAB 10 MG PO SCH (10:00)
[2020-01-12] MEDS: VITAMIN A PO SCH (10:00)
[2020-01-12] MEDS: LOPRESSOR TAB 25 MG PO SCH ×2 (10:00→21:38)
[2020-01-12] MEDS: ZESTRIL TAB 5 MG PO SCH (10:00)
[2020-01-12] MEDS: ZINC SULFATE PO SCH ×2 (10:00→21:41)
[2020-01-12] MEDS: FERROUS GLUCONATE PO SCH ×2 (10:00→21:35)
[2020-01-12] MEDS: VITAMIN D3 125 mcg (5,000 UNITS) PO SCH (10:00)
[2020-01-12] MEDS: SOLU-Medrol 40 MG VIAL IVP SCH ×2 (10:00→21:41)
[2020-01-12] MEDS: CLARITIN PO SCH (10:00)
[2020-01-12] MEDS: VITAMIN C PO SCH (10:00)
[2020-01-12] MEDS: CELEXA PO SCH (10:00)
[2020-01-12] MEDS: ELIQUIS PO SCH ×2 (10:00→21:35)
[2020-01-12] MEDS: ROCEPHIN VIAL 1 GRAM 1 G in NS 100 ML IV + SPIKE MINIBAG* 100 ML IV SCH (10:00)
[2020-01-12 10:33] LABS: ABG BASE EXCESS 5.4 mmol/L (-2.0-2.0)
[2020-01-12 10:35] LABS: ABG ALLEN TEST POS
[2020-01-12] MEDS: NS 1000 ML 1,000 ML IV SCH (12:44)
[2020-01-12] MEDS: VITAMIN B COMPLEX PO SCH (12:45)
--- NOTE | 2020-01-12 13:08 | RAD ---
HISTORYF/U COVID INFECTIONSTUDYCHEST, 1 [id number] opacity in the lungs is probably decreased from the prio r study. This may represent an improved interstitial pneumonia or pulmonary edema superimposed on chr onic changes.Upper lungs are lucent suggesting emphysema.No pleural effusion or pneumothorax.The hear t size is magnified.Bones are unremarkable.EKG leads are noted.IMPRESSION1. Findings suggesting impro reynaldo interstitial pneumonia or pulmonary edemaElectronically signed by: Jovan Orlando (Jan 12, 2020 1 3:08:37)
--- NOTE | 2020-01-12 13:33 | PCM.PROG ---
Progress Note Progress Note for Day of Date of Exam: 01/12/20 Subjective Subjective: Patient seen at bedside, remains on BiPAP. He was anxious and agitated last night, received a dose of Vistaril and was able to rest. He was not able to tolerate hi-flow to eat supper last night and had to be put back on BiPAP. His sats remain in the mid-high 80s. Labs: WBC 19 BUN/Cr: 35/1.32 Echo: Grade I diastolic dysfunction, EF 61% Plasma treatment # 1 on 01/10/2020 Plan: repeat ABG and CXR today, try hi-flow O2 and prone positioning, order another dose of Plasma. Continue steroids, Remdesivir, Rocephin and breathing treatments. Patient did receive a dose of Actemra yesterday. Add gentle hydration with IVF. at bedside updated and all questions answered. Patient remains in critical condition. Patient has declined intubation and is DNR. Past Medical Family Social History Past Med/Fam/Surg Hx: Changes noted (describe) Allergies: Allergies No Known Drug Allergies Allergy (Verified 01/06/20 09:51) Review of Systems ROS: No change since H&P Vital Signs and I&O's Vital Signs: Temperature 97.1 F Pulse Rate 90 Respiratory Rate 24 Blood Pressure [Right Arm] 140/89 Blood Pressure 168/81 O2 Sat by Pulse Oximetry 87 Intake and Output: Intake & Output 01/09/20 01/10/20 01/11/20 01/12/20 23:59 23:59 23:59 23:59 Intake Total 2112 / 2112 2250 / 2250 1862 / 1862 280 / 280 Output Total 1375 / 1375 1050 / 1050 Balance 737 / 737 2250 / 2250 812 / 812 280 / 280 Physical Exam Oriented: Unable to test Eyes: Normal Ear: Normal Nose: Normal Throat: Normal Respiratory: Generalized and Diminished Cardiovascular: Normal; negative Edema Auscultation: Bowel Sounds: Normal Tenderness: Normal Skin: Normal Musculoskeletal: Normal Psychiatric: Normal Mood Description: Calm Affect: Normal Speech Pattern: Artificially Ventilated Laboratory and Diagnostics Result Diagrams: 01/12/20 04:43 01/12/20 04:43 Labs: Laboratory WBC 19.1 X10^3/uL (3.6-10.0) H 01/12/20 04:43 RBC 4.87 X10^6/uL (4.7-6.0) 01/12/20 04:43 Hgb 13.9 g/dL (13.5-18.0) 01/12/20 04:43 Hct 42.5 % (42.0-54.0) 01/12/20 04:43 MCV 87.3 fL (80.0-100.0) 01/12/20 04:43 MCH 28.6 pg (27.0-34.0) 01/12/20 04:43 MCHC 32.8 g/dL (33.0-35.0) L 01/12/20 04:43 RDW 14.5 % (11.6-16.5) 01/12/20 04:43 Plt Count 254 X10^3/uL (150.0-450.0) 01/12/20 04:43 Plt Count Comment Adequate (ADEQUATE) 01/12/20 04:43 MPV 9.6 fL (7.4-11.0) 01/12/20 04:43 Neut % (Auto) 92.9 % (42.0-75.0) H 01/12/20 04:43 Lymph % (Auto) 3.4 % (21.0-51.0) L 01/12/20 04:43 [place] % (Auto) 3.6 % (0.0-13.0) 01/12/20 04:43 Eos % (Auto) 0.0 % (0.9-2.9) L 01/12/20 04:43 Baso % (Auto) 0.1 % (0.2-1.0) L 01/12/20 04:43 Neut # (Auto) 17.7 x10^3/uL (2.2-4.8) H 01/12/20 04:43 Lymph # (Auto) 0.7 X10^3/uL (1.3-2.9) L 01/12/20 04:43 [place] # (Auto) 0.7 x10^3/uL (0.3-0.8) 01/12/20 04:43 Eos # (Auto) 0.0 x10^3/uL (0.0-0.2) 01/12/20 04:43 Baso # (Auto) 0.0 X10^3/uL (0.0-0.1) 01/12/20 04:43 Absolute Nucleated RBC 0.1 /100WBC 01/12/20 04:43 Total Counted 100 01/12/20 04:43 Neutrophils % (Manual) 85 % (39-76) H 01/12/20 04:43 Band Neutrophils % 3 % (0-10) 01/12/20 04:43 Lymphocytes % (Manual) 5 % (13-43) L 01/12/20 04:43 Monocytes % (Manual) 3 % (4-9) L 01/12/20 04:43 Metamyelocytes % 4 01/12/20 04:43 Plt Morphology Comment Normal (NORMAL) 01/12/20 04:43 RBC Morphology Normal (NORMAL) 01/12/20 04:43 Sample Site Rr 01/12/20 10:28 ABG pH 7.490 (7.35-7.45) H 01/12/20 10:28 ABG pCO2 38.0 mmHg (35.0-45.0) 01/12/20 10:28 ABG pO2 46.0 mmHg (80.0-100.0) L* 01/12/20 10:28 ABG HCO3 29.0 mmol/L (22-26) H 01/12/20 10:28 ABG O2 Saturation 85.0 % (90-100) L 01/12/20 10:28 ABG Base Excess 5.4 mmol/L (-2.0-2.0) H 01/12/20 10:28 Aris Test Pos 01/12/20 10:28 A-a Gradient 620.0 mmHg 01/12/20 10:28 FiO2 100.0 01/12/20 10:28 Blood Gas Comments Louisa well cb 01/12/20 10:28 Sodium 137 mmol/L (136-145) 01/12/20 04:43 Corrected Sodium 141 mmol/L (136-145) 01/12/20 04:43 Potassium 5.0 mmol/L (3.5-5.1) 01/12/20 04:43 Chloride 101 mmol/L (98-107) 01/12/20 04:43 Carbon Dioxide 28.4 mmol/L (21-32) 01/12/20 04:43 BUN 35 mg/dL (7-18) H 01/12/20 04:43 Creatinine 1.32 mg/dL (0.70-1.30) H 01/12/20 04:43 Est GFR (MDRD) Af Amer > 60 (>60) 01/12/20 04:43 Est GFR (MDRD) Non-Af 57 (>60) L 01/12/20 04:43 Glucose 253 mg/dL (65-99) H 01/12/20 04:43 POC Glucose (mg/dL) 198 mg/dL (65-99) H 01/12/20 11:43 Calcium 9.1 mg/dL (8.5-10.1) 01/12/20 04:43 Corrected Calcium 9.1 mg/dL (8.5-10.1) 01/06/20 10:05 Magnesium 2.1 mg/dL (1.7-2.9) 01/11/20 04:29 Total Bilirubin 0.40 mg/dL (0.2-1.0) 01/06/20 10:05 AST 58 Units/L (15-37) H 01/06/20 10:05 ALT 72 Units/L (12-78) 01/06/20 10:05 Alkaline Phosphatase 58 Units/L (46-116) 01/06/20 10:05 Creatine Kinase 69 Units/L (39-308) 01/06/20 10:05 CK-MB (CK-2) 1.3 ng/mL (0-4.0) 01/06/20 10:05 CK/CKMB % Calc 1.9 % (<4) 01/06/20 10:05 Troponin I 0.05 ng/mL (0-1.5) 01/06/20 10:05 C-Reactive Protein 14.90 mg/L (0-3.0) H 01/10/20 04:26 B-Natriuretic Peptide 121 pg/mL (0-79) H 01/06/20 10:05 Total Protein 6.4 g/dL (6.4-8.2) 01/06/20 10:05 Albumin 3.1 g/dL (3.4-5.0) L 01/06/20 10:05 Globulin 3.3 g/dL (2.5-4.5) 01/06/20 10:05 Albumin/Globulin Ratio 0.9 Ratio (1.1-2.1) L 01/06/20 10:05 SARS-CoV-2 (PCR) Positive (NEGATIVE) A 01/06/20 11:49 Blood Type O NEGATIVE 01/10/20 08:39 Plan (1) Acute on chronic respiratory failure with hypoxia: Status: Acute (2) COVID-19: Status: Acute (3) Acute on chronic renal failure: Status: Acute Qualifiers: Acute renal failure type: unspecified Chronic kidney disease stage: unspecified stage Qualified Code(s): N17.9 - Acute kidney failure, unspecified; N18.9 - Chronic kidney disease, unspecified (4) COPD exacerbation: Status: Acute (5) Pulmonary HTN: Status: Chronic (6) Hypotension: Status: Acute
[2020-01-12] MEDS: NORCO 7.5/325 MG TAB PO PRN (13:50)
[2020-01-12] MEDS: SYNTHROID 25 mcg TAB PO SCH (16:22)
[2020-01-12] MEDS: FLOMAX PO SCH (21:38)
[2020-01-12] MEDS: MIRAPEX TAB 0.25 MG PO SCH (21:39)
[2020-01-12] MEDS: SEROquel TAB 25 mg PO SCH (21:40)
[2020-01-12] MEDS: TRICOR TAB 160 MG PO SCH (21:41)
[2020-01-12] MEDS: ZOCOR TAB 10 MG PO SCH (21:42)
[2020-01-13] MEDS: NORCO 7.5/325 MG TAB PO PRN ×2 (01:35→21:00)
[2020-01-13 05:20] LABS: BASOPHILS % (AUTO) 0.1 % (0.2-1.0); HEMATOCRIT 42.9 % (42.0-54.0); HEMOGLOBIN 14.2 g/dL (13.5-18.0); LYMPHOCYTES # (AUTO) 0.7 X10^3/uL (1.3-2.9); LYMPHOCYTES % (AUTO) 3.4 % (21.0-51.0); MEAN CORPUSCULAR HEMOGLOBIN 28.7 pg (27.0-34.0); MEAN CORPUSCULAR HGB CONC 33.1 g/dL (33.0-35.0); MEAN CORPUSCULAR VOLUME 86.8 fL (80.0-100.0); MEAN PLATELET VOLUME 9.1 fL (7.4-11.0); MONOCYTES # (AUTO) 0.7 x10^3/uL (0.3-0.8); MONOCYTES % (AUTO) 3.7 % (0.0-13.0); NEUTROPHILS % (AUTO) 92.8 % (42.0-75.0); PLATELET COUNT 257 X10^3/uL (150.0-450.0); RED BLOOD COUNT 4.94 X10^6/uL (4.7-6.0); RED CELL DISTRIBUTION WIDTH 14.7 % (11.6-16.5); WHITE BLOOD COUNT 19.4 X10^3/uL (3.6-10.0)
[2020-01-13 05:23] LABS: BLOOD UREA NITROGEN 39 mg/dL (7-18); CALCIUM 9.1 mg/dL (8.5-10.1); CARBON DIOXIDE 29.9 mmol/L (21-32); CHLORIDE 102 mmol/L (98-107); COR NA(FOR HYPERGLY) 143 mmol/L (136-145); CREATININE 1.38 mg/dL (0.70-1.30); SODIUM 139 mmol/L (136-145); eGFR NON BLACK RACES 54 (>60)
[2020-01-13 06:04] LABS: BAND NEUTROPHILS % 2 % (0-10); PLATELET MORPHOLOGY COMMENT NORMAL (NORMAL)
[2020-01-13] MEDS: HumuLIN R SC PRN ×4 (06:45→21:00)
[2020-01-13] MEDS ORDERED: CHLORASEPTIC SPRAY MT PRN (08:32)
[2020-01-13] MEDS: PULMICORT NEB TX 0.5 MG NEB SCH ×2 (09:35→20:45)
[2020-01-13] MEDS: FERROUS GLUCONATE PO SCH ×2 (10:00→21:00)
[2020-01-13] MEDS: VITAMIN B COMPLEX PO SCH (10:00)
[2020-01-13] MEDS: LOPRESSOR TAB 25 MG PO SCH ×2 (10:00→21:00)
[2020-01-13] MEDS: ZITHROMAX INJ 500 MG VIAL 500 MG in NS 250 ML IV 250 ML IV SCH (10:00)
[2020-01-13] MEDS: PriLOSEC PO SCH (10:00)
[2020-01-13] MEDS: SINGULAIR TAB 10 MG PO SCH (10:00)
[2020-01-13] MEDS: VITAMIN A PO SCH (10:00)
[2020-01-13] MEDS: ZOSYN VIAL 3.375 GRAMS 3.375 G in NS 100 ML IV + SPIKE MINIBAG* 100 ML IV SCH ×3 (10:00→22:00)
[2020-01-13] MEDS: CELEXA PO SCH (10:00)
[2020-01-13] MEDS: ZESTRIL TAB 5 MG PO SCH (10:00)
[2020-01-13] MEDS: VITAMIN C PO SCH (10:00)
[2020-01-13] MEDS: SOLU-Medrol 40 MG VIAL IVP SCH ×2 (10:00→21:00)
[2020-01-13] MEDS: ELIQUIS PO SCH ×2 (10:00→21:00)
[2020-01-13] MEDS: VITAMIN D3 125 mcg (5,000 UNITS) PO SCH (10:00)
[2020-01-13] MEDS: CLARITIN PO SCH (10:00)
[2020-01-13] MEDS: ZINC SULFATE PO SCH ×2 (10:00→21:00)
[2020-01-13] MEDS: VISTARIL PO PRN ×2 (10:15→18:04)
[2020-01-13 10:18] LABS: ABG BASE EXCESS 3.5 mmol/L (-2.0-2.0); ABG HCO3 26.7 mmol/L (22-26)
[2020-01-13 10:20] LABS: ABG ALLEN TEST POS
[2020-01-13] MEDS: NS 1000 ML 1,000 ML IV SCH (10:59)
[2020-01-13] MEDS: ZOFRAN INJ 4 MG VIAL IVP PRN (13:26)
[2020-01-13] MEDS: XOPENEX 1.25 MG/3 ML NEBULE NEB SCH ×2 (13:40→20:45)
[2020-01-13] MEDS ORDERED: MORPHINE SULFATE INJ 2 MG INJ IVP PRN (15:29)
[2020-01-13] MEDS ORDERED: ATIVAN INJ 2 MG VIAL ONE (16:19)
[2020-01-13] MEDS: ATIVAN INJ 2 MG VIAL IVP SCH (16:53)
[2020-01-13] MEDS: SYNTHROID 25 mcg TAB PO SCH (16:54)
[2020-01-13] MEDS: MORPHINE SULFATE INJ 2 MG INJ IVP SCH (18:10)
[2020-01-13] MEDS: ZOCOR TAB 10 MG PO SCH (21:00)
[2020-01-13] MEDS: SEROquel TAB 25 mg PO SCH (21:00)
[2020-01-13] MEDS: TRICOR TAB 160 MG PO SCH (21:00)
[2020-01-13] MEDS: MIRAPEX TAB 0.25 MG PO SCH (21:00)
[2020-01-13] MEDS: FLOMAX PO SCH (21:00)
--- NOTE | 2020-01-13 22:07 | PCM.PROG ---
Progress Note Progress Note for Day of Date of Exam: 01/13/20 Subjective Subjective: Patient seen at bedside, no acute events overnight. He remains dependent on the BiPAP. Patient was tried to put on hi-flow but sats dropped to 70s and patient was hyperventilating with increase in RR and BP. He denies fever or chills. He has been getting IV Ativan for anxiety which has been helping. Labs: WBC: 19 BUN/Cr: 39/1.38 Plan: repeat ABG, try hi-flow again to see if patient can tolerate and able to eat. Increase IVF to 50cc/hr, switch abx to Zosyn and azithromax. Continue solu medrol. Awaiting 2nd plasma transfusion. Monitor AM labs. Patient remains in critical condition, discussed with patient and at bedside. Patient declined intubation and is DNR. He would like to continue with BiPAP for now. Past Medical Family Social History Past Med/Fam/Surg Hx: Changes noted (describe) Allergies: Allergies No Known Drug Allergies Allergy (Verified 01/06/20 09:51) Review of Systems ROS: No change since H&P Vital Signs and I&O's Vital Signs: Temperature 97.6 F Pulse Rate 72 Respiratory Rate 19 Blood Pressure [Right Arm] 140/89 Blood Pressure 157/75 O2 Sat by Pulse Oximetry 91 Intake and Output: Intake & Output 01/10/20 01/11/20 01/12/20 01/13/20 23:59 23:59 23:59 23:59 Intake Total 2250 / 2250 1862 / 1862 1126 / 1126 693 / 693 Output Total 1050 / 1050 900 / 900 Balance 2250 / 2250 812 / 812 226 / 226 693 / 693 Physical Exam Oriented: Normal Eyes: Normal Ear: Normal Nose: Normal Throat: Normal Respiratory: Generalized, Diminished and Rhonchi Cardiovascular: Normal; negative Edema Auscultation: Bowel Sounds: Normal Tenderness: Normal Skin: Normal Musculoskeletal: Normal Psychiatric: Normal Mood Description: Calm Affect: Normal Speech Pattern: Clear Laboratory and Diagnostics Result Diagrams: 01/14/20 04:23 01/14/20 04:23 Labs: Laboratory WBC 19.4 X10^3/uL (3.6-10.0) H 01/13/20 04:17 RBC 4.94 X10^6/uL (4.7-6.0) 01/13/20 04:17 Hgb 14.2 g/dL (13.5-18.0) 01/13/20 04:17 Hct 42.9 % (42.0-54.0) 01/13/20 04:17 MCV 86.8 fL (80.0-100.0) 01/13/20 04:17 MCH 28.7 pg (27.0-34.0) 01/13/20 04:17 MCHC 33.1 g/dL (33.0-35.0) 01/13/20 04:17 RDW 14.7 % (11.6-16.5) 01/13/20 04:17 Plt Count 257 X10^3/uL (150.0-450.0) 01/13/20 04:17 Plt Count Comment Adequate (ADEQUATE) 01/13/20 04:17 MPV 9.1 fL (7.4-11.0) 01/13/20 04:17 Neut % (Auto) 92.8 % (42.0-75.0) H 01/13/20 04:17 Lymph % (Auto) 3.4 % (21.0-51.0) L 01/13/20 04:17 [place] % (Auto) 3.7 % (0.0-13.0) 01/13/20 04:17 Eos % (Auto) 0.0 % (0.9-2.9) L 01/13/20 04:17 Baso % (Auto) 0.1 % (0.2-1.0) L 01/13/20 04:17 Neut # (Auto) 18.0 x10^3/uL (2.2-4.8) H 01/13/20 04:17 Lymph # (Auto) 0.7 X10^3/uL (1.3-2.9) L 01/13/20 04:17 [place] # (Auto) 0.7 x10^3/uL (0.3-0.8) 01/13/20 04:17 Eos # (Auto) 0.0 x10^3/uL (0.0-0.2) 01/13/20 04:17 Baso # (Auto) 0.0 X10^3/uL (0.0-0.1) 01/13/20 04:17 Absolute Nucleated RBC 0.0 /100WBC 01/13/20 04:17 Total Counted 100 01/13/20 04:17 Neutrophils % (Manual) 91 % (39-76) H 01/13/20 04:17 Band Neutrophils % 2 % (0-10) 01/13/20 04:17 Lymphocytes % (Manual) 5 % (13-43) L 01/13/20 04:17 Monocytes % (Manual) 2 % (4-9) L 01/13/20 04:17 Metamyelocytes % 4 01/12/20 04:43 Plt Morphology Comment Normal (NORMAL) 01/13/20 04:17 RBC Morphology Normal (NORMAL) 01/13/20 04:17 Sample Site Rr 01/13/20 10:13 ABG pH 7.490 (7.35-7.45) H 01/13/20 10:13 ABG pCO2 35.0 mmHg (35.0-45.0) 01/13/20 10:13 ABG pO2 44.0 mmHg (80.0-100.0) L* 01/13/20 10:13 ABG HCO3 26.7 mmol/L (22-26) H 01/13/20 10:13 ABG O2 Saturation 84.0 % (90-100) L* 01/13/20 10:13 ABG Base Excess 3.5 mmol/L (-2.0-2.0) H 01/13/20 10:13 Aris Test Pos 01/13/20 10:13 A-a Gradient 625.0 mmHg 01/13/20 10:13 FiO2 100.0 01/13/20 10:13 Blood Gas Comments Louisa well gmb 01/13/20 10:13 Sodium 139 mmol/L (136-145) 01/13/20 04:17 Corrected Sodium 143 mmol/L (136-145) 01/13/20 04:17 Potassium 4.8 mmol/L (3.5-5.1) 01/13/20 04:17 Chloride 102 mmol/L (98-107) 01/13/20 04:17 Carbon Dioxide 29.9 mmol/L (21-32) 01/13/20 04:17 BUN 39 mg/dL (7-18) H 01/13/20 04:17 Creatinine 1.38 mg/dL (0.70-1.30) H 01/13/20 04:17 Est GFR (MDRD) Af Amer > 60 (>60) 01/13/20 04:17 Est GFR (MDRD) Non-Af 54 (>60) L 01/13/20 04:17 Glucose 259 mg/dL (65-99) H 01/13/20 04:17 POC Glucose (mg/dL) 206 mg/dL (65-99) H 01/13/20 19:46 Calcium 9.1 mg/dL (8.5-10.1) 01/13/20 04:17 Corrected Calcium 9.1 mg/dL (8.5-10.1) 01/06/20 10:05 Magnesium 2.1 mg/dL (1.7-2.9) 01/11/20 04:29 Total Bilirubin 0.40 mg/dL (0.2-1.0) 01/06/20 10:05 AST 58 Units/L (15-37) H 01/06/20 10:05 ALT 72 Units/L (12-78) 01/06/20 10:05 Alkaline Phosphatase 58 Units/L (46-116) 01/06/20 10:05 Creatine Kinase 69 Units/L (39-308) 01/06/20 10:05 CK-MB (CK-2) 1.3 ng/mL (0-4.0) 01/06/20 10:05 CK/CKMB % Calc 1.9 % (<4) 01/06/20 10:05 Troponin I 0.05 ng/mL (0-1.5) 01/06/20 10:05 C-Reactive Protein 14.90 mg/L (0-3.0) H 01/10/20 04:26 B-Natriuretic Peptide 121 pg/mL (0-79) H 01/06/20 10:05 Total Protein 6.4 g/dL (6.4-8.2) 01/06/20 10:05 Albumin 3.1 g/dL (3.4-5.0) L 01/06/20 10:05 Globulin 3.3 g/dL (2.5-4.5) 01/06/20 10:05 Albumin/Globulin Ratio 0.9 Ratio (1.1-2.1) L 01/06/20 10:05 SARS-CoV-2 (PCR) Positive (NEGATIVE) A 01/06/20 11:49 Blood Type O NEGATIVE 01/10/20 08:39 Plan (1) Acute on chronic respiratory failure with hypoxia: Status: Acute (2) COVID-19: Status: Acute (3) Acute on chronic renal failure: Status: Acute Qualifiers: Acute renal failure type: unspecified Chronic kidney disease stage: unspecified stage Qualified Code(s): N17.9 - Acute kidney failure, unspecified; N18.9 - Chronic kidney disease, unspecified (4) COPD exacerbation: Status: Acute (5) Pulmonary HTN: Status: Chronic (6) Hypotension: Status: Acute
[2020-01-14] MEDS ORDERED: NS 250 ML IV 250 ML IV ONE (00:20)
[2020-01-14] MEDS: MORPHINE SULFATE INJ 2 MG INJ IVP SCH ×4 (03:36→22:00)
[2020-01-14] MEDS: ATIVAN INJ 2 MG VIAL IVP SCH ×4 (03:36→17:46)
[2020-01-14 05:25] LABS: BASOPHILS # (AUTO) 0.1 X10^3/uL (0.0-0.1); BASOPHILS % (AUTO) 0.4 % (0.2-1.0); EOSINOPHILS # (AUTO) 0.1 x10^3/uL (0.0-0.2); EOSINOPHILS % (AUTO) 0.4 % (0.9-2.9); HEMATOCRIT 41.8 % (42.0-54.0); HEMOGLOBIN 13.7 g/dL (13.5-18.0); LYMPHOCYTES # (AUTO) 0.6 X10^3/uL (1.3-2.9); LYMPHOCYTES % (AUTO) 2.8 % (21.0-51.0); MEAN CORPUSCULAR HEMOGLOBIN 28.8 pg (27.0-34.0); MEAN CORPUSCULAR HGB CONC 32.8 g/dL (33.0-35.0); MEAN CORPUSCULAR VOLUME 87.7 fL (80.0-100.0); MEAN PLATELET VOLUME 9.7 fL (7.4-11.0); MONOCYTES # (AUTO) 0.5 x10^3/uL (0.3-0.8); MONOCYTES % (AUTO) 2.3 % (0.0-13.0); NEUTROPHILS # (AUTO) 18.9 x10^3/uL (2.2-4.8); NEUTROPHILS % (AUTO) 94.1 % (42.0-75.0); PLATELET COUNT 256 X10^3/uL (150.0-450.0); RED BLOOD COUNT 4.77 X10^6/uL (4.7-6.0); RED CELL DISTRIBUTION WIDTH 14.6 % (11.6-16.5); WHITE BLOOD COUNT 20.1 X10^3/uL (3.6-10.0)
[2020-01-14] MEDS: XOPENEX 1.25 MG/3 ML NEBULE NEB SCH ×3 (05:45→21:53)
[2020-01-14 05:46] LABS: ALANINE AMINOTRANSFERASE 51 Units/L (12-78); ALBUMIN 3.2 g/dL (3.4-5.0); ALKALINE PHOSPHATASE 83 Units/L (46-116); ASPARTATE AMINO TRANSFERASE 38 Units/L (15-37); BLOOD UREA NITROGEN 40 mg/dL (7-18); CALCIUM 8.9 mg/dL (8.5-10.1); CARBON DIOXIDE 24.2 mmol/L (21-32); CHLORIDE 101 mmol/L (98-107); COR CA(FOR HYPOALB) 9.5 mg/dL (8.5-10.1); COR NA(FOR HYPERGLY) 140 mmol/L (136-145); CREATININE 1.22 mg/dL (0.70-1.30); MAGNESIUM 2.5 mg/dL (1.7-2.9); SODIUM 137 mmol/L (136-145); TOTAL PROTEIN 6.3 g/dL (6.4-8.2); eGFR NON BLACK RACES > 60 (>60)
[2020-01-14] MEDS: ZOSYN VIAL 3.375 GRAMS 3.375 G in NS 100 ML IV + SPIKE MINIBAG* 100 ML IV SCH ×3 (06:19→22:00)
[2020-01-14] MEDS: HumuLIN R SC PRN ×3 (06:20→16:50)
[2020-01-14 06:22] LABS: PLATELET MORPHOLOGY COMMENT NORMAL (NORMAL)
--- NOTE | 2020-01-14 08:33 | PCM.PROG ---
Progress Note Progress Note for Day of Date of Exam: 01/14/20 Subjective Subjective: Patient seen at bedside, he rested better last night. He is still BiPAP dependent. RT tried to switch him to hi-flow yesterday but patient was not able to tolerate that. He has been on continuous BiPAP. He has not eaten much for the past few days. He reports mild dry cough. He did have some nausea yesterday. Denies vomiting or diarrhea. He did receive another dose of plasma overnight. Labs: WBC: 20.1 BUN/Cr: 40/1.22 CRP: 1.48 K: 5.1 Plan: repeat ABG and CXR this morning, try hi-flow again this morning so patient can eat. Continue IV abx, switch to decadron. Will add D5 to IV fluids. Will hold lisinopril due to hyperkalemia. Continue breathing treatments. Continue scheduled ativan and morphine to help with air hunger and anxiety. Patient has been taking his oral medications. Completed course of Remdesivir. Received one dose of actemra. Has received 2 doses of convalescent plasma. Patient remains in critical condition. Discussed with patient and at bedside. Past Medical Family Social History Past Med/Fam/Surg Hx: Changes noted (describe) Allergies: Allergies No Known Drug Allergies Allergy (Verified 01/06/20 09:51) Review of Systems ROS: No change since H&P Vital Signs and I&O's Vital Signs: Temperature 98.3 F Pulse Rate 86 Respiratory Rate 32 Blood Pressure [Right Arm] 140/89 Blood Pressure 122/67 O2 Sat by Pulse Oximetry 86 Intake and Output: Intake & Output 01/11/20 01/12/20 01/13/20 01/14/20 23:59 23:59 23:59 23:59 Intake Total 1862 / 1862 1126 / 1126 1040 / 1040 178 / 178 Output Total 1050 / 1050 900 / 900 Balance 812 / 812 226 / 226 1040 / 1040 178 / 178 Physical Exam Oriented: Normal Eyes: Normal Ear: Normal Nose: Normal Throat: Normal Respiratory: Generalized and Diminished (slight improvement in air entry ) Cardiovascular: Normal; negative Edema Auscultation: Bowel Sounds: Normal Tenderness: Normal Skin: Normal Musculoskeletal: Normal Psychiatric: Normal Mood Description: Calm Affect: Normal Speech Pattern: Clear Laboratory and Diagnostics Result Diagrams: 01/14/20 04:23 01/14/20 04:23 Labs: Laboratory WBC 20.1 X10^3/uL (3.6-10.0) H 01/14/20 04:23 RBC 4.77 X10^6/uL (4.7-6.0) 01/14/20 04:23 Hgb 13.7 g/dL (13.5-18.0) 01/14/20 04:23 Hct 41.8 % (42.0-54.0) L 01/14/20 04:23 MCV 87.7 fL (80.0-100.0) 01/14/20 04:23 MCH 28.8 pg (27.0-34.0) 01/14/20 04:23 MCHC 32.8 g/dL (33.0-35.0) L 01/14/20 04:23 RDW 14.6 % (11.6-16.5) 01/14/20 04:23 Plt Count 256 X10^3/uL (150.0-450.0) 01/14/20 04:23 Plt Count Comment Adequate (ADEQUATE) 01/14/20 04:23 MPV 9.7 fL (7.4-11.0) 01/14/20 04:23 Neut % (Auto) 94.1 % (42.0-75.0) H 01/14/20 04:23 Lymph % (Auto) 2.8 % (21.0-51.0) L 01/14/20 04:23 Chambers % (Auto) 2.3 % (0.0-13.0) 01/14/20 04:23 Eos % (Auto) 0.4 % (0.9-2.9) L 01/14/20 04:23 Baso % (Auto) 0.4 % (0.2-1.0) 01/14/20 04:23 Neut # (Auto) 18.9 x10^3/uL (2.2-4.8) H 01/14/20 04:23 Lymph # (Auto) 0.6 X10^3/uL (1.3-2.9) L 01/14/20 04:23 Chambers # (Auto) 0.5 x10^3/uL (0.3-0.8) 01/14/20 04:23 Eos # (Auto) 0.1 x10^3/uL (0.0-0.2) 01/14/20 04:23 Baso # (Auto) 0.1 X10^3/uL (0.0-0.1) 01/14/20 04:23 Absolute Nucleated RBC 0.1 /100WBC 01/14/20 04:23 Total Counted 100 01/14/20 04:23 Neutrophils % (Manual) 87 % (39-76) H 01/14/20 04:23 Band Neutrophils % 2 % (0-10) 01/13/20 04:17 Lymphocytes % (Manual) 7 % (13-43) L 01/14/20 04:23 Monocytes % (Manual) 6 % (4-9) 01/14/20 04:23 Metamyelocytes % 4 01/12/20 04:43 Plt Morphology Comment Normal (NORMAL) 01/14/20 04:23 RBC Morphology Normal (NORMAL) 01/14/20 04:23 Sample Site Rr 01/13/20 10:13 ABG pH 7.490 (7.35-7.45) H 01/13/20 10:13 ABG pCO2 35.0 mmHg (35.0-45.0) 01/13/20 10:13 ABG pO2 44.0 mmHg (80.0-100.0) L* 01/13/20 10:13 ABG HCO3 26.7 mmol/L (22-26) H 01/13/20 10:13 ABG O2 Saturation 84.0 % (90-100) L* 01/13/20 10:13 ABG Base Excess 3.5 mmol/L (-2.0-2.0) H 01/13/20 10:13 Aris Test Pos 01/13/20 10:13 A-a Gradient 625.0 mmHg 01/13/20 10:13 FiO2 100.0 01/13/20 10:13 Blood Gas Comments [facility] 01/13/20 10:13 Sodium 137 mmol/L (136-145) 01/14/20 04:23 Corrected Sodium 140 mmol/L (136-145) 01/14/20 04:23 Potassium 5.1 mmol/L (3.5-5.1) 01/14/20 04:23 Chloride 101 mmol/L (98-107) 01/14/20 04:23 Carbon Dioxide 24.2 mmol/L (21-32) 01/14/20 04:23 BUN 40 mg/dL (7-18) H 01/14/20 04:23 Creatinine 1.22 mg/dL (0.70-1.30) 01/14/20 04:23 Est GFR (MDRD) Af Amer > 60 (>60) 01/14/20 04:23 Est GFR (MDRD) Non-Af > 60 (>60) 01/14/20 04:23 Glucose 230 mg/dL (65-99) H 01/14/20 04:23 POC Glucose (mg/dL) 206 mg/dL (65-99) H 01/14/20 05:37 Calcium 8.9 mg/dL (8.5-10.1) 01/14/20 04:23 Corrected Calcium 9.5 mg/dL (8.5-10.1) 01/14/20 04:23 Magnesium 2.5 mg/dL (1.7-2.9) 01/14/20 04:23 Total Bilirubin 1.00 mg/dL (0.2-1.0) 01/14/20 04:23 AST 38 Units/L (15-37) H 01/14/20 04:23 ALT 51 Units/L (12-78) 01/14/20 04:23 Alkaline Phosphatase 83 Units/L (46-116) 01/14/20 04:23 Creatine Kinase 69 Units/L (39-308) 01/06/20 10:05 CK-MB (CK-2) 1.3 ng/mL (0-4.0) 01/06/20 10:05 CK/CKMB % Calc 1.9 % (<4) 01/06/20 10:05 Troponin I 0.05 ng/mL (0-1.5) 01/06/20 10:05 C-Reactive Protein 1.40 mg/L (0-3.0) 01/14/20 04:23 B-Natriuretic Peptide 121 pg/mL (0-79) H 01/06/20 10:05 Total Protein 6.3 g/dL (6.4-8.2) L 01/14/20 04:23 Albumin 3.2 g/dL (3.4-5.0) L 01/14/20 04:23 Globulin 3.1 g/dL (2.5-4.5) 01/14/20 04:23 Albumin/Globulin Ratio 1.0 Ratio (1.1-2.1) L 01/14/20 04:23 SARS-CoV-2 (PCR) Positive (NEGATIVE) A 01/06/20 11:49 Blood Type O NEGATIVE 01/10/20 08:39 Plan (1) Acute on chronic respiratory failure with hypoxia: Status: Acute (2) COVID-19: Status: Acute (3) Acute on chronic renal failure: Status: Acute Qualifiers: Acute renal failure type: unspecified Chronic kidney disease stage: unspecified stage Qualified Code(s): N17.9 - Acute kidney failure, unspecified; N18.9 - Chronic kidney disease, unspecified (4) COPD exacerbation: Status: Acute (5) Pulmonary HTN: Status: Chronic (6) Hypotension: Status: Acute (7) Hyperkalemia: Status: Acute
[2020-01-14 08:54] LABS: ABG ALLEN TEST POS; ABG BASE EXCESS 0.2 mmol/L (-2.0-2.0); ABG HCO3 23.5 mmol/L (22-26)
[2020-01-14] MEDS: CLARITIN PO SCH (09:00)
[2020-01-14] MEDS: VITAMIN A PO SCH (09:00)
[2020-01-14] MEDS: ZITHROMAX INJ 500 MG VIAL 500 MG in NS 250 ML IV 250 ML IV SCH (09:00)
[2020-01-14] MEDS: FERROUS GLUCONATE PO SCH ×2 (09:00→21:00)
[2020-01-14] MEDS: SINGULAIR TAB 10 MG PO SCH (09:00)
[2020-01-14] MEDS: ZINC SULFATE PO SCH ×2 (09:00→21:00)
[2020-01-14] MEDS: ELIQUIS PO SCH ×2 (09:00→21:00)
[2020-01-14] MEDS: VITAMIN D3 125 mcg (5,000 UNITS) PO SCH (09:00)
[2020-01-14] MEDS: LOPRESSOR TAB 25 MG PO SCH ×2 (09:00→21:00)
[2020-01-14] MEDS: CELEXA PO SCH (09:00)
[2020-01-14] MEDS: PULMICORT NEB TX 0.5 MG NEB SCH ×2 (09:00→21:53)
[2020-01-14] MEDS: VITAMIN B COMPLEX PO SCH (09:00)
[2020-01-14] MEDS: VITAMIN C PO SCH (09:00)
[2020-01-14] MEDS: PriLOSEC PO SCH (09:00)
[2020-01-14] MEDS: DECADRON TAB PO SCH (09:00)
[2020-01-14] MEDS: D5 NS 1000 ML 1,000 ML IV SCH (10:23)
--- NOTE | 2020-01-14 11:54 | RAD ---
HISTORYCOVID+STUDYCHEST x-ray, 1 VIEWCOMPARISONX-ray 01/12/2020FINDINGSVague bilateral lung infiltrates are similar to prior study. These are likely superimposed upon COPD changes. Heart is normal in size. Possible tiny pleural effusions are present. No pneumothorax is seen.IMPRESSIONBilateral pneumonia is similar to prior study.Electronically signed by: Jarrett Dave (Jan 14, 2020 11:53:39)
[2020-01-14] MEDS: ZOFRAN INJ 4 MG VIAL IVP PRN (12:11)
[2020-01-14] MEDS: SYNTHROID 25 mcg TAB PO SCH (17:32)
[2020-01-14] MEDS: ZOCOR TAB 10 MG PO SCH (21:00)
[2020-01-14] MEDS: TRICOR TAB 160 MG PO SCH (21:00)
[2020-01-14] MEDS: FLOMAX PO SCH (21:00)
[2020-01-14] MEDS: SEROquel TAB 25 mg PO SCH (21:00)
[2020-01-14] MEDS: MIRAPEX TAB 0.25 MG PO SCH (21:00)
[2020-01-15] MEDS: ATIVAN INJ 2 MG VIAL IVP SCH ×4 (01:00→21:00)
[2020-01-15] MEDS: VISTARIL PO PRN (01:00)
[2020-01-15] MEDS: D5 NS 1000 ML 1,000 ML IV SCH ×2 (02:12→11:32)
[2020-01-15] MEDS: NORCO 7.5/325 MG TAB PO PRN (04:30)
[2020-01-15 04:55] LABS: BASOPHILS % (AUTO) 0.1 % (0.2-1.0); EOSINOPHILS # (AUTO) 0.1 x10^3/uL (0.0-0.2); EOSINOPHILS % (AUTO) 0.5 % (0.9-2.9); HEMATOCRIT 42.8 % (42.0-54.0); HEMOGLOBIN 13.9 g/dL (13.5-18.0); LYMPHOCYTES # (AUTO) 1.1 X10^3/uL (1.3-2.9); LYMPHOCYTES % (AUTO) 6.3 % (21.0-51.0); MEAN CORPUSCULAR HEMOGLOBIN 28.5 pg (27.0-34.0); MEAN CORPUSCULAR HGB CONC 32.5 g/dL (33.0-35.0); MEAN CORPUSCULAR VOLUME 87.8 fL (80.0-100.0); MEAN PLATELET VOLUME 9.5 fL (7.4-11.0); MONOCYTES # (AUTO) 0.8 x10^3/uL (0.3-0.8); MONOCYTES % (AUTO) 4.3 % (0.0-13.0); NEUTROPHILS % (AUTO) 88.8 % (42.0-75.0); PLATELET COUNT 233 X10^3/uL (150.0-450.0); RED BLOOD COUNT 4.87 X10^6/uL (4.7-6.0); RED CELL DISTRIBUTION WIDTH 14.4 % (11.6-16.5)
[2020-01-15 05:00] LABS: BLOOD UREA NITROGEN 38 mg/dL (7-18); CARBON DIOXIDE 31.7 mmol/L (21-32); CHLORIDE 102 mmol/L (98-107); COR NA(FOR HYPERGLY) 130 mmol/L (136-145); SODIUM 129 mmol/L (136-145); eGFR NON BLACK RACES 58 (>60)
[2020-01-15 05:38] LABS: PLATELET MORPHOLOGY COMMENT NORMAL (NORMAL)
[2020-01-15] MEDS: XOPENEX 1.25 MG/3 ML NEBULE NEB SCH ×5 (05:45→20:00)
[2020-01-15] MEDS: MORPHINE SULFATE INJ 2 MG INJ IVP SCH ×3 (06:47→22:00)
[2020-01-15] MEDS: ZOSYN VIAL 3.375 GRAMS 3.375 G in NS 100 ML IV + SPIKE MINIBAG* 100 ML IV SCH ×3 (06:48→21:00)
[2020-01-15] MEDS: PULMICORT NEB TX 0.5 MG NEB SCH ×2 (09:20→20:00)
[2020-01-15] MEDS: ZITHROMAX INJ 500 MG VIAL 500 MG in NS 250 ML IV 250 ML IV SCH (09:43)
[2020-01-15] MEDS: CELEXA PO SCH (09:43)
[2020-01-15] MEDS: ZINC SULFATE PO SCH ×2 (09:44→21:00)
[2020-01-15] MEDS: VITAMIN D3 125 mcg (5,000 UNITS) PO SCH (09:44)
[2020-01-15] MEDS: VITAMIN C PO SCH (09:45)
[2020-01-15] MEDS ORDERED: VITAMIN B-12 PO ONE (09:47)
[2020-01-15] MEDS: SINGULAIR TAB 10 MG PO SCH (09:47)
[2020-01-15] MEDS: FERROUS GLUCONATE PO SCH ×2 (09:48→21:00)
[2020-01-15] MEDS: VITAMIN B COMPLEX PO SCH (09:50)
[2020-01-15] MEDS: VITAMIN A PO SCH (09:51)
[2020-01-15] MEDS: ELIQUIS PO SCH ×2 (09:53→21:00)
[2020-01-15] MEDS: LOPRESSOR TAB 25 MG PO SCH ×2 (09:54→21:00)
[2020-01-15] MEDS: PriLOSEC PO SCH (09:54)
[2020-01-15] MEDS: CLARITIN PO SCH (09:54)
[2020-01-15] MEDS: DECADRON TAB PO SCH (09:56)
--- NOTE | 2020-01-15 10:59 | PCM.PROG ---
Progress Note Progress Note for Day of Date of Exam: 01/15/20 Subjective Subjective: Patient seen at bedside, he was slightly agitated last night due to BiPAP. He has been getting morphine and Ativan for anxiety and air hunger. He drank Ensure yesterday but has not eaten properly in days. He has been BiPAP dependent. RT tried to put him on hi-flow yesterday but again could not tolerate for more than 5 mins. His sats drop in the 70s off BiPAP. He has been afebrile. He has mild dry cough. Denies fever or chills. Denies N/V/D. Labs: WBC: 18 BUN/Cr: 38/1.3 CRP: 1.48 K: 5.1 Na: 130 ABG yesterday: 7.46/33/63/23.5 Plan: try hi-flow again this morning so patient can eat. Continue IV abx and decadron. Continue D5/NS fluids. Will hold lisinopril due to hyperkalemia. Cont inue breathing treatments. Continue scheduled ativan and morphine to help with air hunger and anxiety. Patient has been taking his oral medications. Completed course of Remdesivir. Received one dose of actemra. Has received 2 doses of convalescent plasma. Monitor AM labs. Patient remains in critical condition. Discussed with patient and at bedside. Past Medical Family Social History Past Med/Fam/Surg Hx: Changes noted (describe) Allergies: Allergies No Known Drug Allergies Allergy (Verified 01/06/20 09:51) Review of Systems ROS: No change since H&P Vital Signs and I&O's Vital Signs: Temperature 97.3 F Pulse Rate 87 Respiratory Rate 18 Blood Pressure [Right Arm] 140/89 Blood Pressure 106/71 O2 Sat by Pulse Oximetry 88 Intake and Output: Intake & Output 01/12/20 01/13/20 01/14/20 01/15/20 23:59 23:59 23:59 23:59 Intake Total 1126 / 1126 1040 / 1040 1118 / 1118 427 / 427 Output Total 900 / 900 Balance 226 / 226 1040 / 1040 1118 / 1118 427 / 427 Physical Exam Oriented: Normal Eyes: Normal Ear: Normal Nose: Normal Throat: Normal Respiratory: Generalized, Diminished and Wheezes Cardiovascular: Normal; negative Edema Auscultation: Bowel Sounds: Normal Tenderness: Normal Skin: Normal Musculoskeletal: Normal Psychiatric: Normal Mood Description: Calm Affect: Normal Speech Pattern: Clear Laboratory and Diagnostics Result Diagrams: 01/15/20 04:15 01/15/20 04:15 Labs: Laboratory WBC 18.0 X10^3/uL (3.6-10.0) H 01/15/20 04:15 RBC 4.87 X10^6/uL (4.7-6.0) 01/15/20 04:15 Hgb 13.9 g/dL (13.5-18.0) 01/15/20 04:15 Hct 42.8 % (42.0-54.0) 01/15/20 04:15 MCV 87.8 fL (80.0-100.0) 01/15/20 04:15 MCH 28.5 pg (27.0-34.0) 01/15/20 04:15 MCHC 32.5 g/dL (33.0-35.0) L 01/15/20 04:15 RDW 14.4 % (11.6-16.5) 01/15/20 04:15 Plt Count 233 X10^3/uL (150.0-450.0) 01/15/20 04:15 Plt Count Comment Adequate (ADEQUATE) 01/15/20 04:15 MPV 9.5 fL (7.4-11.0) 01/15/20 04:15 Neut % (Auto) 88.8 % (42.0-75.0) H 01/15/20 04:15 Lymph % (Auto) 6.3 % (21.0-51.0) L 01/15/20 04:15 [place] % (Auto) 4.3 % (0.0-13.0) 01/15/20 04:15 Eos % (Auto) 0.5 % (0.9-2.9) L 01/15/20 04:15 Baso % (Auto) 0.1 % (0.2-1.0) L 01/15/20 04:15 Neut # (Auto) 16.0 x10^3/uL (2.2-4.8) H 01/15/20 04:15 Lymph # (Auto) 1.1 X10^3/uL (1.3-2.9) L 01/15/20 04:15 [place] # (Auto) 0.8 x10^3/uL (0.3-0.8) 01/15/20 04:15 Eos # (Auto) 0.1 x10^3/uL (0.0-0.2) 01/15/20 04:15 Baso # (Auto) 0.0 X10^3/uL (0.0-0.1) 01/15/20 04:15 Absolute Nucleated RBC 0.1 /100WBC 01/15/20 04:15 Total Counted 100 01/15/20 04:15 Neutrophils % (Manual) 83 % (39-76) H 01/15/20 04:15 Band Neutrophils % 2 % (0-10) 01/13/20 04:17 Lymphocytes % (Manual) 13 % (13-43) 01/15/20 04:15 Monocytes % (Manual) 4 % (4-9) 01/15/20 04:15 Metamyelocytes % 4 01/12/20 04:43 Plt Morphology Comment Normal (NORMAL) 01/15/20 04:15 RBC Morphology Normal (NORMAL) 01/15/20 04:15 Sample Site Rr 01/14/20 08:49 ABG pH 7.460 (7.35-7.45) H 01/14/20 08:49 ABG pCO2 33.0 mmHg (35.0-45.0) L 01/14/20 08:49 ABG pO2 63.0 mmHg (80.0-100.0) L 01/14/20 08:49 ABG HCO3 23.5 mmol/L (22-26) 01/14/20 08:49 ABG O2 Saturation 93.0 % (90-100) 01/14/20 08:49 ABG Base Excess 0.2 mmol/L (-2.0-2.0) 01/14/20 08:49 Aris Test Pos 01/14/20 08:49 A-a Gradient 609.0 mmHg 01/14/20 08:49 FiO2 100.0 01/14/20 08:49 Blood Gas Comments Louisa well cdn 01/14/20 08:49 Sodium 129 mmol/L (136-145) L 01/15/20 04:15 Corrected Sodium 130 mmol/L (136-145) L 01/15/20 04:15 Potassium 5.1 mmol/L (3.5-5.1) 01/15/20 04:15 Chloride 102 mmol/L (98-107) 01/15/20 04:15 Carbon Dioxide 31.7 mmol/L (21-32) 01/15/20 04:15 BUN 38 mg/dL (7-18) H 01/15/20 04:15 Creatinine 1.30 mg/dL (0.70-1.30) 01/15/20 04:15 Est GFR (MDRD) Af Amer > 60 (>60) 01/15/20 04:15 Est GFR (MDRD) Non-Af 58 (>60) L 01/15/20 04:15 Glucose 161 mg/dL (65-99) H 01/15/20 04:15 POC Glucose (mg/dL) 172 mg/dL (65-99) H 01/14/20 19:43 Calcium 9.0 mg/dL (8.5-10.1) 01/15/20 04:15 Corrected Calcium 9.5 mg/dL (8.5-10.1) 01/14/20 04:23 Magnesium 2.5 mg/dL (1.7-2.9) 01/14/20 04:23 Total Bilirubin 1.00 mg/dL (0.2-1.0) 01/14/20 04:23 AST 38 Units/L (15-37) H 01/14/20 04:23 ALT 51 Units/L (12-78) 01/14/20 04:23 Alkaline Phosphatase 83 Units/L (46-116) 01/14/20 04:23 Creatine Kinase 69 Units/L (39-308) 01/06/20 10:05 CK-MB (CK-2) 1.3 ng/mL (0-4.0) 01/06/20 10:05 CK/CKMB % Calc 1.9 % (<4) 01/06/20 10:05 Troponin I 0.05 ng/mL (0-1.5) 01/06/20 10:05 C-Reactive Protein 1.40 mg/L (0-3.0) 01/14/20 04:23 B-Natriuretic Peptide 121 pg/mL (0-79) H 01/06/20 10:05 Total Protein 6.3 g/dL (6.4-8.2) L 01/14/20 04:23 Albumin 3.2 g/dL (3.4-5.0) L 01/14/20 04:23 Globulin 3.1 g/dL (2.5-4.5) 01/14/20 04:23 Albumin/Globulin Ratio 1.0 Ratio (1.1-2.1) L 01/14/20 04:23 SARS-CoV-2 (PCR) Positive (NEGATIVE) A 01/06/20 11:49 Blood Type O NEGATIVE 01/10/20 08:39 Plan (1) Acute on chronic respiratory failure with hypoxia: Status: Acute (2) COVID-19: Status: Acute (3) Acute on chronic renal failure: Status: Acute Qualifiers: Acute renal failure type: unspecified Chronic kidney disease stage: unspecified stage Qualified Code(s): N17.9 - Acute kidney failure, unspecified; N18.9 - Chronic kidney disease, unspecified (4) COPD exacerbation: Status: Acute (5) Pulmonary HTN: Status: Chronic (6) Hypotension: Status: Acute (7) Hyperkalemia: Status: Acute
[2020-01-15] MEDS: SYNTHROID 25 mcg TAB PO SCH (17:37)
[2020-01-15] MEDS: HumuLIN R SC PRN (17:40)
[2020-01-15] MEDS: FLOMAX PO SCH (21:00)
[2020-01-15] MEDS: RESTORIL CAP 15 MG PO SCH (21:00)
[2020-01-15] MEDS: MIRAPEX TAB 0.25 MG PO SCH (21:00)
[2020-01-15] MEDS: TRICOR TAB 160 MG PO SCH (21:00)
[2020-01-15] MEDS: SEROquel TAB 25 mg PO SCH (21:00)
[2020-01-15] MEDS: ZOCOR TAB 10 MG PO SCH (21:00)
[2020-01-16] MEDS: D5 NS 1000 ML 1,000 ML IV SCH ×3 (01:39→14:32)
[2020-01-16] MEDS: VISTARIL PO PRN ×3 (02:16→21:36)
[2020-01-16] MEDS: ATIVAN INJ 2 MG VIAL IVP SCH ×3 (05:00→23:59)
[2020-01-16] MEDS: XOPENEX 1.25 MG/3 ML NEBULE NEB SCH ×4 (05:18→21:50)
[2020-01-16 06:27] LABS: BASOPHILS % (AUTO) 0.2 % (0.2-1.0); EOSINOPHILS # (AUTO) 0.1 x10^3/uL (0.0-0.2); EOSINOPHILS % (AUTO) 0.5 % (0.9-2.9); HEMATOCRIT 44.3 % (42.0-54.0); HEMOGLOBIN 14.9 g/dL (13.5-18.0); LYMPHOCYTES # (AUTO) 0.9 X10^3/uL (1.3-2.9); LYMPHOCYTES % (AUTO) 5.3 % (21.0-51.0); MEAN CORPUSCULAR HEMOGLOBIN 29.3 pg (27.0-34.0); MEAN CORPUSCULAR HGB CONC 33.6 g/dL (33.0-35.0); MEAN CORPUSCULAR VOLUME 87.2 fL (80.0-100.0); MEAN PLATELET VOLUME 9.3 fL (7.4-11.0); MONOCYTES # (AUTO) 0.6 x10^3/uL (0.3-0.8); MONOCYTES % (AUTO) 3.9 % (0.0-13.0); NEUTROPHILS # (AUTO) 14.5 x10^3/uL (2.2-4.8); NEUTROPHILS % (AUTO) 90.1 % (42.0-75.0); PLATELET COUNT 215 X10^3/uL (150.0-450.0); RED BLOOD COUNT 5.08 X10^6/uL (4.7-6.0); RED CELL DISTRIBUTION WIDTH 14.3 % (11.6-16.5); WHITE BLOOD COUNT 16.1 X10^3/uL (3.6-10.0)
[2020-01-16 06:37] LABS: BLOOD UREA NITROGEN 28 mg/dL (7-18); CALCIUM 9.1 mg/dL (8.5-10.1); CARBON DIOXIDE 27.9 mmol/L (21-32); CHLORIDE 99 mmol/L (98-107); COR NA(FOR HYPERGLY) 137 mmol/L (136-145); CREATININE 1.17 mg/dL (0.70-1.30); SODIUM 135 mmol/L (136-145); eGFR NON BLACK RACES > 60 (>60)
[2020-01-16] MEDS: ZOSYN VIAL 3.375 GRAMS 3.375 G in NS 100 ML IV + SPIKE MINIBAG* 100 ML IV SCH ×3 (06:40→21:03)
[2020-01-16] MEDS: MORPHINE SULFATE INJ 2 MG INJ IVP SCH (06:41)
[2020-01-16 06:54] LABS: BAND NEUTROPHILS % 6 % (0-10); PLATELET MORPHOLOGY COMMENT NORMAL (NORMAL)
[2020-01-16] MEDS: PULMICORT NEB TX 0.5 MG NEB SCH ×2 (08:20→21:50)
[2020-01-16] MEDS: CELEXA PO SCH (08:30)
[2020-01-16] MEDS: DECADRON TAB PO SCH (08:31)
[2020-01-16] MEDS: CLARITIN PO SCH (08:31)
[2020-01-16] MEDS: PriLOSEC PO SCH (08:31)
[2020-01-16] MEDS: FERROUS GLUCONATE PO SCH ×2 (08:32→20:48)
[2020-01-16] MEDS: LOPRESSOR TAB 25 MG PO SCH ×2 (08:32→20:48)
[2020-01-16] MEDS: ELIQUIS PO SCH ×2 (08:32→20:46)
[2020-01-16] MEDS: SINGULAIR TAB 10 MG PO SCH (08:33)
[2020-01-16] MEDS: VITAMIN C PO SCH (08:33)
[2020-01-16] MEDS: VITAMIN A PO SCH (08:33)
[2020-01-16] MEDS: VITAMIN D3 125 mcg (5,000 UNITS) PO SCH (08:34)
[2020-01-16] MEDS: ZINC SULFATE PO SCH ×2 (08:34→20:51)
[2020-01-16] MEDS: ZITHROMAX INJ 500 MG VIAL 500 MG in NS 250 ML IV 250 ML IV SCH (08:35)
--- NOTE | 2020-01-16 11:04 | PCM.PROG ---
Progress Note Progress Note for Day of Date of Exam: 01/16/20 Subjective Subjective: Patient seen at bedside, reports having increased anxiety at night. He was able to get some rest after he for the Temazepam. He continues to be BiPAP dependent. He was tried to be placed on hi-flow several times yesterday but was not able to tolerate at all. Patient gets anxious, with increase in RR and HR, sats in low 70s. He has only eaten small bites all day. Denies fever or chills, minimal dry cough. Labs: WBC: 16 BUN/Cr: 28/1.17 CRP: 1.48 K: 4.4 Na: 137 Last AB.46/33/63/23.5 Plan: Will repeat CXR this morning, order another dose of plasma. Discussed patient's condition with patient and at bedside. Patient has been completed dependent on BiPAP for days, declined intubation. Discussed goals of care including comfort care. Will try hi-flow again today and see how patient tolerates. Will change morphine to q4hrs prn, continue Ativan. Completed course of Remdesivir. Received one dose of actemra. Has received 2 doses of convalescent plasma. Monitor AM labs. Patient remains in critical condition. Discussed with patient and at bedside. Past Medical Family Social History Past Med/Fam/Surg Hx: Changes noted (describe) Allergies: Allergies No Known Drug Allergies Allergy (Verified 01/06/20 09:51) Review of Systems ROS: No change since H&P Vital Signs and I&O's Vital Signs: Temperature 98.2 F Pulse Rate 85 Respiratory Rate 22 Blood Pressure [Right Arm] 140/89 Blood Pressure 126/76 O2 Sat by Pulse Oximetry 92 Intake and Output: Intake & Output 01/13/20 01/14/20 01/15/20 01/16/20 23:59 23:59 23:59 23:59 Intake Total 1040 / 1040 1118 / 1118 2672 / 2672 900 / 900 Balance 1040 / 1040 1118 / 1118 2672 / 2672 900 / 900 Physical Exam Oriented: Normal Eyes: Normal Ear: Normal Nose: Normal Throat: Normal Respiratory: Generalized and Diminished Cardiovascular: Normal; negative Edema Auscultation: Bowel Sounds: Normal Tenderness: Normal Skin: Normal Musculoskeletal: Normal Psychiatric: Normal Mood Description: Calm Affect: Normal Speech Pattern: Clear Laboratory and Diagnostics Result Diagrams: 01/16/20 05:50 01/16/20 05:50 Labs: Laboratory WBC 16.1 X10^3/uL (3.6-10.0) H 01/16/20 05:50 RBC 5.08 X10^6/uL (4.7-6.0) 01/16/20 05:50 Hgb 14.9 g/dL (13.5-18.0) 01/16/20 05:50 Hct 44.3 % (42.0-54.0) 01/16/20 05:50 MCV 87.2 fL (80.0-100.0) 01/16/20 05:50 MCH 29.3 pg (27.0-34.0) 01/16/20 05:50 MCHC 33.6 g/dL (33.0-35.0) 01/16/20 05:50 RDW 14.3 % (11.6-16.5) 01/16/20 05:50 Plt Count 215 X10^3/uL (150.0-450.0) 01/16/20 05:50 Plt Count Comment Adequate (ADEQUATE) 01/16/20 05:50 MPV 9.3 fL (7.4-11.0) 01/16/20 05:50 Neut % (Auto) 90.1 % (42.0-75.0) H 01/16/20 05:50 Lymph % (Auto) 5.3 % (21.0-51.0) L 01/16/20 05:50 [place] % (Auto) 3.9 % (0.0-13.0) 01/16/20 05:50 Eos % (Auto) 0.5 % (0.9-2.9) L 01/16/20 05:50 Baso % (Auto) 0.2 % (0.2-1.0) 01/16/20 05:50 Neut # (Auto) 14.5 x10^3/uL (2.2-4.8) H 01/16/20 05:50 Lymph # (Auto) 0.9 X10^3/uL (1.3-2.9) L 01/16/20 05:50 [place] # (Auto) 0.6 x10^3/uL (0.3-0.8) 01/16/20 05:50 Eos # (Auto) 0.1 x10^3/uL (0.0-0.2) 01/16/20 05:50 Baso # (Auto) 0.0 X10^3/uL (0.0-0.1) 01/16/20 05:50 Absolute Nucleated RBC 0.0 /100WBC 01/16/20 05:50 Total Counted 100 01/16/20 05:50 Neutrophils % (Manual) 84 % (39-76) H 01/16/20 05:50 Band Neutrophils % 6 % (0-10) 01/16/20 05:50 Lymphocytes % (Manual) 6 % (13-43) L 01/16/20 05:50 Monocytes % (Manual) 4 % (4-9) 01/16/20 05:50 Metamyelocytes % 4 01/12/20 04:43 Plt Morphology Comment Normal (NORMAL) 01/16/20 05:50 RBC Morphology Normal (NORMAL) 01/16/20 05:50 Sample Site Rr 01/14/20 08:49 ABG pH 7.460 (7.35-7.45) H 01/14/20 08:49 ABG pCO2 33.0 mmHg (35.0-45.0) L 01/14/20 08:49 ABG pO2 63.0 mmHg (80.0-100.0) L 01/14/20 08:49 ABG HCO3 23.5 mmol/L (22-26) 01/14/20 08:49 ABG O2 Saturation 93.0 % (90-100) 01/14/20 08:49 ABG Base Excess 0.2 mmol/L (-2.0-2.0) 01/14/20 08:49 Aris Test Pos 01/14/20 08:49 A-a Gradient 609.0 mmHg 01/14/20 08:49 FiO2 100.0 01/14/20 08:49 Blood Gas Comments Louisa well cdn 01/14/20 08:49 Sodium 135 mmol/L (136-145) L 01/16/20 05:50 Corrected Sodium 137 mmol/L (136-145) 01/16/20 05:50 Potassium 4.4 mmol/L (3.5-5.1) 01/16/20 05:50 Chloride 99 mmol/L (98-107) 01/16/20 05:50 Carbon Dioxide 27.9 mmol/L (21-32) 01/16/20 05:50 BUN 28 mg/dL (7-18) H 01/16/20 05:50 Creatinine 1.17 mg/dL (0.70-1.30) 01/16/20 05:50 Est GFR (MDRD) Af Amer > 60 (>60) 01/16/20 05:50 Est GFR (MDRD) Non-Af > 60 (>60) 01/16/20 05:50 Glucose 163 mg/dL (65-99) H 01/16/20 05:50 POC Glucose (mg/dL) 150 mg/dL (65-99) H 01/16/20 05:12 Calcium 9.1 mg/dL (8.5-10.1) 01/16/20 05:50 Corrected Calcium 9.5 mg/dL (8.5-10.1) 01/14/20 04:23 Magnesium 2.5 mg/dL (1.7-2.9) 01/14/20 04:23 Total Bilirubin 1.00 mg/dL (0.2-1.0) 01/14/20 04:23 AST 38 Units/L (15-37) H 01/14/20 04:23 ALT 51 Units/L (12-78) 01/14/20 04:23 Alkaline Phosphatase 83 Units/L (46-116) 01/14/20 04:23 Creatine Kinase 69 Units/L (39-308) 01/06/20 10:05 CK-MB (CK-2) 1.3 ng/mL (0-4.0) 01/06/20 10:05 CK/CKMB % Calc 1.9 % (<4) 01/06/20 10:05 Troponin I 0.05 ng/mL (0-1.5) 01/06/20 10:05 C-Reactive Protein 1.40 mg/L (0-3.0) 01/14/20 04:23 B-Natriuretic Peptide 121 pg/mL (0-79) H 01/06/20 10:05 Total Protein 6.3 g/dL (6.4-8.2) L 01/14/20 04:23 Albumin 3.2 g/dL (3.4-5.0) L 01/14/20 04:23 Globulin 3.1 g/dL (2.5-4.5) 01/14/20 04:23 Albumin/Globulin Ratio 1.0 Ratio (1.1-2.1) L 01/14/20 04:23 SARS-CoV-2 (PCR) Positive (NEGATIVE) A 01/06/20 11:49 Blood Type O NEGATIVE 01/10/20 08:39 Plan (1) Acute on chronic respiratory failure with hypoxia: Status: Acute (2) COVID-19: Status: Acute (3) Acute on chronic renal failure: Status: Acute Qualifiers: Acute renal failure type: unspecified Chronic kidney disease stage: unspecified stage Qualified Code(s): N17.9 - Acute kidney failure, unspecified; N18.9 - Chronic kidney disease, unspecified (4) COPD exacerbation: Status: Acute (5) Pulmonary HTN: Status: Chronic (6) Hypotension: Status: Acute (7) Hyperkalemia: Status: Acute (8) Pulmonary fibrosis: Status: Acute
[2020-01-16] MEDS: MORPHINE SULFATE INJ 2 MG INJ IVP PRN ×3 (11:45→20:35)
--- NOTE | 2020-01-16 16:34 | RAD ---
HISTORYCovid, hypoxiaSTUDYCHEST, 1 VIEWCOMPARISONPrevious chest radiograph from 01/14/2020FINDINGSMild cardiomegaly is again seen. Bibasilar pulmonary infiltrates are again noted. These findings have not changed significantly since the previous exam. Small effusion may be present on the right. Bony thorax is unremarkable.IMPRESSIONCardiomegaly with persistent bibasilar pulmonary infiltratesElectronically signed by: ELIZABETH REGAN (Jan 16, 2020 16:33:32)
[2020-01-16] MEDS: SYNTHROID 25 mcg TAB PO SCH (16:36)
[2020-01-16] MEDS: HumuLIN R SC PRN (16:37)
[2020-01-16] MEDS: VITAMIN B COMPLEX PO SCH (18:01)
[2020-01-16] MEDS: FLOMAX PO SCH (20:47)
[2020-01-16] MEDS: RESTORIL CAP 15 MG PO SCH (20:47)
[2020-01-16] MEDS: MIRAPEX TAB 0.25 MG PO SCH (20:48)
[2020-01-16] MEDS: ZOCOR TAB 10 MG PO SCH (20:48)
[2020-01-16] MEDS: SEROquel TAB 25 mg PO SCH (20:49)
[2020-01-16] MEDS: TRICOR TAB 160 MG PO SCH (20:50)
[2020-01-17] MEDS: MORPHINE SULFATE INJ 2 MG INJ IVP PRN ×2 (02:30→10:35)
[2020-01-17] MEDS: D5 NS 1000 ML 1,000 ML IV SCH ×2 (02:44→17:06)
[2020-01-17] MEDS ORDERED: ATIVAN INJ 2 MG VIAL IVP ONE (03:16)
[2020-01-17] MEDS ORDERED: MORPHINE SULFATE INJ 2 MG INJ IVP ONE (03:16)
[2020-01-17] MEDS: ZOSYN VIAL 3.375 GRAMS 3.375 G in NS 100 ML IV + SPIKE MINIBAG* 100 ML IV SCH (05:00)
[2020-01-17] MEDS: XOPENEX 1.25 MG/3 ML NEBULE NEB SCH ×4 (05:35→22:06)
[2020-01-17 06:56] LABS: BLOOD UREA NITROGEN 28 mg/dL (7-18); CARBON DIOXIDE 25.9 mmol/L (21-32); CHLORIDE 99 mmol/L (98-107); COR NA(FOR HYPERGLY) 135 mmol/L (136-145); CREATININE 1.16 mg/dL (0.70-1.30); SODIUM 134 mmol/L (136-145); eGFR NON BLACK RACES > 60 (>60)
[2020-01-17 07:03] LABS: BASOPHILS # (AUTO) 0.1 X10^3/uL (0.0-0.1); BASOPHILS % (AUTO) 0.5 % (0.2-1.0); EOSINOPHILS # (AUTO) 0.4 x10^3/uL (0.0-0.2); HEMATOCRIT 46.1 % (42.0-54.0); HEMOGLOBIN 15.4 g/dL (13.5-18.0); LYMPHOCYTES # (AUTO) 1.1 X10^3/uL (1.3-2.9); LYMPHOCYTES % (AUTO) 5.4 % (21.0-51.0); MEAN CORPUSCULAR HGB CONC 33.4 g/dL (33.0-35.0); MEAN CORPUSCULAR VOLUME 86.8 fL (80.0-100.0); MEAN PLATELET VOLUME 9.4 fL (7.4-11.0); MONOCYTES # (AUTO) 0.9 x10^3/uL (0.3-0.8); MONOCYTES % (AUTO) 4.4 % (0.0-13.0); NEUTROPHILS # (AUTO) 17.3 x10^3/uL (2.2-4.8); NEUTROPHILS % (AUTO) 87.7 % (42.0-75.0); PLATELET COUNT 213 X10^3/uL (150.0-450.0); RED BLOOD COUNT 5.31 X10^6/uL (4.7-6.0); RED CELL DISTRIBUTION WIDTH 14.5 % (11.6-16.5); WHITE BLOOD COUNT 19.8 X10^3/uL (3.6-10.0)
[2020-01-17 07:26] LABS: PLATELET MORPHOLOGY COMMENT NORMAL (NORMAL)
[2020-01-17] MEDS: FERROUS GLUCONATE PO SCH (08:10)
[2020-01-17] MEDS: VITAMIN A PO SCH (08:10)
[2020-01-17] MEDS: VITAMIN C PO SCH (08:10)
[2020-01-17] MEDS: VITAMIN B COMPLEX PO SCH (08:10)
[2020-01-17] MEDS: LOPRESSOR TAB 25 MG PO SCH ×2 (08:10→21:02)
[2020-01-17] MEDS: VITAMIN D3 125 mcg (5,000 UNITS) PO SCH (08:10)
[2020-01-17] MEDS: DECADRON TAB PO SCH (08:10)
[2020-01-17] MEDS: ZESTRIL TAB 5 MG PO SCH (08:10)
[2020-01-17] MEDS: CELEXA PO SCH (08:10)
[2020-01-17] MEDS: ELIQUIS PO SCH ×2 (08:10→21:00)
[2020-01-17] MEDS: ZINC SULFATE PO SCH (08:10)
[2020-01-17] MEDS: CLARITIN PO SCH (08:10)
[2020-01-17] MEDS: SINGULAIR TAB 10 MG PO SCH (08:10)
[2020-01-17] MEDS: PriLOSEC PO SCH (08:10)
[2020-01-17] MEDS ORDERED: ATIVAN INJ 2 MG VIAL IVP PRN (08:19)
[2020-01-17] MEDS: PULMICORT NEB TX 0.5 MG NEB SCH ×2 (08:45→22:06)
[2020-01-17] MEDS: ZITHROMAX INJ 500 MG VIAL 500 MG in NS 250 ML IV 250 ML IV SCH (09:23)
[2020-01-17] MEDS ORDERED: VERSED 100 MG in NS 100 ML IV 80 ML IV PRN (12:10)
[2020-01-17] MEDS: MORPHINE SULFATE PCA 30 MG IV PRN (12:35)
--- NOTE | 2020-01-17 13:05 | PCM.PROG ---
Progress Note Progress Note for Day of Date of Exam: 01/17/20 Subjective Subjective: Patient seen at bedside, overnight patient was anxious and agitated. RT tried to fix his mask as he said it was tight and made him uncomfortable. He was also getting tired being on the BiPAP so RT tried to put him on non- rebreather but patient could not tolerate it for more than a few mins. He started to hyperventilate and felt very SOB and uncomfortable, sats in the 70s. Patient was given extra dose of ativan and morphine and placed back on BiPAP. He was resting comfortably during my visit. He states he is worn out with the BiPAP. He states he feels weak as he is not able to eat much. His sats go down immediately as soon as the BiPAP is removed. Patient has been in the hospital for 12 days now and has been BiPAP dependent for days. Labs: WBC: 19.8 BUN/Cr: 28/1.16 CRP: 1.48 K: 4.5 Last AB.46/33/63/23.5 CXR yesterday shows no signicant change, persistent b/l infiltrates and chronic COPD changes. Plan: discussed goals of care with patient and . Discussed comfort care measures and hospice. states she did speak to her son and they would like to make sure patient is kept comfortable with medications. Discussed removal of BiPAP and comfort measures and focusing on quality of life. states she will discuss with her son. Will consult pharmacy to start DISPUTE COORDINATOR for better control of pain and anxiety medications. Patient will be getting continuous rate of morphine and Versed and can also press for break through needs. Will continue BiPAP as tolerated by the patient. Continue current treatment. Monitor AM labs. Patient has received 3 units of plasma therapy along with course of Remdesivir and one dose of Actemra. He has complted course of steroids with solumedrol and dexamethasone. Patient remains in critical condition, updated and answered all questions. Past Medical Family Social History Past Med/Fam/Surg Hx: Changes noted (describe) Allergies: Allergies No Known Drug Allergies Allergy (Verified 01/06/20 09:51) Review of Systems ROS: No change since H&P Vital Signs and I&O's Vital Signs: Temperature 97.8 F Pulse Rate 86 Respiratory Rate 24 Blood Pressure [Right Arm] 140/89 Blood Pressure 127/79 O2 Sat by Pulse Oximetry 97 Intake and Output: Intake & Output 01/14/20 01/15/20 01/16/20 01/17/20 23:59 23:59 23:59 23:59 Intake Total 1118 / 1118 2672 / 2672 2230 / 2230 500 / 500 Balance 1118 / 1118 2672 / 2672 2230 / 2230 500 / 500 Physical Exam Oriented: Normal Eyes: Normal Ear: Normal Nose: Normal Throat: Dry Respiratory: Generalized and Diminished Cardiovascular: Normal; negative Edema Auscultation: Bowel Sounds: Normal Tenderness: Normal Skin: Decreased [place] Musculoskeletal: Back:Lumbar and Back:Midline Psychiatric: Anxiety Mood Description: Anxious Affect: Anxious Speech Pattern: Clear, Appropriate and Artificially Ventilated (on Bipap ) Laboratory and Diagnostics Result Diagrams: 01/17/20 06:40 01/17/20 06:40 Labs: 01/15/20 09:14 Blood Blood Culture - Preliminary 01/15/20 09:05 Blood Blood Culture - Preliminary Laboratory WBC 19.8 X10^3/uL (3.6-10.0) H 01/17/20 06:40 RBC 5.31 X10^6/uL (4.7-6.0) 01/17/20 06:40 Hgb 15.4 g/dL (13.5-18.0) 01/17/20 06:40 Hct 46.1 % (42.0-54.0) 01/17/20 06:40 MCV 86.8 fL (80.0-100.0) 01/17/20 06:40 MCH 29.0 pg (27.0-34.0) 01/17/20 06:40 MCHC 33.4 g/dL (33.0-35.0) 01/17/20 06:40 RDW 14.5 % (11.6-16.5) 01/17/20 06:40 Plt Count 213 X10^3/uL (150.0-450.0) 01/17/20 06:40 Plt Count Comment Adequate (ADEQUATE) 01/17/20 06:40 MPV 9.4 fL (7.4-11.0) 01/17/20 06:40 Neut % (Auto) 87.7 % (42.0-75.0) H 01/17/20 06:40 Lymph % (Auto) 5.4 % (21.0-51.0) L 01/17/20 06:40 [place] % (Auto) 4.4 % (0.0-13.0) 01/17/20 06:40 Eos % (Auto) 2.0 % (0.9-2.9) 01/17/20 06:40 Baso % (Auto) 0.5 % (0.2-1.0) 01/17/20 06:40 Neut # (Auto) 17.3 x10^3/uL (2.2-4.8) H 01/17/20 06:40 Lymph # (Auto) 1.1 X10^3/uL (1.3-2.9) L 01/17/20 06:40 [place] # (Auto) 0.9 x10^3/uL (0.3-0.8) H 01/17/20 06:40 Eos # (Auto) 0.4 x10^3/uL (0.0-0.2) H 01/17/20 06:40 Baso # (Auto) 0.1 X10^3/uL (0.0-0.1) 01/17/20 06:40 Absolute Nucleated RBC 0.1 /100WBC 01/17/20 06:40 Total Counted 100 01/17/20 06:40 Neutrophils % (Manual) 82 % (39-76) H 01/17/20 06:40 Band Neutrophils % 6 % (0-10) 01/16/20 05:50 Lymphocytes % (Manual) 11 % (13-43) L 01/17/20 06:40 Monocytes % (Manual) 7 % (4-9) 01/17/20 06:40 Eosinophils % (Manual) Control Manager 01/17/20 06:40 Metamyelocytes % 4 01/12/20 04:43 Plt Morphology Comment Normal (NORMAL) 01/17/20 06:40 RBC Morphology Normal (NORMAL) 01/17/20 06:40 Sample Site Rr 01/14/20 08:49 ABG pH 7.460 (7.35-7.45) H 01/14/20 08:49 ABG pCO2 33.0 mmHg (35.0-45.0) L 01/14/20 08:49 ABG pO2 63.0 mmHg (80.0-100.0) L 01/14/20 08:49 ABG HCO3 23.5 mmol/L (22-26) 01/14/20 08:49 ABG O2 Saturation 93.0 % (90-100) 01/14/20 08:49 ABG Base Excess 0.2 mmol/L (-2.0-2.0) 01/14/20 08:49 Aris Test Pos 01/14/20 08:49 A-a Gradient 609.0 mmHg 01/14/20 08:49 FiO2 100.0 01/14/20 08:49 Blood Gas Comments Louisa well cdn 01/14/20 08:49 Sodium 134 mmol/L (136-145) L 01/17/20 06:40 Corrected Sodium 135 mmol/L (136-145) L 01/17/20 06:40 Potassium 4.5 mmol/L (3.5-5.1) 01/17/20 06:40 Chloride 99 mmol/L (98-107) 01/17/20 06:40 Carbon Dioxide 25.9 mmol/L (21-32) 01/17/20 06:40 BUN 28 mg/dL (7-18) H 01/17/20 06:40 Creatinine 1.16 mg/dL (0.70-1.30) 01/17/20 06:40 Est GFR (MDRD) Af Amer > 60 (>60) 01/17/20 06:40 Est GFR (MDRD) Non-Af > 60 (>60) 01/17/20 06:40 Glucose 144 mg/dL (65-99) H 01/17/20 06:40 POC Glucose (mg/dL) 135 mg/dL (65-99) H 01/17/20 10:39 Calcium 9.0 mg/dL (8.5-10.1) 01/17/20 06:40 Corrected Calcium 9.5 mg/dL (8.5-10.1) 01/14/20 04:23 Magnesium 2.5 mg/dL (1.7-2.9) 01/14/20 04:23 Total Bilirubin 1.00 mg/dL (0.2-1.0) 01/14/20 04:23 AST 38 Units/L (15-37) H 01/14/20 04:23 ALT 51 Units/L (12-78) 01/14/20 04:23 Alkaline Phosphatase 83 Units/L (46-116) 01/14/20 04:23 Creatine Kinase 69 Units/L (39-308) 01/06/20 10:05 CK-MB (CK-2) 1.3 ng/mL (0-4.0) 01/06/20 10:05 CK/CKMB % Calc 1.9 % (<4) 01/06/20 10:05 Troponin I 0.05 ng/mL (0-1.5) 01/06/20 10:05 C-Reactive Protein 1.40 mg/L (0-3.0) 01/14/20 04:23 B-Natriuretic Peptide 121 pg/mL (0-79) H 01/06/20 10:05 Total Protein 6.3 g/dL (6.4-8.2) L 01/14/20 04:23 Albumin 3.2 g/dL (3.4-5.0) L 01/14/20 04:23 Globulin 3.1 g/dL (2.5-4.5) 01/14/20 04:23 Albumin/Globulin Ratio 1.0 Ratio (1.1-2.1) L 01/14/20 04:23 SARS-CoV-2 (PCR) Positive (NEGATIVE) A 01/06/20 11:49 Blood Type O NEGATIVE 01/10/20 08:39 Plan (1) Acute on chronic respiratory failure with hypoxia: Status: Acute (2) COVID-19: Status: Acute (3) Acute on chronic renal failure: Status: Acute Qualifiers: Acute renal failure type: unspecified Chronic kidney disease stage: unspecified stage Qualified Code(s): N17.9 - Acute kidney failure, unspecified; N18.9 - Chronic kidney disease, unspecified (4) COPD exacerbation: Status: Acute (5) Pulmonary HTN: Status: Chronic (6) Hypotension: Status: Acute (7) Hyperkalemia: Status: Acute (8) Pulmonary fibrosis: Status: Acute
[2020-01-17] MEDS: SYNTHROID 25 mcg TAB PO SCH (17:05)
[2020-01-17] MEDS: TRICOR TAB 160 MG PO SCH (21:01)
[2020-01-17] MEDS: FLOMAX PO SCH (21:01)
[2020-01-17] MEDS: ZOCOR TAB 10 MG PO SCH (21:01)
[2020-01-17] MEDS: SEROquel TAB 25 mg PO SCH (21:01)
[2020-01-17] MEDS: MIRAPEX TAB 0.25 MG PO SCH (21:02)
[2020-01-17] MEDS: RESTORIL CAP 15 MG PO SCH (21:02)
[2020-01-18] MEDS: MORPHINE SULFATE PCA 30 MG IV PRN ×2 (00:40→10:45)
[2020-01-18 05:12] LABS: BASOPHILS # (AUTO) 0.1 X10^3/uL (0.0-0.1); BASOPHILS % (AUTO) 0.2 % (0.2-1.0); EOSINOPHILS # (AUTO) 0.4 x10^3/uL (0.0-0.2); EOSINOPHILS % (AUTO) 1.3 % (0.9-2.9); HEMATOCRIT 44.5 % (42.0-54.0); HEMOGLOBIN 14.6 g/dL (13.5-18.0); LYMPHOCYTES # (AUTO) 0.8 X10^3/uL (1.3-2.9); LYMPHOCYTES % (AUTO) 2.9 % (21.0-51.0); MEAN CORPUSCULAR HEMOGLOBIN 28.8 pg (27.0-34.0); MEAN CORPUSCULAR HGB CONC 32.8 g/dL (33.0-35.0); MEAN CORPUSCULAR VOLUME 87.8 fL (80.0-100.0); MEAN PLATELET VOLUME 9.7 fL (7.4-11.0); MONOCYTES # (AUTO) 1.4 x10^3/uL (0.3-0.8); MONOCYTES % (AUTO) 5.1 % (0.0-13.0); NEUTROPHILS # (AUTO) 25.1 x10^3/uL (2.2-4.8); NEUTROPHILS % (AUTO) 90.5 % (42.0-75.0); PLATELET COUNT 266 X10^3/uL (150.0-450.0); RED BLOOD COUNT 5.07 X10^6/uL (4.7-6.0); RED CELL DISTRIBUTION WIDTH 14.4 % (11.6-16.5); WHITE BLOOD COUNT 27.8 X10^3/uL (3.6-10.0)
[2020-01-18] MEDS: D5 NS 1000 ML 1,000 ML IV SCH (05:13)
[2020-01-18 05:19] LABS: CARBON DIOXIDE 25.2 mmol/L (21-32); CREATININE 1.47 mg/dL (0.70-1.30)
[2020-01-18] MEDS: XOPENEX 1.25 MG/3 ML NEBULE NEB SCH (06:00)
[2020-01-18 06:14] LABS: PLATELET MORPHOLOGY COMMENT NORMAL (NORMAL)
[2020-01-18] MEDS: CELEXA PO SCH (08:34)
[2020-01-18] MEDS ORDERED: TRANSDERM-SCOP TD SCH (09:00)
[2020-01-18] MEDS ORDERED: ATIVAN INJ 2 MG VIAL IVP ONE (10:33)
[2020-01-18] MEDS ORDERED: ATIVAN INJ 2 MG VIAL ONE (10:36)
--- NOTE | 2020-01-18 13:18 | PCM.PROG ---
Progress Note Progress Note for Day of Date of Exam: 01/18/20 Subjective Subjective: Patient was seen at bedside, remains on the BiPAP. His eyes are closed, nods to some questions. He was able to get some rest last night. He had episodes where he was pulling at the BiPAP mask so mask was replaced to make the patient feel better. Patient is drowsy and unable to take PO medications. Patient is now comfort care as per patient and families wishes. Patient did not eat anything yesterday. Labs: WBC: 27.8 BUN/Cr: 42/1.47 K: 5.0 Plan: continue comfort care measures, will increase morphine and versed infusions to 4 mg/hr. [employer] with morphine available at bedside if needed for breakthrough pain. Will give as needed ativan IV if patient shows signs of anxiety/distress. Add fentanyl patch and scopolamine patch. DC all oral medications as discussed with . Continue gentle hydration with IVF and D5. Oral mouth care prn, turn prn. states she will let us know when to remove BiPAP. Past Medical Family Social History Past Med/Fam/Surg Hx: Changes noted (describe) Allergies: Allergies No Known Drug Allergies Allergy (Verified 01/06/20 09:51) Review of Systems ROS: No change since H&P Vital Signs and I&O's Vital Signs: Temperature 97.1 F Pulse Rate 96 Respiratory Rate 16 Blood Pressure [Right Arm] 140/89 Blood Pressure 97/55 O2 Sat by Pulse Oximetry 80 Intake and Output: Intake & Output 01/15/20 01/16/20 01/17/20 01/18/20 23:59 23:59 23:59 23:59 Intake Total 2672 / 2672 2230 / 2230 1349 / 1349 65 / 65 Output Total 0 / 0 Balance 2672 / 2672 2230 / 2230 1349 / 1349 65 / 65 Physical Exam Oriented: Unable to test Eyes: Other (closed) Ear: Normal Nose: Normal Throat: Dry Respiratory: Generalized and Diminished Cardiovascular: Normal; negative Edema Auscultation: Bowel Sounds: Normal Tenderness: Normal Skin: Decreased Turgur Musculoskeletal: Back:Lumbar and Back:Midline Psychiatric: Anxiety Mood Description: Calm Affect: Normal Speech Pattern: Artificially Ventilated (on Bipap ) Laboratory and Diagnostics Result Diagrams: 01/18/20 04:45 01/18/20 04:45 Labs: 09/19/20 09:14 Blood Blood Culture - Preliminary 01/15/20 09:05 Blood Blood Culture - Preliminary Laboratory WBC 27.8 X10^3/uL (3.6-10.0) H D 01/18/20 04:45 RBC 5.07 X10^6/uL (4.7-6.0) 01/18/20 04:45 Hgb 14.6 g/dL (13.5-18.0) 01/18/20 04:45 Hct 44.5 % (42.0-54.0) 01/18/20 04:45 MCV 87.8 fL (80.0-100.0) 01/18/20 04:45 MCH 28.8 pg (27.0-34.0) 01/18/20 04:45 MCHC 32.8 g/dL (33.0-35.0) L 01/18/20 04:45 RDW 14.4 % (11.6-16.5) 01/18/20 04:45 Plt Count 266 X10^3/uL (150.0-450.0) 01/18/20 04:45 Plt Count Comment Adequate (ADEQUATE) 01/18/20 04:45 MPV 9.7 fL (7.4-11.0) 01/18/20 04:45 Neut % (Auto) 90.5 % (42.0-75.0) H 01/18/20 04:45 Lymph % (Auto) 2.9 % (21.0-51.0) L 01/18/20 04:45 [place] % (Auto) 5.1 % (0.0-13.0) 01/18/20 04:45 Eos % (Auto) 1.3 % (0.9-2.9) 01/18/20 04:45 Baso % (Auto) 0.2 % (0.2-1.0) 01/18/20 04:45 Neut # (Auto) 25.1 x10^3/uL (2.2-4.8) H 01/18/20 04:45 Lymph # (Auto) 0.8 X10^3/uL (1.3-2.9) L 01/18/20 04:45 [place] # (Auto) 1.4 x10^3/uL (0.3-0.8) H 01/18/20 04:45 Eos # (Auto) 0.4 x10^3/uL (0.0-0.2) H 01/18/20 04:45 Baso # (Auto) 0.1 X10^3/uL (0.0-0.1) 01/18/20 04:45 Absolute Nucleated RBC 0.2 /100WBC 01/18/20 04:45 Total Counted 100 01/18/20 04:45 Neutrophils % (Manual) 90 % (39-76) H 01/18/20 04:45 Band Neutrophils % 6 % (0-10) 01/16/20 05:50 Lymphocytes % (Manual) 4 % (13-43) L 01/18/20 04:45 Monocytes % (Manual) 6 % (4-9) 01/18/20 04:45 Eosinophils % (Manual) Senior Quality Technician 01/17/20 06:40 Metamyelocytes % 4 01/12/20 04:43 Plt Morphology Comment Normal (NORMAL) 01/18/20 04:45 RBC Morphology Normal (NORMAL) 01/18/20 04:45 Sample Site Rr 01/14/20 08:49 ABG pH 7.460 (7.35-7.45) H 01/14/20 08:49 ABG pCO2 33.0 mmHg (35.0-45.0) L 01/14/20 08:49 ABG pO2 63.0 mmHg (80.0-100.0) L 01/14/20 08:49 ABG HCO3 23.5 mmol/L (22-26) 01/14/20 08:49 ABG O2 Saturation 93.0 % (90-100) 01/14/20 08:49 ABG Base Excess 0.2 mmol/L (-2.0-2.0) 01/14/20 08:49 Aris Test Pos 01/14/20 08:49 A-a Gradient 609.0 mmHg 01/14/20 08:49 FiO2 100.0 01/14/20 08:49 Blood Gas Comments Louisa well cdn 01/14/20 08:49 Sodium 134 mmol/L (136-145) L 01/18/20 04:45 Corrected Sodium 135 mmol/L (136-145) L 01/18/20 04:45 Potassium 5.0 mmol/L (3.5-5.1) 01/18/20 04:45 Chloride 100 mmol/L (98-107) 01/18/20 04:45 Carbon Dioxide 25.2 mmol/L (21-32) 01/18/20 04:45 BUN 42 mg/dL (7-18) H 01/18/20 04:45 Creatinine 1.47 mg/dL (0.70-1.30) H 01/18/20 04:45 Est GFR (MDRD) Af Amer 60 (>60) 01/18/20 04:45 Est GFR (MDRD) Non-Af 50 (>60) L 01/18/20 04:45 Glucose 143 mg/dL (65-99) H 01/18/20 04:45 POC Glucose (mg/dL) 135 mg/dL (65-99) H 01/17/20 10:39 Calcium 9.0 mg/dL (8.5-10.1) 01/18/20 04:45 Corrected Calcium 9.5 mg/dL (8.5-10.1) 01/14/20 04:23 Magnesium 2.5 mg/dL (1.7-2.9) 01/14/20 04:23 Total Bilirubin 1.00 mg/dL (0.2-1.0) 01/14/20 04:23 AST 38 Units/L (15-37) H 01/14/20 04:23 ALT 51 Units/L (12-78) 01/14/20 04:23 Alkaline Phosphatase 83 Units/L (46-116) 01/14/20 04:23 Creatine Kinase 69 Units/L (39-308) 01/06/20 10:05 CK-MB (CK-2) 1.3 ng/mL (0-4.0) 01/06/20 10:05 CK/CKMB % Calc 1.9 % (<4) 01/06/20 10:05 Troponin I 0.05 ng/mL (0-1.5) 01/06/20 10:05 C-Reactive Protein 1.40 mg/L (0-3.0) 01/14/20 04:23 B-Natriuretic Peptide 121 pg/mL (0-79) H 01/06/20 10:05 Total Protein 6.3 g/dL (6.4-8.2) L 01/14/20 04:23 Albumin 3.2 g/dL (3.4-5.0) L 01/14/20 04:23 Globulin 3.1 g/dL (2.5-4.5) 01/14/20 04:23 Albumin/Globulin Ratio 1.0 Ratio (1.1-2.1) L 01/14/20 04:23 SARS-CoV-2 (PCR) Positive (NEGATIVE) A 01/06/20 11:49 Blood Type O NEGATIVE 01/10/20 08:39 Plan (1) Need for comfort care: Status: Acute (2) Acute on chronic respiratory failure with hypoxia: Status: Acute (3) BiPAP (biphasic positive airway pressure) dependence: Status: Acute (4) COVID-19: Status: Acute (5) Acute on chronic renal failure: Status: Acute Qualifiers: Acute renal failure type: unspecified Chronic kidney disease stage: unspecified stage Qualified Code(s): N17.9 - Acute kidney failure, unspecified; N18.9 - Chronic kidney disease, unspecified (6) COPD exacerbation: Status: Acute (7) Pulmonary HTN: Status: Chronic (8) Hypotension: Status: Acute (9) Hyperkalemia: Status: Acute (10) Pulmonary fibrosis: Status: Acute
[2020-01-18 13:52] VITALS: BP 73/48
--- NOTE | 2020-01-18 15:31 | W.DIS.FURT ---
Summary of Discharge Admission Diagnosis Patient Problems (Updated 01/18/20 @ 13:18 by Jackeline Jorgensen) BiPAP (biphasic positive airway pressure) dependence (Acute) Z99.89 Need for comfort care (Acute) Pulmonary fibrosis (Acute) J84.10 Hyperkalemia (Acute) E87.5 Hypotension (Acute) I95.9 Acute on chronic renal failure (Acute) N17.9, N18.9 COVID-19 (Acute) U07.1 COPD exacerbation (Acute) J44.1 Hypoxia (Acute) R09.02 Vital Signs: Vital Signs (72 hours) 01/15/20 16:00 01/15/20 17:00 01/15/20 18:00 Temperature 97.6 F Pulse Rate 70 75 91 H Respiratory Rate 22 17 17 Blood Pressure 129/60 111/74 112/85 O2 Sat by Pulse Oximetry 95 96 93 L 01/15/20 19:00 01/15/20 20:00 01/15/20 21:00 Temperature 97.9 F Pulse Rate 84 101 H 109 H Respiratory Rate 17 31 H Blood Pressure 125/78 136/94 O2 Sat by Pulse Oximetry 96 97 86 L 01/15/20 22:00 01/15/20 22:30 01/16/20 01:00 Temperature 98.6 F Pulse Rate 60 Respiratory Rate 18 18 16 Blood Pressure 130/82 O2 Sat by Pulse Oximetry 100 01/16/20 02:00 01/16/20 03:00 01/16/20 04:00 Temperature 98.2 F Pulse Rate 71 67 65 Respiratory Rate 31 H 21 21 Blood Pressure 120/81 116/72 133/82 O2 Sat by Pulse Oximetry 94 L 97 91 L 01/16/20 05:00 01/16/20 06:00 01/16/20 06:41 Temperature Pulse Rate 91 H 90 Respiratory Rate 33 H 28 H 19 Blood Pressure 142/83 126/76 O2 Sat by Pulse Oximetry 92 L 91 L 01/16/20 07:00 01/16/20 07:11 01/16/20 08:00 Temperature 97.4 F L Pulse Rate 86 92 H Respiratory Rate 26 H 22 26 H Blood Pressure 161/84 131/74 O2 Sat by Pulse Oximetry 97 88 L 01/16/20 08:20 01/16/20 09:00 01/16/20 10:00 Temperature Pulse Rate 85 87 76 Respiratory Rate 20 26 H Blood Pressure 131/74 101/58 O2 Sat by Pulse Oximetry 92 L 94 L 94 L 01/16/20 11:00 01/16/20 11:45 01/16/20 12:00 Temperature 97.5 F L Pulse Rate 70 77 Respiratory Rate 21 21 21 Blood Pressure 98/59 103/62 O2 Sat by Pulse Oximetry 97 97 01/16/20 12:15 01/16/20 13:00 01/16/20 14:00 Temperature Pulse Rate 73 76 Respiratory Rate 23 21 18 Blood Pressure 108/87 120/79 O2 Sat by Pulse Oximetry 93 L 100 01/16/20 14:30 01/16/20 15:00 01/16/20 16:00 Temperature 97.4 F L Pulse Rate 91 H 82 79 Respiratory Rate 21 19 Blood Pressure 116/77 127/82 O2 Sat by Pulse Oximetry 99 98 96 01/16/20 16:30 01/16/20 17:00 01/16/20 18:00 Temperature Pulse Rate 77 91 H Respiratory Rate 17 23 22 Blood Pressure 129/91 124/78 O2 Sat by Pulse Oximetry 97 97 01/16/20 19:14 01/16/20 19:54 01/16/20 20:00 Temperature 97.7 F Pulse Rate 88 71 71 Respiratory Rate 27 H 19 20 Blood Pressure 133/88 130/78 O2 Sat by Pulse Oximetry 89 L 97 100 01/16/20 20:35 01/16/20 21:00 01/16/20 21:05 Temperature Pulse Rate 83 Respiratory Rate 24 22 24 Blood Pressure 129/100 O2 Sat by Pulse Oximetry 96 01/16/20 21:17 01/16/20 21:50 01/16/20 22:00 Temperature Pulse Rate 84 77 73 Respiratory Rate 25 H 21 Blood Pressure 119/72 112/69 O2 Sat by Pulse Oximetry 96 99 99 01/16/20 23:00 01/17/20 00:00 01/17/20 01:00 Temperature 97.8 F Pulse Rate 64 60 66 Respiratory Rate 17 18 17 Blood Pressure 108/60 107/67 114/66 O2 Sat by Pulse Oximetry 100 96 97 01/17/20 02:00 01/17/20 02:01 01/17/20 02:30 Temperature Pulse Rate 78 78 Respiratory Rate 27 H 26 H 26 H Blood Pressure 126/77 O2 Sat by Pulse Oximetry 90 L 90 L 01/17/20 03:00 01/17/20 03:32 01/17/20 04:00 Temperature 97.8 F Pulse Rate 76 77 Respiratory Rate 23 24 18 Blood Pressure 128/83 123/77 O2 Sat by Pulse Oximetry 95 93 L 01/17/20 04:02 01/17/20 05:00 01/17/20 06:00 Temperature Pulse Rate 77 86 Respiratory Rate 22 17 24 Blood Pressure 125/85 127/79 O2 Sat by Pulse Oximetry 96 94 L 01/17/20 08:00 01/17/20 08:45 01/17/20 09:00 Temperature 97.4 F L Pulse Rate 81 86 94 H Respiratory Rate 18 23 Blood Pressure 120/86 163/92 O2 Sat by Pulse Oximetry 96 97 93 L 01/17/20 10:00 01/17/20 10:35 01/17/20 11:00 Temperature Pulse Rate 86 84 Respiratory Rate 22 22 24 Blood Pressure 119/70 122/79 O2 Sat by Pulse Oximetry 92 L 91 L 01/17/20 11:05 01/17/20 12:00 01/17/20 12:35 Temperature 97.0 F L Pulse Rate 71 Respiratory Rate 24 22 24 Blood Pressure 106/71 O2 Sat by Pulse Oximetry 97 01/17/20 13:00 01/17/20 13:05 01/17/20 14:00 Temperature Pulse Rate 66 83 Respiratory Rate 24 22 24 Blood Pressure 114/68 120/62 O2 Sat by Pulse Oximetry 95 96 01/17/20 14:15 01/17/20 15:00 01/17/20 16:00 Temperature 96.9 F L Pulse Rate 71 73 76 Respiratory Rate 22 14 Blood Pressure 113/77 115/70 O2 Sat by Pulse Oximetry 97 92 L 96 01/17/20 17:00 01/17/20 18:00 01/17/20 19:00 Temperature 97.6 F Pulse Rate 74 77 77 Respiratory Rate 12 24 26 H Blood Pressure 99/70 111/80 109/74 O2 Sat by Pulse Oximetry 96 93 L 94 L 01/17/20 20:00 01/17/20 20:01 01/17/20 21:00 Temperature Pulse Rate 73 73 73 Respiratory Rate 20 22 27 H Blood Pressure 127/72 119/74 O2 Sat by Pulse Oximetry 93 L 93 L 92 L 01/17/20 22:00 01/17/20 22:06 01/17/20 23:00 Temperature Pulse Rate 72 72 76 Respiratory Rate 12 9 L Blood Pressure 119/78 112/81 O2 Sat by Pulse Oximetry 91 L 91 L 89 L 01/18/20 00:00 01/18/20 00:40 01/18/20 01:00 Temperature Pulse Rate 78 79 Respiratory Rate 20 26 H 26 H Blood Pressure 105/73 O2 Sat by Pulse Oximetry 90 L 77 L 01/18/20 01:01 01/18/20 01:10 01/18/20 02:00 Temperature Pulse Rate 85 89 Respiratory Rate 23 24 19 Blood Pressure 127/71 107/57 O2 Sat by Pulse Oximetry 77 L 87 L 01/18/20 03:00 01/18/20 03:44 01/18/20 04:00 Temperature 97.7 F Pulse Rate 88 82 Respiratory Rate 11 L 14 Blood Pressure 99/66 85/59 O2 Sat by Pulse Oximetry 89 L 88 L 01/18/20 05:00 01/18/20 06:00 01/18/20 07:00 Temperature Pulse Rate 83 81 83 Respiratory Rate 12 14 12 Blood Pressure 88/58 85/59 93/54 O2 Sat by Pulse Oximetry 87 L 84 L 81 L 01/18/20 08:00 01/18/20 09:00 01/18/20 10:00 Temperature 97.1 F L Pulse Rate 82 96 H 100 H Respiratory Rate 18 14 28 H Blood Pressure 108/65 97/55 92/57 O2 Sat by Pulse Oximetry 71 L 80 L 61 L 01/18/20 10:45 01/18/20 11:00 01/18/20 11:15 Temperature Pulse Rate 121 H Respiratory Rate 16 15 16 Blood Pressure 79/54 O2 Sat by Pulse Oximetry 70 L 01/18/20 12:00 01/18/20 13:00 Temperature 97.8 F Pulse Rate 121 H 122 H Respiratory Rate 9 L 12 Blood Pressure 83/50 73/48 O2 Sat by Pulse Oximetry 75 L 82 L Labs: Laboratory Last Values WBC 27.8 X10^3/uL (3.6-10.0) H D 01/18/20 04:45 RBC 5.07 X10^6/uL (4.7-6.0) 01/18/20 04:45 Hgb 14.6 g/dL (13.5-18.0) 01/18/20 04:45 Hct 44.5 % (42.0-54.0) 01/18/20 04:45 MCV 87.8 fL (80.0-100.0) 01/18/20 04:45 MCH 28.8 pg (27.0-34.0) 01/18/20 04:45 MCHC 32.8 g/dL (33.0-35.0) L 01/18/20 04:45 RDW 14.4 % (11.6-16.5) 01/18/20 04:45 Plt Count 266 X10^3/uL (150.0-450.0) 01/18/20 04:45 Plt Count Comment Adequate (ADEQUATE) 01/18/20 04:45 MPV 9.7 fL (7.4-11.0) 01/18/20 04:45 Neut % (Auto) 90.5 % (42.0-75.0) H 01/18/20 04:45 Lymph % (Auto) 2.9 % (21.0-51.0) L 01/18/20 04:45 [place] % (Auto) 5.1 % (0.0-13.0) 01/18/20 04:45 Eos % (Auto) 1.3 % (0.9-2.9) 01/18/20 04:45 Baso % (Auto) 0.2 % (0.2-1.0) 01/18/20 04:45 Neut # (Auto) 25.1 x10^3/uL (2.2-4.8) H 01/18/20 04:45 Lymph # (Auto) 0.8 X10^3/uL (1.3-2.9) L 01/18/20 04:45 [place] # (Auto) 1.4 x10^3/uL (0.3-0.8) H 01/18/20 04:45 Eos # (Auto) 0.4 x10^3/uL (0.0-0.2) H 01/18/20 04:45 Baso # (Auto) 0.1 X10^3/uL (0.0-0.1) 01/18/20 04:45 Absolute Nucleated RBC 0.2 /100WBC 01/18/20 04:45 Total Counted 100 01/18/20 04:45 Neutrophils % (Manual) 90 % (39-76) H 01/18/20 04:45 Band Neutrophils % 6 % (0-10) 01/16/20 05:50 Lymphocytes % (Manual) 4 % (13-43) L 01/18/20 04:45 Monocytes % (Manual) 6 % (4-9) 01/18/20 04:45 Eosinophils % (Manual) Aerial Photographer 01/17/20 06:40 Metamyelocytes % 4 01/12/20 04:43 Plt Morphology Comment Normal (NORMAL) 01/18/20 04:45 RBC Morphology Normal (NORMAL) 01/18/20 04:45 Sample Site Rr 01/14/20 08:49 ABG pH 7.460 (7.35-7.45) H 01/14/20 08:49 ABG pCO2 33.0 mmHg (35.0-45.0) L 01/14/20 08:49 ABG pO2 63.0 mmHg (80.0-100.0) L 01/14/20 08:49 ABG HCO3 23.5 mmol/L (22-26) 01/14/20 08:49 ABG O2 Saturation 93.0 % (90-100) 01/14/20 08:49 ABG Base Excess 0.2 mmol/L (-2.0-2.0) 01/14/20 08:49 Aris Test Pos 01/14/20 08:49 A-a Gradient 609.0 mmHg 01/14/20 08:49 FiO2 100.0 01/14/20 08:49 Blood Gas Comments Louisa well cdn 01/14/20 08:49 Sodium 134 mmol/L (136-145) L 01/18/20 04:45 Corrected Sodium 135 mmol/L (136-145) L 01/18/20 04:45 Potassium 5.0 mmol/L (3.5-5.1) 01/18/20 04:45 Chloride 100 mmol/L (98-107) 01/18/20 04:45 Carbon Dioxide 25.2 mmol/L (21-32) 01/18/20 04:45 BUN 42 mg/dL (7-18) H 01/18/20 04:45 Creatinine 1.47 mg/dL (0.70-1.30) H 01/18/20 04:45 Est GFR (MDRD) Af Amer 60 (>60) 01/18/20 04:45 Est GFR (MDRD) Non-Af 50 (>60) L 01/18/20 04:45 Glucose 143 mg/dL (65-99) H 01/18/20 04:45 POC Glucose (mg/dL) 135 mg/dL (65-99) H 01/17/20 10:39 Calcium 9.0 mg/dL (8.5-10.1) 01/18/20 04:45 Corrected Calcium 9.5 mg/dL (8.5-10.1) 01/14/20 04:23 Magnesium 2.5 mg/dL (1.7-2.9) 01/14/20 04:23 Total Bilirubin 1.00 mg/dL (0.2-1.0) 01/14/20 04:23 AST 38 Units/L (15-37) H 01/14/20 04:23 ALT 51 Units/L (12-78) 01/14/20 04:23 Alkaline Phosphatase 83 Units/L (46-116) 01/14/20 04:23 Creatine Kinase 69 Units/L (39-308) 01/06/20 10:05 CK-MB (CK-2) 1.3 ng/mL (0-4.0) 01/06/20 10:05 CK/CKMB % Calc 1.9 % (<4) 01/06/20 10:05 Troponin I 0.05 ng/mL (0-1.5) 01/06/20 10:05 C-Reactive Protein 1.40 mg/L (0-3.0) 01/14/20 04:23 B-Natriuretic Peptide 121 pg/mL (0-79) H 01/06/20 10:05 Total Protein 6.3 g/dL (6.4-8.2) L 01/14/20 04:23 Albumin 3.2 g/dL (3.4-5.0) L 01/14/20 04:23 Globulin 3.1 g/dL (2.5-4.5) 01/14/20 04:23 Albumin/Globulin Ratio 1.0 Ratio (1.1-2.1) L 01/14/20 04:23 SARS-CoV-2 (PCR) Positive (NEGATIVE) A 01/06/20 11:49 Blood Type O NEGATIVE 01/10/20 08:39 Reason For Visit: COVID 19, HYPOXIA, COPD Discharge Diagnosis All Active Problems (Updated 01/18/20 @ 13:18 by Jackeline Jorgensen) BiPAP (biphasic positive airway pressure) dependence (Acute) Need for comfort care (Acute) Pulmonary fibrosis (Acute) Hyperkalemia (Acute) Hypotension (Acute) Acute on chronic renal failure (Acute) COVID-19 (Acute) Leukocytosis (Acute) COPD exacerbation (Acute) Acute on chronic respiratory failure with hypoxia (Acute) Hypoxia (Acute) RLL pneumonia (Acute) Pulmonary HTN (Chronic) CHF (congestive heart failure) (Chronic) COPD (chronic obstructive pulmonary disease) (Chronic) Plan of Treatment: Continue with present treatment and follow up plan. Pt is to keep follow up appointment as instructed and take medications as ordered. Discharge Medications Discharge Medications: No Known Drug Allergies Allergy (Verified 01/06/20 09:51) CONTINUE taking the following medications albuterol sulfate 1 puff INHALATION PRN PRN 01/06/20 [History] alprazolam [Xanax] 0.5 mg PO BID PRN 01/06/20 [History] budesonide-formoterol [Symbicort] 2 puff INHALATION BID 01/06/20 [History] fluticasone propionate [Flonase Allergy Relief] 1 spray INTRANASAL BID 01/06/20 [History] furosemide [Lasix] 20 mg PO DAILY PRN 01/06/20 [History] hydrocodone-acetaminophen [[place]] 7.5 tab PO PRN PRN 01/06/20 [History] ipratropium bromide 3 ml INHALATION TID PRN 01/06/20 [History] ipratropium-albuterol 3 ml INHALATION TID PRN 01/06/20 [History] levalbuterol HCl [Xopenex] 0.63 mg INHALATION TID PRN 01/06/20 [History] lisinopril 5 mg PO DAILY 01/06/20 [History] loratadine 10 mg PO DAILY 01/06/20 [History] montelukast [Singulair] 10 mg PO DAILY 01/06/20 [History] potassium chloride 10 meq PO DAILY 01/06/20 [History] quetiapine 25 mg PO HS 01/06/20 [History] saw palmetto 160 mg PO BID 01/06/20 [History] vit D3-vit [id number] 1 tab PO DAILY 01/06/20 [History] vitamin B complex [B Complex-Vitamin B12] 1 tab PO DAILY 01/06/20 [History]
== END 2020-01-18 14:05 | disposition expired | DRG 177 ==
LOC: ER 09:41 → ICU 13:21
PROVIDERS: ADMIT Internal Medicine; ATTEND Internal Medicine
DX: I46.8 Cardiac arrest due to other underlying condition; U07.1 COVID-19; Z99.81 Dependence on supplemental oxygen; J96.21 Acute and chronic respiratory failure with hypoxia; E87.5 Hyperkalemia; I27.20 Pulmonary hypertension, unspecified; J84.10 Pulmonary fibrosis, unspecified; J44.1 Chronic obstructive pulmonary disease with (acute) exacerbation; N17.8 Other acute kidney failure; E03.8 Other specified hypothyroidism; E11.65 Type 2 diabetes mellitus with hyperglycemia; N18.9 Chronic kidney disease, unspecified; I95.89 Other hypotension